=== PATIENT | male | born 1945 | race Caucasian/White ===

== ENCOUNTER → 2018-12-23 | Outpatient (CLI) | payer MEDICARE, OTHER ==
--- NOTE | 2018-12-23 14:03 | XR ---
EXAMINATION TYPE: XR skull limited DATE OF EXAM: 12/23/2018 COMPARISON: NONE HISTORY: Pre-MRI study, history of brain surgery 2014 TECHNIQUE: 2 view skull obtained. FINDINGS: There is left frontal parietal craniotomy plate. Deep to this there is small S-shaped stapl e noted on both projections. Location and etiology uncertain but should be correlated clinically with outside surgical note prior to performing MRI. IMPRESSION: As above.
== END | disposition home or self-care (01) ==
LOC: RADMRIMAIN 13:30
PROVIDERS: ATTEND Family Medicine
DX: M79.5 Residual foreign body in soft tissue (principal); Z98.890 Other specified postprocedural states
CPT/HCPCS: 70250

== ENCOUNTER → 2018-12-26 | Outpatient (CLI) | payer MEDICARE, OTHER ==
--- NOTE | 2018-12-26 16:19 | CT ---
EXAMINATION TYPE: CT lumbar spine wo con DATE OF EXAM: 12/26/2018 4:02 PM COMPARISON: MRI 01/05/2011 HISTORY: Low back pain x3 months. CT DLP: 1083.7 mGycm Automated exposure control for dose reduction was used. Unenhanced CT of the lumbar spine was performed. Bone and soft tissue window settings are submitted as well as coronal and sagittal reconstructions. There is a scoliotic curvature of the vertebral colu mn with severe degenerative disc disease L2-3 and L3-4 with vacuum disc. L1-L2: There is hypertrophic change of the facets. There is a moderate degenerative disc disease. Mil d left-sided foraminal encroachment. L2-L3: Hypertrophy of the facet joints appears to be diffuse disc bulging and uncovertebral spurring greater laterally to the right. There is mild to moderate left foraminal encroachment and severe righ t-sided foraminal encroachment. Significant canal stenosis suspected. L3-L4: Severe degenerative disc disease with hypertrophic change of the facet joints and ligamentum f lavum. There is bilateral significant foraminal encroachment and there is severe canal stenosis. Late ral recess stenosis bilaterally suspected. L4-L5: Degenerative disc disease with central disc protrusion. There is facet arthropathy and suspect ed bilateral lateral recess stenosis. Bilateral foraminal encroachment and significant canal stenosis . Significant thecal sac compression noted. L5-S1: Facet arthropathy and hypertrophic spurring. Neural foramina are patent. No Canal stenosis. Atherosclerotic change aorta. There is a chronic appearing deformity of the transverse process of L1. IMPRESSION: 1. Scoliosis with severe multilevel degenerative disc disease, multilevel facet arthropathy, multilev el foraminal encroachment and canal stenosis. There is multilevel disc bulging or protrusion. MRI is recommended. 2. Deformity of the right transverse process of L1 likely related to previous fracture. Less likely c ongenital correlate clinically.
== END | disposition home or self-care (01) ==
LOC: RADCTMAIN 15:37
PROVIDERS: ATTEND Family Medicine
DX: M48.061 Spinal stenosis, lumbar region without neurogenic claudication (principal); M51.16 Intervertebral disc disorders with radiculopathy, lumbar region; M46.96 Unspecified inflammatory spondylopathy, lumbar region; M41.86 Other forms of scoliosis, lumbar region
CPT/HCPCS: 72131

== ENCOUNTER → 2019-01-26 | Outpatient (CLI) | payer MEDICARE, OTHER ==
[2019-01-26 12:07] VITALS: BP 148/70; PULSE 60; RESP 16
--- NOTE | 2019-01-26 12:31 | P.PAINCN ---
History of Present Illness - Reason for Consult Consult date: 01/26/19 - Chief Complaint back pain - History of Present Illness Mr Juarez is a very pleasant 73-year-old gentleman who presents today as a new patient consult. His chief complaint is back pain. He reports that he has back pain shooting across his low back which comes and goes at times. He reports that the pain never persists for more than 5 or 10 minutes. He reports that recently he was putting weight to get is no sharp shooting pain down his left leg which causes leg to give out and made him fall. Was that the episode lasted a few minutes and then eventually went away. This event triggered him to see his primary care doctor ordered a computed tomography scan of his lumbar spine. He reports he stays very active and does not sit for very long throughout the day. He reports that his pain comes and goes at times but never persists so it's hard for him to quantify the pain. He denies any numbness or tingling in his lower extremities. He denies any bowel or bladder incontinence. Does have a history of memory impairment and appears to struggle with that a little bit. He does not use any medications. Does not use any [id number] medications. He has not had any back surgery. He has not been in physical therapy or sought out any insurance healthcare representative. His computed tomography scan was scanned into the system. Computed tomography scan shows significant spinal stenosis in the lumbar spine with multiple levels of degenerative changes. Past Medical History Past Medical History: Cancer, COPD, Diabetes Mellitus, GERD/Reflux, Hyperlipi demia, Hypertension, Memory Impairment, Sleep Apnea/CPAP/BIPAP Additional Past Medical History / Comment(s): C-PAP., BACK PAIN, SKIN CANCER, MEMORY PROBLEMS., HX OF LEAD POISONING WHILE WORKING AT [employer], History of Any Multi-Drug Resistant Organisms: None Reported Additional Past Surgical History / Comment(s): TORN LIGAMENT ARM., VASECTOMY, CATARACTS, FX ORBITAL SURGERY. Past Anesthesia/Blood Transfusion Reactions: No Reported Reaction, Motion Sickness Past Psychological History: No Psychological Hx Reported Smoking Status: Former smoker Past Alcohol Use History: None Reported Additional Past Alcohol Use History / Comment(s): QUIT SMOKING OCT 1969, SMOKED 1 PPD., STARTED SMOKING 7 YRS OLD AND QUIT STARTED SMOKING AGAIN 15 YRS OLD. Past Drug Use History: None Reported - Past Family History Mother Family Medical History: No Reported History Medications and Allergies Home Medications Medication Instructions Recorded Confirmed Type Ascorbic Acid [Vitamin C] 1,000 mg PO DAILY 01/22/19 01/22/19 History Atorvastatin [Lipitor] 20 mg PO HS 01/22/19 01/22/19 History Canagliflozin [Invokana] 100 mg PO DAILY 01/22/19 01/22/19 History Cholecalciferol [Vitamin D3] 6,000 unit PO DAILY 01/22/19 01/22/19 History Chromium Picolinate 500 mcg PO DAILY 01/22/19 01/22/19 History Cinnamon Bark [Cinnamon] 1,000 mg PO BID 01/22/19 01/22/19 History Empagliflozin/Metformin HCl 1 each PO DAILY 01/22/19 01/22/19 History [Synjardy 12.5-1,000 mg Tablet] Feverfew Supplement 380 mg PO DAILY 01/22/19 History Fluticasone Nasal Sod [Flonase 1 spray EA NOSTRIL DAILY 01/22/19 01/22/19 History Nasal Sod] Glucosam/Martin-Msm1/C/Juan/Bosw 1 each PO DAILY 01/22/19 01/22/19 History [Glucosamine-Chondroitin Tablet] Lisinopril [Zestril] 10 mg PO PC-SUPPER 01/22/19 01/22/19 History Loratadine/Pseudoephedrine 1 each PO DAILY 01/22/19 01/22/19 History [Loratadine-D 24Hr Tablet] Memantine HCl [Namenda Xr] 28 mg PO DAILY 01/22/19 01/22/19 History Metoprolol Succinate (ER) [Toprol 50 mg PO DAILY 01/22/19 01/22/19 History Xl] Montelukast [Singulair] 10 mg PO HS 01/22/19 01/22/19 History [place]-3 Fatty Acids/Fish Oil 1 each PO BID 01/22/19 01/22/19 History [[place]-3 Fish Oil 1,200 mg Sfgl] Omeprazole 20 mg PO BID 01/22/19 01/22/19 History Rivastigmine Tartrate [Exelon] 6 mg PO BID 01/22/19 01/22/19 History Saw Goodwell 450 mg PO DAILY 01/22/19 01/22/19 History Ubidecarenone [Co Q-10] 100 mg PO DAILY 01/22/19 01/22/19 History Vitamin B Complex 1 each PO DAILY 01/22/19 01/22/19 History Vitamin E (Dl,Tocopheryl Acet) 400 unit PO DAILY 01/22/19 01/22/19 History [Vitamin E] sitaGLIPtin [Januvia] 100 mg PO DAILY 01/22/19 01/22/19 History Allergies Allergy/AdvReac Type Severity Reaction Status Date / Time Penicillins Allergy Unknown Rash/Hives Verified 01/22/19 12:38 Physical Exam Vitals: Vital Signs Pulse Resp BP Pulse Ox 01/26/19 11:47 60 16 148/70 95 General: Awake and alert oriented 3 no distress Respiratory exam: No audible wheezing no accessory muscle usage Cardiovascular exam: regular rate, palpable bilateral pulses, no lower extremity edema Abdominal exam: No distention nontender to palpation, obese Cervical spine: Normal alignment, Spurling's negative, facet loading negative Lumbar spine: Loss of lumbar lordosis, evidence of scoliosis is noted, tender to palpation over bilateral paraspinal muscles, facet loading is negative bilaterally. Straight leg raise is negative. Sacroiliac joints: Nontender to palpation, PHAM is negative, Gaenselon negative Neuro exam: Normal sensation in bilateral upper extremities, deep tendon reflexes are 2+ bilateral upper extremities. Normal sensation in bilateral lower extremities. 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 He reports he had one episodes of sharp shooting pain down the leg. He denies any continued back pain throughout the day which limits him from any activity. He reports he stays active. At this point I do not believe that any intervention is necessary. I have advised him to trial [id number] medications if his pain gets to bother him. I also advised him to give me a call if his pain persists for longer than one day at that point he may require a lumbar epidural steroid injection or may require surgical care at some point. Patient will follow up with us as needed PQRS Measure Charge Sheet Measure #130: Documentation of Current Meds in Medical Chart: Patient's medications documented in chart Measure #226: Tobacco Use: Screen & Cessation Intervention: Pt not a tobacco user Measure #111: Pneumonia Vaccination: Pneumococcal vaccine administered or previously received Measure #47: Advance Care Plan: Advance care planning discussed & documented, plan or surrogate given Measure #412: Opioid Treatment Agreement: No documentation of signed opioid treatment agreement Measure #317: Preventitive Care & Scrn High Bld Press & F/U: Normal blood pressure, f/u not required Measure #128: Body Mass Index (BMI) Screening & Follow-up: BMI documented ABOVE normal parameters - f/u documented Measure #131: Pain Assessment & Follow-up: Pain positive & plan documented Measure #431: Unhealthy Alcohol Use Preventative Care & Scrn: Patient not identified as an unhealthy alcohol user PQRS Narrative: Smoking Status Former smoker Do You Want the Pneumonia Vaccine Up to Date Vaccine AT THIS TIME? Blood Pressure 148/70 Pain Intensity [Lower Back] 0 Scale Used Numeric (1 - 10) Hx Alcohol Use (MH) No Home Medications: Ambulatory Orders Ascorbic Acid [Vitamin C] 1,000 mg PO DAILY 01/22/19 Atorvastatin [Lipitor] 20 mg PO HS 01/22/19 Canagliflozin [Invokana] 100 mg PO DAILY 01/22/19 Cholecalciferol [Vitamin D3] 6,000 unit PO DAILY 01/22/19 Chromium Picolinate 500 mcg PO DAILY 01/22/19 Cinnamon Bark [Cinnamon] 1,000 mg PO BID 01/22/19 Empagliflozin/Metformin HCl [Synjardy 12.5-1,000 mg Tablet] 1 each PO DAILY 01/22/19 Feverfew Supplement 380 mg PO DAILY 01/22/19 Fluticasone Nasal Sod [Flonase Nasal Sod] 1 spray EA NOSTRIL DAILY 01/22/19 Glucosam/Martin-Msm1/C/Juan/Bosw [Glucosamine-Chondroitin Tablet] 1 each PO DAILY 01/22/19 Lisinopril [Zestril] 10 mg PO PC-SUPPER 01/22/19 Loratadine/Pseudoephedrine [Loratadine-D 24Hr Tablet] 1 each PO DAILY 01/22/19 Memantine HCl [Namenda Xr] 28 mg PO DAILY 01/22/19 Metoprolol Succinate (ER) [Toprol Xl] 50 mg PO DAILY 01/22/19 Montelukast [Singulair] 10 mg PO HS 01/22/19 [place]-3 Fatty Acids/Fish Oil [[place]-3 Fish Oil 1,200 mg Sfgl] 1 each PO BID Omeprazole 20 mg PO BID 01/22/19 Rivastigmine Tartrate [Exelon] 6 mg PO BID 01/22/19 Saw [place] 450 mg PO DAILY 01/22/19 Ubidecarenone [Co Q-10] 100 mg PO DAILY 01/22/19 Vitamin B Complex 1 each PO DAILY 01/22/19 Vitamin E (Dl,Tocopheryl Acet) [Vitamin E] 400 unit PO DAILY 01/22/19 sitaGLIPtin [Januvia] 100 mg PO DAILY 01/22/19
== END ==
LOC: PNWHC3 11:40
PROVIDERS: ATTEND Hospitalist
DX: M48.061 Spinal stenosis, lumbar region without neurogenic claudication (principal); M47.816 Spondylosis without myelopathy or radiculopathy, lumbar region; Z87.891 Personal history of nicotine dependence; Z79.899 Other long term (current) drug therapy; Z79.84 Long term (current) use of oral hypoglycemic drugs; Z88.0 Allergy status to penicillin
CPT/HCPCS: 99211

== ENCOUNTER 2023-11-12 06:48 | Inpatient (IN) | payer MEDICARE, OTHER ==
[2023-11-12] MEDS ORDERED: SODIUM CHLORIDE 0.9% 1,000 ML IV ONE (07:07)
[2023-11-12 07:25] LABS: INR 1.2 (<1.2); Partial Thromboplastin Time 27.7 sec (22.0-30.0); Prothrombin Time 12.5 sec (10.0-12.5)
--- NOTE | 2023-11-12 07:29 | ED ---
General Adult HPI - General Chief complaint: Fall Stated complaint: Fall Time Seen by Provider: 11/12/23 07:03 Source: patient, EMS, RN notes reviewed, old records reviewed Mode of arrival: EMS Limitations: altered mental status - History of Present Illness Initial comments: 78-year-old male presents with fall from bed. This was approximately 2 feet. Patient was placed in c-collar and transported by paramedics. He is complaining of right lateral chest wall pain, abdominal pain as well. History is limited in this patient is able to answer simple questions but is apparently not at his baseline mental status which is alert and oriented 4. - Related Data Home Medications Medication Instructions Recorded Confirmed Metoprolol Succinate (ER) [Toprol 50 mg PO BID 01/22/19 11/12/23 XL] lisinopriL [Zestril] 10 mg PO DAILY 01/22/19 11/12/23 sitaGLIPtin [Januvia] 100 mg PO DAILY 01/22/19 11/12/23 Aspirin 81 mg PO DAILY 07/09/23 11/12/23 Empagliflozin [Jardiance] 25 mg PO DAILY 07/09/23 11/12/23 Finasteride [Proscar] 5 mg PO DAILY 07/09/23 11/12/23 Memantine HCl [Namenda Xr] 21 mg PO DAILY@0800 07/09/23 11/12/23 metFORMIN HCL [Glucophage] 500 mg PO BID 07/09/23 11/12/23 Acetaminophen [Tylenol 8 Hour] 650 mg PO Q8H 11/12/23 11/12/23 Atorvastatin Calcium [Lipitor] 40 mg PO HS 11/12/23 11/12/23 Cyanocobalamin (Vitamin B-12) 1,000 mcg PO DAILY 11/12/23 11/12/23 [Vitamin B-12] Donepezil [Aricept] 5 mg PO HS 11/12/23 11/12/23 Ft Arthritis Pain 1% Gel 1 applic TOPICAL TID 11/12/23 11/12/23 Loperamide [Imodium] 2 - 4 mg PO QID PRN MDD 8 caps 11/12/23 11/12/23 Loratadine [Claritin] 10 mg PO DAILY 11/12/23 11/12/23 Pantoprazole [Protonix] 40 mg PO DAILY 11/12/23 11/12/23 polyethylene glycoL 3350 [Miralax] 17 gm PO DAILY 11/12/23 11/12/23 predniSONE 5 mg PO DAILY 11/12/23 11/12/23 Previous Rx's Medication Instructions Recorded Clopidogrel [Plavix] 75 mg PO DAILY tab 07/16/23 levETIRAcetam [Keppra] 500 mg PO Q12HR tab 07/16/23 Allergies Allergy/AdvReac Type Severity Reaction Status Date / Time Penicillins Allergy Unknown Rash/Hives Verified 11/12/23 08:50 Review of Systems ROS Statement: Those systems with pertinent positive or pertinent negative responses have been documented in the HPI. ROS Other: All systems not noted in ROS Statement are negative. Past Medical History Past Medical History: Cancer, COPD, Diabetes Mellitus, GERD/Reflux, Hyperlipidemia, Hypertension, Memory Impairment, Sleep Apnea/CPAP/BIPAP Additional Past Medical History / Comment(s): C-PAP., BACK PAIN, SKIN CANCER, MEMORY PROBLEMS., HX OF LEAD POISONING WHILE WORKING AT [employer] History of Any Multi-Drug Resistant Organisms: None Reported Additional Past Surgical History / Comment(s): TORN LIGAMENT ARM., VASECTOMY, CATARACTS, FX ORBITAL SURGERY. Past Anesthesia/Blood Transfusion Reactions: No Reported Reaction, Motion Sickness Past Psychological History: No Psychological Hx Reported Smoking Status: Former smoker Past Alcohol Use History: None Reported Past Drug Use History: None Reported - Past Family History Mother Family Medical History: No Reported History General Exam General appearance: alert, in no apparent distress Head exam: Present: atraumatic, normocephalic Eye exam: Present: normal appearance, PERRL ENT exam: Present: mucous membranes dry Neck exam: Present: normal inspection. Absent: tenderness, meningismus Respiratory exam: Present: normal lung sounds bilaterally, chest wall tenderness. Absent: respiratory distress, wheezes Cardiovascular Exam: Present: regular rate, normal rhythm GI/Abdominal exam: Present: soft, distended, tenderness (rt Upper quadrant). Absent: guarding, rebound Neurological exam: Present: alert. Absent: oriented X3, motor sensory deficit Psychiatric exam: Present: normal affect, normal mood Skin exam: Present: warm Course Vital Signs 11/12/23 11/12/23 06:51 08:33 Temperature 97.0 F L Pulse Rate 64 74 Respiratory 21 18 Rate Blood Pressure 172/93 193/84 O2 Sat by Pulse 97 95 Oximetry Medical Decision Making - Medical Decision Making Was pt. sent in by a medical professional or institution (, PA, TUBE BENDER, urgent care, hospital, or halfway...) When possible be specific @ -No Did you speak to anyone other than the patient for history (EMS, parent, family, police, friend...)? What history was obtained from this source @ -No Did you review nursing and triage notes (agree or disagree)? Why? @ -I reviewed and agree with nursing and triage notes Were old charts reviewed (outside hosp., previous admission, EMS record, old EKG, old radiological studies, urgent care reports/EKG's, halfway records)? Report findings @ -No old charts were reviewed Differential Diagnosis (chest pain, altered mental status, abdominal pain women, abdominal pain men, vaginal bleeding, weakness, fever, dyspnea, syncope, headache, dizziness, GI bleed, back pain, seizure, CVA, palpatations, mental health, musculoskeletal)? @ -Differential Abdominal Pain Men: Appendicitis, cholecystitis, diverticulosis, ischemic bowel, pancreatitis, hepatitis, UTI, gastroenteritis, AAA, incarcerated hernia, bowel obstruction, constipation, inflammatory bowel, hepatitis, peptic ulcer disease, splenic infarction, perforated viscus, testicular torsion, this is not meant to be an all-inclusive list EKG interpreted by me (3pts min.). @ Sinus rhythm rate of 62, NJ interval 176, QRS duration 93, QTC [address] segment elevation X-rays interpreted by me (1pt min.). @ -None done CT interpreted by me (1pt min.). @ -CT brain with chronic changes, no acute change, no intracranial hemorrhage, CT cervical spine negative for fracture subluxation. CT of the chest and pelvis showing an inflamed gallbladder which is consistent with acute cholecystitis. U/S interpreted by me (1pt. min.). @ -None done What testing was considered but not performed or refused? (CT, X-rays, U/S, labs)? Why? @ -None What meds were considered but not given or refused? Why? @ -None Did you discuss the management of the patient with other professionals (professionals i.e. , PA, TUBE BENDER, lab, RT, psych nurse, socially responsible investment adviser, sawdust machine operator, teacher, traffic officer, case reviewer)? Give summary @ -[gen surgery and sound physician group Was smoking cessation discussed for >3mins.? @ -No Was critical care preformed (if so, how long)? @ -No Were there social determinants of health that impacted care today? How? (Homelessness, low income, unemployed, alcoholism, drug addiction, transportation, low edu. Level, literacy, decrease access to med. care, care home, rehab)? @ -No Was there de-escalation of care discussed even if they declined (Discuss DNR or withdrawal of care, Hospice)? DNR status @ -No What co-morbidities impacted this encounter? (DM, HTN, Smoking, COPD, CAD, Cancer, CVA, ARF, Chemo, Hep., AIDS, mental health diagnosis, sleep apnea, morbid obesity)? @ Dementia, hypertension Was patient admitted / discharged? Hospital course, mention meds given and route, prescriptions, significant lab abnormalities, going to OR and other pertinent info. @ 78-year-old male with fall from bed. Patient was transported by paramedics, his vital signs stable with hypertension. Brain CT and cervical spine negative for acute traumatic injury. I did obtain CT imaging of both the chest abdomen pelvis given both the fall and his abdominal pain on exam. He has signs of acute cholecystitis and significantly elevated white blood cell count and lactic acid. White blood cell count was 33. Lactic acid is 5.8. He has normal liver enzyme levels. Cultures pending, IV antibiotics initiated in the emergency department. I did discuss case with Dr. Cui, who requests admission to internal medicine with both himself and infectious disease on consult. Undiagnosed new problem with uncertain prognosis? @ -No Drug Therapy requiring intensive monitoring for toxicity (Heparin, Nitro, Insulin, Cardizem)? @ -No Were any procedures done? @ -No Diagnosis/symptom? @ -Acute cholecystitis, sepsis Acute, or Chronic, or Acute on Chronic? @ acute Uncomplicated (without systemic symptoms) or Complicated (systemic symptoms)? @ -complicated Side effects of treatment? @ -No Exacerbation, Progression, or Severe Exacerbation? @ -No Poses a threat to life or bodily function? How? (Chest pain, USA, SC, pneumonia, PE, COPD, DKA, ARF, appy, cholecystitis, CVA, Diverticulitis, Homicidal, Suicidal, threat to staff... and all critical care pts) @ -[yes, sepsis - Lab Data Result diagrams: 01/16/24 07:08 11/12/23 07:08 Lab Results 11/12/23 11/12/23 11/12/23 Range/Units 07:08 07:08 07:08 WBC 33.7 H (3.8-10.6) k/uL RBC 5.71 (4.30-5.90) m/uL Hgb 17.9 H (13.0-17.5) gm/dL Hct 52.2 (39.0-53.0) % MCV 91.3 (80.0-100.0) fL MCH 31.2 (25.0-35.0) pg MCHC 34.2 (31.0-37.0) g/dL RDW 13.8 (11.5-15.5) % Plt Count 184 (150-450) k/uL MPV 7.2 Neutrophils % (Manual) 92 % Lymphocytes % (Manual) 4 % Monocytes % (Manual) 4 % Neutrophils # (Manual) 31.00 H (1.3-7.7) k/uL Lymphocytes # (Manual) 1.35 (1.0-4.8) k/uL Monocytes # (Manual) 1.35 H (0-1.0) k/uL Nucleated RBCs 0 (0-0) /100 WBC Manual Slide Review Performed PT 12.5 (10.0-12.5) sec INR 1.2 H (<1.2) APTT 27.7 (22.0-30.0) sec Sodium 140 (137-145) mmol/L Potassium 4.5 (3.5-5.1) mmol/L Chloride 104 (98-107) mmol/L Carbon Dioxide 21 L (22-30) mmol/L Anion Gap 15 mmol/L BUN 13 (9-20) mg/dL Creatinine 0.66 (0.66-1.25) mg/dL Est GFR (CKD-EPI)AfAm >90 (>60 ml/min/1.73 sqM) Est GFR (CKD-EPI)NonAf >90 (>60 ml/min/1.73 sqM) Glucose 221 H (74-99) mg/dL Plasma Lactic Acid Zeb (0.7-2.0) mmol/L Calcium 10.3 H (8.4-10.2) mg/dL Magnesium 1.5 L (1.6-2.3) mg/dL Total Bilirubin 1.4 H (0.2-1.3) mg/dL AST 38 (17-59) U/L ALT 45 (4-49) U/L Alkaline Phosphatase 96 (38-126) U/L Total Protein 7.6 (6.3-8.2) g/dL Albumin 4.3 (3.5-5.0) g/dL Urine Color Urine Appearance (Clear) Urine pH (5.0-8.0) Ur Specific [place] (1.001-1.035) Urine Protein (Negative) Urine Glucose (UA) (Negative) Urine Ketones (Negative) Urine Blood (Negative) Urine Nitrite (Negative) Urine Bilirubin (Negative) Urine Urobilinogen (<2.0) mg/dL Ur Leukocyte Esterase (Negative) Urine RBC (0-5) /hpf Urine WBC (0-5) /hpf Ur Squamous Epith Cells (0-4) /hpf Hyaline Casts (0-2) /lpf Urine Mucus (None) /hpf Influenza Type A (PCR) (Not Detectd) Influenza Type B (PCR) (Not Detectd) RSV (PCR) (Not Detectd) SARS-CoV-2 (PCR) (Not Detectd) 11/12/23 11/12/23 11/12/23 Range/Units 07:08 08:20 08:20 WBC (3.8-10.6) k/uL RBC (4.30-5.90) m/uL Hgb (13.0-17.5) gm/dL Hct (39.0-53.0) % MCV (80.0-100.0) fL MCH (25.0-35.0) pg MCHC (31.0-37.0) g/dL RDW (11.5-15.5) % Plt Count (150-450) k/uL MPV Neutrophils % (Manual) % Lymphocytes % (Manual) % Monocytes % (Manual) % Neutrophils # (Manual) (1.3-7.7) k/uL Lymphocytes # (Manual) (1.0-4.8) k/uL Monocytes # (Manual) (0-1.0) k/uL Nucleated RBCs (0-0) /100 WBC Manual Slide Review PT (10.0-12.5) sec INR (<1.2) APTT (22.0-30.0) sec Sodium (137-145) mmol/L Potassium (3.5-5.1) mmol/L Chloride (98-107) mmol/L Carbon Dioxide (22-30) mmol/L Anion Gap mmol/L BUN (9-20) mg/dL Creatinine (0.66-1.25) mg/dL Est GFR (CKD-EPI)AfAm (>60 ml/min/1.73 sqM) Est GFR (CKD-EPI)NonAf (>60 ml/min/1.73 sqM) Glucose (74-99) mg/dL Plasma Lactic Acid Zeb 5.8 H* (0.7-2.0) mmol/L Calcium (8.4-10.2) mg/dL Magnesium (1.6-2.3) mg/dL Total Bilirubin (0.2-1.3) mg/dL AST (17-59) U/L ALT (4-49) U/L Alkaline Phosphatase (38-126) U/L Total Protein (6.3-8.2) g/dL Albumin (3.5-5.0) g/dL Urine Color Yellow Urine Appearance Clear (Clear) Urine pH 6.0 (5.0-8.0) Ur Specific [place] 1.045 H (1.001-1.035) Urine Protein 1+ H (Negative) Urine Glucose (UA) 4+ H (Negative) Urine Ketones Trace H (Negative) Urine Blood Negative (Negative) Urine Nitrite Negative (Negative) Urine Bilirubin Negative (Negative) Urine Urobilinogen 3.0 (<2.0) mg/dL Ur Leukocyte Esterase Negative (Negative) Urine RBC 1 (0-5) /hpf Urine WBC 1 (0-5) /hpf Ur Squamous Epith Cells <1 (0-4) /hpf Hyaline Casts 1 (0-2) /lpf Urine Mucus Occasional H (None) /hpf Influenza Type A (PCR) Not Detected (Not Detectd) Influenza Type B (PCR) Not Detected (Not Detectd) RSV (PCR) Not Detected (Not Detectd) SARS-CoV-2 (PCR) Not Detected (Not Detectd) Disposition Clinical Impression: Fall, Sepsis, Acute cholecystitis Disposition: ADMITTED IP TO THIS HOSP Condition: Stable Is patient prescribed a controlled substance at d/c from ED?: No Referrals: Javid Spence MD [Primary Care Provider] - 1-2 days Time of Disposition: 09:34
[2023-11-12 07:38] LABS: ALT 45 U/L (4-49); AST 38 U/L (17-59); African American GFR (CKD) >90 (>60 ml/min/1.73 sqM); Albumin 4.3 g/dL (3.5-5.0); Alkaline Phosphatase 96 U/L (38-126); Anion Gap 15 mmol/L; Blood Urea Nitrogen 13 mg/dL (9-20); Calcium 10.3 mg/dL (8.4-10.2); Carbon Dioxide 21 mmol/L (22-30); Chloride 104 mmol/L (98-107); Glucose 221 mg/dL (74-99); Magnesium 1.5 mg/dL (1.6-2.3); Non-African American GFR(CKD) >90 (>60 ml/min/1.73 sqM); Potassium 4.5 mmol/L (3.5-5.1); Sodium 140 mmol/L (137-145); Total Bilirubin 1.4 mg/dL (0.2-1.3); Total Protein 7.6 g/dL (6.3-8.2)
[2023-11-12 07:42] LABS: HCT 52.2 % (39.0-53.0); HGB 17.9 gm/dL (13.0-17.5); MCH 31.2 pg (25.0-35.0); MCHC 34.2 g/dL (31.0-37.0); MCV 91.3 fL (80.0-100.0); Mean Platelet Volume 7.2; Platelet Count 184 k/uL (150-450); RBC 5.71 m/uL (4.30-5.90); RDW 13.8 % (11.5-15.5); WBC 33.7 k/uL (3.8-10.6)
[2023-11-12] MEDS ORDERED: SODIUM CHLORIDE 0.9% 500 ML 500 ML IV ONE (07:48)
--- NOTE | 2023-11-12 08:22 | CT ---
EXAMINATION TYPE: CT brain santiago wo con DATE OF EXAM: 11/12/2023 COMPARISON: 07/09/2023 HISTORY: 78-year-old male with pain after fall CT DLP: 1436.7 mGycm Automated exposure control for dose reduction was used. Technique: Examination of the head was done in axial plane without intravenous contrast. Coronal and sagittal reconstructions performed. CT of the cervical spine was obtained in axial plane without intravenous injection of contrast mater ial. Coronal and sagittal reformatted images were obtained from the axial views for evaluation of f ractures, spinal alignment and canal. FINDINGS: Head: Redemonstrated left-sided craniotomy flap. Underlying encephalomalacia lateral left temporal lobe. Mi ld hydrocephalus is unchanged. Severe confluent white matter hypodensities in both cerebral hemispher es also remains unchanged. There is no evidence of acute intracranial hemorrhage, acute ischemic feroz nges, mass, mass-effect, or extra-axial fluid collection. There is no effacement of cerebral sulci o r basal subarachnoid cisterns. There is no midline shift. Guerra-white matter distinction is preserved . Severe mucosal thickening and opacification throughout the paranasal sinuses. Mastoid air cells well pneumatized. Old blowout fracture floor of the right orbit. Cervical spine: The alignment of the cervical spine is normal on coronal and reformatted images. There is no cranial vertebral abnormality. Fracture of the cervical spine is not seen. Scattered mild spondylotic change. . There is no evidence of focal disk herniation. There is no central spinal canal stenosis. Sagittal and coronal reformatted images confirm above findings. COMBINED IMPRESSION: 1. Previous craniotomy flap along the left side of the skull. Underlying encephalomalacia left tempor al lobe, mild hydrocephalus, and severe burden of chronic small vessel ischemic disease are all uncha nged No acute intracranial abnormality seen. The hydrocephalus could be on an ex vacuo basis from deloris tral cerebral atrophy. Correlate to exclude a component of NPH. 2. No acute fracture or malalignment of the cervical spine. 3. Severe chronic arzimendi sinus disease. Old blowout fracture right orbital floor.
--- NOTE | 2023-11-12 08:30 | CT ---
EXAMINATION TYPE: CT ChestAbdPelvis w con DATE OF EXAM: 11/12/2023 COMPARISON: Pelvis 07/09/2023 HISTORY: 78-year-old male fall TECHNIQUE: Contiguous axial scanning of the chest, abdomen, and pelvis performed with IV Contrast, pa tient injected with 100 mL of Isovue 300. Delayed images through the kidneys and bladder were obtaine d. Coronal/sagittal reconstructions performed. CT DLP: 2514.3 mGycm Automated exposure control for dose reduction was used. FINDINGS: Chest: The heart is mildly enlarged. Small anterior pericardial fluid measuring 9 mm thick. Coronary artery calcifications are present. Upper descending thoracic aorta is ectatic at 3.2 cm. Bovine configuration to the aortic arch. No hasmukh dence for aortic dissection or mediastinal hematoma. Mildly enlarged caliber main right and left pulmonary arteries up to 2.7 cm suggesting underlying pul monary hypertension. No thoracic lymphadenopathy by CT size criteria. Dependent atelectasis in the lower lungs. Some strandy anterior mucoid debris within the trachea. Toni e mild groundglass change of the lower lungs could represent interstitial scarring or additional area s of atelectasis. No pleural effusion. ABDOMEN: Small hiatal hernia. Heterogeneous attenuation of the liver, suspected underlying fatty infiltration. Portal venous system is patent. No biliary ductal dilatation seen. Gallbladder hydropic measuring 5.0 cm wide. There seems to be some associated pericholecystic fat str anding and trace perihepatic ascites also present. Questionable mild wall thickening along the adjacent first and second portion of the duodenum, axial image 59. Adrenal glands, kidneys, spleen with hilar splenule, and atrophic pancreas shows no gross abnormal cheyanne dy. No dilated small bowel or free air. No mesenteric or retroperitoneal lymphadenopathy. Mild circumferential wall thickening at the hepatic flexure of the rectum adjacent to the gallbladder . Scattered mild stool. Sigmoid diverticulosis. No pericolonic inflammatory change. Pelvis: Bladder urine distended. Prostate gland enlargement 4.7 cm wide with central calcifications. No abnor mal fluid collection in the pelvis or pelvic lymphadenopathy. Bones: Mild degenerative change at the hips. Degenerated levoconvex scoliosis lumbar spine. Vertebral body h eights are preserved. IMPRESSION: 1. THE GALLBLADDER IS HYDROPIC AND APPEARS INFLAMED. CORRELATE FOR ACUTE CHOLECYSTITIS. 2. TRACE PERIHEPATIC ASCITES AND SOME ADJACENT WALL THICKENING OF THE HEPATIC FLEXURE OF THE COLON WELL THE ADJACENT DUODENUM LIKELY REACTIVE INFLAMMATION. 3. INCIDENTAL COLON CARDIOMEGALY AND PULMONARY ARTERIAL HYPERTENSION. SMALL HIATAL HERNIA. SIGMOID DI VERTICULOSIS AND PROSTATOMEGALY. 4. OTHERWISE, NO ACUTE TRAUMATIC SEQUELAE IDENTIFIED WITHIN THE CHEST, ABDOMEN, OR PELVIS.
[2023-11-12 08:34] LABS: Lymphocytes # (M) 1.35 k/uL (1.0-4.8); Monocytes # (M) 1.35 k/uL (0-1.0); Neutrophils % (M) 92 %; Nucleated Red Blood Cells 0 /100 WBC (0-0); Total Cells Counted 100
[2023-11-12] MEDS: SODIUM CHLORIDE 0.9% 1,000 ML IV SCH ×3 (08:41→21:49)
[2023-11-12 08:49] LABS: Appearance,Urine Clear (Clear); Bilirubin,Urine Negative (Negative); Blood,Urine Negative (Negative); Color,Urine Yellow; Glucose,Urine (UA) 4+ (Negative); Hyaline Casts,Urine 1 /lpf (0-2); Ketones,Urine Trace (Negative); Leukocyte Esterase,Urine Negative (Negative); Mucus,Urine Occasional /hpf; Nitrite,Urine Negative (Negative); Protein,Urine 1+ (Negative); RBC,Urine 1 /hpf (0-5); Specific Gravity,Urine 1.045 (1.001-1.035); Squamous Epithelial Cell,Urine <1 /hpf (0-4); WBC,Urine 1 /hpf (0-5)
[2023-11-12] MEDS ORDERED: MORPHINE SULFATE 4 MG/ML SYRINGE IV PRN (09:28)
[2023-11-12] MEDS ORDERED: ACETAMINOPHEN TAB 325 MG TAB PO PRN (09:28)
[2023-11-12] MEDS ORDERED: NALOXONE 0.4 MG/ML 1 ML VIAL IV PRN (09:28)
[2023-11-12] MEDS: MEMANTINE 5 MG TAB PO SCH ×2 (09:58→21:49)
[2023-11-12] MEDS: metroNIDAZOLE-NS PMX 500 MG in SALINE 1 100ML.BAG IVPB SCH ×2 (09:58→15:21)
[2023-11-12] MEDS: levETIRAcetam 500 MG TAB PO SCH ×2 (10:30→21:47)
[2023-11-12] MEDS: FINASTERIDE 5 MG TAB PO SCH (10:31)
[2023-11-12] MEDS: lisinopriL 10 MG TAB PO SCH (10:31)
[2023-11-12] MEDS: METOPROLOL SUCCINATE (ER) 50 MG TAB.ER.24H PO SCH ×2 (10:31→21:48)
[2023-11-12] MEDS: MAGNESIUM SULFATE-D5W PMX 1 GM in DEXTROSE/WATER 1 100ML.BAG IVPB SCH ×2 (10:36→12:25)
--- NOTE | 2023-11-12 12:36 | P.HPIM ---
History of Present Illness H&P Date: 11/12/23 History of Presenting Illness: Patient is a very pleasant 78-year-old male who resides at [facility]. 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 In addition patient has history of hypertension, hyperlipidemia, [id number] diabetes mellitus, GERD, nonmalignant meningioma status post craniotomy with removal/dissection of tumor, and obstructive sleep apnea CPAP dependent. He presented to the emergency d [facility] via EMS from assisted living facility after reported unwitnessed fall from bed. He underwent full evaluation upon arrival to our facility. Vital signs upon arrival show blood pressure 172/93, heart rate 64, respiratory rate 21, temp 97.0F, and SpO2 of 97% on room air. EKG was completed showing sinus mechanism at 62 bpm with no significant T-wave or ST abnormalities showing no signs of acute ischemia. CT head and cervical spine was completed. CT head was negative for acute intracranial process showing reports of previous craniotomy flap along the left side of the skull with underlying encephalomalacia of left temporal lobe, mild hydrocephalus, and severe burden of chronic small vessel ischemic disease on reported to be unchanged per radiologist when compared to previous CT completed 07/09/23. CT cervical spine negative for acute fracture or malalignment of the cervical spine. CT face did reveal severe chronic sinus disease with reports of an old blowout fracture of right orbital floor, but negative for acute findings. CT chest, abdomen, and pelvis showing hydropic gall bladder appears to be inflamed consistent with acute cholecystitis, trace perihepatic ascites with adjacent wall thickening of the hepatic flexure of the colon as well as the adjacent duodenum believed to be reactive inflammation, incidental findings of cardiomegaly and pulmonary arterial hypertension with small hiatal hernia, sigmoid diverticulosis, and prostatomegaly. Labs were completed and reviewed. CBC showing severe leukocytosis with WBC count of 33.7. Coagulation profile showing elevated INR 1.2. BMP showing high anion gap metabolic acidosis with chloride of 104, bicarb 21, and anion gap of 15. Urinalysis negative for infection. Influenza A, and influenza B, RSV, and Covid PCR negative.. Initial lactate 5.8. Patient given sepsis bolus and blood cultures were obtained. Patient started on IV antibiotics Rocephin and Flagyl. Patient admitted under our services with consultation to general surgery and infectious disease. Patient seen and fully evaluated at bedside. Patient reports pain right upper quadrant. Patient stuttering with mild slurred speech and some word finding difficulties. He was alert and oriented and answering questions appropriately just some delayed responses. Called and discussed with patient's daughter/power of main entree cook and cashier and was informed that patient has overall been feeling unwell for the last week and had multiple episodes of vomiting yesterday. She reports she discussed this with assisted living facility staff and requested evaluation by E physician at that time. She reports she is unaware if the patient was evaluated by a doctor yet but was informed by [facility] facility that patient was sent to the emergency department after finding him on the floor status post unwitnessed fall from bed. Patient currently denies headache, lightheadedness, dizziness, chest pain, shortness of breath, nausea, or any other complaints at this time. Review of systems: Pertinent positives and negatives as discussed in HPI, a complete review of systems was performed and all other systems are negative. Physical exam: Vital signs reviewed and stable. General: Nontoxic, no distress and appears stated age. Derm: Skin warm and dry, normal coloration for ethnicity. Head: Atraumatic, normocephalic and symmetric. Eyes: EOMs intact, no lid lag, and anicteric sclera Mouth: no lip lesions, mucus membranes moist Cardiovascular: regular rate and rhythm with normal S1S2, systolic murmur, positive posterior tibial pulses bilaterally, and cap refill < 2 seconds. Lungs: Respirations even, regular, and unlabored on room air. Lungs CTA bilaterally, no rhonchi, no rales, no wheezing, and no accessory muscle usage. Abdominal: Tenderness to palpation right upper quadrant, no guarding, no appreciable organomegaly Ext: No gross muscle atrophy, no edema, no contractures. Movement intact. Left lower extremity appears to be weaker than right lower extremity and per telephone conversation with granddaughter this is baseline since recent CVAs. Neuro: Speech somewhat slurred with word finding difficulties and slow to respond (per daughter/DPOAE this is patient's baseline since recent strokes) Psych: Alert and oriented, pleasant and cooperative Assessment and Plan of Care: Severe sepsis, secondary to acute cholecystitis Severe leukocytosis secondary to above Lactic acidosis High anion gap metabolic acidosis likely secondary to above Patient received sepsis bolus and is being maintained on aggressive IV fluid hydration with 0.9% normal saline at 130 mL per hour, repeat lactate acid to monitor for resolution Continue IV antibiotics with Rocephin 2 g daily and Flagyl 500 mg every 8 hours. Patient to remain on continuous telemetry monitoring. General surgery consulted for acute cholecystitis, discussed plan of care was general surgery PA tentative plans for laparoscopic cholecystectomy tomorrow with Dr. Cui. Infectious disease consulted, appreciate recommendations NPO until cleared by general surgery team to advance diet. Continue close monitoring with repeat lactic acid, CBC, and CMP History of PFO -Cardiology consulted, appreciate recommendations. -At this time hold aspirin and Plavix as requested by general surgery team pending evaluation by hand slitter. -Recommend resumption of Plavix and aspirin once cleared by general surgery team to resume. Hypomagnesemia Magnesium 1.5. Orders placed for magnesium sulfate 2 g IVPB. Repeat magnesium levels to be drawn with a.m. labs to monitor for resolution. History of Nonmalignant meningioma status post craniotomy with removal/dissection of tumor Encephalomalacia with mild hydrocephalus of left temporal lobe History of Seizure activity Mild memory impairment Patient to continue Keppra 500 mg twice daily, Aricept 5 mg nightly and Namenda 7.5 mg twice daily. Seizure precautions to remain in place. [id number] diabetes mellitus with hyperglycemia Hold Jardiance, Januvia and metformin in place patient on glycemic protocol with NovoLog sliding scale to maintain tight glycemic control throughout hos pitalization. Hypertension Patient to continue daily medication regimen with lisinopril 10 mg daily and metoprolol 50 mg twice daily. Hyperlipidemia Patient to continue atorvastatin 40 mg nightly. Data and imaging reviewed: As stated above in HPI CODE STATUS: Full code DVT prophylaxis: Heparin Anticipated discharge date: Clinical course to determine Anticipated discharge place: Clinical course to determine Patient was seen independently by Nurse Pracitioner. This document was prepared using [employer] dictation software. Please allow for errors in package dyer, while rare they do occur. Carmine Tyson NP rendered care for this patient independently, reviewed the findings and plan as documented in the note above. I did not physically speak with or examine the patient on this date. Past Medical History Past Medical History: Cancer, COPD, Diabetes Mellitus, GERD/Reflux, Hyperli pidemia, Hypertension, Memory Impairment, Sleep Apnea/CPAP/BIPAP Additional Past Medical History / Comment(s): C-PAP., BACK PAIN, SKIN CANCER, MEMORY PROBLEMS., HX OF LEAD POISONING WHILE WORKING AT [employer]., History of Any Multi-Drug Resistant Organisms: None Reported Additional Past Surgical History / Comment(s): TORN LIGAMENT ARM., VASECTOMY, CATARACTS, FX ORBITAL SURGERY. Past Anesthesia/Blood Transfusion Reactions: No Reported Reaction, Motion Sickness Past Psychological History: No Psychological Hx Reported Smoking Status: Former smoker Past Alcohol Use History: None Reported Past Drug Use History: None Reported - Past Family History Mother Family Medical History: No Reported History Medications and Allergies Home Medications Medication Instructions Recorded Confirmed Type Metoprolol Succinate (ER) [Toprol 50 mg PO BID 01/22/19 11/12/23 History XL] lisinopriL [Zestril] 10 mg PO DAILY 01/22/19 11/12/23 History sitaGLIPtin [Januvia] 100 mg PO DAILY 01/22/19 11/12/23 History Aspirin 81 mg PO DAILY 07/09/23 11/12/23 History Empagliflozin [Jardiance] 25 mg PO DAILY 07/09/23 11/12/23 History Finasteride [Proscar] 5 mg PO DAILY 07/09/23 11/12/23 History Memantine HCl [Namenda Xr] 21 mg PO DAILY@0800 07/09/23 11/12/23 History metFORMIN HCL [Glucophage] 500 mg PO BID 07/09/23 11/12/23 History Clopidogrel [Plavix] 75 mg PO DAILY tab 07/16/23 11/12/23 Rx levETIRAcetam [Keppra] 500 mg PO Q12HR tab 07/16/23 11/12/23 Rx Acetaminophen [Tylenol 8 Hour] 650 mg PO Q8H 11/12/23 11/12/23 History Atorvastatin Calcium [Lipitor] 40 mg PO HS 11/12/23 11/12/23 History Cyanocobalamin (Vitamin B-12) 1,000 mcg PO DAILY 11/12/23 11/12/23 History [Vitamin B-12] Donepezil [Aricept] 5 mg PO HS 11/12/23 11/12/23 History Ft Arthritis Pain 1% Gel 1 applic TOPICAL TID 11/12/23 11/12/23 History Loperamide [Imodium] 2 - 4 mg PO QID PRN MDD 8 caps 11/12/23 11/12/23 History Loratadine [Claritin] 10 mg PO DAILY 11/12/23 11/12/23 History Pantoprazole [Protonix] 40 mg PO DAILY 11/12/23 11/12/23 History polyethylene glycoL 3350 [Miralax] 17 gm PO DAILY 11/12/23 11/12/23 History predniSONE 5 mg PO DAILY 11/12/23 11/12/23 History Allergies Allergy/AdvReac Type Severity Reaction Status Date / Time Penicillins Allergy Unknown Rash/Hives Verified 11/12/23 08:50 Physical Exam Vitals: Vital Signs Temp Pulse Resp BP Pulse Ox 11/12/23 09:51 97.1 F L 81 18 185/92 97 11/12/23 08:33 74 18 193/84 95 11/12/23 06:51 97.0 F L 64 21 172/93 97 Intake and Output 11/11/23 11/12/23 11/12/23 22:59 06:59 14:59 Other: Weight 68.039 kg Results CBC & Chem 7: 11/12/23 07:08 11/12/23 07:08 Labs: Abnormal Lab Results - Last 24 Hours (Table) 11/12/23 11/12/23 11/12/23 Range/Units 07:08 07:08 07:08 WBC 33.7 H (3.8-10.6) k/uL Hgb 17.9 H (13.0-17.5) gm/dL Neutrophils # (Manual) 31.00 H (1.3-7.7) k/uL Monocytes # (Manual) 1.35 H (0-1.0) k/uL INR 1.2 H (<1.2) Carbon Dioxide 21 L (22-30) mmol/L Glucose 221 H (74-99) mg/dL Plasma Lactic Acid Zeb (0.7-2.0) mmol/L Calcium 10.3 H (8.4-10.2) mg/dL Magnesium 1.5 L (1.6-2.3) mg/dL Total Bilirubin 1.4 H (0.2-1.3) mg/dL Ur Specific Fabens (1.001-1.035) Urine Protein (Negative) Urine Glucose (UA) (Negative) Urine Ketones (Negative) Urine Mucus (None) /hpf 11/12/23 11/12/23 11/12/23 Range/Units 07:08 08:20 10:10 WBC (3.8-10.6) k/uL Hgb (13.0-17.5) gm/dL Neutrophils # (Manual) (1.3-7.7) k/uL Monocytes # (Manual) (0-1.0) k/uL INR (<1.2) Carbon Dioxide (22-30) mmol/L Glucose (74-99) mg/dL Plasma Lactic Acid Zeb 5.8 H* 2.9 H* (0.7-2.0) mmol/L Calcium (8.4-10.2) mg/dL Magnesium (1.6-2.3) mg/dL Total Bilirubin (0.2-1.3) mg/dL Ur Specific Fabens 1.045 H (1.001-1.035) Urine Protein 1+ H (Negative) Urine Glucose (UA) 4+ H (Negative) Urine Ketones Trace H (Negative) Urine Mucus Occasional H (None) /hpf
--- NOTE | 2023-11-12 13:39 | P.GSCN ---
History of Present Illness Consult date: 11/12/23 History of present illness: CHIEF COMPLAINT: Fall HISTORY OF PRESENT ILLNESS: This is a 78-year-old male who had a 2 foot fall from his bed. And brought into the ER by paramedics. Patient is a poor historian. Able to answer some questions but is confused. He denies any nausea or vomiting but does report right upper quadrant abdominal pain. And had been reporting right-sided chest pain in the ER. He had a computed tomography scan of the chest abdomen and pelvis that had revealed gallbladder as hydropic and appears inflamed. Correlate for acute cholecystitis. Patient does report that he has had the abdominal pain for a while. Per medicine service daughter had reported that her father was vomiting yesterday. Surgical service consulted for cholecystitis evaluation. Patient did have elevated white count of 33.7 on admission and elevated lactic acid level. Patient does take Plavix and last dose was yesterday. 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 MEDICATIONS: See below ALLERGIES: See below SOCIAL HISTORY: No illicit drug use. REVIEW OF SYSTEMS: CONSTITUTIONAL: Denies fever or chills. HEENT: Denies blurred vision, vision changes, or eye pain. Denies hemoptysis CARDIOVASCULAR: Denies chest pain or pressure. RESPIRATORY: No shortness of breath. GASTROINTESTINAL: See HPI for pertinent findings HEMATOLOGIC: Denies bleeding disorders. GENITOURINARY: Denies any blood in urine or increased urinary frequency. SKIN: Denies pruitis. Denies rash. PHYSICAL EXAM: VITAL SIGNS: Reviewed GENERAL: Well-developed in no acute distress. HEENT: No sclera icterus. Extraocular movements grossly intact. Moist buccal mucosa. Head is atraumatic, normocephalic. No nasal drainage. ABDOMEN: Soft. Nondistended. tenderness RUQ with palpation NEUROLOGIC: awake and alert. pleasantly confused LABORATORY DATA: WBC33.7 HGB 17.9 plt 184 Na 140 K 4.5 Cr 0.66 Lactic acid 5.8 down to 2.9 Total bilirubin 1.4 AST 30 ALT 42 alk phos 96 Magnesium 1.5 Influenza, RSV and Covid not detected IMAGING: Computed tomography scan chest abdomen pelvis gallbladder is hydropic and appears inflamed. Correlate for acute cholecystitis. Trace perihepatic ascites and some adjacent wall thickening of the hepatic flexure of the colon as well as adjacent duodenum likely reactive inflammation. Small hernia. Sigmoid diverticulosis and prostamegaly. Otherwise no acute traumatic sequelae identified within the chest abdomen and pelvis. ASSESSMENT: 1. Right upper quadrant abdominal pain 2. Acute cholecystitis. Computed tomography scan reports gallbladder is hydropic and appears inflamed 3. Fall 4. History of PFO with 2 CVAs within the last 6 months PLAN: -Patient scheduled for laparoscopic cholecystectomy tomorrow with Dr. Cui -Nothing by mouth after midnight -Clear liquid diet today -Continue antibiotics -Continue supportive care -Hold Plavix -Consult cardiology for cardiac risk assessment Thank you for this consultation Physician Motor Transport Inspector note has been reviewed by physician. Signing provider agrees with the documented findings, assessment, and plan of care. 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 Past Anesthesia/Blood Transfusion Reactions: No Reported Reaction, Motion Sickness Past Psychological History: No Psychological Hx Reported Smoking Status: Former smoker Past Alcohol Use History: None Reported Past Drug Use History: None Reported - Past Family History Mother Family Medical History: No Reported History Medications and Allergies Home Medications Medication Instructions Recorded Confirmed Type Metoprolol Succinate (ER) [Toprol 50 mg PO BID 01/22/19 11/12/23 History XL] lisinopriL [Zestril] 10 mg PO DAILY 01/22/19 11/12/23 History sitaGLIPtin [Januvia] 100 mg PO DAILY 01/22/19 11/12/23 History Aspirin 81 mg PO DAILY 07/09/23 11/12/23 History Empagliflozin [Jardiance] 25 mg PO DAILY 07/09/23 11/12/23 History Finasteride [Proscar] 5 mg PO DAILY 07/09/23 11/12/23 History Memantine HCl [Namenda Xr] 21 mg PO DAILY@0800 07/09/23 11/12/23 History metFORMIN HCL [Glucophage] 500 mg PO BID 07/09/23 11/12/23 History Clopidogrel [Plavix] 75 mg PO DAILY tab 07/16/23 11/12/23 Rx levETIRAcetam [Keppra] 500 mg PO Q12HR tab 07/16/23 11/12/23 Rx Acetaminophen [Tylenol 8 Hour] 650 mg PO Q8H 11/12/23 11/12/23 History Atorvastatin Calcium [Lipitor] 40 mg PO HS 11/12/23 11/12/23 History Cyanocobalamin (Vitamin B-12) 1,000 mcg PO DAILY 11/12/23 11/12/23 History [Vitamin B-12] Donepezil [Aricept] 5 mg PO HS 11/12/23 11/12/23 History Ft Arthritis Pain 1% Gel 1 applic TOPICAL TID 11/12/23 11/12/23 History Loperamide [Imodium] 2 - 4 mg PO QID PRN MDD 8 caps 11/12/23 11/12/23 History Loratadine [Claritin] 10 mg PO DAILY 11/12/23 11/12/23 History Pantoprazole [Protonix] 40 mg PO DAILY 11/12/23 11/12/23 History polyethylene glycoL 3350 [Miralax] 17 gm PO DAILY 11/12/23 11/12/23 History predniSONE 5 mg PO DAILY 11/12/23 11/12/23 History Allergies Allergy/AdvReac Type Severity Reaction Status Date / Time Penicillins Allergy Unknown Rash/Hives Verified 11/12/23 08:50 Surgical - Exam Vital Signs Temp Pulse Resp BP Pulse Ox 97.0 F L 64 21 172/93 97 11/12/23 06:51 11/12/23 06:51 11/12/23 06:51 11/12/23 06:51 11/12/23 06:51 Results - Labs 11/12/23 07:08 11/12/23 07:08 Abnormal Lab Results - Last 24 Hours (Table) 11/12/23 11/12/23 11/12/23 Range/Units 07:08 07:08 07:08 WBC 33.7 H (3.8-10.6) k/uL Hgb 17.9 H (13.0-17.5) gm/dL Neutrophils # (Manual) 31.00 H (1.3-7.7) k/uL Monocytes # (Manual) 1.35 H (0-1.0) k/uL INR 1.2 H (<1.2) Carbon Dioxide 21 L (22-30) mmol/L Glucose 221 H (74-99) mg/dL Plasma Lactic Acid Zeb (0.7-2.0) mmol/L Calcium 10.3 H (8.4-10.2) mg/dL Magnesium 1.5 L (1.6-2.3) mg/dL Total Bilirubin 1.4 H (0.2-1.3) mg/dL Ur Specific [place] (1.001-1.035) Urine Protein (Negative) Urine Glucose (UA) (Negative) Urine Ketones (Negative) Urine Mucus (None) /hpf 11/12/23 11/12/23 11/12/23 Range/Units 07:08 08:20 10:10 WBC (3.8-10.6) k/uL Hgb (13.0-17.5) gm/dL Neutrophils # (Manual) (1.3-7.7) k/uL Monocytes # (Manual) (0-1.0) k/uL INR (<1.2) Carbon Dioxide (22-30) mmol/L Glucose (74-99) mg/dL Plasma Lactic Acid Zeb 5.8 H* 2.9 H* (0.7-2.0) mmol/L Calcium (8.4-10.2) mg/dL Magnesium (1.6-2.3) mg/dL Total Bilirubin (0.2-1.3) mg/dL Ur Specific [place] 1.045 H (1.001-1.035) Urine Protein 1+ H (Negative) Urine Glucose (UA) 4+ H (Negative) Urine Ketones Trace H (Negative) Urine Mucus Occasional H (None) /hpf Diabetes panel 11/12/23 Range/Units 07:08 Sodium 140 (137-145) mmol/L Potassium 4.5 (3.5-5.1) mmol/L Chloride 104 (98-107) mmol/L Carbon Dioxide 21 L (22-30) mmol/L BUN 13 (9-20) mg/dL Creatinine 0.66 (0.66-1.25) mg/dL Glucose 221 H (74-99) mg/dL Calcium 10.3 H (8.4-10.2) mg/dL AST 38 (17-59) U/L ALT 45 (4-49) U/L Alkaline Phosphatase 96 (38-126) U/L Total Protein 7.6 (6.3-8.2) g/dL Albumin 4.3 (3.5-5.0) g/dL Calcium panel 11/12/23 Range/Units 07:08 Calcium 10.3 H (8.4-10.2) mg/dL Albumin 4.3 (3.5-5.0) g/dL Pituitary panel 11/12/23 Range/Units 07:08 Sodium 140 (137-145) mmol/L Potassium 4.5 (3.5-5.1) mmol/L Chloride 104 (98-107) mmol/L Carbon Dioxide 21 L (22-30) mmol/L BUN 13 (9-20) mg/dL Creatinine 0.66 (0.66-1.25) mg/dL Glucose 221 H (74-99) mg/dL Calcium 10.3 H (8.4-10.2) mg/dL Adrenal panel 11/12/23 Range/Units 07:08 Sodium 140 (137-145) mmol/L Potassium 4.5 (3.5-5.1) mmol/L Chloride 104 (98-107) mmol/L Carbon Dioxide 21 L (22-30) mmol/L BUN 13 (9-20) mg/dL Creatinine 0.66 (0.66-1.25) mg/dL Glucose 221 H (74-99) mg/dL Calcium 10.3 H (8.4-10.2) mg/dL Total Bilirubin 1.4 H (0.2-1.3) mg/dL AST 38 (17-59) U/L ALT 45 (4-49) U/L Alkaline Phosphatase 96 (38-126) U/L Total Protein 7.6 (6.3-8.2) g/dL Albumin 4.3 (3.5-5.0) g/dL
[2023-11-12] MEDS ORDERED: DEXTROSE 50% SYRINGE 50 ML IVP PRN ×2 (17:10)
[2023-11-12] MEDS ORDERED: ONDANSETRON 4 MG/2 ML VIAL IVP PRN (17:21)
[2023-11-12] MEDS: INSULIN ASPART (NovoLOG) 100 UNIT/ML VIAL SQ SCH (19:32)
[2023-11-12] MEDS ORDERED: DONEPEZIL 5 MG TAB PO SCH (21:00)
[2023-11-12] MEDS ORDERED: ATORVASTATIN 40 MG TAB PO SCH (21:00)
--- NOTE | 2023-11-12 22:33 | P.CONS ---
History of Present Illness - Reason for Consult Consult date: 11/12/23 - History of Present Illness Patient is a 78-year-old male with a past medical history significant for diabetes mellitus hypertension hyperlipidemia memory impairment COPD patient was brought into the hospital after apparently patient fell from his bed approximately 2 feet patient was placed in a c-collar and was brought into the hospital for further evaluation patient apparently was complaining of some right abdominal pain that has been going on for the last few days without any radiation moderate intensity some nausea but no vomiting with the symptoms the patient has been evaluated on presentation to the hospital patient was afebrile he was not tachycardic hypotensive or hypoxic patient did have elevated lactic acid white count was 33.7 with a left shift creatinine was normal enzymes are normal urine has been negative influenza RSV COVID testing was negative patient did have a CT of the chest abdominal pelvis with concern for possible acute cholecystitis perihepatic ascites cardiomegaly pulmonary hypertension patient was started on Rocephin and Flagyl, admitted to the hospital infectious disease was consulted for further management of antibiotic therapy Past Medical History Past Medical History: Cancer, COPD, Diabetes Mellitus, GERD/Reflux, Hyperlipid emia, Hypertension, Memory Impairment, Sleep Apnea/CPAP/BIPAP Additional Past Medical History / Comment(s): C-PAP., BACK PAIN, SKIN CANCER, MEMORY PROBLEMS., HX OF LEAD POISONING WHILE WORKING AT [employer] History of Any Multi-Drug Resistant Organisms: None Reported Additional Past Surgical History / Comment(s): TORN LIGAMENT ARM., VASECTOMY, CATARACTS, FX ORBITAL SURGERY. Past Anesthesia/Blood Transfusion Reactions: No Reported Reaction, Motion Sickness Past Psychological History: No Psychological Hx Reported Smoking Status: Former smoker Past Alcohol Use History: None Reported Past Drug Use History: None Reported - Past Family History Mother Family Medical History: No Reported History Medications and Allergies Home Medications Medication Instructions Recorded Confirmed Type Metoprolol Succinate (ER) [Toprol 50 mg PO BID 01/22/19 11/12/23 History XL] lisinopriL [Zestril] 10 mg PO DAILY 01/22/19 11/12/23 History sitaGLIPtin [Januvia] 100 mg PO DAILY 01/22/19 11/12/23 History Aspirin 81 mg PO DAILY 07/09/23 11/12/23 History Empagliflozin [Jardiance] 25 mg PO DAILY 07/09/23 11/12/23 History Finasteride [Proscar] 5 mg PO DAILY 07/09/23 11/12/23 History Memantine HCl [Namenda Xr] 21 mg PO DAILY@0800 07/09/23 11/12/23 History metFORMIN HCL [Glucophage] 500 mg PO BID 07/09/23 11/12/23 History Clopidogrel [Plavix] 75 mg PO DAILY tab 07/16/23 11/12/23 Rx levETIRAcetam [Keppra] 500 mg PO Q12HR tab 07/16/23 11/12/23 Rx Acetaminophen [Tylenol 8 Hour] 650 mg PO Q8H 11/12/23 11/12/23 History Atorvastatin Calcium [Lipitor] 40 mg PO HS 11/12/23 11/12/23 History Cyanocobalamin (Vitamin B-12) 1,000 mcg PO DAILY 11/12/23 11/12/23 History [Vitamin B-12] Donepezil [Aricept] 5 mg PO HS 11/12/23 11/12/23 History Ft Arthritis Pain 1% Gel 1 applic TOPICAL TID 11/12/23 11/12/23 History Loperamide [Imodium] 2 - 4 mg PO QID PRN MDD 8 caps 11/12/23 11/12/23 History Loratadine [Claritin] 10 mg PO DAILY 11/12/23 11/12/23 History Pantoprazole [Protonix] 40 mg PO DAILY 11/12/23 11/12/23 History polyethylene glycoL 3350 [Miralax] 17 gm PO DAILY 11/12/23 11/12/23 History predniSONE 5 mg PO DAILY 11/12/23 11/12/23 History Allergies Allergy/AdvReac Type Severity Reaction Status Date / Time Penicillins Allergy Unknown Rash/Hives Verified 11/12/23 08:50 Physical Exam Vitals: Vital Signs Temp Pulse Resp BP Pulse Ox 11/12/23 09:51 97.1 F L 81 18 185/92 97 11/12/23 08:33 74 18 193/84 95 11/12/23 06:51 97.0 F L 64 21 172/93 97 Intake and Output 11/11/23 11/12/23 11/12/23 22:59 06:59 14:59 Other: Weight 68.039 kg Results CBC & Chem 7: 11/13/23 08:00 11/13/23 08:00 Labs: Abnormal Lab Results - Last 24 Hours (Table) 11/12/23 11/12/23 11/12/23 Range/Units 07:08 07:08 07:08 WBC 33.7 H (3.8-10.6) k/uL Hgb 17.9 H (13.0-17.5) gm/dL Neutrophils # (Manual) 31.00 H (1.3-7.7) k/uL Monocytes # (Manual) 1.35 H (0-1.0) k/uL INR 1.2 H (<1.2) Carbon Dioxide 21 L (22-30) mmol/L Glucose 221 H (74-99) mg/dL Plasma Lactic Acid Zeb (0.7-2.0) mmol/L Calcium 10.3 H (8.4-10.2) mg/dL Magnesium 1.5 L (1.6-2.3) mg/dL Total Bilirubin 1.4 H (0.2-1.3) mg/dL Ur Specific [place] (1.001-1.035) Urine Protein (Negative) Urine Glucose (UA) (Negative) Urine Ketones (Negative) Urine Mucus (None) /hpf 11/12/23 11/12/23 Range/Units 07:08 08:20 WBC (3.8-10.6) k/uL Hgb (13.0-17.5) gm/dL Neutrophils # (Manual) (1.3-7.7) k/uL Monocytes # (Manual) (0-1.0) k/uL INR (<1.2) Carbon Dioxide (22-30) mmol/L Glucose (74-99) mg/dL Plasma Lactic Acid Zeb 5.8 H* (0.7-2.0) mmol/L Calcium (8.4-10.2) mg/dL Magnesium (1.6-2.3) mg/dL Total Bilirubin (0.2-1.3) mg/dL Ur Specific [place] 1.045 H (1.001-1.035) Urine Protein 1+ H (Negative) Urine Glucose (UA) 4+ H (Negative) Urine Ketones Trace H (Negative) Urine Mucus Occasional H (None) /hpf Assessment and Plan Plan: 1patient presented to hospital with a fall and this patient noticed to have a significant elevated white count but no fever however he did have abnormal CT of abdominal pelvis suspicious for cholecystitis and the patient was complaining of pain to the right upper quadrant area and did have mild tenderness will need to cover for the enteric gram-negative mostly anaerobes and less likely anaero bes 2-penicillin allergy that will limit the number of antibiotics safe to use 3-we will continue patient on Rocephin and Flagyl while waiting for the workup to be completed We will follow on clinical condition and cultures to further adjust medication if needed Thank you for this consultation we will follow the patient along with you Dictation was produced using [employer] dictation software. please excuse any grammatical, word or spelling errors. Time with Patient: Greater than 30
[2023-11-13] MEDS: HEPARIN SODIUM,PORCINE 5,000 UNIT/ML 1 ML VIAL SQ SCH ×3 (00:04→15:59)
[2023-11-13] MEDS: metroNIDAZOLE-NS PMX 500 MG in SALINE 1 100ML.BAG IVPB SCH ×3 (00:05→16:30)
[2023-11-13 00:13] LABS: Glucose,Whole Blood 161 mg/dL (70-110)
[2023-11-13] MEDS: INSULIN ASPART (NovoLOG) 100 UNIT/ML VIAL SQ SCH ×3 (00:33→12:12)
[2023-11-13 03:29] VITALS: RESP 16
[2023-11-13 05:48] LABS: Glucose,Whole Blood 138 mg/dL (70-110)
[2023-11-13] MEDS: SODIUM CHLORIDE 0.9% 1,000 ML IV SCH ×2 (06:00→09:40)
[2023-11-13] MEDS ORDERED: PANTOPRAZOLE 40 MG/10 ML VIAL IVP SCH (09:00)
[2023-11-13 09:19] LABS: HCT 44.6 % (39.0-53.0); HGB 15.3 gm/dL (13.0-17.5); MCH 31.5 pg (25.0-35.0); MCHC 34.3 g/dL (31.0-37.0); MCV 91.7 fL (80.0-100.0); Mean Platelet Volume 8.1; Platelet Count 184 k/uL (150-450); RBC 4.86 m/uL (4.30-5.90); WBC 25.5 k/uL (3.8-10.6)
[2023-11-13] MEDS: levETIRAcetam 500 MG TAB PO SCH (09:19)
[2023-11-13] MEDS: MEMANTINE 5 MG TAB PO SCH (09:19)
[2023-11-13] MEDS: lisinopriL 10 MG TAB PO SCH (09:20)
[2023-11-13] MEDS: METOPROLOL SUCCINATE (ER) 50 MG TAB.ER.24H PO SCH (09:20)
[2023-11-13] MEDS: FINASTERIDE 5 MG TAB PO SCH (09:20)
--- NOTE | 2023-11-13 09:33 | P.CRDCN ---
History of Present Illness Consult date: 11/13/23 Reason for Consult (text): Cardiac risk assessment History of present illness: History of present illness: This is a 78-year-old male patient of Dr. Plata history of embolic CVA, lupus anticoagulant antibodies, PFO small [id number] shunting, left anterior fascicular block, type 2 diabetes, dyslipidemia, obstructive sleep apnea, aneurysm of the heart. We have been asked to evaluate the patient for cardiac risk assessment. Patient is tentatively scheduled for lap cholecystectomy today. He has been nothing by mouth. Patient presented to the emergency center due to a fall from bed approximately 2 feet and had complaints of right lateral chest wall pain, abdominal pain. Aspirin and Plavix have been placed on hold in anticipation for surgery. Magnesium has been replaced. EKG sinus rhythm, telemetry sinus rhythm CAT scan of the brain and cervical spine reveals previous craniotomy flap left side of the skull underlying encephalomalacia left temporal lobe, mild hydrocephalus and severe burden of chronic small vessel ischemic disease unchanged. No acute intracranial abnormality. No acute fracture or malalignment of the cervical spine. CAT scan of the chest abdomen pelvis with contrast revealed gallbladder is hypertrophic appears inflamed correlate for acute cholecystitis. Trace perihepatic ascites and some adjacent wall thickening of the hepatic flexure of the colon as well as adjacent duodenum likely reactive inflammation. Colon megaly and pulmonary artery hypertension, small hiatal hernia, sigmoid diverticulosis, prostatomegaly. Initial WBC 33 point 7 repeat 25.5. Hemoglobin 15.3. INR 1.2. Potassium 4.5, BUN 13 creatinine 0.66. Blood sugar 221. Magnesium 1.5. Total bilirubin 1.4 otherwise liver function test are normal. Influenza A, influenza B, RSV, COVID- 19 not detected. Home cardiac medications: Aspirin 81 mg daily, atorvastatin 40 mg daily, Plavix 75 mg daily, lisinopril 10 mg daily, Toprol-XL 50 mg twice daily, Jardiance 25 mg daily. Echocardiogram performed 07/12/2023 revealed EF of 60-65%, mild LVH, moderate RV dilation, while to moderate TR, RVSP 53 mmHg. ROBERTO performed 07/15/2023 revealed small PFO with [id number] shunting Event monitor June 2023 revealed sinus rhythm, no atrial fibrillation, no significant pauses or greater than 2 seconds. Patient did have nonsustained v entricular tachycardia of 3 beats. Review Of Systems: At the time of my exam: CONSTITUTIONAL: Denies fever or chills. CARDIOVASCULAR: Denies chest pain, Denies shortness of breath, no orthopnea, PND or palpitations. RESPIRATORY: Denies cough. GASTROINTESTINAL: Denies abdominal pain, diarrhea, constipation, nausea or vomiting. MUSCULOSKELETAL: Denies myalgias. NEUROLOGIC: Denies numbness, tingling or weakness. ENDOCRINE: Denies fatigue, weight change, polydipsia or polyurina. GENITOURINARY: Denies burning, hematuria or urgency with micturation. HEMATOLOGIC: Denies history of anemia or bleeding. Physical examination: Gen: This is a 78-year-old male resting in bed in no acute distress. VS: reviewed HEENT: Head is atraumatic, normocephalic. Pupils equal, round. Sclerae is anicteric. NECK: Supple. No JVD. LUNGS: Clear to auscultation. No wheezes or rhonchi. No intercostal retractions. HEART: Regular rate and rhythm. No murmur. ABDOMEN: Soft EXTREMITIES: No pedal edema. No calf tenderness. NEUROLOGICAL: Patient is awake, alert and oriented x3. Assessment: Cholecystitis, sepsis, leukocytosis History of CVA Lupus anticoagulant antibodies PFO right to left shunting Left anterior fascicular block Diabetes mellitus type 2 Dyslipidemia Obstructive sleep apnea Plan: Continue patient's home cardiac medications, note that aspirin and Plavix on hold No need to repeat echocardiogram No plan for stress test Patient is at moderate to high risk for surgery. Ensure that appropriate DVT prophylaxis is maintained due to patient's possible lupus antibody. This could be the reason for his previous CVA. May consider hematology consult. Further recommendations to follow based upon clinical course Thank you kindly for this consultation. Nurse practitioner note has been reviewed, I agree with documented findings and plan of care. Patient was seen and examined. Past Medical History Past Medical History: Cancer, COPD, Diabetes Mellitus, GERD/Reflux, Hyperlipidemia, Hypertension, Memory Impairment, Sleep Apnea/CPAP/BIPAP Additional Past Medical History / Comment(s): C-PAP., BACK PAIN, SKIN CANCER, MEMORY PROBLEMS., HX OF LEAD POISONING WHILE WORKING AT [employer]., History of Any Multi-Drug Resistant Organisms: None Reported Additional Past Surgical History / Comment(s): TORN LIGAMENT ARM., VASECTOMY, CATARACTS, FX ORBITAL SURGERY. Past Anesthesia/Blood Transfusion Reactions: No Reported Reaction, Motion Sickness Past Psychological History: No Psychological Hx Reported Smoking Status: Former smoker Past Alcohol Use History: None Reported Past Drug Use History: None Reported - Past Family History Mother Family Medical History: No Reported History Medications and Allergies Home Medications Medication Instructions Recorded Confirmed Type Metoprolol Succinate (ER) [Toprol 50 mg PO BID 01/22/19 11/12/23 History XL] lisinopriL [Zestril] 10 mg PO DAILY 01/22/19 11/12/23 History sitaGLIPtin [Januvia] 100 mg PO DAILY 01/22/19 11/12/23 History Aspirin 81 mg PO DAILY 07/09/23 11/12/23 History Empagliflozin [Jardiance] 25 mg PO DAILY 07/09/23 11/12/23 History Finasteride [Proscar] 5 mg PO DAILY 07/09/23 11/12/23 History Memantine HCl [Namenda Xr] 21 mg PO DAILY@0800 07/09/23 11/12/23 History metFORMIN HCL [Glucophage] 500 mg PO BID 07/09/23 11/12/23 History Clopidogrel [Plavix] 75 mg PO DAILY tab 07/16/23 11/12/23 Rx levETIRAcetam [Keppra] 500 mg PO Q12HR tab 07/16/23 11/12/23 Rx Acetaminophen [Tylenol 8 Hour] 650 mg PO Q8H 11/12/23 11/12/23 History Atorvastatin Calcium [Lipitor] 40 mg PO HS 11/12/23 11/12/23 History Cyanocobalamin (Vitamin B-12) 1,000 mcg PO DAILY 11/12/23 11/12/23 History [Vitamin B-12] Donepezil [Aricept] 5 mg PO HS 11/12/23 11/12/23 History Ft Arthritis Pain 1% Gel 1 applic TOPICAL TID 11/12/23 11/12/23 History Loperamide [Imodium] 2 - 4 mg PO QID PRN MDD 8 caps 11/12/23 11/12/23 History Loratadine [Claritin] 10 mg PO DAILY 11/12/23 11/12/23 History Pantoprazole [Protonix] 40 mg PO DAILY 11/12/23 11/12/23 History polyethylene glycoL 3350 [Miralax] 17 gm PO DAILY 11/12/23 11/12/23 History predniSONE 5 mg PO DAILY 11/12/23 11/12/23 History Allergies Allergy/AdvReac Type Severity Reaction Status Date / Time Penicillins Allergy Unknown Rash/Hives Verified 11/12/23 08:50 Physical Exam Vitals: Vital Signs Temp Pulse Pulse Resp BP BP Pulse Ox 11/13/23 03:21 97.9 F 85 16 157/80 94 L 11/13/23 00:39 99.1 F 81 18 151/79 96 11/12/23 20:18 100.3 F H 91 18 165/85 94 L 11/12/23 19:00 86 23 160/89 94 L 11/12/23 18:00 85 24 157/83 94 L 11/12/23 16:00 88 24 175/94 94 L 11/12/23 15:24 92 18 175/94 95 11/12/23 12:00 80 18 163/89 96 11/12/23 09:51 97.1 F L 81 18 185/92 97 11/12/23 08:33 74 18 193/84 95 Intake and Output 11/12/23 11/13/23 11/13/23 22:59 06:59 14:59 Output Total 350 300 Balance -350 -300 Output: Urine 350 300 Other: Voiding Method Indwelling Catheter Indwelling Catheter Weight 68.039 kg Results 11/13/23 08:00 11/12/23 07:08 Current Medications Generic Name Dose Route Start Last Admin Trade Name Freq PRN Reason Stop Dose Admin Acetaminophen 650 mg 11/12/23 09:28 11/12/23 21:47 Acetaminophen Tab 325 Mg Tab PO 650 mg Q6HR PRN Administration Mild Pain or Fever > 100.5 Atorvastatin Calcium 40 mg 11/12/23 21:00 11/12/23 21:48 Atorvastatin 40 Mg Tab PO 40 mg HS ADONIS Administration Dextrose/Water 25 ml 11/12/23 17:10 Dextrose 50% Syringe 50 Ml IVP PER PROTOCOL PRN Hypoglycemia Protocol Dextrose/Water 50 ml 11/12/23 17:10 Dextrose 50% Syringe 50 Ml IVP PER PROTOCOL PRN Hypoglycemia Protocol Donepezil HCl 5 mg 11/12/23 21:00 11/12/23 21:49 Donepezil 5 Mg Tab PO 5 mg HS ADONIS Administration Finasteride 5 mg 11/12/23 10:00 11/12/23 10:31 Finasteride 5 Mg Tab PO 5 mg DAILY ADONIS Administration Heparin Sodium (Porcine) 5,000 unit 11/13/23 00:00 11/13/23 00:04 Heparin Sodium,Porcine 5,000 Unit/Ml 1 Ml Vial SQ 5,000 unit Q8HR ADONIS Administration Sodium Chloride 1,000 mls @ 130 mls/hr 11/12/23 08:00 11/13/23 06:00 Saline 0.9% IV 130 mls/hr .Q7H42M ADONIS Administration Metronidazole 500 mg/ IV 100 mls @ 100 mls/hr 11/12/23 09:15 11/13/23 00:05 Solution IVPB 100 mls/hr Q8HR ADONIS Administration Protocol Ceftriaxone Sodium 2 gm/ 50 mls @ 100 mls/hr 11/13/23 09:00 Sodium Chloride IVPB Q24HR [facility] Protocol Insulin Aspart 0 unit 11/12/23 17:15 11/13/23 05:59 Insulin Aspart (Novolog) 100 Unit/Ml Vial SQ Not Given Q6H [facility] Protocol Levetiracetam 500 mg 11/12/23 10:00 11/12/23 21:47 Levetiracetam 500 Mg Tab PO 500 mg Q12HR ADONIS Administration Lisinopril 10 mg 11/12/23 10:00 11/12/23 10:31 Lisinopril 10 Mg Tab PO 10 mg DAILY ADONIS Administration Memantine 7.5 mg 11/12/23 09:47 11/12/23 21:49 Memantine 5 Mg Tab PO 7.5 mg BID ADONIS Administration Metoprolol Succinate 50 mg 11/12/23 10:00 11/12/23 21:48 Metoprolol Succinate (Er) 50 Mg Tab.Er.24h PO 50 mg BID ADONIS Administration Morphine Sulfate 4 mg 11/12/23 09:28 Morphine Sulfate 4 Mg/Ml Syringe IV Q4HR PRN Severe Pain (Scale 7 to 10) Naloxone HCl 0.2 mg 11/12/23 09:28 Naloxone 0.4 Mg/Ml 1 Ml Vial IV Q2M PRN Opioid Reversal Ondansetron HCl 4 mg 11/12/23 17:21 Ondansetron 4 Mg/2 Ml Vial IVP Q6HR PRN Nausea And Vomiting Pantoprazole Sodium 40 mg 11/13/23 09:00 Pantoprazole 40 Mg/10 Ml Vial IVP DAILY ADONIS Intake and Output 11/12/23 11/13/23 11/13/23 22:59 06:59 14:59 Output Total 350 300 Balance -350 -300 Output: Urine 350 300 Other: Voiding Method Indwelling Catheter Indwelling Catheter Weight 68.039 kg 11/12/23 07:08 11/12/23 07:08
[2023-11-13 09:43] LABS: ALT 19 U/L (4-49); AST 28 U/L (17-59); African American GFR (CKD) >90 (>60 ml/min/1.73 sqM); Albumin 2.9 g/dL (3.5-5.0); Alkaline Phosphatase 103 U/L (38-126); Anion Gap 8 mmol/L; Blood Urea Nitrogen 14 mg/dL (9-20); Calcium 8.9 mg/dL (8.4-10.2); Carbon Dioxide 20 mmol/L (22-30); Chloride 111 mmol/L (98-107); Glucose 144 mg/dL (74-99); Magnesium 1.9 mg/dL (1.6-2.3); Non-African American GFR(CKD) >90 (>60 ml/min/1.73 sqM); Potassium 3.3 mmol/L (3.5-5.1); Sodium 139 mmol/L (137-145); Total Protein 5.8 g/dL (6.3-8.2)
[2023-11-13 11:37] LABS: Glucose,Whole Blood 135 mg/dL (70-110)
--- NOTE | 2023-11-13 12:16 | P.PN ---
Subjective Progress Note Date: 11/13/23 Principal diagnosis: Reason for follow-up is leukocytosis and acute cholecystitis Patient is a 78-year-old male with a past medical history significant for diabetes mellitus hypertension hyperlipidemia memory impairment COPD patient was brought into the hospital after apparently patient fell from his bed, patient did have a CT chest abdominal pelvis with evidence of cholecystitis did have elevated white count on previous infectious disease consultation. On today's evaluation and that is 11/13/2023, the patient did have low-grade fever last night however the patient is afebrile this morning, patient is breathing comfortably on room air, no need for supplemental oxygen, patient denies any chest pain or cough no nausea no vomiting complaining of some abdominal pain and no diarrhea has been reported. Patient white count is down 25.5, creatinine 0.57 cultures pending Objective - Vital Signs Vital signs: Vital Signs Temp 98.7 F 11/13/23 08:00 Pulse 93 11/13/23 08:00 Resp 16 11/13/23 08:00 BP 161/88 11/13/23 08:00 Pulse Ox 93 L 11/13/23 08:00 FiO2 Intake & Output 11/12/23 11/13/23 11/13/23 18:59 06:59 18:59 Output Total 650 Balance -650 Weight 68.039 kg Output: Urine 650 Other: Voiding Method Indwelling Catheter Indwelling Catheter - Exam GENERAL DESCRIPTION: An elderly male lying in bed in no distress RESPIRATORY SYSTEM: Unlabored breathing , decreased breath sounds at bases HEART: S1 S2 regular rate and rhythm , ABDOMEN: Soft , right upper quadrant tenderness EXTREMITIES: No edema feet - Labs CBC & Chem 7: 11/13/23 08:00 11/13/23 08:00 Labs: Abnormal Lab Results - Last 24 Hours (Table) 11/12/23 11/13/23 11/13/23 Range/Units 13:43 00:12 05:46 WBC (3.8-10.6) k/uL Potassium (3.5-5.1) mmol/L Chloride (98-107) mmol/L Carbon Dioxide (22-30) mmol/L Creatinine (0.66-1.25) mg/dL Glucose (74-99) mg/dL POC Glucose (mg/dL) 161 H 138 H (70-110) mg/dL Plasma Lactic Acid Zeb 3.2 H* (0.7-2.0) mmol/L Total Protein (6.3-8.2) g/dL Albumin (3.5-5.0) g/dL 11/13/23 11/13/23 11/13/23 Range/Units 08:00 08:00 11:35 WBC 25.5 H (3.8-10.6) k/uL Potassium 3.3 L (3.5-5.1) mmol/L Chloride 111 H (98-107) mmol/L Carbon Dioxide 20 L (22-30) mmol/L Creatinine 0.57 L (0.66-1.25) mg/dL Glucose 144 H (74-99) mg/dL POC Glucose (mg/dL) 135 H (70-110) mg/dL Plasma Lactic Acid Zeb (0.7-2.0) mmol/L Total Protein 5.8 L (6.3-8.2) g/dL Albumin 2.9 L (3.5-5.0) g/dL Microbiology - Last 24 Hours (Table) 11/12/23 08:20 Urine Culture - Final Urine,Catheterized Assessment and Plan (1) Leukocytosis Current Visit: Yes Status: Acute Code(s): D72.829 - ELEVATED WHITE BLOOD CELL COUNT, UNSPECIFIED SNOMED Code(s): 649530492 (2) Penicillin allergy Current Visit: Yes Status: Acute Code(s): Z88.0 - ALLERGY STATUS TO PENICILLIN SNOMED Code(s): 90724174 (3) Acute cholecystitis Current Visit: Yes Status: Acute Code(s): K81.0 - ACUTE CHOLECYSTITIS SNOMED Code(s): 33749366 Plan: 1patient presented to hospital with a fall and this patient noticed to have a significant elevated white count but no fever however he did have abnormal CT of abdominal pelvis suspicious for cholecystitis and the patient was complaining of pain to the right upper quadrant area and did have mild tenderness will need to cover for the enteric gram-negative mostly anaerobes and less likely anaerobes 2-penicillin allergy that will limit number of antibiotics safe to use 3-patient white count is trending down, will continue patient on Rocephin and Flagyl, waiting for cholecystectomy Dictation was produced using [employer] dictation software. please excuse any grammatical, word or spelling errors.
--- NOTE | 2023-11-13 12:27 | P.PN ---
Subjective Progress Note Date: 11/13/23 78-year-old male who resides at [facility]. 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 In addition patient has history of hypertension, hyperlipidemia, mof-[id number] diabetes mellitus, GERD, nonmalignant meningioma status post craniotomy with removal/dissection of tumor, and obstructive sleep apnea CPAP dependent. He presented to the emergency department via EMS from [facility] after reported unwitnessed fall from bed. He underwent full evaluation upon arrival to our facility. Vital signs upon arrival show blood pressure 172/93, heart rate 64, respiratory rate 21, temp 97.0F, and SpO2 of 97% on room air. EKG sinus mechanism at 62 bpm with no significant T-wave or ST abnormalities. CT head was negative for acute intracranial process showing reports of previous craniotomy flap along the left side of the skull with underlying encephalomalacia of left temporal lobe, mild hydrocephalus, and severe burden of chronic small vessel ischemic disease on reported to be unchanged per radiologist when compared to previous CT completed 07/09/23. CT cervical spine negative for acute fracture or misalignment of the cervical spine. CT face did reveal severe chronic sinus disease with reports of an old blowout fracture of right orbital floor, but negative for acute findings. CT chest, abdomen, and pelvis showing hydropic gallbladder appears to be inflamed consistent with acute cholecystitis, trace perihepatic ascites with adjacent wall thickening of the hepatic flexure of the colon as well as the adjacent duodenum believed to be reactive inflammation, incidental findings of cardiomegaly and pulmonary arterial hypertension with small hiatal hernia, sigmoid diverticulosis, and prostatomegaly. CBC showing severe leukocytosis with WBC count of 33.7. Coagulation profile showing elevated INR 1.2. BMP showing high anion gap metabolic acidosis with chloride of 104, bicarb 21, and anion gap of 15. Urinalysis negative for infection. Influenza A, and influenza B, RSV, and COVID PCR negative. Initial lactate 5.8. Patient given NS bolus and blood cultures were obtained. Patient started on IV antibiotics Rocephin and Flagyl. Patient admitted under our services with consultation to general surgery and infectious disease. Surgery consulted, scheduled for laparoscopic cholecystectomy with Dr. Cui on 11/03. ID consulted, agreed with antibiotic regimen. Cardiology consulted for medical clearance. 11/13 Patient was seen and examined. He reports no complaints today. Received a message from RN stating TIM Torres does not want Dr. Cui performing surgery, requesting a different surgeon. Discussed with Dr. Cui, signed off on the case. Discussed with TIM Torres, agreeable for [facility]. Called [facility], awaiting call back from [facility] for transfer. CBC WBC 25.5. CMP K 3.3, Cl 111, bicarb 20, Cr 0.57, glu 144, alb 2.9. Mag 1.9. Vital signs reviewed and stable. General: Nontoxic, no distress and appears stated age. Derm: Skin warm and dry, normal coloration for ethnicity. Head: Atraumatic, normocephalic and symmetric. Eyes: EOMs intact, no lid lag, and anicteric sclera Mouth: no lip lesions, mucus membranes moist Cardiovascular: regular rate and rhythm with normal S1S2, systolic murmur Lungs: Respirations even, regular, and unlabored on room air. Lungs CTA bilate rally, no rhonchi, no rales, no wheezing, and no accessory muscle usage. Abdominal: Tenderness to palpation right upper quadrant, no guarding, no appreciable organomegaly Ext: No gross muscle atrophy, no edema, no contractures. Movement intact. Left lower extremity appears to be weaker than right lower extremity Neuro: Speech somewhat slurred with word finding difficulties and slow to respond Psych: Alert and oriented, pleasant and cooperative Based on my assessment of this patient, this patient meets a high complexity level of care. Patient has an acute diagnosis of sepsis related to acute cholecystitis that poses a threat to life or bodily function. Severe sepsis due to acute cholecystitis: Rocephin 2g IV QD. Flagyl 500 mg IV TID. Decreased IVF to NS 75 cc/hr. Telemetry monitoring. Follow BCx. ID and surgery on board. History of PFO: Cardiology consulted for cardiac clearance. ASA and Plavix on hold. History of Nonmalignant meningioma status post craniotomy with removal/disse ction of tumor Encephalomalacia with mild hydrocephalus of left temporal lobe History of Seizure activity: Keppra 500 mg twice daily. History of CVA: ASA and Plavix when OK with surgery. Lipitor 40 mg PO QHS. Mild memory impairment: Aricept 5 mg nightly and Namenda 7.5 mg twice daily. Rud-iwxoele-[id number] diabetes mellitus with hyperglycemia: ISS. Accuchecks ACHS. Hypoglycemic precautions. Hypertension: Lisinopril 10 mg daily and metoprolol 50 mg twice daily Hyperlipidemia: Lipitor as above. Resolved: Lactic acidosis CODE STATUS: Per RN, FULL CODE with no CPR (will need to address with the POA) DVT Prophylaxis: Heparin SQ GI Prophylaxis: Protonix IV Designated medical POA if patient is not able to make medical decisions for themselves: POA Melissa [phone] I have reviewed the following networks computer consultant notes: Surgery, ID. I have reviewed the results of the following tests: CBC, CMP, Mag. I have ordered the following tests: Pending: BCx. I have discussed the care of this patient with the following independent historian: RN. DUMONT. I have independently interpreted the following test below: I have discussed the management of this patient with the following physician: Discussed with Dr. Pena, Dr. Cui. Objective - Vital Signs Vital signs: Vital Signs Temp 98.7 F 11/13/23 08:00 Pulse 93 11/13/23 08:00 Resp 16 11/13/23 08:00 BP 161/88 11/13/23 08:00 Pulse Ox 93 L 11/13/23 08:00 FiO2 Intake & Output 11/12/23 11/13/23 11/13/23 18:59 06:59 18:59 Output Total 650 Balance -650 Weight 68.039 kg Output: Urine 650 Other: Voiding Method Indwelling Catheter - Labs CBC & Chem 7: 11/13/23 08:00 11/13/23 08:00 Labs: Abnormal Lab Results - Last 24 Hours (Table) 11/12/23 11/12/23 11/12/23 Range/Units 08:20 10:10 13:43 POC Glucose (mg/dL) (70-110) mg/dL Plasma Lactic Acid Zeb 2.9 H* 3.2 H* (0.7-2.0) mmol/L Ur Specific [place] 1.045 H (1.001-1.035) Urine Protein 1+ H (Negative) Urine Glucose (UA) 4+ H (Negative) Urine Ketones Trace H (Negative) Urine Mucus Occasional H (None) /hpf 11/13/23 11/13/23 Range/Units 00:12 05:46 POC Glucose (mg/dL) 161 H 138 H (70-110) mg/dL Plasma Lactic Acid Zeb (0.7-2.0) mmol/L Ur Specific [place] (1.001-1.035) Urine Protein (Negative) Urine Glucose (UA) (Negative) Urine Ketones (Negative) Urine Mucus (None) /hpf
[2023-11-13] MEDS: POTASSIUM CHLORIDE 10 MEQ in WATER FOR INJECTION 1 100ML.BAG IVPB SCH ×4 (12:35→15:58)
--- NOTE | 2023-11-13 13:38 | P.PN ---
Subjective Progress Note Date: 11/13/23 CHIEF COMPLAINT: Fall HISTORY OF PRESENT ILLNESS: Patient with evidence of acute cholecystitis and sepsis. Patient continues to have right upper quadrant abdominal pain. Computed tomography scan chest abdomen pelvis gallbladder is hydropic and appears inflamed. Correlate for acute cholecystitis. Afebrile. WBC is down from 33.7- 25.5. PHYSICAL EXAM: VITAL SIGNS: Reviewed. GENERAL: Well-developed in no acute distress. ABDOMEN: Soft. Nondistended. Right upper quadrant tenderness NEUROLOGIC: Awake and alert ASSESSMENT: 1. Acute cholecystitis with sepsis PLAN: -Recommended laparoscopic cholecystectomy. Family is requesting another surgeon. No other surgeon available at this facility. Recommend transferring patient to another hospital. -Continue antibiotics and supportive care -Plan was discussed with medicine service. Medicine service is working on transferring patient. -Surgical service will sign off. Please call with any questions or concerns. Physician Family Coach note has been reviewed by physician. Signing provider agrees with the documented findings, assessment, and plan of care. Objective - Vital Signs Vital signs: Vital Signs Temp 98.7 F 11/13/23 08:00 Pulse 93 11/13/23 08:00 Resp 16 11/13/23 08:00 BP 161/88 11/13/23 08:00 Pulse Ox 93 L 11/13/23 08:00 FiO2 Intake & Output 11/12/23 11/13/23 11/13/23 18:59 06:59 18:59 Output Total 650 Balance -650 Weight 68.039 kg Output: Urine 650 Other: Voiding Method Indwelling Catheter - Labs CBC & Chem 7: 11/13/23 08:00 11/13/23 08:00 Labs: Abnormal Lab Results - Last 24 Hours (Table) 11/12/23 11/12/23 11/13/23 Range/Units 10:10 13:43 00:12 WBC (3.8-10.6) k/uL Potassium (3.5-5.1) mmol/L Chloride (98-107) mmol/L Carbon Dioxide (22-30) mmol/L Creatinine (0.66-1.25) mg/dL Glucose (74-99) mg/dL POC Glucose (mg/dL) 161 H (70-110) mg/dL Plasma Lactic Acid Zeb 2.9 H* 3.2 H* (0.7-2.0) mmol/L Total Protein (6.3-8.2) g/dL Albumin (3.5-5.0) g/dL 11/13/23 11/13/23 11/13/23 Range/Units 05:46 08:00 08:00 WBC 25.5 H (3.8-10.6) k/uL Potassium 3.3 L (3.5-5.1) mmol/L Chloride 111 H (98-107) mmol/L Carbon Dioxide 20 L (22-30) mmol/L Creatinine 0.57 L (0.66-1.25) mg/dL Glucose 144 H (74-99) mg/dL POC Glucose (mg/dL) 138 H (70-110) mg/dL Plasma Lactic Acid Zeb (0.7-2.0) mmol/L Total Protein 5.8 L (6.3-8.2) g/dL Albumin 2.9 L (3.5-5.0) g/dL Microbiology - Last 24 Hours (Table) 11/12/23 08:20 Urine Culture - Final Urine,Catheterized
--- NOTE | 2023-11-13 15:10 | P.DS ---
Providers Date of admission: 11/12/23 09:29 Expected date of discharge: 11/13/23 Attending physician: Karena Polanco DO Consults: 11/12/23 09:28 Consult Physician Routine Consulting Provider: Hernán Pena Consult Reason/Comments: Sepsis, acute cholecystitis Do you want consulting provider notified?: Yes 11/12/23 13:35 Consult Physician Routine Consulting Provider: Abdulaziz Pete Consult Reason/Comments: cardiac risk assessment Do you want consulting provider notified?: Yes Primary care physician: Javid [facility] Course: 78-year-old male who resides at [facility]. 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 In addition patient has history of hypertension, hyperlipidemia, lir-ljjiyqg-cbufmwecs diabetes mellitus, GERD, nonmalignant meningioma status post craniotomy with removal/dissection of tumor, and obstructive sleep apnea CPAP dependent. He presented to the emergency department via EMS from [facility] after reported unwitnessed fall from bed. He underwent full evaluation upon arrival to our facility. Vital signs upon arrival show blood pressure 172/93, heart rate 64, respiratory rate 21, temp 97.0F, and SpO2 of 97% on room air. EKG sinus mechanism at 62 bpm with no significant T-wave or ST abnormalities. CT head was negative for acute intracranial process showing reports of previous craniotomy flap along the left side of the skull with underlying encephalomalacia of left temporal lobe, mild hydrocephalus, and severe burden of chronic small vessel ischemic disease on reported to be unchanged per radiologist when compared to previous CT completed 07/09/23. CT cervical spine negative for acute fracture or misalignment of the cervical spine. CT face did reveal severe chronic sinus disease with reports of an old blowout fracture of right orbital floor, but negative for acute findings. CT chest, abdomen, and pelvis showing hydropic gallbladder appears to be inflamed consistent with acute cholecystitis, trace perihepatic ascites with adjacent wall thickening of the hepatic flexure of the colon as well as the adjacent duodenum believed to be reactive inflammation, incidental findings of cardiomegaly and pulmonary arterial hypertension with small hiatal hernia, sigmoid diverticulosis, and prostatomegaly. CBC showing severe leukocytosis with WBC count of 33.7. Coagulation profile showing elevated INR 1.2. BMP showing high anion gap metabolic acidosis with chloride of 104, bicarb 21, and anion gap of 15. Urinalysis negative for infection. Influenza A, and influenza B, RSV, and COVID PCR negative. Initial lactate 5.8. Patient given NS bolus and blood cultures were obtained. Patient started on IV antibiotics Rocephin and Flagyl. Patient admitted under our services with consultation to general surgery and infectious disease. Surgery consulted, scheduled for laparoscopic cholecystectomy with Dr. Cui on 11/03. ID consulted, agreed with antibiotic regimen. Cardiology consulted for medical clearance. 11/13 Patient was seen and examined. He reports no complaints today. Received a message from RN stating TIM Torres does not want Dr. Cui performing surgery, requesting a different surgeon. Discussed with Dr. Cui, signed off on the case. Discussed with TIM Torres, agreeable for Naomi Doyle. Called Naomi Doyle, accepted by Dr. Huggins. CBC WBC 25.5. CMP K 3.3, Cl 111, bicarb 20, Cr 0.57, glu 144, alb 2.9. Mag 1.9. Vital signs reviewed and stable. General: Nontoxic, no distress and appears stated age. Derm: Skin warm and dry, normal coloration for ethnicity. Head: Atraumatic, normocephalic and symmetric. Eyes: EOMs intact, no lid lag, and anicteric sclera Mouth: no lip lesions, mucus membranes moist Cardiovascular: regular rate and rhythm with normal S1S2, systolic murmur Lungs: Respirations even, regular, and unlabored on room air. Lungs CTA bilaterally, no rhonchi, no rales, no wheezing, and no accessory muscle usage. Abdominal: Tenderness to palpation right upper quadrant, no guarding, no appreciable organomegaly Ext: No gross muscle atrophy, no edema, no contractures. Movement intact. Left lower extremity appears to be weaker than right lower extremity Neuro: Speech somewhat slurred with word finding difficulties and slow to respond Psych: Alert and oriented, pleasant and cooperative Discharge Diagnosis: Severe sepsis due to acute cholecystitis: Rocephin 2g IV QD. Flagyl 500 mg IV TID. Decreased IVF to NS 75 cc/hr. Telemetry monitoring. Follow BCx. ID and surgery on board. History of PFO: Cardiology consulted for cardiac clearance. ASA and Plavix on hold. History of Nonmalignant meningioma status post craniotomy with removal/dissection of tumor Encephalomalacia with mild hydrocephalus of left temporal lobe History of Seizure activity: Keppra 500 mg twice daily. History of CVA: ASA and Plavix when OK with surgery. Lipitor 40 mg PO QHS. Mild memory impairment: Aricept 5 mg nightly and Namenda 7.5 mg twice daily. Nsc-jvzeewa-onvjjhtnt diabetes mellitus with hyperglycemia: ISS. Accuchecks ACHS. Hypoglycemic precautions. Hypertension: Lisinopril 10 mg daily and metoprolol 50 mg twice daily Hyperlipidemia: Lipitor as above. Resolved: Lactic acidosis Patient Condition at Discharge: Critical Plan - Discharge Summary Discharge Rx Participant: No New Discharge Prescriptions: No Action sitaGLIPtin [Januvia] 100 mg PO DAILY lisinopriL [Zestril] 10 mg PO DAILY Metoprolol Succinate (ER) [Toprol XL] 50 mg PO BID metFORMIN HCL [Glucophage] 500 mg PO BID Finasteride [Proscar] 5 mg PO DAILY Empagliflozin [Jardiance] 25 mg PO DAILY Aspirin 81 mg PO DAILY Clopidogrel [Plavix] 75 mg PO DAILY tab Atorvastatin Calcium [Lipitor] 40 mg PO HS predniSONE 5 mg PO DAILY polyethylene glycoL 3350 [Miralax] 17 gm PO DAILY Memantine HCl [Namenda Xr] 21 mg PO DAILY@0800 levETIRAcetam [Keppra] 500 mg PO Q12HR tab Ft Arthritis Pain 1% Gel 1 applic TOPICAL TID Acetaminophen [Tylenol 8 Hour] 650 mg PO Q8H Cyanocobalamin (Vitamin B-12) [Vitamin B-12] 1,000 mcg PO DAILY Donepezil [Aricept] 5 mg PO HS Loratadine [Claritin] 10 mg PO DAILY Pantoprazole [Protonix] 40 mg PO DAILY Loperamide [Imodium] 2 - 4 mg PO QID PRN MDD 8 caps PRN Reason: Loose Stool Discharge Medication List Metoprolol Succinate (ER) [Toprol XL] 50 mg PO BID 01/22/19 [History] lisinopriL [Zestril] 10 mg PO DAILY 01/22/19 [History] sitaGLIPtin [Januvia] 100 mg PO DAILY 01/22/19 [History] Aspirin 81 mg PO DAILY 07/09/23 [History] Empagliflozin [Jardiance] 25 mg PO DAILY 07/09/23 [History] Finasteride [Proscar] 5 mg PO DAILY 07/09/23 [History] Memantine HCl [Namenda Xr] 21 mg PO DAILY@0800 07/09/23 [History] metFORMIN HCL [Glucophage] 500 mg PO BID 07/09/23 [History] Clopidogrel [Plavix] 75 mg PO DAILY tab 07/16/23 [Rx] levETIRAcetam [Keppra] 500 mg PO Q12HR tab 07/16/23 [Rx] Acetaminophen [Tylenol 8 Hour] 650 mg PO Q8H 11/12/23 [History] Atorvastatin Calcium [Lipitor] 40 mg PO HS 11/12/23 [History] Cyanocobalamin (Vitamin B-12) [Vitamin B-12] 1,000 mcg PO DAILY 11/12/23 [History] Donepezil [Aricept] 5 mg PO HS 11/12/23 [History] Ft Arthritis Pain 1% Gel 1 applic TOPICAL TID 11/12/23 [History] Loperamide [Imodium] 2 - 4 mg PO QID PRN MDD 8 caps 11/12/23 [History] Loratadine [Claritin] 10 mg PO DAILY 11/12/23 [History] Pantoprazole [Protonix] 40 mg PO DAILY 11/12/23 [History] polyethylene glycoL 3350 [Miralax] 17 gm PO DAILY 11/12/23 [History] predniSONE 5 mg PO DAILY 11/12/23 [History] Follow up Appointment(s)/Referral(s): Javid Spence MD [Primary Care Provider] - 1-2 days
[2023-11-13 16:11] VITALS: BP 143/77; PULSE 90; TEMP 97.2
== END 2023-11-13 17:15 | disposition short-term general hospital (02) | DRG 872 ==
LOC: EC 06:48 → 3SCARD 09:29
PROVIDERS: ADMIT Internal Medicine; ATTEND Internal Medicine
DX: A41.9 Sepsis, unspecified organism (principal); K81.0 Acute cholecystitis; K82.1 Hydrops of gallbladder; G91.9 Hydrocephalus, unspecified; R18.8 Other ascites; I47.20 Ventricular tachycardia, unspecified; D68.62 Lupus anticoagulant syndrome; I25.3 Aneurysm of heart; Q21.12 Patent foramen ovale; I27.21 Secondary pulmonary arterial hypertension; F03.90 Unspecified dementia, unspecified severity, without behavioral disturbance, psychotic disturbance, mood disturbance, and anxiety; R56.9 Unspecified convulsions; E11.65 Type 2 diabetes mellitus with hyperglycemia; J44.9 Chronic obstructive pulmonary disease, unspecified; R65.20 Severe sepsis without septic shock; I11.9 Hypertensive heart disease without heart failure; G93.89 Other specified disorders of brain; R41.3 Other amnesia; G47.33 Obstructive sleep apnea (adult) (pediatric); K57.30 Diverticulosis of large intestine without perforation or abscess without bleeding; R47.81 Slurred speech; I44.4 Left anterior fascicular block; N40.0 Benign prostatic hyperplasia without lower urinary tract symptoms; E83.42 Hypomagnesemia; K44.9 Diaphragmatic hernia without obstruction or gangrene; M19.90 Unspecified osteoarthritis, unspecified site; K21.9 Gastro-esophageal reflux disease without esophagitis; E78.5 Hyperlipidemia, unspecified; W06.XXXA Fall from bed, initial encounter; Z77.011 Contact with and (suspected) exposure to lead; Y92.003 Bedroom of unspecified non-institutional (private) residence as the place of occurrence of the external cause; Z86.011 Personal history of benign neoplasm of the brain; Z79.899 Other long term (current) drug therapy; Z86.73 Personal history of transient ischemic attack (TIA), and cerebral infarction without residual deficits; Z79.84 Long term (current) use of oral hypoglycemic drugs; Z79.82 Long term (current) use of aspirin; Z79.02 Long term (current) use of antithrombotics/antiplatelets; Z88.0 Allergy status to penicillin; Z87.891 Personal history of nicotine dependence; Z11.52 Encounter for screening for COVID-19; Z87.81 Personal history of (healed) traumatic fracture; Z85.828 Personal history of other malignant neoplasm of skin
CPT/HCPCS: 36415; 70450; 71260; 72125; 74177; 80053; 81001; 83036; 83605; 83735; 85025; 85027; 85610; 85730; 87040; 87086; 87636; 93005; 96366; 96367; 96368; 99285

== ENCOUNTER 2023-12-08 15:23 | Inpatient (IN) | payer MEDICARE, OTHER ==
--- NOTE | 2023-12-08 15:39 | ED ---
Altered Mental Status HPI - General Chief Complaint: Altered Mental Status Stated Complaint: Weakness Time Seen by Provider: 12/08/23 15:38 Source: patient, EMS, RN notes reviewed, old records reviewed Mode of arrival: EMS Limitations: altered mental status - History of Present Illness Initial Comments: This is a 78-year-old male to the ER today. This patient presents today for evaluation in regards to altered mental status not acting himself per his extended care facility for a few days now. He does have a recent diagnosis of a stroke and is in rehab currently. Patient is a mildly poor historian but is awake and alert x 2 which they believed to be as normal, patient does have a guardian expected the come to the emergency department and provide further history, per staffing at [facility] patient has been increasingly altered and weak MD Complaint: altered mental status, confusion -: days(s) Severity: mild Consistency of Symptoms: waxing and waning, getting worse Context: history of similar presentation Associated Symptoms: denies other symptoms Treatments Prior to Arrival: IV fluid - Related Data Home Medications Medication Instructions Recorded Confirmed Metoprolol Succinate (ER) [Toprol 50 mg PO BID@799,199901/22/19 12/08/23 XL] lisinopriL [Zestril] 10 mg PO DAILY@79901/22/19 12/08/23 sitaGLIPtin [Januvia] 100 mg PO DAILY@79901/22/19 12/08/23 Aspirin 81 mg PO DAILY@79907/09/23 12/08/23 Empagliflozin [Jardiance] 25 mg PO DAILY@79907/09/23 12/08/23 Finasteride [Proscar] 5 mg PO DAILY@79907/09/23 12/08/23 Memantine HCl [Namenda Xr] 21 mg PO DAILY@79907/09/23 12/08/23 metFORMIN HCL [Glucophage] 500 mg PO BID@799,199907/09/23 12/08/23 Acetaminophen [Tylenol 8 Hour] 650 mg PO QID@00,08,16,20 11/12/23 12/08/23 Atorvastatin Calcium [Lipitor] 40 mg PO HS@199911/12/23 12/08/23 Cyanocobalamin (Vitamin B-12) 1,000 mcg PO DAILY@0800 11/12/2324 [Vitamin B-12] Donepezil [Aricept] 10 mg PO HS@199911/12/23 12/08/23 Ft Arthritis Pain 1% Gel 2 gram TOPICAL TID@08,12,20 11/12/23 12/08/23 Loperamide [Imodium] 2 - 4 mg PO QID PRN MDD 8 caps 11/12/23 12/08/23 Loratadine [Claritin] 10 mg PO DAILY@79911/12/23 12/08/23 Pantoprazole [Protonix] 40 mg PO DAILY@79911/12/23 12/08/23 polyethylene glycoL 3350 [Miralax] 17 gm PO DAILY@79911/12/23 12/08/23 Clopidogrel [Plavix] 75 mg PO DAILY@79912/08/23 12/08/23 Mirtazapine [Remeron] 15 mg PO HS@199912/08/23 12/08/23 levETIRAcetam [Keppra] 1,000 mg PO BID@799,199912/08/23 12/08/23 Previous Rx's Medication Instructions Recorded Cefdinir 300 mg PO Q12HR #4 cap 12/11/23 Allergies Allergy/AdvReac Type Severity Reaction Status Date / Time Penicillins Allergy Unknown Rash/Hives Verified 12/08/23 16:21 Review of Systems ROS Statement: Those systems with pertinent positive or pertinent negative responses have been documented in the HPI. ROS Other: All systems not noted in ROS Statement are negative. Past Medical History Past Medical History: Cancer, COPD, Diabetes Mellitus, GERD/Reflux, Hyperlipidemia, Hypertension, Memory Impairment, Sleep Apnea/CPAP/BIPAP Additional Past Medical History / Comment(s): C-PAP., BACK PAIN, SKIN CANCER, MEMORY PROBLEMS., HX OF LEAD POISONING WHILE WORKING AT [employer]., History of Any Multi-Drug Resistant Organisms: None Reported Additional Past Surgical History / Comment(s): TORN LIGAMENT ARM., VASECTOMY, CATARACTS, FX ORBITAL SURGERY. Past Anesthesia/Blood Transfusion Reactions: No Reported Reaction, Motion Sickness Past Psychological History: No Psychological Hx Reported Smoking Status: Former smoker Past Alcohol Use History: None Reported Past Drug Use History: None Reported - Past Family History Mother Family Medical History: No Reported History General Exam Limitations: altered mental status General appearance: alert, in no apparent distress Head exam: Present: atraumatic, normocephalic, normal inspection Eye exam: Present: normal appearance, PERRL, EOMI. Absent: scleral icterus, conjunctival injection, periorbital swelling ENT exam: Present: normal exam, mucous membranes moist Neck exam: Present: normal inspection. Absent: tenderness, meningismus, lymphadenopathy Respiratory exam: Present: normal lung sounds bilaterally. Absent: respiratory distress, wheezes, rales, rhonchi, stridor Cardiovascular Exam: Present: regular rate, normal rhythm, normal heart sounds. Absent: systolic murmur, diastolic murmur, rubs, gallop, clicks GI/Abdominal exam: Present: soft, normal bowel sounds. Absent: distended, tenderness, guarding, rebound, rigid Extremities exam: Present: normal inspection, full ROM, normal capillary refill. Absent: tenderness, pedal edema, joint swelling, calf tenderness Back exam: Present: normal inspection Neurological exam: Present: alert, oriented X3, CN II-XII intact Psychiatric exam: Present: normal affect, normal mood Skin exam: Present: warm, dry, intact, normal color. Absent: rash Course Vital Signs 12/08/23 12/08/23 12/08/23 15:25 18:24 22:00 Temperature 98 F 97.5 F L Pulse Rate 67 67 80 Pulse Rate [ [employer] ] Respiratory 20 20 17 Rate Blood Pressure 106/66 109/70 115/69 Blood Pressure [Right Arm] O2 Sat by Pulse 96 95 96 Oximetry 12/08/23 12/09/23 12/09/23 23:00 01:16 04:46 Temperature 97.9 F Pulse Rate 75 79 80 Pulse Rate [ [employer] ] Respiratory 17 16 16 Rate Blood Pressure 100/59 105/90 127/75 Blood Pressure [Right Arm] O2 Sat by Pulse 95 95 95 Oximetry 12/09/23 12/09/23 12/09/23 06:33 08:00 11:29 Temperature 97.7 F 97.9 F Pulse Rate 84 Pulse Rate [ 80 65 [employer] ] Respiratory 18 20 20 Rate Blood Pressure 139/79 Blood Pressure 150/85 149/83 [Right Arm] O2 Sat by Pulse 94 L 93 L 96 Oximetry - Reevaluation(s) Reevaluation #1: 12/08/23 16:40 Medical records reviewed Reevaluation #2: 12/08/23 16:40 Patient symptoms unchanged Reevaluation #3: 12/08/23 19:00 Patient informed of results and questions answered Reevaluation #4: Was pt. sent in by a medical professional or institution (BASSEM Reece, ASSISTED LIVING ASSISTANT, urgent care, hospital, or fpc...) When possible be specific @ -no Did you speak to anyone other than the patient for history (EMS, parent, family, police, friend...)? What history was obtained from this source @ -no Did you review nursing and triage notes (agree or disagree)? Why? @ -agree Are old charts reviewed (outside hosp., previous admission, EMS record, old EKG, old radiological studies, urgent care reports/EKG's, fpc records)? Report findings @ -yes Differential Diagnosis (chest pain, altered mental status, abdominal pain women, abdominal pain men, vaginal bleeding, weakness, fever, dyspnea, syncope, headache, dizziness, GI bleed, back pain, seizure, CVA, palpatations, mental health, musculoskeletal)? @ -prior EKG interpreted by me (3pts min.). @ -yes X-rays interpreted by me (1pt min.). @ -yes negative for acute disease CT interpreted by me (1pt min.). @ -Yes negative for acute disease U/S interpreted by me (1pt. min.). @ -no What testing was considered but not performed or refused? (CT, X-rays, U/S, labs)? Why? @ -none What meds were considered but not given or refused? Why? @ -none Did you discuss the management of the patient with other professionals (professionals i.e. BASSEM Reece, ASSISTED LIVING ASSISTANT, lab, RT, psych nurse, social service assistant, swabber, teacher, commercial loan collection officer, caser up)? Give summary @ -no Was smoking cessation discussed for >3mins.? @ -no Was critical care preformed (if so, how long)? @ -no Were there social determinants of health that impacted care today? How? (Homelessness, low income, unemployed, alcoholism, drug addiction, transportation, low edu. Level, literacy, decrease access to med. care, [facility], rehab)? @ -none Was there de-escalation of care discussed even if they declined (Discuss DNR or withdrawal of care, Hospice)? DNR status @ -no What co-morbidities impacted this encounter? (DM, HTN, Smoking, COPD, CAD, Cancer, CVA, ARF, Chemo, Hep., AIDS, mental health diagnosis, sleep apnea, morbid obesity)? @ -none Was patient admitted / discharged? Hospital course, mention meds given and route, prescriptions, significant lab abnormalities, going to OR and other pertinent info. @ - 78 male to the ER for evaluation today. Patient presents today for evaluation regards to weakness altered mental status decreased responsiveness, patient found remote CVA on CT scan of brain has apparent history of seizures does not appear to be having seizure activity here in the ER but does have periods of altered mental status. Patient will admit for neurology evaluation Admitted Undiagnosed new problem with uncertain prognosis? @ -no Drug Therapy requiring intensive monitoring for toxicity (Heparin, Nitro, Insulin, Cardizem)? @ -no Were any procedures done? @ -no Diagnosis/symptom? @ -Altered mental status questionable seizures Acute, or Chronic, or Acute on Chronic? @ -Acute Uncomplicated (without systemic symptoms) or Complicated (systemic symptoms)? @ -Complicated Side effects of treatment? @ -no Exacerbation, Progression, or Severe Exacerbation? @ -exacerbation Poses a threat to life or bodily function? How? (Chest pain, USA, OR, pneumonia, PE, COPD, DKA, ARF, appy, cholecystitis, CVA, Diverticulitis, Homicidal, Suicidal, threat to staff... and all critical care pts) @ -yes significant extremes of age Reevaluation #5: Differential Weakness: Hypoglycemia, shock, sepsis, hyponatremia, anemia, infection, OR, ETOH, adverse medicine reaction, overdose, stroke, this is not meant to be an all-inclusive list. - Consultations Consultation #1: Spoke with trey who agrees to admit the patient Medical Decision Making - Medical Decision Making 78 male to the ER for evaluation today. Patient presents today for evaluation regards to weakness altered mental status decreased responsiveness, patient found remote CVA on CT scan of brain has apparent history of seizures does not appear to be having seizure activity here in the ER but does have periods of altered mental status. Patient will admit for neurology evaluation - Lab Data Result diagrams: 12/10/23 06:30 12/10/23 06:30 Lab Results 12/08/23 12/08/23 12/08/23 Range/Units 16:14 16:14 16:14 WBC 5.6 (3.8-10.6) k/uL RBC 4.79 (4.30-5.90) m/uL Hgb 14.7 (13.0-17.5) gm/dL Hct 44.0 (39.0-53.0) % MCV 91.8 (80.0-100.0) fL MCH 30.7 (25.0-35.0) pg MCHC 33.5 (31.0-37.0) g/dL RDW 14.2 (11.5-15.5) % Plt Count 128 L (150-450) k/uL MPV 7.2 Neutrophils % 84 % Lymphocytes % 12 % Monocytes % 3 % Eosinophils % 0 % Basophils % 0 % Neutrophils # 4.7 (1.3-7.7) k/uL Lymphocytes # 0.7 L (1.0-4.8) k/uL Monocytes # 0.2 (0-1.0) k/uL Eosinophils # 0.0 (0-0.7) k/uL Basophils # 0.0 (0-0.2) k/uL PT 11.3 (10.0-12.5) sec INR 1.0 (<1.2) APTT 25.6 (22.0-30.0) sec Sodium 137 (137-145) mmol/L Potassium 4.7 (3.5-5.1) mmol/L Chloride 108 H (98-107) mmol/L Carbon Dioxide 19 L (22-30) mmol/L Anion Gap 10 mmol/L BUN 24 H (9-20) mg/dL Creatinine 0.65 L (0.66-1.25) mg/dL Est GFR (CKD-EPI)AfAm >90 (>60 ml/min/1.73 sqM) Est GFR (CKD-EPI)NonAf >90 (>60 ml/min/1.73 sqM) Glucose 106 H (74-99) mg/dL POC Glucose (mg/dL) (70-110) mg/dL POC Glu License Issuer ID Estimated Ave Glu mg/dL mg/dL Hemoglobin A1c (<=6.0) % Plasma Lactic Acid Zeb (0.7-2.0) mmol/L Calcium 9.5 (8.4-10.2) mg/dL Phosphorus 4.2 (2.5-4.5) mg/dL Magnesium 1.7 (1.6-2.3) mg/dL Total Bilirubin 0.7 (0.2-1.3) mg/dL AST 35 (17-59) U/L ALT 18 (4-49) U/L Alkaline Phosphatase 86 (38-126) U/L Troponin I (0.000-0.034) ng/mL NT-Pro-B Natriuret Pep 227 pg/mL Total Protein 6.8 (6.3-8.2) g/dL Albumin 3.6 (3.5-5.0) g/dL Triglycerides (0.00-149.00) mg/dL Cholesterol (0.00-200.00) mg/dL LDL Cholesterol, Calc (0.0-131.0) mg/dL VLDL Cholesterol, Calc (5.00-40.00) mg/dL HDL Cholesterol (40.00-60.00) mg/dL Cholesterol/HDL Ratio Ratio TSH (0.465-4.680) mIU/L Urine Color Urine Appearance (Clear) Urine pH (5.0-8.0) Ur Specific [place] (1.001-1.035) Urine Protein (Negative) Urine Glucose (UA) (Negative) Urine Ketones (Negative) Urine Blood (Negative) Urine Nitrite (Negative) Urine Bilirubin (Negative) Urine Urobilinogen (<2.0) mg/dL Ur Leukocyte Esterase (Negative) Urine RBC (0-5) /hpf Urine WBC (0-5) /hpf Urine Mucus (None) /hpf Urine Yeast (Budding) (None) /hpf Levetiracetam (3.0-60.0) ug/mL 12/08/23 12/08/23 12/08/23 Range/Units 16:14 16:14 21:14 WBC (3.8-10.6) k/uL RBC (4.30-5.90) m/uL Hgb (13.0-17.5) gm/dL Hct (39.0-53.0) % MCV (80.0-100.0) fL MCH (25.0-35.0) pg MCHC (31.0-37.0) g/dL RDW (11.5-15.5) % Plt Count (150-450) k/uL MPV Neutrophils % % Lymphocytes % % Monocytes % % Eosinophils % % Basophils % % Neutrophils # (1.3-7.7) k/uL Lymphocytes # (1.0-4.8) k/uL Monocytes # (0-1.0) k/uL Eosinophils # (0-0.7) k/uL Basophils # (0-0.2) k/uL PT (10.0-12.5) sec INR (<1.2) APTT (22.0-30.0) sec Sodium (137-145) mmol/L Potassium (3.5-5.1) mmol/L Chloride (98-107) mmol/L Carbon Dioxide (22-30) mmol/L Anion Gap mmol/L BUN (9-20) mg/dL Creatinine (0.66-1.25) mg/dL Est GFR (CKD-EPI)AfAm (>60 ml/min/1.73 sqM) Est GFR (CKD-EPI)NonAf (>60 ml/min/1.73 sqM) Glucose (74-99) mg/dL POC Glucose (mg/dL) (70-110) mg/dL POC Glu License Issuer ID Estimated Ave Glu mg/dL mg/dL Hemoglobin A1c (<=6.0) % Plasma Lactic Acid Zeb 1.3 (0.7-2.0) mmol/L Calcium (8.4-10.2) mg/dL Phosphorus (2.5-4.5) mg/dL Magnesium (1.6-2.3) mg/dL Total Bilirubin (0.2-1.3) mg/dL AST (17-59) U/L ALT (4-49) U/L Alkaline Phosphatase (38-126) U/L Troponin I <0.012 (0.000-0.034) ng/mL NT-Pro-B Natriuret Pep pg/mL Total Protein (6.3-8.2) g/dL Albumin (3.5-5.0) g/dL Triglycerides (0.00-149.00) mg/dL Cholesterol (0.00-200.00) mg/dL LDL Cholesterol, Calc (0.0-131.0) mg/dL VLDL Cholesterol, Calc (5.00-40.00) mg/dL HDL Cholesterol (40.00-60.00) mg/dL Cholesterol/HDL Ratio Ratio TSH (0.465-4.680) mIU/L Urine Color Yellow Urine Appearance Cloudy (Clear) Urine pH 5.0 (5.0-8.0) Ur Specific [place] 1.023 (1.001-1.035) Urine Protein Negative (Negative) Urine Glucose (UA) 4+ H (Negative) Urine Ketones 1+ H (Negative) Urine Blood Negative (Negative) Urine Nitrite Negative (Negative) Urine Bilirubin Negative (Negative) Urine Urobilinogen <2.0 (<2.0) mg/dL Ur Leukocyte Esterase Large H (Negative) Urine RBC >182 H (0-5) /hpf Urine WBC 167 H (0-5) /hpf Urine Mucus Rare H (None) /hpf Urine Yeast (Budding) Many H (None) /hpf Levetiracetam (3.0-60.0) ug/mL 12/09/23 12/09/23 12/09/23 Range/Units 04:21 06:55 06:55 WBC 5.6 (3.8-10.6) k/uL RBC 4.52 (4.30-5.90) m/uL Hgb 13.9 (13.0-17.5) gm/dL Hct 41.4 (39.0-53.0) % MCV 91.6 (80.0-100.0) fL MCH 30.8 (25.0-35.0) pg MCHC 33.7 (31.0-37.0) g/dL RDW 14.1 (11.5-15.5) % Plt Count 163 (150-450) k/uL MPV 7.1 Neutrophils % 63 % Lymphocytes % 26 % Monocytes % 7 % Eosinophils % 2 % Basophils % 0 % Neutrophils # 3.5 (1.3-7.7) k/uL Lymphocytes # 1.5 (1.0-4.8) k/uL Monocytes # 0.4 (0-1.0) k/uL Eosinophils # 0.1 (0-0.7) k/uL Basophils # 0.0 (0-0.2) k/uL PT (10.0-12.5) sec INR (<1.2) APTT (22.0-30.0) sec Sodium 139 (137-145) mmol/L Potassium 4.0 (3.5-5.1) mmol/L Chloride 110 H (98-107) mmol/L Carbon Dioxide 20 L (22-30) mmol/L Anion Gap 9 mmol/L BUN 23 H (9-20) mg/dL Creatinine 0.71 (0.66-1.25) mg/dL Est GFR (CKD-EPI)AfAm >90 (>60 ml/min/1.73 sqM) Est GFR (CKD-EPI)NonAf 90 (>60 ml/min/1.73 sqM) Glucose 84 (74-99) mg/dL POC Glucose (mg/dL) 78 (70-110) mg/dL POC Glu License Issuer DARIUS Jagdish Soto [address] Glu mg/dL mg/dL Hemoglobin A1c (<=6.0) % Plasma Lactic Acid Zeb (0.7-2.0) mmol/L Calcium 9.2 (8.4-10.2) mg/dL Phosphorus 2.7 (2.5-4.5) mg/dL Magnesium 1.7 (1.6-2.3) mg/dL Total Bilirubin 0.5 (0.2-1.3) mg/dL AST 32 (17-59) U/L ALT 18 (4-49) U/L Alkaline Phosphatase 89 (38-126) U/L Troponin I (0.000-0.034) ng/mL NT-Pro-B Natriuret Pep pg/mL Total Protein 6.3 (6.3-8.2) g/dL Albumin 3.3 L (3.5-5.0) g/dL Triglycerides (0.00-149.00) mg/dL Cholesterol (0.00-200.00) mg/dL LDL Cholesterol, Calc (0.0-131.0) mg/dL VLDL Cholesterol, Calc (5.00-40.00) mg/dL HDL Cholesterol (40.00-60.00) mg/dL Cholesterol/HDL Ratio Ratio TSH (0.465-4.680) mIU/L Urine Color Urine Appearance (Clear) Urine pH (5.0-8.0) Ur Specific [place] (1.001-1.035) Urine Protein (Negative) Urine Glucose (UA) (Negative) Urine Ketones (Negative) Urine Blood (Negative) Urine Nitrite (Negative) Urine Bilirubin (Negative) Urine Urobilinogen (<2.0) mg/dL Ur Leukocyte Esterase (Negative) Urine RBC (0-5) /hpf Urine WBC (0-5) /hpf Urine Mucus (None) /hpf Urine Yeast (Budding) (None) /hpf Levetiracetam (3.0-60.0) ug/mL 12/09/23 12/09/23 12/09/23 Range/Units 06:55 11:26 16:11 WBC (3.8-10.6) k/uL RBC (4.30-5.90) m/uL Hgb (13.0-17.5) gm/dL Hct (39.0-53.0) % MCV (80.0-100.0) fL MCH (25.0-35.0) pg MCHC (31.0-37.0) g/dL RDW (11.5-15.5) % Plt Count (150-450) k/uL MPV Neutrophils % % Lymphocytes % % Monocytes % % Eosinophils % % Basophils % % Neutrophils # (1.3-7.7) k/uL Lymphocytes # (1.0-4.8) k/uL Monocytes # (0-1.0) k/uL Eosinophils # (0-0.7) k/uL Basophils # (0-0.2) k/uL PT (10.0-12.5) sec INR (<1.2) APTT (22.0-30.0) sec Sodium (137-145) mmol/L Potassium (3.5-5.1) mmol/L Chloride (98-107) mmol/L Carbon Dioxide (22-30) mmol/L Anion Gap mmol/L BUN (9-20) mg/dL Creatinine (0.66-1.25) mg/dL Est GFR (CKD-EPI)AfAm (>60 ml/min/1.73 sqM) Est GFR (CKD-EPI)NonAf (>60 ml/min/1.73 sqM) Glucose (74-99) mg/dL POC Glucose (mg/dL) 118 H 102 (70-110) mg/dL POC Glu License Issuer ID Prabhu Finch Stephen [address] Glu mg/dL mg/dL Hemoglobin A1c (<=6.0) % Plasma Lactic Acid Zeb (0.7-2.0) mmol/L Calcium (8.4-10.2) mg/dL Phosphorus (2.5-4.5) mg/dL Magnesium (1.6-2.3) mg/dL Total Bilirubin (0.2-1.3) mg/dL AST (17-59) U/L ALT (4-49) U/L Alkaline Phosphatase (38-126) U/L Troponin I (0.000-0.034) ng/mL NT-Pro-B Natriuret Pep pg/mL Total Protein (6.3-8.2) g/dL Albumin (3.5-5.0) g/dL Triglycerides (0.00-149.00) mg/dL Cholesterol (0.00-200.00) mg/dL LDL Cholesterol, Calc (0.0-131.0) mg/dL VLDL Cholesterol, Calc (5.00-40.00) mg/dL HDL Cholesterol (40.00-60.00) mg/dL Cholesterol/HDL Ratio Ratio TSH (0.465-4.680) mIU/L Urine Color Urine Appearance (Clear) Urine pH (5.0-8.0) Ur Specific [place] (1.001-1.035) Urine Protein (Negative) Urine Glucose (UA) (Negative) Urine Ketones (Negative) Urine Blood (Negative) Urine Nitrite (Negative) Urine Bilirubin (Negative) Urine Urobilinogen (<2.0) mg/dL Ur Leukocyte Esterase (Negative) Urine RBC (0-5) /hpf Urine WBC (0-5) /hpf Urine Mucus (None) /hpf Urine Yeast (Budding) (None) /hpf Levetiracetam 15.1 (3.0-60.0) ug/mL 12/09/23 12/10/23 12/10/23 Range/Units 20:18 05:46 06:30 WBC (3.8-10.6) k/uL RBC (4.30-5.90) m/uL Hgb (13.0-17.5) gm/dL Hct (39.0-53.0) % MCV (80.0-100.0) fL MCH (25.0-35.0) pg MCHC (31.0-37.0) g/dL RDW (11.5-15.5) % Plt Count (150-450) k/uL MPV Neutrophils % % Lymphocytes % % Monocytes % % Eosinophils % % Basophils % % Neutrophils # (1.3-7.7) k/uL Lymphocytes # (1.0-4.8) k/uL Monocytes # (0-1.0) k/uL Eosinophils # (0-0.7) k/uL Basophils # (0-0.2) k/uL PT (10.0-12.5) sec INR (<1.2) APTT (22.0-30.0) sec Sodium (137-145) mmol/L Potassium (3.5-5.1) mmol/L Chloride (98-107) mmol/L Carbon Dioxide (22-30) mmol/L Anion Gap mmol/L BUN (9-20) mg/dL Creatinine (0.66-1.25) mg/dL Est GFR (CKD-EPI)AfAm (>60 ml/min/1.73 sqM) Est GFR (CKD-EPI)NonAf (>60 ml/min/1.73 sqM) Glucose (74-99) mg/dL POC Glucose (mg/dL) 83 111 H (70-110) mg/dL POC Glu License Issuer ID Howie MarissaKaylie Marques [address] Glu mg/dL 114 mg/dL Hemoglobin A1c 5.6 (<=6.0) % Plasma Lactic Acid Zeb (0.7-2.0) mmol/L Calcium (8.4-10.2) mg/dL Phosphorus (2.5-4.5) mg/dL Magnesium (1.6-2.3) mg/dL Total Bilirubin (0.2-1.3) mg/dL AST (17-59) U/L ALT (4-49) U/L Alkaline Phosphatase (38-126) U/L Troponin I (0.000-0.034) ng/mL NT-Pro-B Natriuret Pep pg/mL Total Protein (6.3-8.2) g/dL Albumin (3.5-5.0) g/dL Triglycerides (0.00-149.00) mg/dL Cholesterol (0.00-200.00) mg/dL LDL Cholesterol, Calc (0.0-131.0) mg/dL VLDL Cholesterol, Calc (5.00-40.00) mg/dL HDL Cholesterol (40.00-60.00) mg/dL Cholesterol/HDL Ratio Ratio TSH (0.465-4.680) mIU/L Urine Color Urine Appearance (Clear) Urine pH (5.0-8.0) Ur Specific [place] (1.001-1.035) Urine Protein (Negative) Urine Glucose (UA) (Negative) Urine Ketones (Negative) Urine Blood (Negative) Urine Nitrite (Negative) Urine Bilirubin (Negative) Urine Urobilinogen (<2.0) mg/dL Ur Leukocyte Esterase (Negative) Urine RBC (0-5) /hpf Urine WBC (0-5) /hpf Urine Mucus (None) /hpf Urine Yeast (Budding) (None) /hpf Levetiracetam (3.0-60.0) ug/mL 12/10/23 12/10/23 Range/Units 06:30 06:30 WBC 4.6 (3.8-10.6) k/uL RBC 4.63 (4.30-5.90) m/uL Hgb 14.1 (13.0-17.5) gm/dL Hct 42.8 (39.0-53.0) % MCV 92.6 (80.0-100.0) fL MCH 30.6 (25.0-35.0) pg MCHC 33.0 (31.0-37.0) g/dL RDW 14.1 (11.5-15.5) % Plt Count 153 (150-450) k/uL MPV 7.4 Neutrophils % 57 % Lymphocytes % 28 % Monocytes % 8 % Eosinophils % 5 % Basophils % 1 % Neutrophils # 2.7 (1.3-7.7) k/uL Lymphocytes # 1.3 (1.0-4.8) k/uL Monocytes # 0.4 (0-1.0) k/uL Eosinophils # 0.2 (0-0.7) k/uL Basophils # 0.0 (0-0.2) k/uL PT (10.0-12.5) sec INR (<1.2) APTT (22.0-30.0) sec Sodium 142 (137-145) mmol/L Potassium 3.5 (3.5-5.1) mmol/L Chloride 114 H (98-107) mmol/L Carbon Dioxide 21 L (22-30) mmol/L Anion Gap 7 mmol/L BUN 16 (9-20) mg/dL Creatinine 0.59 L (0.66-1.25) mg/dL Est GFR (CKD-EPI)AfAm >90 (>60 ml/min/1.73 sqM) Est GFR (CKD-EPI)NonAf >90 (>60 ml/min/1.73 sqM) Glucose 105 H (74-99) mg/dL POC Glucose (mg/dL) (70-110) mg/dL POC Glu License Issuer ID Estimated Ave Glu mg/dL mg/dL Hemoglobin A1c (<=6.0) % Plasma Lactic Acid Zeb (0.7-2.0) mmol/L Calcium 9.1 (8.4-10.2) mg/dL Phosphorus (2.5-4.5) mg/dL Magnesium 1.6 (1.6-2.3) mg/dL Total Bilirubin (0.2-1.3) mg/dL AST (17-59) U/L ALT (4-49) U/L Alkaline Phosphatase (38-126) U/L Troponin I (0.000-0.034) ng/mL NT-Pro-B Natriuret Pep pg/mL Total Protein (6.3-8.2) g/dL Albumin (3.5-5.0) g/dL Triglycerides 165.00 H (0.00-149.00) mg/dL Cholesterol 124.00 (0.00-200.00) mg/dL LDL Cholesterol, Calc 60.6 (0.0-131.0) mg/dL VLDL Cholesterol, Calc 33.00 (5.00-40.00) mg/dL HDL Cholesterol 30.40 L (40.00-60.00) mg/dL Cholesterol/HDL Ratio 4.08 Ratio TSH 0.987 (0.465-4.680) mIU/L Urine Color Urine Appearance (Clear) Urine pH (5.0-8.0) Ur Specific [place] (1.001-1.035) Urine Protein (Negative) Urine Glucose (UA) (Negative) Urine Ketones (Negative) Urine Blood (Negative) Urine Nitrite (Negative) Urine Bilirubin (Negative) Urine Urobilinogen (<2.0) mg/dL Ur Leukocyte Esterase (Negative) Urine RBC (0-5) /hpf Urine WBC (0-5) /hpf Urine Mucus (None) /hpf Urine Yeast (Budding) (None) /hpf Levetiracetam (3.0-60.0) ug/mL - EKG Data -: EKG Interpreted by Me (EKG is sinus 68 OH 205 QRS 106 QTc 453) - Radiology Data Radiology results: report reviewed (CT brain is positive for remote CVA, chest x-ray is negative for acute disease), image reviewed Disposition Clinical Impression: Altered mental status, Delirium due to general medical condition, Dementia, CVA (cerebral vascular accident) Narrative: Questions Seizures Disposition: ADMITTED IP TO THIS HOSP Condition: Stable Is patient prescribed a controlled substance at d/c from ED?: No Time of Disposition: 19:00
[2023-12-08 16:23] LABS: Basophils % (A) 0 %; Eosinophils % (A) 0 %; HGB 14.7 gm/dL (13.0-17.5); Lymphocytes # (A) 0.7 k/uL (1.0-4.8); Lymphocytes % (A) 12 %; MCH 30.7 pg (25.0-35.0); MCHC 33.5 g/dL (31.0-37.0); MCV 91.8 fL (80.0-100.0); Mean Platelet Volume 7.2; Monocytes # (A) 0.2 k/uL (0-1.0); Monocytes % (A) 3 %; Neutrophils # (A) 4.7 k/uL (1.3-7.7); Neutrophils % (A) 84 %; Platelet Count 128 k/uL (150-450); RBC 4.79 m/uL (4.30-5.90); RDW 14.2 % (11.5-15.5); WBC 5.6 k/uL (3.8-10.6)
[2023-12-08 16:30] LABS: Partial Thromboplastin Time 25.6 sec (22.0-30.0); Prothrombin Time 11.3 sec (10.0-12.5)
[2023-12-08 16:34] LABS: ALT 18 U/L (4-49); AST 35 U/L (17-59); African American GFR (CKD) >90 (>60 ml/min/1.73 sqM); Albumin 3.6 g/dL (3.5-5.0); Alkaline Phosphatase 86 U/L (38-126); Anion Gap 10 mmol/L; Blood Urea Nitrogen 24 mg/dL (9-20); Calcium 9.5 mg/dL (8.4-10.2); Carbon Dioxide 19 mmol/L (22-30); Chloride 108 mmol/L (98-107); Glucose 106 mg/dL (74-99); Magnesium 1.7 mg/dL (1.6-2.3); Non-African American GFR(CKD) >90 (>60 ml/min/1.73 sqM); Phosphorus 4.2 mg/dL (2.5-4.5); Potassium 4.7 mmol/L (3.5-5.1); Sodium 137 mmol/L (137-145); Total Bilirubin 0.7 mg/dL (0.2-1.3); Total Protein 6.8 g/dL (6.3-8.2)
[2023-12-08 16:42] LABS: NT-Pro-B-Type Natriuretic Pept 227 pg/mL
[2023-12-08] MEDS: SODIUM CHLORIDE 0.9% 1,000 ML IV STA ×2 (16:47→19:32)
--- NOTE | 2023-12-08 18:38 | CT ---
EXAMINATION TYPE: CT brain wo con CT DLP: 1269.5 mGycm, Automated exposure control for dose reduction was used. DATE OF EXAM: 12/08/2023 6:07 PM COMPARISON: 11/12/2023. CLINICAL INDICATION:Male, 78 years old with history of ams, [id number] TECHNIQUE: Brain: Axial CT images of the brain were obtained with coronal and sagittal reformats created and rev iewed. Contrast used: None. Oral contrast used: None. FINDINGS: Extra-axial spaces: No abnormal extra-axial fluid collections. Ventricular system: Ventricles appear dilated in proportion to the degree of cerebral atrophy. Cerebral parenchyma: No increased attenuation to suggest acute intraparenchymal hemorrhage. The gra y-white matter interface appears maintained. Moderate generalized brain atrophy. Scattered hypoatte nuating areas are seen within the cerebral white matter, nonspecific but most often seen with chronic microvascular ischemic changes; moderate in degree. Hypoattenuation consistent with chronic infarct in the left frontoparietal temporal region. Cerebellum: No acute abnormality. Mass effect: No evidence of mass effect or midline shift. Intracranial vasculature: Atherosclerotic calcifications of the larger arteries near the skull base. Soft tissues: No acute or concerning abnormality. Visualized orbits: Orbital contents appear grossly intact. There has likely been previous lens surg aubrey. Calvarium/osseous structures: No evidence of calvarial fracture. Paranasal sinuses and mastoid air cells: Moderate pansinus mucosal thickening. Changes of left-sided craniotomy. MRI is more sensitive for detecting acute processes such as infarct, and may be considered if clinica lly warranted. IMPRESSION: 1. Moderate generalized atrophy and chronic small vessel ischemic changes. Remote infarct in the lef t frontal parietal occipital region. 2. No acute intracranial CT abnormality.
[2023-12-08] MEDS ORDERED: ONDANSETRON 4 MG/2 ML VIAL IVP PRN (18:53)
[2023-12-08] MEDS ORDERED: NALOXONE 0.4 MG/ML 1 ML VIAL IV PRN (18:53)
[2023-12-08] MEDS ORDERED: MORPHINE SULFATE 4 MG/ML SYRINGE IV PRN (18:53)
[2023-12-08] MEDS: SODIUM CHLORIDE 0.9% 1,000 ML IV SCH (19:32)
[2023-12-08 21:33] LABS: Appearance,Urine Cloudy (Clear); Bilirubin,Urine Negative (Negative); Blood,Urine Negative (Negative); Budding Yeast,Urine Many /hpf; Color,Urine Yellow; Glucose,Urine (UA) 4+ (Negative); Ketones,Urine 1+ (Negative); Leukocyte Esterase,Urine Large (Negative); Mucus,Urine Rare /hpf; Nitrite,Urine Negative (Negative); Protein,Urine Negative (Negative); RBC,Urine >182 /hpf (0-5); Specific Gravity,Urine 1.023 (1.001-1.035); Urobilinogen,Urine <2.0 mg/dL (<2.0); WBC,Urine 167 /hpf (0-5)
--- NOTE | 2023-12-09 01:21 | P.HPIM ---
History of Present Illness H&P Date: 12/08/23 Patient is a 78-year-old male with a PMH of multiple recent CVAs, dementia, recently diagnosed PFO on aspirin Plavix, history of seizure disorder, recent hospitalization for sepsis and subsequently diagnosed acute cholecystitis with subsequent transfer for surgical repair, who was brought in to the emergency room from [facility] with reports that the patient has not been acting like himself for the past 5 days. The patient was only oriented to self at the time of interview and history was thereby supplemented from the patient's POA granddaughter via phone. She reports that the patient's symptoms over the past few days have been somewhat similar to when he had his prior CVAs which included increased confusion from his baseline (baseline oriented only to self and occasionally to time), and too weak to get out of bed. The patient denied any active complaints at the time of interview. Denied chest discomfort, shortness of breath, fever, chills, cough, nausea, vomiting, abdominal pain, diarrhea. CT brain in the emergency room revealed findings consistent with a remote infarct in the left frontal parietal occipital region. EKG revealed sinus rhythm with a left axis deviation and 68 bpm with T wave inversion in leads V1 and V2 with flattening in lead V3 as reviewed by me. Laboratory evaluation was remarkable for UA grossly abnormal, BUN 24, creatinine 0.65, and glucose 106. ED documentation reviewed and case discussed with ED provider. Review of systems: Pertinent positives and negatives as discussed in HPI, a complete review of systems was performed and all other systems are negative. Physical examination: Vital signs reviewed General: non toxic, no distress, appears at stated age, normal weight Derm: no unusual rashes/lesions, warm Head: atraumatic, normocephalic, symmetric Eyes: EOMI, no lid lag, anicteric sclera, pupils equal round reactive to light ENT: Nose and ears atraumatic Neck: No cervical lymphadenopathy, trachea midline, supple Mouth: no lip lesion, mucus membranes moist Cardiovascular: S1S2 reg, no murmur, positive dorsalis pedis pulse bilateral, no edema Lungs: CTA bilateral, no rhonchi, no rales, no accessory muscle use Abdominal: soft, nontender to palpation, no guarding Ext: muscle strength 4 out of 5 in all 4 extremities grossly, no gross muscle atrophy, no contractures, Neuro: CN II-XI grossly intact, no gross focal neuro deficits Psych: Alert, oriented only to self Assessment: Altered mental status, likely secondary to UTI versus less likely CVA vs Seizures Chronic additions: Seizure disorder, hypertension, type II DM Imaging: CT brain in the emergency room revealed findings consistent with a remote infarct in the left frontal parietal occipital region. EKG revealed sinus rhythm with a left axis deviation and 68 bpm with T wave inversion in leads V1 and V2 with flattening in lead V3 as reviewed by me. Data Review: Laboratory evaluation was remarkable for UA grossly abnormal, BUN 24, creatinine 0.65, and glucose 106. Plan: Continue with ceftriaxone 1 g every 24 hours Neurology consulted Unclear why patient is on Decadron. Hold off for now Neurochecks Continue IV fluids with normal saline 75 cc/h Continue with home medications Insulin sliding scale blood glucose monitoring DVT prophylaxis: Lovenox subcu The patient is admitted with an anticipated less than 2 midnight stay for evaluation of altered mental status CODE STATUS: Full Code Discussed with: Patient, granddaughter Anticipated discharge place: Home Past Medical History Past Medical History: Cancer, COPD, Diabetes Mellitus, GERD/Reflux, Hyperlipidemia, Hypertension, Memory Impairment, Sleep Apnea/CPAP/BIPAP Additional Past Medical History / Comment(s): C-PAP., BACK PAIN, SKIN CANCER, MEMORY PROBLEMS., HX OF LEAD POISONING WHILE WORKING AT [employer] History of Any Multi-Drug Resistant Organisms: None Reported Additional Past Surgical History / Comment(s): TORN LIGAMENT ARM., VASECTOMY, CATARACTS, FX ORBITAL SURGERY. Past Anesthesia/Blood Transfusion Reactions: No Reported Reaction, Motion Sickness Past Psychological History: No Psychological Hx Reported Smoking Status: Former smoker Past Alcohol Use History: None Reported Past Drug Use History: None Reported - Past Family History Mother Family Medical History: No Reported History Medications and Allergies Home Medications Medication Instructions Recorded Confirmed Type Metoprolol Succinate (ER) [Toprol 50 mg PO BID@799,199901/22/19 12/08/23 History XL] lisinopriL [Zestril] 10 mg PO DAILY@79901/22/19 12/08/23 History sitaGLIPtin [Januvia] 100 mg PO DAILY@79901/22/19 12/08/23 History Aspirin 81 mg PO DAILY@79907/09/23 12/08/23 History Empagliflozin [Jardiance] 25 mg PO DAILY@79907/09/23 12/08/23 History Finasteride [Proscar] 5 mg PO DAILY@79907/09/23 12/08/23 History Memantine HCl [Namenda Xr] 21 mg PO DAILY@79907/09/23 12/08/23 History metFORMIN HCL [Glucophage] 500 mg PO BID@799,199907/09/23 12/08/23 History Acetaminophen [Tylenol 8 Hour] 650 mg PO QID@,,,11/12/23 12/08/23 History Atorvastatin Calcium [Lipitor] 40 mg PO HS@199911/12/23 12/08/23 History Cyanocobalamin (Vitamin B-12) 1,000 mcg PO DAILY@79911/12/23 12/08/23 History [Vitamin B-12] Donepezil [Aricept] 10 mg PO HS@199911/12/23 12/08/23 History Ft Arthritis Pain 1% Gel 2 gram TOPICAL TID@11/12/23 12/08/23 History Loperamide [Imodium] 2 - 4 mg PO QID PRN MDD 8 caps 11/12/23 12/08/23 History Loratadine [Claritin] 10 mg PO DAILY@79911/12/23 12/08/23 History Pantoprazole [Protonix] 40 mg PO DAILY@79911/12/23 12/08/23 History polyethylene glycoL 3350 [Miralax] 17 gm PO DAILY@79911/12/23 12/08/23 History Clopidogrel [Plavix] 75 mg PO DAILY@79912/08/23 12/08/23 History Mirtazapine [Remeron] 15 mg PO HS@199912/08/23 12/08/23 History dexAMETHasone [Decadron] 4 mg PO DAILY@79912/08/23 12/08/23 History levETIRAcetam [Keppra] 1,000 mg PO BID@799,199912/08/23 12/08/23 History Allergies Allergy/AdvReac Type Severity Reaction Status Date / Time Penicillins Allergy Unknown Rash/Hives Verified 12/08/23 16:21 Physical Exam Vitals: Vital Signs Temp Pulse Resp BP Pulse Ox 12/09/23 01:16 97.9 F 79 16 105/90 95 12/08/23 23:00 75 17 100/59 95 12/08/23 22:00 80 17 115/69 96 12/08/23 18:24 97.5 F L 67 20 109/70 95 12/08/23 15:25 98 F 67 20 106/66 96 Intake and Output 12/08/23 12/08/23 12/09/23 14:59 22:59 06:59 Other: Weight 58.06 kg Results CBC & Chem 7: 12/08/23 16:14 12/08/23 16:14 Labs: Abnormal Lab Results - Last 24 Hours (Table) 12/08/23 12/08/23 12/08/23 Range/Units 16:14 16:14 21:14 Plt Count 128 L (150-450) k/uL Lymphocytes # 0.7 L (1.0-4.8) k/uL Chloride 108 H (98-107) mmol/L Carbon Dioxide 19 L (22-30) mmol/L BUN 24 H (9-20) mg/dL Creatinine 0.65 L (0.66-1.25) mg/dL Glucose 106 H (74-99) mg/dL Urine Glucose (UA) 4+ H (Negative) Urine Ketones 1+ H (Negative) Ur Leukocyte Esterase Large H (Negative) Urine RBC >182 H (0-5) /hpf Urine WBC 167 H (0-5) /hpf Urine Mucus Rare H (None) /hpf Urine Yeast (Budding) Many H (None) /hpf
[2023-12-09] MEDS ORDERED: LEVOFLOXACIN 750MG-D5W PMX 750 MG in DEXTROSE/WATER 1 150ML.BAG IVPB SCH (01:30)
[2023-12-09 04:22] LABS: Glucose,Whole Blood 78 mg/dL (70-110)
[2023-12-09 07:20] LABS: Basophils % (A) 0 %; Eosinophils # (A) 0.1 k/uL (0-0.7); Eosinophils % (A) 2 %; HCT 41.4 % (39.0-53.0); HGB 13.9 gm/dL (13.0-17.5); Lymphocytes # (A) 1.5 k/uL (1.0-4.8); Lymphocytes % (A) 26 %; MCH 30.8 pg (25.0-35.0); MCHC 33.7 g/dL (31.0-37.0); MCV 91.6 fL (80.0-100.0); Mean Platelet Volume 7.1; Monocytes # (A) 0.4 k/uL (0-1.0); Monocytes % (A) 7 %; Neutrophils # (A) 3.5 k/uL (1.3-7.7); Neutrophils % (A) 63 %; Platelet Count 163 k/uL (150-450); RBC 4.52 m/uL (4.30-5.90); RDW 14.1 % (11.5-15.5); WBC 5.6 k/uL (3.8-10.6)
[2023-12-09 07:33] LABS: ALT 18 U/L (4-49); AST 32 U/L (17-59); African American GFR (CKD) >90 (>60 ml/min/1.73 sqM); Albumin 3.3 g/dL (3.5-5.0); Alkaline Phosphatase 89 U/L (38-126); Anion Gap 9 mmol/L; Blood Urea Nitrogen 23 mg/dL (9-20); Calcium 9.2 mg/dL (8.4-10.2); Carbon Dioxide 20 mmol/L (22-30); Chloride 110 mmol/L (98-107); Glucose 84 mg/dL (74-99); Magnesium 1.7 mg/dL (1.6-2.3); Non-African American GFR(CKD) 90 (>60 ml/min/1.73 sqM); Phosphorus 2.7 mg/dL (2.5-4.5); Sodium 139 mmol/L (137-145); Total Bilirubin 0.5 mg/dL (0.2-1.3); Total Protein 6.3 g/dL (6.3-8.2)
[2023-12-09] MEDS: INSULIN ASPART (NovoLOG) 100 UNIT/ML VIAL SQ SCH (08:09)
[2023-12-09] MEDS: levETIRAcetam 500 MG TAB PO SCH (08:16)
[2023-12-09] MEDS: ASPIRIN 81 MG PO SCH (08:16)
[2023-12-09] MEDS: CLOPIDOGREL 75 MG TAB PO SCH (08:16)
[2023-12-09] MEDS: PANTOPRAZOLE 40 MG TABLET PO SCH (08:16)
[2023-12-09] MEDS: lisinopriL 10 MG TAB PO SCH (08:16)
[2023-12-09] MEDS: FINASTERIDE 5 MG TAB PO SCH (08:16)
[2023-12-09] MEDS: METOPROLOL SUCCINATE (ER) 50 MG TAB.ER.24H PO SCH (08:16)
[2023-12-09] MEDS: ENOXAPARIN 40 MG/0.4 ML SYRINGE SQ SCH (08:16)
[2023-12-09 11:28] LABS: Glucose,Whole Blood 118 mg/dL (70-110)
--- NOTE | 2023-12-09 12:57 | P.PN ---
Subjective Progress Note Date: 12/09/23 Pt is still quite confused. Able to identify place, but not president or month. Gen: In NAD, non-toxic HEENT: normocephalic, atraumatic, hearing acuity is intant, mucous membranes moist CVS: perfusing all extremities well, no pitting edema, Respiratory: symmetric chest expansion, no accessory muscle use, GI: soft, NTTP, ND, : no suprapubic tenderness, no CVA tenderness MSK/Derm: no rashes, cyanosis Neuro: CN II-XII intact, no motor weakness, Psych: cooperative, euthymic mood, judgment and insight is intact Hospital course: Patient is a 78-year-old male with a PMH of multiple recent CVAs, dementia, recently diagnosed PFO on aspirin Plavix, history of seizure disorder, recent hospitalization for sepsis and subsequently diagnosed acute cholecystitis with subsequent transfer for surgical repair, who was brought in to the emergency room from [facility] with reports that the patient has not been acting like himself for the past [address] brain in the emergency room revealed findings consistent with a remote infarct in the left frontal parietal occipital region. EKG revealed sinus rhythm with a left axis deviation and 68 bpm with T wave inversion in leads V1 and V2 with flattening in lead V3 as reviewed by me. Laboratory evaluation was remarkable for UA grossly abnormal, BUN 24, creatinine 0.65, and glucose 106. Assessment: Altered mental status, likely secondary to UTI versus less likely CVA vs Seizures Chronic additions: Seizure disorder, hypertension, type II DM Plan: Continue with ceftriaxone 1 g every 24 hours, urine cultures pending Neurology consulted, consultation is pending Unclear why patient is on Decadron. Hold off for now Neurochecks Continue IV fluids with normal saline 75 cc/h Continue with home medications Insulin sliding scale blood glucose monitoring DVT prophylaxis: Lovenox subcu The patient is admitted with an anticipated less than 2 midnight stay for evaluation of altered mental status CODE STATUS: Full Code Discussed with: Patient, granddaughter Anticipated discharge place: Home Objective - Vital Signs Vital signs: Vital Signs Temp 97.9 F 12/09/23 11:29 Pulse 65 12/09/23 11:29 Resp 20 12/09/23 11:29 BP 149/83 12/09/23 11:29 Pulse Ox 96 12/09/23 11:29 FiO2 Intake & Output 12/08/23 12/09/23 12/09/23 18:59 06:59 18:59 Intake Total 90 Balance 90 Weight 58.06 kg Intake: Oral 90 Other: Voiding Method External Catheter - Labs CBC & Chem 7: 12/09/23 06:55 12/09/23 06:55 Labs: Abnormal Lab Results - Last 24 Hours (Table) 12/08/23 12/08/23 12/08/23 Range/Units 16:14 16:14 21:14 Plt Count 128 L (150-450) k/uL Lymphocytes # 0.7 L (1.0-4.8) k/uL Chloride 108 H (98-107) mmol/L Carbon Dioxide 19 L (22-30) mmol/L BUN 24 H (9-20) mg/dL Creatinine 0.65 L (0.66-1.25) mg/dL Glucose 106 H (74-99) mg/dL POC Glucose (mg/dL) (70-110) mg/dL Albumin (3.5-5.0) g/dL Urine Glucose (UA) 4+ H (Negative) Urine Ketones 1+ H (Negative) Ur Leukocyte Esterase Large H (Negative) Urine RBC >182 H (0-5) /hpf Urine WBC 167 H (0-5) /hpf Urine Mucus Rare H (None) /hpf Urine Yeast (Budding) Many H (None) /hpf 12/09/23 12/09/23 Range/Units 06:55 11:26 Plt Count (150-450) k/uL Lymphocytes # (1.0-4.8) k/uL Chloride 110 H (98-107) mmol/L Carbon Dioxide 20 L (22-30) mmol/L BUN 23 H (9-20) mg/dL Creatinine (0.66-1.25) mg/dL Glucose (74-99) mg/dL POC Glucose (mg/dL) 118 H (70-110) mg/dL Albumin 3.3 L (3.5-5.0) g/dL Urine Glucose (UA) (Negative) Urine Ketones (Negative) Ur Leukocyte Esterase (Negative) Urine RBC (0-5) /hpf Urine WBC (0-5) /hpf Urine Mucus (None) /hpf Urine Yeast (Budding) (None) /hpf
--- NOTE | 2023-12-09 14:28 | P.CNNES ---
History of Present Illness Consult date: 12/09/23 Requesting physician: Allen Nunez Reason for Consult: cva vs seizure History of Present Illness: This is a 78-year-old gentleman who presented emergency department because of altered status. History is obtained from medical record as well as the patient's nurse. It seems the patient resides in the [facility] and for the last few days he's been having confusion. Appears the patient has history of multiple strokes with dementia as well as history of seizure according to the medical notes. Per one of the primary team's notes the patient has not been acting himself for the last 5 days and he resides from [facility]. The nurse, his granddaughter stated that the patient had metal in his brain in which she had surgery in the past. Currently patient denies any headache. He is unable to provide much history. Some of the workup during his hospital visit consisted of: Repeat CBC with differential is unremarkable. Sodium is 139, creatinine is 0.71, glucose is 84, plasma lactic acid is 1.3, phosphorus is 4.2, magnesium is 1.7, Urine analysis seems the possible suggestive of underlying dura tract infection in which the leukocyte esterase was large, urine white blood cells 167 CT of the head is reported as moderate generalized atrophy and chronic small vessel ischemic change. Remote infarct in the left frontal parietal occipital region. No acute intracranial the CT abnormality. I personally reviewed this the head and I agree the patient does have old strokes over the left hemisphere. There is no acute ischemia. There is no bleed noted. 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 Review of Systems Limited but the positive and negative as per HPI. Past Medical History Past Medical History: Cancer, COPD, Diabetes Mellitus, GERD/Reflux, Hyperlipidemia, Hypertension, Memory Impairment, Sleep Apnea/CPAP/BIPAP Additional Past Medical History / Comment(s): C-PAP., BACK PAIN, SKIN CANCER, MEMORY PROBLEMS., HX OF LEAD POISONING WHILE WORKING AT [employer]., History of Any Multi-Drug Resistant Organisms: None Reported Additional Past Surgical History / Comment(s): TORN LIGAMENT ARM., VASECTOMY, CATARACTS, FX ORBITAL SURGERY. Past Anesthesia/Blood Transfusion Reactions: No Reported Reaction, Motion Sickness Past Psychological History: No Psychological Hx Reported Smoking Status: Former smoker Past Alcohol Use History: None Reported Past Drug Use History: None Reported - Past Family History Mother Family Medical History: No Reported History Medications and Allergies Home Medications Medication Instructions Recorded Confirmed Type Metoprolol Succinate (ER) [Toprol 50 mg PO BID@799,199901/22/19 12/08/23 History XL] lisinopriL [Zestril] 10 mg PO DAILY@79901/22/19 12/08/23 History sitaGLIPtin [Januvia] 100 mg PO DAILY@79901/22/19 12/08/23 History Aspirin 81 mg PO DAILY@79907/09/23 12/08/23 History Empagliflozin [Jardiance] 25 mg PO DAILY@79907/09/23 12/08/23 History Finasteride [Proscar] 5 mg PO DAILY@79907/09/23 12/08/23 History Memantine HCl [Namenda Xr] 21 mg PO DAILY@79907/09/23 12/08/23 History metFORMIN HCL [Glucophage] 500 mg PO BID@799,199907/09/23 12/08/23 History Acetaminophen [Tylenol 8 Hour] 650 mg PO QID@,,,11/12/23 12/08/23 History Atorvastatin Calcium [Lipitor] 40 mg PO HS@199911/12/23 12/08/23 History Cyanocobalamin (Vitamin B-12) 1,000 mcg PO DAILY@79911/12/23 12/08/23 History [Vitamin B-12] Donepezil [Aricept] 10 mg PO HS@199911/12/23 12/08/23 History Ft Arthritis Pain 1% Gel 2 gram TOPICAL TID@11/12/23 12/08/23 History Loperamide [Imodium] 2 - 4 mg PO QID PRN MDD 8 caps 11/12/23 12/08/23 History Loratadine [Claritin] 10 mg PO DAILY@79911/12/23 12/08/23 History Pantoprazole [Protonix] 40 mg PO DAILY@79911/12/23 12/08/23 History polyethylene glycoL 3350 [Miralax] 17 gm PO DAILY@79911/12/23 12/08/23 History Clopidogrel [Plavix] 75 mg PO DAILY@79912/08/23 12/08/23 History Mirtazapine [Remeron] 15 mg PO HS@199912/08/23 12/08/23 History dexAMETHasone [Decadron] 4 mg PO DAILY@79912/08/23 12/08/23 History levETIRAcetam [Keppra] 1,000 mg PO BID@799,199912/08/23 12/08/23 History Allergies Allergy/AdvReac Type Severity Reaction Status Date / Time Penicillins Allergy Unknown Rash/Hives Verified 12/08/23 16:21 Physical Examination - Vital Signs Vital Signs: Vital Signs Temp Pulse Pulse Resp BP BP Pulse Ox 12/09/23 11:29 97.9 F 65 20 149/83 96 12/09/23 08:00 97.7 F 80 20 150/85 93 L 12/09/23 06:33 84 18 139/79 94 L 12/09/23 04:46 80 16 127/75 95 12/09/23 01:16 97.9 F 79 16 105/90 95 12/08/23 23:00 75 17 100/59 95 12/08/23 22:00 80 17 115/69 96 12/08/23 18:24 97.5 F L 67 20 109/70 95 12/08/23 15:25 98 F 67 20 106/66 96 Intake and Output 12/08/23 12/09/23 12/09/23 22:59 06:59 14:59 Intake Total 90 Balance 90 Intake: Oral 90 Other: Voiding Method External Catheter Weight 58.06 kg General: Lying in bed and is not in acute distress. Neuro: Limited. Patient is awake alert oriented to self. He initially did not know where he was and upon time he was in the hospital he stated he was in [facility]. It appears he has expressive aphasia. He is very slow responding to questions and follow commands The pupils are round equal about 4 mm bilaterally. Reactive to light symmetrically. He has questionable minimal right nasolabial flattening was symmetrical with smile. No dysarthria. Motor the strength for individual muscle could not be assessed because of he states he has pain but is able to lift of bilateral upper extremity above gravity as well as lowers above gravity symmetrically again could not assess individual muscle strength for focality He was not compliant with the sensation or reflexes. Upgoing right toe. Mute on left. Results - Laboratory Findings CBC and BMP: 12/09/23 06:55 12/09/23 06:55 Abnormal Lab Findings: Abnormal Labs 12/08/23 12/08/23 12/08/23 16:14 16:14 21:14 Plt Count 128 L Lymphocytes # 0.7 L Chloride 108 H Carbon Dioxide 19 L BUN 24 H Creatinine 0.65 L Glucose 106 H POC Glucose (mg/dL) Albumin Urine Glucose (UA) 4+ H Urine Ketones 1+ H Ur Leukocyte Esterase Large H Urine RBC >182 H Urine WBC 167 H Urine Mucus Rare H Urine Yeast (Budding) Many H 12/09/23 12/09/23 06:55 11:26 Plt Count Lymphocytes # Chloride 110 H Carbon Dioxide 20 L BUN 23 H Creatinine Glucose POC Glucose (mg/dL) 118 H Albumin 3.3 L Urine Glucose (UA) Urine Ketones Ur Leukocyte Esterase Urine RBC Urine WBC Urine Mucus Urine Yeast (Budding) Assessment and Plan Assessment: This is a 78-year-old gentleman with history of multiple strokes, seizure who presents from nursing facility because of the confusion over the last 5 days mary ann or to presentation. His urine analysis seems possible suggestive of acute UTI Altered mental status. Encephalopathy and unsure exactly etiology. Possible due to the UTI. Cannot rule out any acute stroke or due to underlying seizure. If did have seizure then likely provoked due to acute UTI--mentation improving. Possible acute UTI History of multiple strokes predominantly over the left hemisphere with residual expressive aphasia. Seems the patient has a skull defect over left side History of seizures and is on home Keppra History of dementia Diabetes mellitus Hypertension Sleep apnea Plan: I ordered MRI of the brain, carotid duplex. Per the nurse, his granddaughter notified that he has a metal but it seems the MRI compatible that's reported. If patient does have acute stroke then will get 2D echo. Routine EEG is ordered by the ED attending Recommend urine culture will defer the management to primary team. It seems the primary team started him on ceftriaxone. Primary team ordered TSH, hemoglobin A1c, lipid panel He is on aspirin 81 mg, Plavix 75 mg, Lipitor at 80 mg daily. Is on home Keppra 1gm bid. Ordered Keppra level but it would been more ideal for Keppra level ordered at presentation to ED. Every 4 hours neuro checks Cardiac monitoring Consulted PT OT and [employer]ICE MA[employer]GER Seizure precaution We'll defer the rest of the medical management to primary team DVT prophylaxis the patient is on Lovenox The plan was discussed with the patient's nurse. Thank you for the consultation. Time with Patient: Greater than 30
--- NOTE | 2023-12-09 15:28 | US ---
EXAMINATION TYPE: US carotid duplex BILAT DATE OF EXAM: 12/09/2023 COMPARISON: 07/12/2023 - Carotid US CLINICAL INDICATION: Male, 78 years old with history of stroke; TECHNIQUE: Carotid duplex ultrasound examination. Indirect Doppler criteria was utilized. FINDINGS: EXAM MEASUREMENTS: RIGHT: Peak Systolic Velocity (PSV) cm/sec ----- Right CCA: 88 ----- Right ICA: 104 ----- Right ECA: 127 ICA/CCA ratio: 1.2 RIGHT: End Diastole cm/sec ----- Right CCA: 8 ----- Right ICA: 13 ----- Right ECA: 11 LEFT: Peak Systolic Velocity (PSV) cm/sec ----- Left CCA: 85 ----- Left ICA: 112 ----- Left ECA: 132 ICA/CCA ratio: 1.3 LEFT: End Diastole cm/sec ----- Left CCA: 85 ----- Left ICA: 17 ----- Left ECA: 8 VERTEBRALS (direction of flow): Right Vertebral: Antegrade Left Vertebral: Antegrade Rhythm: Elevated velocities within the bilateral ECAs, plaque and intimal thickening seen within earnest ateral CCAs IMPRESSION: Mild to moderate atherosclerotic change at the bifurcations. No hemodynamically significant ICA sten osis on either side. Criteria for Assigning % of Stenosis / Diameter reduction (Estimation based on the indirect measurements of the internal carotid artery velocities (ICA PSV). 1. Normal (no stenosis)=ICA PSV < 125 cm/s: ratio < 2.0: ICA EDV<40 cm/s. 2. Less than 50% stenosis=ICA PSV < 125 cm/s: ratio < 2.0: ICA EDV<40 cm/s. 3. 50 to 69% stenosis=ICA PSV of 125 to 230 cm/s: ration 2.0 ? 4.0: ICA EDV 40-100 cm/s. 4. Greater than 70% stenosis to near occlusion= ICA PSV > 230 cm/s: ratio > 4.0: ICA EDV > 100 cm/s. 5. Near occlusion= ICA PSV velocities may be low or undetectable: variable ratio and ICA EDV. 6. Total occlusion=unable to detect flow.
[2023-12-09 16:13] LABS: Glucose,Whole Blood 102 mg/dL (70-110)
[2023-12-09] MEDS ORDERED: ZINC OXIDE PASTE (Z-GUARD) 1 APPLIC TOPICAL PRN (18:01)
[2023-12-09 20:19] LABS: Glucose,Whole Blood 83 mg/dL (70-110)
[2023-12-09] MEDS: DONEPEZIL 5 MG TAB PO SCH (21:37)
[2023-12-09] MEDS: MIRTAZAPINE 15 MG TAB PO SCH (21:37)
[2023-12-09] MEDS: ATORVASTATIN 40 MG TAB PO SCH (21:37)
--- NOTE | 2023-12-10 00:43 | EEG ---
ELECTROENCEPHALOGRAM REPORT CLINICAL HISTORY: This is a 78-year-old gentleman with history of stroke and seizure, who presents because of confusion. The video EEG is obtained to evaluate for seizure epileptiform activity. RELEVANT MEDICATION: Keppra. EEG TYPE: A routine 21-channel EEG with video using the 10/20 electrode placement system. DESCRIPTION: Wakefulness is obtained. During awake state, the posterior-dominant rhythm consists of [id number] voltage of 8 to 8.5 hertz activity that is well modulated and well sustained. There is no physiological stage 2 sleep architecture. There is focal slowing over the left temporal/central region. There is high amplitude activity over the left frontotemporal region. Interictal and ictal is none. ACTIVATION PROCEDURE: Photic stimulation did not evoke posterior driving response. There is no abnormality during the photic stimulation. Hyperventilation is not performed. CLINICAL INTERPRETATION: This is an abnormal routine EEG. Focal slowing is suggestive of cerebral dysfunction in involved region. The breach is suggestive of skull defect. Otherwise, there is no epileptiform discharges or seizure during the study. Clinical correlation is recommended. MMODL / IJN: [id number] / NED
[2023-12-10 05:47] LABS: Glucose,Whole Blood 111 mg/dL (70-110)
[2023-12-10 07:31] LABS: Basophils % (A) 1 %; Eosinophils # (A) 0.2 k/uL (0-0.7); Eosinophils % (A) 5 %; HCT 42.8 % (39.0-53.0); HGB 14.1 gm/dL (13.0-17.5); Lymphocytes # (A) 1.3 k/uL (1.0-4.8); Lymphocytes % (A) 28 %; MCH 30.6 pg (25.0-35.0); MCV 92.6 fL (80.0-100.0); Mean Platelet Volume 7.4; Monocytes # (A) 0.4 k/uL (0-1.0); Monocytes % (A) 8 %; Neutrophils # (A) 2.7 k/uL (1.3-7.7); Neutrophils % (A) 57 %; Platelet Count 153 k/uL (150-450); RBC 4.63 m/uL (4.30-5.90); RDW 14.1 % (11.5-15.5); WBC 4.6 k/uL (3.8-10.6)
[2023-12-10 07:56] LABS: African American GFR (CKD) >90 (>60 ml/min/1.73 sqM); Anion Gap 7 mmol/L; Blood Urea Nitrogen 16 mg/dL (9-20); Calcium 9.1 mg/dL (8.4-10.2); Carbon Dioxide 21 mmol/L (22-30); Chloride 114 mmol/L (98-107); Glucose 105 mg/dL (74-99); Magnesium 1.6 mg/dL (1.6-2.3); Non-African American GFR(CKD) >90 (>60 ml/min/1.73 sqM); Potassium 3.5 mmol/L (3.5-5.1); Sodium 142 mmol/L (137-145)
[2023-12-10 11:45] LABS: Glucose,Whole Blood 119 mg/dL (70-110)
[2023-12-10] MEDS: ACETAMINOPHEN TAB 325 MG TAB PO PRN (12:48)
--- NOTE | 2023-12-10 13:07 | P.PN ---
Subjective Progress Note Date: 12/10/23 Hospital Course: 78-year-old male with a PMH of multiple recent CVAs, dementia, recently diagnosed PFO on aspirin Plavix, history of seizure disorder, recent hospitalization for sepsis and subsequently diagnosed acute cholecystitis with subsequent transfer for surgical repair, who was brought in to the emergency room from [facility] with reports that the patient has not been acting like himself for the past [address] brain in the emergency room revealed findings consistent with a remote infarct in the left frontal parietal occipital region. EKG revealed sinus rhythm with a left axis deviation and 68 bpm with T wave inversion in leads V1 and V2 with flattening in lead V3 as reviewed by me. Lab oratory evaluation was remarkable for UA grossly abnormal, BUN 24, creatinine 0.65, and glucose 106. Started on IV antibiotics, mental status back to baseline. MRI pending. Subjective: Patient seen and examined at bedside. No acute events overnight. Pertinent positives and negatives as discussed above, a complete review of systems was performed and all other systems are negative. Vitals Signs Reviewed. General: Nontoxic, no distress, appears at stated age, chronically ill-appearing Derm: Warm, dry Head: Atraumatic, normocephalic, symmetric Eyes: EOMI, no lid lag, anicteric sclera Mouth: No lip lesion, mucus membranes moist Cardiovascular: S1S2 reg, no murmur Lungs: CTA bilateral, no rhonchi, no rales, no accessory muscle use Abdominal: Soft, nontender to palpation, no guarding, no appreciable organomegaly Ext: No gross muscle atrophy, no edema, no contractures, 4/10 strength in bilateral upper and lower extremity Neuro: CN II-XI grossly intact, no focal neuro deficits Psych: Alert, oriented x 2, appropriate affect Data Reviewed Today: Pertinent Labs: WBC 4.6, hemoglobin 14.1, bicarb 21, creatinine 0.59, blood sugars range between 83-1 19, TSH 0.97, magnesium 1.6, A1c 5.6. Imaging: Carotid Doppler showed mild to moderate arthrosclerotic changes at the bifurcation, no significant ICA stenosis. EEG did not show any epileptiform discharges Assessment and Plan: Active: Acute encephalopathy, likely secondary to urinary tract infection History of dementia History of seizure disorder History of recent CVAs Recently diagnosed PFO -Mental status back to baseline -Discussed management with neurology, pending MRI brain -Keppra level pending -Continue Keppra thousand twice daily -Urine cultures not ordered on admission -Continue IV ceftriaxone 1 g every 24 hours, patient is overall improving -Continue aspirin 81 mg, atorvastatin 40 mg Type 2 diabetes, most recent A1c was 5.6 -Continue sliding scale insulin, monitor for hypoglycemia Chronic: Hypertension BPH DVT ppx: Lovenox Code status: DNR Anticipated discharge place: Pending clinical course Anticipated discharge time: Pending clinical course In light of ongoing workup for metabolic encephalopathy, and IV antibiotics for urinary tract infection, patient status changed from observation to inpatient. Objective - Vital Signs Vital signs: Vital Signs Temp 98.1 F 12/10/23 11:08 Pulse 61 12/10/23 11:08 Resp 18 12/10/23 11:08 BP 151/78 12/10/23 11:08 Pulse Ox 97 12/10/23 11:08 FiO2 Intake & Output 12/09/23 12/10/23 12/10/23 18:59 06:59 18:59 Intake Total 90 Balance 90 Weight 58.06 kg Intake: Oral 90 Other: Voiding Method External Catheter External Catheter External Catheter # Voids 1 1 - Labs CBC & Chem 7: 12/10/23 06:30 12/10/23 06:30 Labs: Abnormal Lab Results - Last 24 Hours (Table) 12/10/23 12/10/23 12/10/23 Range/Units 05:46 06:30 11:43 Chloride 114 H (98-107) mmol/L Carbon Dioxide 21 L (22-30) mmol/L Creatinine 0.59 L (0.66-1.25) mg/dL Glucose 105 H (74-99) mg/dL POC Glucose (mg/dL) 111 H 119 H (70-110) mg/dL
--- NOTE | 2023-12-10 14:32 | P.PN ---
Subjective Progress Note Date: 12/10/23 I am following-up with patient and feels about the same. No new neurological issue. Objective - Vital Signs Vital signs: Vital Signs Temp 98.1 F 12/10/23 11:08 Pulse 61 12/10/23 11:08 Resp 18 12/10/23 11:08 BP 151/78 12/10/23 11:08 Pulse Ox 97 12/10/23 11:08 FiO2 Intake & Output 12/09/23 12/10/23 12/10/23 18:59 06:59 18:59 Intake Total 90 Output Total 500 Balance 90 -500 Weight 58.06 kg 58.06 kg Intake: Oral 90 Output: Urine 500 Other: Voiding Method External Catheter External Catheter External Catheter # Voids 1 1 - Exam General: Sitting in a recliner chair and is not in acute distress. Neuro: Limited. Patient is awake alert oriented to self and stated he is in hospital. Has expressive aphasia. He is very slow responding to questions and follow commands The pupils are round equal about 4 mm bilaterally. Reactive to light symmetrically. He has questionable minimal right nasolabial flattening was symmetrical with smile. No dysarthria. Motor the strength for individual muscle could not be assessed because of he states he has pain but is able to lift of bilateral upper extremity above gravity as well as lowers above gravity symmetrically again could not assess individual muscle strength for focality He was not compliant with the sensation or reflexes. Upgoing right toe. Mute on left. Some of the workup during his hospital visit consisted of: Repeat CBC with differential is unremarkable. Sodium is 139, creatinine is 0.71, glucose is 84, plasma lactic acid is 1.3, phosphorus is 4.2, magnesium is 1.7, TSH: 0.987 HbA1c: 5.6 Urine analysis seems the possible suggestive of underlying dura tract infection in which the leukocyte esterase was large, urine white blood cells 167 CT of the head is reported as moderate generalized atrophy and chronic small vessel ischemic change. Remote infarct in the left frontal parietal occipital region. No acute intracranial the CT abnormality. I personally reviewed this the head and I agree the patient does have old strokes over the left hemisphere. There is no acute ischemia. There is no bleed noted. 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 Routine EEG: Is abnormal. The focal slowing is suggestive of cerebral dysfunction in the involved region. The breach is suggestive of skull defect. Otherwise, no epilleptiform discharge or seizure. Carotid duplex: Mild to moderate atherosclerotic change at the bifurcations. No hemodynamically significant ICA stenosis on either side. - Labs CBC & Chem 7: 12/10/23 06:30 12/10/23 06:30 Labs: Abnormal Lab Results - Last 24 Hours (Table) 12/10/23 12/10/23 12/10/23 Range/Units 05:46 06:30 11:43 Chloride 114 H (98-107) mmol/L Carbon Dioxide 21 L (22-30) mmol/L Creatinine 0.59 L (0.66-1.25) mg/dL Glucose 105 H (74-99) mg/dL POC Glucose (mg/dL) 111 H 119 H (70-110) mg/dL Assessment and Plan Assessment: This is a 78-year-old gentleman with history of multiple strokes, seizure who presents from nursing facility because of the confusion over the last 5 days prior to presentation. His urine analysis seems possible suggestive of acute UTI Altered mental status. Encephalopathy and unsure exactly etiology. Possible due to the UTI. Cannot rule out any acute stroke or due to underlying seizure. If did have seizure then likely provoked due to acute UTI--mentation improving. Possible acute UTI History of multiple strokes predominantly over the left hemisphere with residual expressive aphasia. Has a skull defect over left side History of seizures and is on home Keppra History of dementia Diabetes mellitus Hypertension Sleep apnea Plan: I ordered MRI of the brain. Per the nurse, his granddaughter notified that he has a metal but it seems the MRI compatible that's reported. If patient does have acute stroke then will get 2D echo. Recommend urine culture will defer the management to primary team. It seems the primary team started him on ceftriaxone. He is on aspirin 81 mg, Plavix 75 mg, Lipitor at 80 mg daily. Is on home Keppra 1gm bid. Ordered Keppra level yesterday but it would been more ideal for Keppra level ordered at presentation to ED. 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 Time with Patient: Less than 30
[2023-12-10 14:38] VITALS: BMI 19.4
[2023-12-10 15:38] LABS: Chol/HDL Ratio 4.08 Ratio; LDL Cholesterol,Calculated 60.6 mg/dL (0.0-131.0)
[2023-12-10 16:18] LABS: Glucose,Whole Blood 116 mg/dL (70-110)
--- NOTE | 2023-12-10 16:34 | MR ---
EXAMINATION TYPE: MR brain wo con DATE OF EXAM: 12/10/2023 COMPARISON: 12/08/2023 HISTORY: Stroke CONTRAST: None TECHNIQUE: Multiplanar, multiecho imaging on a 3.0 Krista magnet is performed through the brain. Stud y is performed within 24 hours of arrival to the hospital. The craniovertebral junction is normal. The pituitary is normal. Diffusion-weighted imaging is performed. No abnormal hyperintensity is present to suggest an acute i ntracranial infarct or acute ischemic change. There is a large area of hyperintensity within the lateral left temporal lobe. This is in communicati on with the periventricular white matter hyperintensity appear larger areas within the right frontal lobe and within the bilateral centrum semiovale left more so than right. Differential diagnosis would include microvascular ischemic change. There is some ex vacuo effect on the ventricles and sulci. Va sogenic edema is felt to be less likely. On T1-weighted sequences there is some hypointensity within the left peripheral parietal lobe. Some h ypointensity may be on T2 weighted sequences but appears smaller. Some old blood products at this lev el may be present.. Example image series 601, image 393. Ventricles and sulci are very prominent for the patient age. There is an air-fluid level within the right maxillary sinus. Bilateral maxillary sinuses have mucosa l thickening. There is mucosal thickening through the ethmoid air cells. Left sphenoid sinus is neto l. Frontal sinuses as visualized appear clear. IMPRESSION: 1. Extensive white matter changes most likely ischemic type changes with atrophy. 2. No acute intracranial process identified. 3. Old small amount of blood products may be within the left parietal lobe
[2023-12-10 20:07] LABS: Glucose,Whole Blood 143 mg/dL (70-110)
[2023-12-11 05:47] LABS: Glucose,Whole Blood 176 mg/dL (70-110)
[2023-12-11 08:00] VITALS: RESP 16
[2023-12-11 11:40] LABS: Glucose,Whole Blood 168 mg/dL (70-110)
--- NOTE | 2023-12-11 11:42 | P.DS ---
Providers Date of admission: 12/10/23 11:37 Expected date of discharge: 12/11/23 Attending physician: Selena Pyle MD Consults: 12/08/23 18:53 Consult Physician Routine Consulting Provider: Alla Hall Consult Reason/Comments: cva,?sz? Do you want consulting provider notified?: Yes Primary care physician: Javid Spence Hospital Course: Discharge Diagnosis: Acute metabolic encephalopathy Urinary tract infection History of dementia History of seizure disorder History of recent CVAs Recently diagnosed PFO Type 2 diabetes Hypertension BPH Hospital Course: 78-year-old male with a PMH of multiple recent CVAs, dementia, recently diagnosed PFO on aspirin Plavix, history of seizure disorder, recent hospitalization for sepsis and subsequently diagnosed acute cholecystitis with subsequent transfer for surgical repair, who was brought in to the emergency room from [facility] with reports that the patient has not been acting like himself for the past [address] brain in the emergency room revealed findings consistent with a remote infarct in the left frontal parietal occipital region. EKG revealed sinus rhythm with a left axis deviation and 68 bpm with T wave inversion in leads V1 and V2 with flattening in lead V3 as reviewed by me. Laboratory evaluation was remarkable for UA grossly abnormal, BUN 24, creatinine 0.65, and glucose 106. Started on IV antibiotics, mental status back to baseline. MRI showed extensive white matter changes most likely ischemic type changes with atrophy, no acute intracranial process, old small amount of blood products may be within the left parietal lobe. EEG did not show any epileptiform discharges. Carotid Doppler did not show any significant ICA stenosis. Patient was evaluated by neurology, recommending outpatient follow- up. No urine cultures available. Patient being discharged on oral cefdinir. Patient seen and examined at bedside. Vital signs reviewed and stable. General: Nontoxic, no distress, appears at stated age, chronically ill-appearing Derm: Warm, dry Head: Atraumatic, normocephalic, symmetric Eyes: EOMI, no lid lag, anicteric sclera Mouth: No lip lesion, mucus membranes moist Cardiovascular: S1S2 reg, no murmur Lungs: CTA bilateral, no rhonchi, no rales, no accessory muscle use Abdominal: Soft, nontender to palpation, no guarding, no appreciable organomegaly Ext: No gross muscle atrophy, no edema, no contractures, 4/5 strength in bilateral upper and lower extremity Neuro: CN II-XI grossly intact, no focal neuro deficits Psych: Alert, oriented x 2, appropriate affect A total of 33 minutes of time were spent preparing this complex discharge summary. Patient was discharged on 12/11/2023 at 1135. Patient Condition at Discharge: Stable Plan - Discharge Summary Discharge Rx Participant: Yes New Discharge Prescriptions: New Cefdinir 300 mg PO Q12HR #4 cap Continue sitaGLIPtin [Januvia] 100 mg PO DAILY@0800 lisinopriL [Zestril] 10 mg PO DAILY@0800 Metoprolol Succinate (ER) [Toprol XL] 50 mg PO BID@0800,1999 metFORMIN HCL [Glucophage] 500 mg PO BID@0800,1999 Finasteride [Proscar] 5 mg PO DAILY@0800 Empagliflozin [Jardiance] 25 mg PO DAILY@0800 Aspirin 81 mg PO DAILY@0800 Atorvastatin Calcium [Lipitor] 40 mg PO HS@1999 polyethylene glycoL 3350 [Miralax] 17 gm PO DAILY@0800 Clopidogrel [Plavix] 75 mg PO DAILY@0800 Memantine HCl [Namenda Xr] 21 mg PO DAILY@0800 Ft Arthritis Pain 1% Gel 2 gram TOPICAL TID@08,12,20 Acetaminophen [Tylenol 8 Hour] 650 mg PO QID@00,08,16,20 Cyanocobalamin (Vitamin B-12) [Vitamin B-12] 1,000 mcg PO DAILY@0800 Donepezil [Aricept] 10 mg PO HS@2000 Loratadine [Claritin] 10 mg PO DAILY@0800 Pantoprazole [Protonix] 40 mg PO DAILY@0800 Loperamide [Imodium] 2 - 4 mg PO QID PRN MDD 8 caps PRN Reason: Loose Stool levETIRAcetam [Keppra] 1,000 mg PO BID@0800,1999 Mirtazapine [Remeron] 15 mg PO HS@2000 Discontinued dexAMETHasone [Decadron] 4 mg PO DAILY@0800 Discharge Medication List Metoprolol Succinate (ER) [Toprol XL] 50 mg PO BID@0800,199901/22/19 [History] lisinopriL [Zestril] 10 mg PO DAILY@0800 01/22/19 [History] sitaGLIPtin [Januvia] 100 mg PO DAILY@0800 01/22/19 [History] Aspirin 81 mg PO DAILY@79907/09/23 [History] Empagliflozin [Jardiance] 25 mg PO DAILY@79907/09/23 [History] Finasteride [Proscar] 5 mg PO DAILY@79907/09/23 [History] Memantine HCl [Namenda Xr] 21 mg PO DAILY@79907/09/23 [History] metFORMIN HCL [Glucophage] 500 mg PO BID@799,199907/09/23 [History] Acetaminophen [Tylenol 8 Hour] 650 mg PO QID@00,,,11/12/23 [History] Atorvastatin Calcium [Lipitor] 40 mg PO HS@199911/12/23 [History] Cyanocobalamin (Vitamin B-12) [Vitamin B-12] 1,000 mcg PO DAILY@79911/12/23 [History] Donepezil [Aricept] 10 mg PO HS@199911/12/23 [History] Ft Arthritis Pain 1% Gel 2 gram TOPICAL TID@,,11/12/23 [History] Loperamide [Imodium] 2 - 4 mg PO QID PRN MDD 8 caps 11/12/23 [History] Loratadine [Claritin] 10 mg PO DAILY@79911/12/23 [History] Pantoprazole [Protonix] 40 mg PO DAILY@79911/12/23 [History] polyethylene glycoL 3350 [Miralax] 17 gm PO DAILY@79911/12/23 [History] Clopidogrel [Plavix] 75 mg PO DAILY@79912/08/23 [History] Mirtazapine [Remeron] 15 mg PO HS@199912/08/23 [History] levETIRAcetam [Keppra] 1,000 mg PO BID@799,199912/08/23 [History] Cefdinir 300 mg PO Q12HR #4 cap 12/11/23 [Rx] Follow up Appointment(s)/Referral(s): [facility], [NON-STAFF] - Javid Spence MD [Primary Care Provider] - 1-2 days Patient Instructions/Handouts: Urinary Tract Infection in Men (DC), Altered Mental Status (GEN) Activity/Diet/Wound Care/Special Instructions: Patient will return to [facility] at discharge - contact them to notify of d/c time - [phone] Call and schedule wheelchair van transport when patient ready for discharge - [phone] Pleases follow up with PCP and neurology. Discharge Disposition: OTHER INSTITUTION NOT DEFINED
[2023-12-11 11:44] VITALS: BP 136/76; PULSE 71; TEMP 97.4
--- NOTE | 2023-12-11 17:31 | P.PN ---
Subjective Progress Note Date: 12/11/23 I am following-up with patient and he states he is doing well and no new issues. Objective - Vital Signs Vital signs: Vital Signs Temp 97.4 F L 12/11/23 11:30 Pulse 71 12/11/23 11:30 Resp 16 12/11/23 11:30 BP 136/76 12/11/23 11:30 Pulse Ox 95 12/11/23 11:30 FiO2 Intake & Output 12/10/23 12/11/23 12/11/23 18:59 06:59 18:59 Intake Total 236 Output Total 1000 950 300 Balance -764 -950 -300 Weight 58.06 kg Intake: Oral 236 Output: Urine 1000 950 300 Other: Voiding Method External Catheter External Catheter External Catheter # Voids 1 - Exam General: Sitting in a recliner chair and is not in acute distress. Neuro: Limited. Patient is awake alert oriented to self and stated he is in hospital. Has expressive aphasia. He is very slow responding to questions and follow commands The pupils are round equal about 4 mm bilaterally. Reactive to light symmetrically. He has questionable minimal right nasolabial flattening was symmetrical with smile. No dysarthria. Motor the strength for individual muscle could not be assessed because of he states he has pain but is able to lift of bilateral upper extremity above gra vity as well as lowers above gravity symmetrically again could not assess individual muscle strength for focality He was not compliant with the sensation or reflexes. Upgoing right toe. Mute on left. Some of the workup during his hospital visit consisted of: Repeat CBC with differential is unremarkable. Sodium is 139, creatinine is 0.71, glucose is 84, plasma lactic acid is 1.3, phosphorus is 4.2, magnesium is 1.7, TSH: 0.987 HbA1c: 5.6 Urine analysis seems the possible suggestive of underlying dura tract infection in which the leukocyte esterase was large, urine white blood cells 167 CT of the head is reported as moderate generalized atrophy and chronic small vessel ischemic change. Remote infarct in the left frontal parietal occipital region. No acute intracranial the CT abnormality. I personally reviewed this the head and I agree the patient does have old strokes over the left hemisphere. There is no acute ischemia. There is no bleed noted. 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 Routine EEG: Is abnormal. The focal slowing is suggestive of cerebral dysfunction in the involved region. The breach is suggestive of skull defect. Otherwise, no epilleptiform discharge or seizure. Carotid duplex: Mild to moderate atherosclerotic change at the bifurcations. No hemodynamically significant ICA stenosis on either side. MRI Brain: It is reported as extensive white matter changes most likely ischemic type changes with atrophy. No acute intracranial processes identified. Oldl small amount of blood part may be within the left parietal lobe. I personally reviewed the MRI and I agree there is no acute intracranial process. Patient has encephalomalacia predominantly over the left temporal and somewhat in the parietal. - Labs CBC & Chem 7: 12/10/23 06:30 12/10/23 06:30 Labs: Abnormal Lab Results - Last 24 Hours (Table) 12/10/23 12/11/23 12/11/23 Range/Units 20:04 05:43 11:36 POC Glucose (mg/dL) 143 H 176 H 168 H (70-110) mg/dL Assessment and Plan Assessment: This is a 78-year-old gentleman with history of multiple strokes, seizure who presents from nursing facility because of the confusion over the last 5 days prior to presentation. His urine analysis seems possible suggestive of acute UTI Altered mental status. Encephalopathy Likely due to the UTI. Cannot rule out seizure. If did have seizure then likely provoked due to acute UTI--mentation improving. MRI Brain is no acute/subacute process. Probable acute UTI History of multiple strokes predominantly over the left hemisphere with residual expressive aphasia. Has a skull defect over left side History of seizures and is on home Keppra History of dementia Diabetes mellitus Hypertension Sleep apnea Plan: Recommend urine culture will defer the management to primary team. It seems the primary team started him on ceftriaxone. He is on aspirin 81 mg, Plavix 75 mg, Lipitor at 80 mg daily. Is on home Keppra 1gm bid. Keppra level is 15 (normal 3-60), It would been more ideal for Keppra level ordered at presentation to ED. Every 4 hours neuro checks Cardiac monitoring Consulted PT OT and CLOTH OPENER HAND Seizure precaution We'll defer the rest of the medical management to primary team DVT prophylaxis the patient is on Lovenox Upon discharge, recommend the patient to follow-up with neurologist as outpatient within 2 weeks. The plan was discussed with the primary team. Time with Patient: Less than 30
== END 2023-12-11 12:24 | disposition home health service (06) | DRG 689 ==
LOC: EC 15:23 → 3SCARD 18:54 → OBSVTOIN 12-10 11:37
PROVIDERS: ADMIT Internal Medicine; ATTEND Internal Medicine
DX: N39.0 Urinary tract infection, site not specified (principal); G93.41 Metabolic encephalopathy; F05 Delirium due to known physiological condition; I69.354 Hemiplegia and hemiparesis following cerebral infarction affecting left non-dominant side; Q21.12 Patent foramen ovale; R41.3 Other amnesia; G47.30 Sleep apnea, unspecified; I10 Essential (primary) hypertension; G40.909 Epilepsy, unspecified, not intractable, without status epilepticus; M54.9 Dorsalgia, unspecified; I69.320 Aphasia following cerebral infarction; E78.5 Hyperlipidemia, unspecified; E11.9 Type 2 diabetes mellitus without complications; K21.9 Gastro-esophageal reflux disease without esophagitis; F03.90 Unspecified dementia, unspecified severity, without behavioral disturbance, psychotic disturbance, mood disturbance, and anxiety; J44.9 Chronic obstructive pulmonary disease, unspecified; M19.90 Unspecified osteoarthritis, unspecified site; N40.0 Benign prostatic hyperplasia without lower urinary tract symptoms; Z66 Do not resuscitate; Z79.02 Long term (current) use of antithrombotics/antiplatelets; Z79.4 Long term (current) use of insulin; Z79.82 Long term (current) use of aspirin; Z79.84 Long term (current) use of oral hypoglycemic drugs; Z79.899 Other long term (current) drug therapy; Z85.828 Personal history of other malignant neoplasm of skin; Z87.891 Personal history of nicotine dependence; Z71.3 Dietary counseling and surveillance; Z88.0 Allergy status to penicillin
CPT/HCPCS: 36415; 70450; 70551; 80048; 80053; 80061; 80177; 81001; 83036; 83605; 83735; 83880; 84100; 84443; 84484; 85025; 85610; 85730; 93005; 93880; 95816; 96361; 96365; 96366; 96372; 99285

== ENCOUNTER 2024-02-02 15:40 | Inpatient (IN) | payer MEDICARE, OTHER ==
--- NOTE | 2024-02-02 15:51 | ED ---
Altered Mental Status HPI - General Chief Complaint: Altered Mental Status Stated Complaint: ams Time Seen by Provider: 02/02/24 15:50 Source: EMS, RN notes reviewed, old records reviewed, Caregiver Mode of arrival: EMS Limitations: altered mental status, physical limitation - History of Present Illness Initial Comments: This is a 78-year-old male in significant distress. Patient coming in for evaluation of unresponsiveness and discoloration. Patient is unable to give history here in the emergency department but presents for significantly cyanotic extremities face hands legs MD Complaint: altered mental status, confusion, decreased responsiveness, other (Cyanosis) -: unknown Consistency of Symptoms: getting worse Treatments Prior to Arrival: oxygen - Related Data Home Medications Medication Instructions Recorded Confirmed Metoprolol Succinate (ER) [Toprol 50 mg PO BID@799,199901/22/19 02/03/24 XL] sitaGLIPtin [Januvia] 100 mg PO DAILY@79901/22/19 02/03/24 Aspirin 81 mg PO DAILY@79907/09/23 02/03/24 Empagliflozin [Jardiance] 25 mg PO DAILY@79907/09/23 02/03/24 Finasteride [Proscar] 5 mg PO DAILY@79907/09/23 02/03/24 Memantine HCl [Namenda Xr] 21 mg PO DAILY@79907/09/23 02/03/24 metFORMIN HCL [Glucophage] 500 mg PO BID@799,199907/09/23 02/03/24 Acetaminophen [Tylenol 8 Hour] 650 mg PO QID@,,,11/12/23 02/03/24 Cyanocobalamin (Vitamin B-12) 1,000 mcg PO DAILY@79911/12/23 02/03/24 [Vitamin B-12] Ft Arthritis Pain 1% Gel 2 gram TOPICAL TID@,11/12/23 02/03/24 Loratadine [Claritin] 10 mg PO DAILY@79911/12/23 02/03/24 Pantoprazole [Protonix] 40 mg PO DAILY@79911/12/23 02/03/24 polyethylene glycoL 3350 [Miralax] 17 gm PO DAILY@79911/12/23 02/03/24 Clopidogrel [Plavix] 75 mg PO DAILY@79912/08/2324 levETIRAcetam [Keppra] 1,000 mg PO BID@0800,199912/08/23 02/03/24 Cholecalciferol [Vitamin D3 (125 125 mcg PO DAILY 02/03/24 02/03/24 Mcg = 5000 Iu)] Furosemide [Lasix] 20 mg PO DAILY 02/03/24 02/03/24 Potassium Chloride [Klor-Con M20] 20 meq PO DAILY 02/03/24 02/03/24 Previous Rx's Medication Instructions Recorded Cefdinir 300 mg PO Q12HR #12 cap 02/04/24 Allergies Allergy/AdvReac Type Severity Reaction Status Date / Time Penicillins Allergy Unknown Rash/Hives Verified 02/03/24 09:53 Review of Systems ROS Statement: Those systems with pertinent positive or pertinent negative responses have been documented in the HPI. ROS Other: All systems not noted in ROS Statement are negative. Past Medical History Past Medical History: Cancer, COPD, Diabetes Mellitus, GERD/Reflux, Hyperlipidemia, Hypertension, Memory Impairment, Sleep Apnea/CPAP/BIPAP Additional Past Medical History / Comment(s): C-PAP., BACK PAIN, SKIN CANCER, MEMORY PROBLEMS., HX OF LEAD POISONING WHILE WORKING AT [employer]., History of Any Multi-Drug Resistant Organisms: None Reported Additional Past Surgical History / Comment(s): TORN LIGAMENT ARM., VASECTOMY, CATARACTS, FX ORBITAL SURGERY. Past Anesthesia/Blood Transfusion Reactions: No Reported Reaction, Motion Sickness Past Psychological History: No Psychological Hx Reported Smoking Status: Former smoker Past Alcohol Use History: None Reported Past Drug Use History: None Reported - Past Family History Mother Family Medical History: No Reported History General Exam Limitations: altered mental status, physical limitation General appearance: alert, anxious, in distress Head exam: Present: atraumatic, normocephalic, normal inspection Eye exam: Present: normal appearance, PERRL, EOMI. Absent: scleral icterus, co njunctival injection, periorbital swelling ENT exam: Present: normal exam, mucous membranes moist Neck exam: Present: normal inspection. Absent: tenderness, meningismus, lymphadenopathy Respiratory exam: Present: normal lung sounds bilaterally. Absent: respiratory distress, wheezes, rales, rhonchi, stridor Cardiovascular Exam: Present: regular rate, normal rhythm, normal heart sounds. Absent: systolic murmur, diastolic murmur, rubs, gallop, clicks GI/Abdominal exam: Present: soft, normal bowel sounds. Absent: distended, tenderness, guarding, rebound, rigid Extremities exam: Present: normal inspection, full ROM, normal capillary refill. Absent: tenderness, pedal edema, joint swelling, calf tenderness Back exam: Present: normal inspection Neurological exam: Present: alert, oriented X3, CN II-XII intact Psychiatric exam: Present: normal affect, normal mood Skin exam: Present: warm, dry, intact, normal color. Absent: rash Course Vital Signs 02/02/24 02/02/24 02/02/24 15:42 17:39 19:05 Temperature 97.7 F 101.3 F H 98.3 F Pulse Rate 96 96 89 Respiratory 16 24 16 Rate Blood Pressure 142/76 148/79 108/64 O2 Sat by Pulse 96 93 L 94 L Oximetry 02/02/24 02/02/24 02/03/24 20:26 21:28 00:31 Temperature 97.2 F L Pulse Rate 79 73 66 Respiratory 16 20 18 Rate Blood Pressure 98/64 95/55 115/60 O2 Sat by Pulse 92 L 94 L 94 L Oximetry 02/03/24 02:09 Temperature Pulse Rate 62 Respiratory 16 Rate Blood Pressure 105/55 O2 Sat by Pulse 97 Oximetry - Reevaluation(s) Reevaluation #1: 02/02/24 17:14 Medical records reviewed Reevaluation #2: 02/02/24 17:14 Patient symptoms unchanged Reevaluation #3: 02/02/24 17:15 Patient informed of results and questions answered Reevaluation #4: Was pt. sent in by a medical professional or institution (, PA, REAR ADMIRAL, urgent care, hospital, or skilled nursing...) When possible be specific @ -no Did you speak to anyone other than the patient for history (EMS, parent, family, police, friend...)? What history was obtained from this source @ -no Did you review nursing and triage notes (agree or disagree)? Why? @ -agree Are old charts reviewed (outside hosp., previous admission, EMS record, old EKG, old radiological studies, urgent care reports/EKG's, skilled nursing records)? Report findings @ -yes Differential Diagnosis (chest pain, altered mental status, abdominal pain women, abdominal pain men, vaginal bleeding, weakness, fever, dyspnea, syncope, hea dache, dizziness, GI bleed, back pain, seizure, CVA, palpatations, mental health, musculoskeletal)? @ -prior EKG interpreted by me (3pts min.). @ -yes X-rays interpreted by me (1pt min.). @ -yes negative for acute disease CT interpreted by me (1pt min.). @ -no U/S interpreted by me (1pt. min.). @ -no What testing was considered but not performed or refused? (CT, X-rays, U/S, labs)? Why? @ -none What meds were considered but not given or refused? Why? @ -none Did you discuss the management of the patient with other professionals (professionals i.e. , PA, REAR ADMIRAL, lab, RT, psych nurse, hospice social worker, recruitment advertising manager, teacher, traffic maintenance officer, caser shoe parts)? Give summary @ -no Was smoking cessation discussed for >3mins.? @ -no Was critical care preformed (if so, how long)? @ -no Were there social determinants of health that impacted care today? How? (Homelessness, low income, unemployed, alcoholism, drug addiction, transportation, low edu. Level, literacy, decrease access to med. care, assisted, rehab)? @ -none Was there de-escalation of care discussed even if they declined (Discuss DNR or withdrawal of care, Hospice)? DNR status @ -no What co-morbidities impacted this encounter? (DM, HTN, Smoking, COPD, CAD, Cancer, CVA, ARF, Chemo, Hep., AIDS, mental health diagnosis, sleep apnea, mo rbid obesity)? @ -none Was patient admitted / discharged? Hospital course, mention meds given and r oute, prescriptions, significant lab abnormalities, going to OR and other pertinent info. @ - 78 male to the ER for evaluation today. Patient presents today for evaluation of altered mental status which is persistent here in the emergency department and no acute cause found. Patient will be admitted for observation regarding acute mental status changes Admitted Undiagnosed new problem with uncertain prognosis? @ -no Drug Therapy requiring intensive monitoring for toxicity (Heparin, Nitro, In sulin, Cardizem)? @ -no Were any procedures done? @ -no Diagnosis/symptom? @ -Altered mental status Acute, or Chronic, or Acute on Chronic? @ -Acute Uncomplicated (without systemic symptoms) or Complicated (systemic symptoms)? @ -Complicated Side effects of treatment? @ -no Exacerbation, Progression, or Severe Exacerbation? @ -exacerbation Poses a threat to life or bodily function? How? (Chest pain, [place], [place], pneumonia, PE, COPD, DKA, ARF, appy, cholecystitis, CVA, Diverticulitis, Homicidal, Suicidal, threat to staff... and all critical care pts) @ -yes with extremes of age Reevaluation #5: Differential Altered Mental Status: Hypoglycemia, DKA, hypercapnia, ETOH, overdose, CO poisoning, trauma, myxedema coma, HTN encephalopathy, infection, encephalitis, psychosis, intercranial hemorrhage, hepatic encephalopathy, meningitis, CVA, this is not meant to be an all-inclusive list Medical Decision Making - Medical Decision Making 78 male to the ER for evaluation today. Patient presents today for evaluation of altered mental status which is persistent here in the emergency department and no acute cause found. Patient will be admitted for observation regarding acute mental status changes - Lab Data Result diagrams: 02/03/24 04:35 02/03/24 04:35 Lab Results 02/02/24 02/02/24 02/02/24 Range/Units 17:39 17:39 17:39 WBC 10.2 (3.8-10.6) k/uL RBC 4.87 (4.30-5.90) m/uL Hgb 15.4 (13.0-17.5) gm/dL Hct 46.8 (39.0-53.0) % MCV 96.2 (80.0-100.0) fL MCH 31.6 (25.0-35.0) pg MCHC 32.9 (31.0-37.0) g/dL RDW 15.1 (11.5-15.5) % Plt Count 156 (150-450) k/uL MPV 7.6 Neutrophils % 85 % Lymphocytes % 6 % Monocytes % 5 % Eosinophils % 1 % Basophils % 1 % Neutrophils # 8.7 H (1.3-7.7) k/uL Lymphocytes # 0.6 L (1.0-4.8) k/uL Monocytes # 0.5 (0-1.0) k/uL Eosinophils # 0.1 (0-0.7) k/uL Basophils # 0.1 (0-0.2) k/uL PT 10.6 (10.0-12.5) sec INR 1.0 (<1.2) APTT 21.6 L (22.0-30.0) sec Sodium (137-145) mmol/L Potassium (3.5-5.1) mmol/L Chloride (98-107) mmol/L Carbon Dioxide (22-30) mmol/L Anion Gap mmol/L BUN (9-20) mg/dL Creatinine (0.66-1.25) mg/dL Est GFR (CKD-EPI)AfAm (>60 ml/min/1.73 sqM) Est GFR (CKD-EPI)NonAf (>60 ml/min/1.73 sqM) Glucose (74-99) mg/dL Lactic Ac Sepsis Rflx Plasma Lactic Acid Zeb 2.3 H* (0.7-2.0) mmol/L Calcium (8.4-10.2) mg/dL Magnesium (1.6-2.3) mg/dL Total Bilirubin (0.2-1.3) mg/dL AST (17-59) U/L ALT (4-49) U/L Alkaline Phosphatase (38-126) U/L Troponin I (0.000-0.034) ng/mL NT-Pro-B Natriuret Pep pg/mL Total Protein (6.3-8.2) g/dL Albumin (3.5-5.0) g/dL Urine Color Urine Appearance (Clear) Urine pH (5.0-8.0) Ur Specific [place] (1.001-1.035) Urine Protein (Negative) Urine Glucose (UA) (Negative) Urine Ketones (Negative) Urine Blood (Negative) Urine Nitrite (Negative) Urine Bilirubin (Negative) Urine Urobilinogen (<2.0) mg/dL Ur Leukocyte Esterase (Negative) Urine RBC (0-5) /hpf Urine WBC (0-5) /hpf 02/02/24 02/02/24 02/02/24 Range/Units 17:57 18:39 18:39 WBC (3.8-10.6) k/uL RBC (4.30-5.90) m/uL Hgb (13.0-17.5) gm/dL Hct (39.0-53.0) % MCV (80.0-100.0) fL MCH (25.0-35.0) pg MCHC (31.0-37.0) g/dL RDW (11.5-15.5) % Plt Count (150-450) k/uL MPV Neutrophils % % Lymphocytes % % Monocytes % % Eosinophils % % Basophils % % Neutrophils # (1.3-7.7) k/uL Lymphocytes # (1.0-4.8) k/uL Monocytes # (0-1.0) k/uL Eosinophils # (0-0.7) k/uL Basophils # (0-0.2) k/uL PT (10.0-12.5) sec INR (<1.2) APTT (22.0-30.0) sec Sodium 134 L (137-145) mmol/L Potassium 4.8 (3.5-5.1) mmol/L Chloride 107 (98-107) mmol/L Carbon Dioxide 20 L (22-30) mmol/L Anion Gap 7 mmol/L BUN 34 H (9-20) mg/dL Creatinine 0.69 (0.66-1.25) mg/dL Est GFR (CKD-EPI)AfAm >90 (>60 ml/min/1.73 sqM) Est GFR (CKD-EPI)NonAf >90 (>60 ml/min/1.73 sqM) Glucose 178 H (74-99) mg/dL Lactic Ac Sepsis Rflx Plasma Lactic Acid Zeb (0.7-2.0) mmol/L Calcium 9.1 (8.4-10.2) mg/dL Magnesium 2.2 (1.6-2.3) mg/dL Total Bilirubin 0.8 (0.2-1.3) mg/dL AST 26 (17-59) U/L ALT 25 (4-49) U/L Alkaline Phosphatase 81 (38-126) U/L Troponin I <0.012 (0.000-0.034) ng/mL NT-Pro-B Natriuret Pep 284 pg/mL Total Protein 6.2 L (6.3-8.2) g/dL Albumin 3.4 L (3.5-5.0) g/dL Urine Color Yellow Urine Appearance Clear (Clear) Urine pH 7.0 (5.0-8.0) Ur Specific [place] 1.025 (1.001-1.035) Urine Protein Trace H (Negative) Urine Glucose (UA) 4+ H (Negative) Urine Ketones Negative (Negative) Urine Blood Large H (Negative) Urine Nitrite Negative (Negative) Urine Bilirubin Negative (Negative) Urine Urobilinogen 3.0 (<2.0) mg/dL Ur Leukocyte Esterase Trace H (Negative) Urine RBC >182 H (0-5) /hpf Urine WBC 18 H (0-5) /hpf 02/02/24 Range/Units 19:03 WBC (3.8-10.6) k/uL RBC (4.30-5.90) m/uL Hgb (13.0-17.5) gm/dL Hct (39.0-53.0) % MCV (80.0-100.0) fL MCH (25.0-35.0) pg MCHC (31.0-37.0) g/dL RDW (11.5-15.5) % Plt Count (150-450) k/uL MPV Neutrophils % % Lymphocytes % % Monocytes % % Eosinophils % % Basophils % % Neutrophils # (1.3-7.7) k/uL Lymphocytes # (1.0-4.8) k/uL Monocytes # (0-1.0) k/uL Eosinophils # (0-0.7) k/uL Basophils # (0-0.2) k/uL PT (10.0-12.5) sec INR (<1.2) APTT (22.0-30.0) sec Sodium (137-145) mmol/L Potassium (3.5-5.1) mmol/L Chloride (98-107) mmol/L Carbon Dioxide (22-30) mmol/L Anion Gap mmol/L BUN (9-20) mg/dL Creatinine (0.66-1.25) mg/dL Est GFR (CKD-EPI)AfAm (>60 ml/min/1.73 sqM) Est GFR (CKD-EPI)NonAf (>60 ml/min/1.73 sqM) Glucose (74-99) mg/dL Lactic Ac Sepsis Rflx Y Plasma Lactic Acid Zeb (0.7-2.0) mmol/L Calcium (8.4-10.2) mg/dL Magnesium (1.6-2.3) mg/dL Total Bilirubin (0.2-1.3) mg/dL AST (17-59) U/L ALT (4-49) U/L Alkaline Phosphatase (38-126) U/L Troponin I (0.000-0.034) ng/mL NT-Pro-B Natriuret Pep pg/mL Total Protein (6.3-8.2) g/dL Albumin (3.5-5.0) g/dL Urine Color Urine Appearance (Clear) Urine pH (5.0-8.0) Ur Specific [place] (1.001-1.035) Urine Protein (Negative) Urine Glucose (UA) (Negative) Urine Ketones (Negative) Urine Blood (Negative) Urine Nitrite (Negative) Urine Bilirubin (Negative) Urine Urobilinogen (<2.0) mg/dL Ur Leukocyte Esterase (Negative) Urine RBC (0-5) /hpf Urine WBC (0-5) /hpf - EKG Data -: EKG Interpreted by Me (EKG is sinus 96 [place] 207 QRS 103 QTc 399) - Radiology Data Radiology results: report reviewed (Chest x-ray is negative for acute disease), image reviewed Disposition Clinical Impression: Altered mental status, Delirium due to general medical condition, Stage II pressure ulcer of sacral region Disposition: ADMITTED IP TO THIS [facility] Condition: Fair
[2024-02-02] MEDS: methylPREDNISolone SOD SUCCI 125 MG/2 ML VIAL IV STA (17:42)
[2024-02-02] MEDS: ACETAMINOPHEN IV (For NPO) 1,000 MG in EMPTY BAG 1 BAG IVPB STA (17:42)
[2024-02-02] MEDS: KETOROLAC 15 MG/ML 1 ML VIAL IVP STA (17:42)
[2024-02-02] MEDS: ALBUTEROL NEBULIZED 2.5 MG/3 ML INHALATION STA (17:43)
[2024-02-02] MEDS: IPRATROPIUM 0.5 MG/2.5 ML NEBU INHALATION STA (17:43)
[2024-02-02] MEDS: ACETAMINOPHEN TAB 500 MG TAB PO STA (17:47)
[2024-02-02 17:49] LABS: Basophils # (A) 0.1 k/uL (0-0.2); Basophils % (A) 1 %; Eosinophils # (A) 0.1 k/uL (0-0.7); Eosinophils % (A) 1 %; HCT 46.8 % (39.0-53.0); HGB 15.4 gm/dL (13.0-17.5); Lymphocytes # (A) 0.6 k/uL (1.0-4.8); Lymphocytes % (A) 6 %; MCH 31.6 pg (25.0-35.0); MCHC 32.9 g/dL (31.0-37.0); MCV 96.2 fL (80.0-100.0); Mean Platelet Volume 7.6; Monocytes # (A) 0.5 k/uL (0-1.0); Monocytes % (A) 5 %; Neutrophils # (A) 8.7 k/uL (1.3-7.7); Neutrophils % (A) 85 %; Platelet Count 156 k/uL (150-450); RBC 4.87 m/uL (4.30-5.90); RDW 15.1 % (11.5-15.5); WBC 10.2 k/uL (3.8-10.6)
[2024-02-02 18:29] LABS: Appearance,Urine Clear (Clear); Bilirubin,Urine Negative (Negative); Blood,Urine Large (Negative); Color,Urine Yellow; Glucose,Urine (UA) 4+ (Negative); Ketones,Urine Negative (Negative); Leukocyte Esterase,Urine Trace (Negative); Nitrite,Urine Negative (Negative); Protein,Urine Trace (Negative); RBC,Urine >182 /hpf (0-5); Specific Gravity,Urine 1.025 (1.001-1.035); WBC,Urine 18 /hpf (0-5)
[2024-02-02 19:00] LABS: ALT 25 U/L (4-49); AST 26 U/L (17-59); African American GFR (CKD) >90 (>60 ml/min/1.73 sqM); Albumin 3.4 g/dL (3.5-5.0); Alkaline Phosphatase 81 U/L (38-126); Anion Gap 7 mmol/L; Blood Urea Nitrogen 34 mg/dL (9-20); Calcium 9.1 mg/dL (8.4-10.2); Carbon Dioxide 20 mmol/L (22-30); Chloride 107 mmol/L (98-107); Glucose 178 mg/dL (74-99); Magnesium 2.2 mg/dL (1.6-2.3); Non-African American GFR(CKD) >90 (>60 ml/min/1.73 sqM); Sodium 134 mmol/L (137-145); Total Bilirubin 0.8 mg/dL (0.2-1.3); Total Protein 6.2 g/dL (6.3-8.2)
[2024-02-02 19:02] LABS: Potassium 4.8 mmol/L (3.5-5.1)
[2024-02-02 19:08] LABS: NT-Pro-B-Type Natriuretic Pept 284 pg/mL
[2024-02-02 19:13] LABS: Partial Thromboplastin Time 21.6 sec (22.0-30.0); Prothrombin Time 10.6 sec (10.0-12.5)
[2024-02-02] MEDS ORDERED: NALOXONE 0.4 MG/ML 1 ML VIAL IV PRN (20:41)
[2024-02-02] MEDS ORDERED: ONDANSETRON 4 MG/2 ML VIAL IVP PRN (20:41)
[2024-02-02] MEDS ORDERED: IBUPROFEN IV 600 MG in SODIUM CHLORIDE 0.9% 250 ML IV PRN (20:41)
[2024-02-02] MEDS ORDERED: ACETAMINOPHEN SUPPOSITORY 650 MG SUPP RECTAL PRN (20:42)
--- NOTE | 2024-02-02 20:51 | XR ---
EXAM: XR chest 1V portable CLINICAL INDICATION:Male, 78 years old with history of sob; [facility] COMPARISON: 07/09/2023 TECHNIQUE: Chest single view. FINDINGS: Lines/tubes/devices: EKG leads overlie the chest. No indwelling lines are seen. Cardiomediastinum: Cardiac silhouette appears similar, mildly enlarged Stable mediastinal silhouette. Mildly tortuous aorta. Vasculature: No pulmonary vascular congestion Lungs/pleura: No consolidation, sizeable effusion, or visible pneumothorax. Bones/soft tissues: Bony thorax appears grossly intact as seen. Regional soft tissues appear unremarkable. IMPRESSION: 1. Cardiomegaly without evidence of failure. 2. No acute pulmonary process.
[2024-02-02] MEDS: SODIUM CHLORIDE 0.9% 500 ML 500 ML IV STA (21:23)
[2024-02-02] MEDS: SODIUM CHLORIDE 0.9% 1,000 ML IV SCH (21:23)
[2024-02-02] MEDS: SODIUM CHLORIDE 0.9% 1,000 ML IV STA (21:25)
--- NOTE | 2024-02-03 00:52 | P.HPIM ---
History of Present Illness H&P Date: 02/02/24 Patient is a 78-year-old male with a PMH of dementia, multiple recent CVAs, PFO, seizure disorder, recently diagnosed acute cholecystitis status post surgical repair, and recent hospitalization for UTI and encephalopathy who was now brought to the emergency room from [facility] due to altered mental status and a fall. The patient was confused at the time of interview and very little meaningful history could be obtained as a result. History is supplemented from the chart and from the ED provider. The patient was reportedly cyanotic upon arrival at the emergency room with otherwise stable vital signs. The patient had no active complaints but could not recall why he was at the emergency room. He denied experiencing headaches, visual disturbances, chest pain, shortness of breath, cough, abdominal pain, diarrhea. Chest x-ray in the emergency room revealed cardiomegaly with EKG showing sinus rhythm with left axis deviation and incomplete right bundle branch block at 96 bpm as reviewed by me. Laboratory evaluation was remarkable for lactic acid 2.3, WBC count 10.2, UA showing greater than 182 RBCs, sodium 134, CO2 20, BUN 34, creatinine 0.69, with a Tmax of 101.3 F in the emergency room. ED documentation reviewed and case discussed with ED provider. Review of systems: Limited due to patient's mental status Physical examination: Vital signs reviewed General: non toxic, no distress, appears at stated age, normal weight Derm: no unusual rashes/lesions, warm Head: atraumatic, normocephalic, symmetric Eyes: EOMI, no lid lag, anicteric sclera, pupils equal round reactive to light ENT: Nose and ears atraumatic Neck: No cervical lymphadenopathy, trachea midline, supple Mouth: no lip lesion, mucus membranes moist Cardiovascular: S1S2 reg, no murmur, positive dorsalis pedis pulse bilateral, no edema Lungs: CTA bilateral, no rhonchi, no rales, no accessory muscle use Abdominal: soft, nontender to palpation, no guarding Ext: muscle strength 4 out of 5 in all 4 extremities grossly, no gross muscle atrophy, no contractures, Neuro: CN II-XI grossly intact, no gross focal neuro deficits Psych: Awake, oriented only to self Assessment: SIRS with no obvious infectious etiology noted Lactic acidosis Altered mental status, suspect toxic metabolic encephalopathy superimposed with history of dementia Prerenal azotemia Chronic conditions: History of CVA, seizure disorder, PFO, recent cholecystitis Imaging: Chest x-ray in the emergency room revealed cardiomegaly with EKG showing sinus rhythm with left axis deviation and incomplete right bundle branch block at 96 bpm as reviewed by me. Data Review: Laboratory evaluation was remarkable for lactic acid 2.3, WBC count 10.2, UA showing greater than 182 RBCs, sodium 134, CO2 20, BUN 34, creatinine 0.69, with a Tmax of 101.3 F in the emergency room. Plan: Follow-up blood cultures Continue with empiric ceftriaxone at this time Continue IV fluids with normal saline 130 cc/h Monitor BMP Cardiac monitoring Continue with home medications DVT prophylaxis: Lovenox subcu The patient is admitted with an anticipated greater than 2 midnight stay for evaluation of SIRS CODE STATUS: Full Code Discussed with: Patient Anticipated discharge place: Nursing facility Past Medical History Past Medical History: Cancer, COPD, Diabetes Mellitus, GERD/Reflux, Hyperlipidemia, Hypertension, Memory Impairment, Sleep Apnea/CPAP/BIPAP Additional Past Medical History / Comment(s): C-PAP., BACK PAIN, SKIN CANCER, MEMORY PROBLEMS., HX OF LEAD POISONING WHILE WORKING AT [employer]., History of Any Multi-Drug Resistant Organisms: None Reported Additional Past Surgical History / Comment(s): TORN LIGAMENT ARM., VASECTOMY, CATARACTS, FX ORBITAL SURGERY. Past Anesthesia/Blood Transfusion Reactions: No Reported Reaction, Motion Sickness Past Psychological History: No Psychological Hx Reported Smoking Status: Former smoker Past Alcohol Use History: None Reported Past Drug Use History: None Reported - Past Family History Mother Family Medical History: No Reported History, Hypertension Medications and Allergies Home Medications Medication Instructions Recorded Confirmed Type Metoprolol Succinate (ER) [Toprol 50 mg PO BID@08,199901/22/19 12/08/23 History XL] lisinopriL [Zestril] 10 mg PO DAILY@79901/22/19 12/08/23 History sitaGLIPtin [Januvia] 100 mg PO DAILY@79901/22/19 12/08/23 History Aspirin 81 mg PO DAILY@79907/09/23 12/08/23 History Empagliflozin [Jardiance] 25 mg PO DAILY@79907/09/23 12/08/23 History Finasteride [Proscar] 5 mg PO DAILY@79907/09/23 12/08/23 History Memantine HCl [Namenda Xr] 21 mg PO DAILY@79907/09/23 12/08/23 History metFORMIN HCL [Glucophage] 500 mg PO BID@799,199907/09/23 12/08/23 History Acetaminophen [Tylenol 8 Hour] 650 mg PO QID@00,08,16,11/12/23 12/08/23 History Atorvastatin Calcium [Lipitor] 40 mg PO HS@199911/12/23 12/08/23 History Cyanocobalamin (Vitamin B-12) 1,000 mcg PO DAILY@79911/12/23 12/08/23 History [Vitamin B-12] Donepezil [Aricept] 10 mg PO HS@199911/12/23 12/08/23 History Ft Arthritis Pain 1% Gel 2 gram TOPICAL TID@,,11/12/23 12/08/23 History Loperamide [Imodium] 2 - 4 mg PO QID PRN MDD 8 caps 11/12/23 12/08/23 History Loratadine [Claritin] 10 mg PO DAILY@79911/12/23 12/08/23 History Pantoprazole [Protonix] 40 mg PO DAILY@79911/12/23 12/08/23 History polyethylene glycoL 3350 [Miralax] 17 gm PO DAILY@79911/12/23 12/08/23 History Clopidogrel [Plavix] 75 mg PO DAILY@79912/08/23 12/08/23 History Mirtazapine [Remeron] 15 mg PO HS@199912/08/23 12/08/23 History levETIRAcetam [Keppra] 1,000 mg PO BID@799,199912/08/23 12/08/23 History Cefdinir 300 mg PO Q12HR #4 cap 12/11/23 Rx Allergies Allergy/AdvReac Type Severity Reaction Status Date / Time Penicillins Allergy Unknown Rash/Hives Verified 02/02/24 15:49 Physical Exam Vitals: Vital Signs Temp Pulse Resp BP Pulse Ox 02/02/24 21:28 97.2 F L 73 20 95/55 94 L 02/02/24 20:26 79 16 98/64 92 L 02/02/24 19:05 98.3 F 89 16 108/64 94 L 04/07/24 17:39 101.3 F H 96 24 148/79 93 L 02/02/24 15:42 97.7 F 96 16 142/76 96 Intake and Output 02/02/24 02/02/24 02/03/24 14:59 22:59 06:59 Other: Weight 64.41 kg Results CBC & Chem 7: 02/02/24 17:39 02/02/24 18:39 Labs: Abnormal Lab Results - Last 24 Hours (Table) 02/02/24 02/02/24 02/02/24 Range/Units 17:39 17:39 17:39 Neutrophils # 8.7 H (1.3-7.7) k/uL Lymphocytes # 0.6 L (1.0-4.8) k/uL APTT 21.6 L (22.0-30.0) sec Sodium (137-145) mmol/L Carbon Dioxide (22-30) mmol/L BUN (9-20) mg/dL Glucose (74-99) mg/dL Plasma Lactic Acid Zeb 2.3 H* (0.7-2.0) mmol/L Total Protein (6.3-8.2) g/dL Albumin (3.5-5.0) g/dL Urine Protein (Negative) Urine Glucose (UA) (Negative) Urine Blood (Negative) Ur Leukocyte Esterase (Negative) Urine RBC (0-5) /hpf Urine WBC (0-5) /hpf 02/02/24 02/02/24 Range/Units 17:57 18:39 Neutrophils # (1.3-7.7) k/uL Lymphocytes # (1.0-4.8) k/uL APTT (22.0-30.0) sec Sodium 134 L (137-145) mmol/L Carbon Dioxide 20 L (22-30) mmol/L BUN 34 H (9-20) mg/dL Glucose 178 H (74-99) mg/dL Plasma Lactic Acid Zeb (0.7-2.0) mmol/L Total Protein 6.2 L (6.3-8.2) g/dL Albumin 3.4 L (3.5-5.0) g/dL Urine Protein Trace H (Negative) Urine Glucose (UA) 4+ H (Negative) Urine Blood Large H (Negative) Ur Leukocyte Esterase Trace H (Negative) Urine RBC >182 H (0-5) /hpf Urine WBC 18 H (0-5) /hpf
[2024-02-03 02:52] LABS: Glucose,Whole Blood 115 mg/dL (70-110)
[2024-02-03 05:55] LABS: African American GFR (CKD) >90 (>60 ml/min/1.73 sqM); Anion Gap 5 mmol/L; Blood Urea Nitrogen 27 mg/dL (9-20); Calcium 8.6 mg/dL (8.4-10.2); Carbon Dioxide 20 mmol/L (22-30); Chloride 112 mmol/L (98-107); Glucose 115 mg/dL (74-99); Non-African American GFR(CKD) >90 (>60 ml/min/1.73 sqM); Sodium 137 mmol/L (137-145)
[2024-02-03 06:16] LABS: Glucose,Whole Blood 104 mg/dL (70-110)
[2024-02-03 08:47] LABS: Basophils # (A) 0.05 X 10*3/uL (0.00-0.10); Basophils % (A) 0.5 %; Eosinophils % (A) 1.1 %; HCT 41.2 % (39.6-50.0); HGB 13.2 g/dL (13.0-17.0); Lymphocytes # (A) 1.34 X 10*3/uL (0.90-5.00); Lymphocytes % (A) 14.6 %; MCH 31.1 pg (27.0-32.0); MCV 96.9 FL (80.0-97.0); Mean Platelet Volume 8.9 FL (9.5-12.2); Monocytes # (A) 0.79 X 10*3/uL (0.20-1.00); Monocytes % (A) 8.6 %; NRBC Per 100 WBC 0 X 10*3/uL (0.00-0.01); Neutrophils # (A) 6.78 X 10*3/uL (1.80-7.70); Neutrophils % (A) 73.8 %; Platelet Count 118 X 10*3/uL (140-440); RBC 4.25 X 10*6/uL (4.40-5.60); RDW 15.4 % (11.5-14.5); WBC 9.19 X 10*3/uL (4.50-10.00)
[2024-02-03 09:04] LABS: ALT 18 U/L (10-49); AST 14 U/L (14-35); Albumin 3.2 g/dL (3.8-4.9); Alkaline Phosphatase 64 U/L (41-126); Blood Urea Nitrogen 24.5 mg/dL (9.0-27.0); Calcium 8.5 mg/dL (8.7-10.3); Carbon Dioxide 21.3 mmol/L (21.6-31.8); Chloride 109 mmol/L (96-109); Glucose 115 mg/dL (70-110); Magnesium 2.3 mg/dL (1.5-2.4); Phosphorus 2.8 mg/dL (2.4-5.1); Potassium 4.1 mmol/L (3.5-5.5); Sodium 139 mmol/L (135-145); Total Bilirubin 0.4 mg/dL (0.3-1.2); Total Protein 5.2 g/dL (6.2-8.2)
[2024-02-03] MEDS: ENOXAPARIN 40 MG/0.4 ML SYRINGE SQ SCH (09:13)
--- NOTE | 2024-02-03 10:04 | P.PN ---
Subjective Progress Note Date: 02/03/24 No new complaints today. Gen: In NAD, non-toxic HEENT: normocephalic, atraumatic, hearing acuity is intant, mucous membranes moist CVS: perfusing all extremities well, no pitting edema, Respiratory: symmetric chest expansion, no accessory muscle use, GI: soft, NTTP, ND, : no suprapubic tenderness, no CVA tenderness MSK/Derm: no rashes, cyanosis Neuro: CN II-XII intact, no motor weakness, Hospital course: Patient is a 78-year-old male with a PMH of dementia, multiple recent CVAs, PFO, seizure disorder, recently diagnosed acute cholecystitis status post surgical repair, and recent hospitalization for UTI and encephalopathy who was now brought to the emergency room from [facility] due to altered mental status and a fall. Chest x-ray in the emergency room revealed cardiomegaly with EKG showing sinus rhythm with left axis deviation and incomplete right bundle branch block at 96 bpm as reviewed by me. Laboratory evaluation was remarkable for lactic acid 2.3, WBC count 10.2, UA showing greater than 182 RBCs, sodium 134, CO2 20, BUN 34, creatinine 0.69, with a Tmax of 101.3 F in the emergency room. Assessment/plan: Sepsis secondary to complicated urinary tract infection Altered mental status, suspect toxic metabolic encephalopathy superimposed with history of dementia -Follow-up blood cultures -Continue with empiric ceftriaxone at this time -Continue IV fluids with normal saline 130 cc/h -Monitor BMP -Cardiac monitoring Chronic conditions: History of CVA, seizure disorder, PFO, recent cholecystitis Continue with home medications DVT prophylaxis: Lovenox subcu CODE STATUS: DNR/DNI Anticipated discharge place: Nursing facility Objective - Vital Signs Vital signs: Vital Signs Temp 98.0 F 02/03/24 07:26 Pulse 62 02/03/24 07:26 Resp 18 02/03/24 07:26 BP 105/61 02/03/24 07:26 Pulse Ox 94 L 02/03/24 07:26 FiO2 Intake & Output 02/02/24 02/03/24 02/03/24 18:59 06:59 18:59 Output Total 350 Balance -350 Weight 64.41 kg 64.41 kg Output: Urine 350 Other: Voiding Method External Catheter - Labs CBC & Chem 7: 02/03/24 04:35 02/03/24 04:35 Labs: Abnormal Lab Results - Last 24 Hours (Table) 02/02/24 02/02/24 02/02/24 Range/Units 17:39 17:39 17:39 RBC (4.40-5.60) X 10*6/uL RDW (11.5-14.5) % Plt Count (140-440) X 10*3/uL MPV (9.5-12.2) FL Immature Gran # (0.00-0.04) X 10*3/uL Neutrophils # 8.7 H (1.3-7.7) k/uL Lymphocytes # 0.6 L (1.0-4.8) k/uL APTT 21.6 L (22.0-30.0) sec Sodium (137-145) mmol/L Chloride (98-107) mmol/L Carbon Dioxide (22-30) mmol/L BUN (9-20) mg/dL Creatinine (0.66-1.25) mg/dL BUN/Creatinine Ratio (12.00-20.00) Ratio Glucose (74-99) mg/dL POC Glucose (mg/dL) (70-110) mg/dL Plasma Lactic Acid Zeb 2.3 H* (0.7-2.0) mmol/L Calcium (8.7-10.3) mg/dL Total Protein (6.3-8.2) g/dL Albumin (3.5-5.0) g/dL Urine Protein (Negative) Urine Glucose (UA) (Negative) Urine Blood (Negative) Ur Leukocyte Esterase (Negative) Urine RBC (0-5) /hpf Urine WBC (0-5) /hpf 02/02/24 02/02/24 02/03/24 Range/Units 17:57 18:39 02:51 RBC (4.40-5.60) X 10*6/uL RDW (11.5-14.5) % Plt Count (140-440) X 10*3/uL MPV (9.5-12.2) FL Immature Gran # (0.00-0.04) X 10*3/uL Neutrophils # (1.3-7.7) k/uL Lymphocytes # (1.0-4.8) k/uL APTT (22.0-30.0) sec Sodium 134 L (137-145) mmol/L Chloride (98-107) mmol/L Carbon Dioxide 20 L (22-30) mmol/L BUN 34 H (9-20) mg/dL Creatinine (0.66-1.25) mg/dL BUN/Creatinine Ratio (12.00-20.00) Ratio Glucose 178 H (74-99) mg/dL POC Glucose (mg/dL) 115 H (70-110) mg/dL Plasma Lactic Acid Zeb (0.7-2.0) mmol/L Calcium (8.7-10.3) mg/dL Total Protein 6.2 L (6.3-8.2) g/dL Albumin 3.4 L (3.5-5.0) g/dL Urine Protein Trace H (Negative) Urine Glucose (UA) 4+ H (Negative) Urine Blood Large H (Negative) Ur Leukocyte Esterase Trace H (Negative) Urine RBC >182 H (0-5) /hpf Urine WBC 18 H (0-5) /hpf 02/03/24 02/03/24 02/03/24 Range/Units 04:35 04:35 04:35 RBC 4.25 L (4.40-5.60) X 10*6/uL RDW 15.4 H (11.5-14.5) % Plt Count 118 L (140-440) X 10*3/uL MPV 8.9 L (9.5-12.2) FL Immature Gran # 0.13 H (0.00-0.04) X 10*3/uL Neutrophils # (1.3-7.7) k/uL Lymphocytes # (1.0-4.8) k/uL APTT (22.0-30.0) sec Sodium (137-145) mmol/L Chloride 112 H (98-107) mmol/L Carbon Dioxide 21.3 L 20 L (22-30) mmol/L BUN 27 H (9-20) mg/dL Creatinine 0.60 L (0.66-1.25) mg/dL BUN/Creatinine Ratio 35.00 H (12.00-20.00) Ratio Glucose 115 H 115 H (74-99) mg/dL POC Glucose (mg/dL) (70-110) mg/dL Plasma Lactic Acid Zeb (0.7-2.0) mmol/L Calcium 8.5 L (8.7-10.3) mg/dL Total Protein 5.2 L (6.3-8.2) g/dL Albumin 3.2 L (3.5-5.0) g/dL Urine Protein (Negative) Urine Glucose (UA) (Negative) Urine Blood (Negative) Ur Leukocyte Esterase (Negative) Urine RBC (0-5) /hpf Urine WBC (0-5) /hpf
[2024-02-03 12:04] LABS: Glucose,Whole Blood 184 mg/dL (70-110)
[2024-02-03 16:58] LABS: Glucose,Whole Blood 252 mg/dL (70-110)
[2024-02-03 19:51] LABS: Glucose,Whole Blood 169 mg/dL (70-110)
[2024-02-04 05:52] LABS: Glucose,Whole Blood 102 mg/dL (70-110)
[2024-02-04] MEDS: INSULIN ASPART (NovoLOG) 100 UNIT/ML VIAL SQ SCH (05:53)
[2024-02-04] MEDS: METOPROLOL SUCCINATE (ER) 50 MG TAB.ER.24H PO SCH (08:38)
[2024-02-04] MEDS: polyethylene glycoL 3350 17 GM POWD.PACK PO SCH (08:38)
[2024-02-04] MEDS: ASPIRIN 81 MG PO SCH (08:39)
[2024-02-04] MEDS: levETIRAcetam 500 MG TAB PO SCH (08:39)
[2024-02-04] MEDS: CLOPIDOGREL 75 MG TAB PO SCH (08:40)
[2024-02-04] MEDS: LORATADINE 10 MG TAB PO SCH (08:40)
[2024-02-04] MEDS: POTASSIUM CHLORIDE ER 20 MEQ TAB.ER PO SCH (08:40)
[2024-02-04] MEDS: CHOLECALCIFEROL 125 MCG (5000 IU) TABLET PO SCH (08:40)
[2024-02-04] MEDS: PANTOPRAZOLE 40 MG TABLET PO SCH (08:40)
[2024-02-04] MEDS: MEMANTINE 5 MG TAB PO SCH (08:41)
[2024-02-04] MEDS: FINASTERIDE 5 MG TAB PO SCH (08:42)
[2024-02-04 11:44] LABS: Glucose,Whole Blood 104 mg/dL (70-110)
--- NOTE | 2024-02-04 13:49 | P.DS ---
Providers Date of admission: 02/02/24 20:42 Expected date of discharge: 02/04/24 Attending physician: Selena Pyle MD Primary care physician: Javid Spence Hospital Course: Discharge Diagnosis: Sepsis secondary to urinary tract infection Acute metabolic encephalopathy History of dementia History of multiple recent CVAs PFO Seizure disorder Type 2 diabetes Hospital Course: Patient is a 78-year-old male with a PMH of dementia, multiple recent CVAs, PFO, seizure disorder, recently diagnosed acute cholecystitis status post surgical repair, and recent hospitalization for UTI and encephalopathy who was now brought to the emergency room from [facility] due to altered mental status and a fall. Chest x-ray in the emergency room revealed cardiomegaly with EKG showing sinus rhythm with left axis deviation and incomplete right bundle branch block at 96 bpm. Laboratory evaluation was remarkable for lactic acid 2.3, WBC count 10.2, UA showing greater than 182 RBCs, trace leukocyte esterase with 18 WBCs. Negative nitrites., sodium 134, CO2 20, BUN 34, creatinine 0.69, with a Tmax of 101.3 F in the emergency room. He was started on ceftriaxone. Mental status back to baseline. Being discharged on oral antibiotics. Patient seen and examined at bedside. Vital signs reviewed and stable. General: Nontoxic, no distress, appears at stated age Derm: Warm, dry Head: Atraumatic, normocephalic, symmetric Eyes: EOMI, no lid lag, anicteric sclera Mouth: No lip lesion, mucus membranes moist Cardiovascular: S1S2 reg, no murmur Lungs: CTA bilateral, no rhonchi, no rales, no accessory muscle use Abdominal: Soft, nontender to palpation, no guarding, no appreciable organomegaly Ext: No gross muscle atrophy, no edema, no contractures Neuro: CN II-XI grossly intact, no focal neuro deficits Psych: Alert, oriented, appropriate affect A total of 33 minutes of time were spent preparing this complex discharge summary. Patient was discharged on 02/04/2024 at 1345. Patient Condition at Discharge: Stable Plan - Discharge Summary Discharge Rx Participant: No New Discharge Prescriptions: New Cefdinir 300 mg PO Q12HR #12 cap Continue sitaGLIPtin [Januvia] 100 mg PO DAILY@0800 Metoprolol Succinate (ER) [Toprol XL] 50 mg PO BID@0800,1999 metFORMIN HCL [Glucophage] 500 mg PO BID@ Finasteride [Proscar] 5 mg PO DAILY@08 Empagliflozin [Jardiance] 25 mg PO DAILY@0800 Aspirin 81 mg PO DAILY@0800 polyethylene glycoL 3350 [Miralax] 17 gm PO DAILY@08 Clopidogrel [Plavix] 75 mg PO DAILY@08 Furosemide [Lasix] 20 mg PO DAILY Memantine HCl [Namenda Xr] 21 mg PO DAILY@0800 Ft Arthritis Pain 1% Gel 2 gram TOPICAL TID@, Acetaminophen [Tylenol 8 Hour] 650 mg PO QID@00,, Cyanocobalamin (Vitamin B-12) [Vitamin B-12] 1,000 mcg PO DAILY@08 Loratadine [Claritin] 10 mg PO DAILY@08 Pantoprazole [Protonix] 40 mg PO DAILY@08 levETIRAcetam [Keppra] 1,000 mg PO BID@ Cholecalciferol [Vitamin D3 (125 Mcg = 5000 Iu)] 125 mcg PO DAILY Potassium Chloride [Klor-Con M20] 20 meq PO DAILY Discharge Medication List Metoprolol Succinate (ER) [Toprol XL] 50 mg PO BID@799,199901/22/19 [History] sitaGLIPtin [Januvia] 100 mg PO DAILY@0801/22/19 [History] Aspirin 81 mg PO DAILY@0807/09/23 [History] Empagliflozin [Jardiance] 25 mg PO DAILY@0807/09/23 [History] Finasteride [Proscar] 5 mg PO DAILY@79907/09/23 [History] Memantine HCl [Namenda Xr] 21 mg PO DAILY@0807/09/23 [History] metFORMIN HCL [Glucophage] 500 mg PO BID@799,199907/09/23 [History] Acetaminophen [Tylenol 8 Hour] 650 mg PO QID@00,,,11/12/23 [History] Cyanocobalamin (Vitamin B-12) [Vitamin B-12] 1,000 mcg PO DAILY@0800 11/12/23 [History] Ft Arthritis Pain 1% Gel 2 gram TOPICAL TID@08,12,11/12/23 [History] Loratadine [Claritin] 10 mg PO DAILY@0800 01/16/24 [History] Pantoprazole [Protonix] 40 mg PO DAILY@79911/12/23 [History] polyethylene glycoL 3350 [Miralax] 17 gm PO DAILY@79911/12/23 [History] Clopidogrel [Plavix] 75 mg PO DAILY@79912/08/23 [History] levETIRAcetam [Keppra] 1,000 mg PO BID@799,199912/08/23 [History] Cholecalciferol [Vitamin D3 (125 Mcg = 5000 Iu)] 125 mcg PO DAILY 02/03/24 [History] Furosemide [Lasix] 20 mg PO DAILY 02/03/24 [History] Potassium Chloride [Klor-Con M20] 20 meq PO DAILY 02/03/24 [History] Cefdinir 300 mg PO Q12HR #12 cap 02/04/24 [Rx] Follow up Appointment(s)/Referral(s): [facility], [NON-STAFF] - 1-2 Days ([facility] will call to schedule in home nursing, physical therapy, and occupational therapy visits. ) Javid Spence MD [Primary Care Provider] - 1-2 days Patient Instructions/Handouts: Urinary Tract Infection in Men (DC) Activity/Diet/Wound Care/Special Instructions: *Set up wheelchair van at discharge with bill sent to patient: [phone] Discharge Disposition: OTHER INSTITUTION NOT DEFINED
[2024-02-04 13:51] VITALS: PULSE 75
[2024-02-04 15:13] VITALS: BP 122/67; RESP 17; TEMP 97.8
== END 2024-02-04 16:58 | disposition short-term general hospital (02) | DRG 871 ==
LOC: EC 15:40 → 5NMEDONC 20:42 → 4SSUR 02-03 00:43
PROVIDERS: ADMIT Internal Medicine; ATTEND Internal Medicine
DX: A41.9 Sepsis, unspecified organism (principal); G92.8 Other toxic encephalopathy; G93.41 Metabolic encephalopathy; N39.0 Urinary tract infection, site not specified; E87.20 Acidosis, unspecified; Q21.12 Patent foramen ovale; E78.5 Hyperlipidemia, unspecified; F03.90 Unspecified dementia, unspecified severity, without behavioral disturbance, psychotic disturbance, mood disturbance, and anxiety; Z88.0 Allergy status to penicillin; E11.9 Type 2 diabetes mellitus without complications; Z66 Do not resuscitate; J44.9 Chronic obstructive pulmonary disease, unspecified; G40.909 Epilepsy, unspecified, not intractable, without status epilepticus; I45.10 Unspecified right bundle-branch block; M19.90 Unspecified osteoarthritis, unspecified site; Z79.82 Long term (current) use of aspirin; Z79.02 Long term (current) use of antithrombotics/antiplatelets; Z79.899 Other long term (current) drug therapy; Z79.84 Long term (current) use of oral hypoglycemic drugs; Z86.73 Personal history of transient ischemic attack (TIA), and cerebral infarction without residual deficits; Z87.891 Personal history of nicotine dependence; Z91.81 History of falling
CPT/HCPCS: 36415; 51701; 51702; 71045; 80048; 80053; 81001; 83605; 83735; 83880; 84100; 84484; 85025; 85610; 85730; 87040; 93005; 96361; 96365; 99285

== ENCOUNTER 2024-02-15 12:59 | Emergency (ER) | payer MEDICARE, OTHER ==
--- NOTE | 2024-02-15 13:24 | ED ---
Altered Mental Status HPI - General Source: patient, family (Granddaughter) Mode of arrival: EMS Limitations: altered mental status - History of Present Illness MD Complaint: altered mental status Consistency of Symptoms: waxing and waning Context: history of similar presentation <Ishaan Angel - Last Filed: 02/15/24 13:24> <Derrick Patel - Last Filed: 02/15/24 16:44> - General Chief Complaint: Altered Mental Status Stated Complaint: Low BP Time Seen by Provider: 02/15/24 13:02 - History of Present Illness Initial Comments: This patient is 78-year-old man who is here from long-term [facility] to have evaluation for altered mental status and associated hypotension. The patient is accompanied by granddaughter who states that this morning when she went to see him he was difficult to arouse. He was not behaving appropriately. She could not get him to respond much. He did not want to get out of bed. Blood pressure was checked at the facility and it was 70/40. No fever was noted. No focality noted. Now the patient is alert. She states she is much more like his usual self. He is disoriented and hard of hearing so there is difficulty with the history. The patient is denying pain and dyspnea. Previous episodes similar to this was related to urinary tract infection (Ishaan Angel) - Related Data Home Medications Medication Instructions Recorded Confirmed Metoprolol Succinate (ER) [Toprol 50 mg PO BID@0800,199901/22/19 02/15/24 XL] sitaGLIPtin [Januvia] 100 mg PO DAILY@0800 01/22/19 02/15/24 Aspirin 81 mg PO DAILY@79907/09/23 02/15/24 Empagliflozin [Jardiance] 25 mg PO DAILY@00 07/09/23 02/15/24 Finasteride [Proscar] 5 mg PO DAILY@00 07/09/23 02/15/24 Memantine HCl [Namenda Xr] 21 mg PO DAILY@79907/09/23 02/15/24 metFORMIN HCL [Glucophage] 500 mg PO BID@0800,199907/09/23 02/15/24 Acetaminophen [Tylenol 8 Hour] 650 mg PO Q8HR@0000,0800,1600 11/12/23 02/15/24 Cyanocobalamin (Vitamin B-12) 1,000 mcg PO DAILY@0800 11/12/23 02/15/24 [Vitamin B-12] Ft Arthritis Pain 1% Gel 2 gram TOPICAL TID@0800,1199,199911/12/23 02/15/24 Loratadine [Claritin] 10 mg PO DAILY@0800 11/12/23 02/15/24 Pantoprazole [Protonix] 40 mg PO DAILY@0811/12/23 02/15/24 polyethylene glycoL 3350 [Miralax] 17 gm PO DAILY@79911/12/23 02/15/24 Clopidogrel [Plavix] 75 mg PO DAILY@79912/08/23 02/15/24 levETIRAcetam [Keppra] 1,000 mg PO BID@799,199912/08/23 02/15/24 Cholecalciferol [Vitamin D3 (125 125 mcg PO DAILY@79902/03/24 02/15/24 Mcg = 5000 Iu)] Furosemide [Lasix] 20 mg PO BID@08,199902/03/24 02/15/24 Potassium Chloride [Klor-Con M20] 20 meq PO DAILY@79902/03/24 02/15/24 Donepezil [Aricept] 5 mg PO HS@199902/15/24 02/15/24 Loperamide [Imodium] 2 - 4 mg PO QID PRN MDD 16 02/15/24 02/15/24 Mirtazapine [Remeron] 30 mg PO HS@199902/15/24 02/15/24 lisinopriL [Zestril] 5 mg PO HS@199902/15/24 02/15/24 Previous Rx's Medication Instructions Recorded Cephalexin [Keflex] 500 mg PO Q6HR 7 Days #28 cap 02/15/24 Allergies Allergy/AdvReac Type Severity Reaction Status Date / Time Penicillins Allergy Unknown Rash/Hives Verified 02/15/24 16:07 Review of Systems ROS Other: All systems not noted in ROS Statement are negative. Limitations: ROS unobtainable due to patients medical condition Constitutional: Denies: fever Respiratory: Denies: cough Cardiovascular: Denies: chest pain Gastrointestinal: Denies: abdominal pain Neurological: Denies: headache <Ishaan Angel - Last Filed: 02/15/24 13:24> ROS Other: All systems not noted in ROS Statement are negative. <Derrick Patel - Last Filed: 02/15/24 16:44> ROS Statement: Those systems with pertinent positive or pertinent negative responses have been documented in the HPI. Past Medical History Past Medical History: Cancer, COPD, Diabetes Mellitus, GERD/Reflux, Hyperlipidemia, Hypertension, Memory Impairment, Sleep Apnea/CPAP/BIPAP Additional Past Medical History / Comment(s): C-PAP., BACK PAIN, SKIN CANCER, MEMORY PROBLEMS., HX OF LEAD POISONING WHILE WORKING AT [employer], Reocuring UTIs, Stroke with slurred speech and generalized weakness, History of Any Multi-Drug Resistant Organisms: None Reported Additional Past Surgical History / Comment(s): TORN LIGAMENT ARM., VASECTOMY, CATARACTS, FX ORBITAL SURGERY. Past Anesthesia/Blood Transfusion Reactions: No Reported Reaction, Motion Sickness Past Psychological History: No Psychological Hx Reported Smoking Status: Former smoker Past Alcohol Use History: None Reported Past Drug Use History: None Reported - Past Family History Mother Family Medical History: No Reported History <KimIshaan hannah - Last Filed: 02/15/24 13:24> General Exam Limitations: no limitations General appearance: alert, in no apparent distress Head exam: Present: atraumatic, normocephalic Eye exam: Present: normal appearance. Absent: scleral icterus, conjunctival injection ENT exam: Present: mucous membranes dry Neck exam: Present: normal inspection, full ROM. Absent: tenderness Respiratory exam: Present: normal lung sounds bilaterally. Absent: respiratory distress, wheezes, rales, rhonchi, stridor, chest wall tenderness, accessory muscle use Cardiovascular Exam: Present: regular rate, normal rhythm, normal heart sounds. Absent: systolic murmur, diastolic murmur, rubs, gallop GI/Abdominal exam: Present: soft, normal bowel sounds. Absent: distended, tenderness, guarding, pulsatile mass, hernia Extremities exam: Present: normal inspection, normal capillary refill. Absent: pedal edema, calf tenderness Back exam: Present: normal inspection Neurological exam: Present: alert, CN II-XII intact. Absent: motor sensory deficit Skin exam: Present: warm, dry, intact, normal color. Absent: rash <StanleyIshaan - Last Filed: 02/15/24 13:24> Course Vital Signs 02/15/24 02/15/24 02/15/24 13:04 14:34 15:21 Temperature 97.5 F L Pulse Rate 69 62 74 Respiratory 18 18 18 Rate Blood Pressure 123/65 108/62 96/90 O2 Sat by Pulse 95 98 96 Oximetry 02/15/24 16:23 Temperature Pulse Rate 76 Respiratory 18 Rate Blood Pressure 121/60 O2 Sat by Pulse 96 Oximetry Medical Decision Making - EKG Data -: EKG Interpreted by Me EKG shows normal: sinus rhythm, axis (Left axis deviation.), intervals (MT interval is 223 ms, prolonged consistent with first-degree AV block. QRS duration 99 ms, QTc 428 ms, both normal.), ST-T waves Rate: normal (Rate 69 bpm) <Ishaan Angel - Last Filed: 02/15/24 13:24> - Lab Data Result diagrams: 02/15/24 13:26 02/15/24 13:26 <Derrick Patel - Last Filed: 02/15/24 16:44> - Medical Decision Making The patient was endorsed to me by Dr. Angel at shift change pending a UA. The patient had improved from his initial encounter his blood pressure improved after IV hydration per his family member he had a history of UTIs he does have evidence on urinalysis of UTI. Per the family member his mentation was back to normal. Patient will be given IV Rocephin and discharged back to his facility with a prescription of oral medication. Was pt. sent in by a medical professional or institution (, PA, SENIOR ORACLE DATABASE ADMINISTRATOR, urgent care, hospital, or long-term...) When possible be specific @ -Yes, long-term Did you speak to anyone other than the patient for history (EMS, parent, family, police, friend...)? What history was obtained from this source @ -Dr. Schaefer at shift change Did you review nursing and triage notes (agree or disagree)? Why? @ -I reviewed and agree with nursing and triage notes Were old charts reviewed (outside hosp., previous admission, EMS record, old EKG, old radiological studies, urgent care reports/EKG's, long-term records)? Report findings @ -No old charts were reviewed Differential Diagnosis (chest pain, altered mental status, abdominal pain women, abdominal pain men, vaginal bleeding, weakness, fever, dyspnea, syncope, headache, dizziness, GI bleed, back pain, seizure, CVA, palpatations, mental health, musculoskeletal)? @ -Altered mental status, infectious process, hypotension secondary to dehydration EKG interpreted by me (3pts min.). @ -As above EKG interpreted by Dr. Zaragoza and reviewed by me sinus rhythm of 69 with a first-degree AV block MT interval 223 QRS duration 99 QT/QTc 409/428 left axis deviation nonspecific anterior configuration X-rays interpreted by me (1pt min.). @ -X-ray interpreted by me no evidence of acute process CT interpreted by me (1pt min.). @ -None done U/S interpreted by me (1pt. min.). @ -None done What testing was considered but not performed or refused? (CT, X-rays, U/S, labs)? Why? @ -None What meds were considered but not given or refused? Why? @ -None Did you discuss the management of the patient with other professionals (professionals i.e. , PA, SENIOR ORACLE DATABASE ADMINISTRATOR, lab, RT, psych nurse, executive secretary social welfare, can runner, teacher, chairman and chief executive officer, rn case manager)? Give summary @ -Dr. Zaragoza upon shift change Was smoking cessation discussed for >3mins.? @ -No Was critical care preformed (if so, how long)? @ -No Were there social determinants of health that impacted care today? How? (Homelessness, low income, unemployed, alcoholism, drug addiction, transportation, low edu. Level, literacy, decrease access to med. care, residential, rehab)? @ -senior living patient Was there de-escalation of care discussed even if they declined (Discuss DNR or withdrawal of care, Hospice)? DNR status @ -No What co-morbidities impacted this encounter? (DM, HTN, Smoking, COPD, CAD, Cancer, CVA, ARF, Chemo, Hep., AIDS, mental health diagnosis, sleep apnea, morbid obesity)? @ -History of COPD cancer diabetes hypertension he is deaf and has a history of dementia Was patient admitted / discharged? Hospital course, mention meds given and route, prescriptions, significant lab abnormalities, going to OR and other pertinent info. @ -Hospital course patient did improve after treatment in the emergency department he was sent back to his facility Undiagnosed new problem with uncertain prognosis? @ -No Drug Therapy requiring intensive monitoring for toxicity (Heparin, Nitro, Insulin, Cardizem)? @ -No Were any procedures done? @ -No Diagnosis/symptom? @ -Urinary tract infection, acute, hypotensive episode, dehydration, altered mental status Acute, or Chronic, or Acute on Chronic? @ -Acute Uncomplicated (without systemic symptoms) or Complicated (systemic symptoms)? @ -Complicated Side effects of treatment? @ -No Exacerbation, Progression, or Severe Exacerbation? @ -No Poses a threat to life or bodily function? How? (Chest pain, [place], [place], pneumonia, PE, COPD, DKA, ARF, appy, cholecystitis, CVA, Diverticulitis, Homicidal, Suicidal, threat to staff... and all critical care pts) @ -Potential (Derrick Patel) - Lab Data Lab Results 02/15/24 02/15/24 02/15/24 Range/Units 13:26 13:26 13:26 WBC 9.9 (3.8-10.6) k/uL RBC 4.48 (4.30-5.90) m/uL Hgb 14.2 (13.0-17.5) gm/dL Hct 42.2 (39.0-53.0) % MCV 94.0 (80.0-100.0) fL MCH 31.6 (25.0-35.0) pg MCHC 33.6 (31.0-37.0) g/dL RDW 15.0 (11.5-15.5) % Plt Count 200 (150-450) k/uL MPV 6.9 Neutrophils % 68 % Lymphocytes % 20 % Monocytes % 6 % Eosinophils % 2 % Basophils % 1 % Neutrophils # 6.7 (1.3-7.7) k/uL Lymphocytes # 2.0 (1.0-4.8) k/uL Monocytes # 0.6 (0-1.0) k/uL Eosinophils # 0.2 (0-0.7) k/uL Basophils # 0.1 (0-0.2) k/uL PT 10.4 (10.0-12.5) sec INR 0.9 (<1.2) APTT 23.3 (22.0-30.0) sec Sodium (137-145) mmol/L Potassium (3.5-5.1) mmol/L Chloride (98-107) mmol/L Carbon Dioxide (22-30) mmol/L Anion Gap mmol/L BUN (9-20) mg/dL Creatinine (0.66-1.25) mg/dL Est GFR (CKD-EPI)AfAm (>60 ml/min/1.73 sqM) Est GFR (CKD-EPI)NonAf (>60 ml/min/1.73 sqM) Glucose (74-99) mg/dL Calcium (8.4-10.2) mg/dL Total Bilirubin (0.2-1.3) mg/dL AST (17-59) U/L ALT (4-49) U/L Alkaline Phosphatase (38-126) U/L Troponin I (0.000-0.034) ng/mL Total Protein (6.3-8.2) g/dL Albumin (3.5-5.0) g/dL Urine Color Light Yellow Urine Appearance Cloudy (Clear) Urine pH 5.5 (5.0-8.0) Ur Specific Sobieski 1.016 (1.001-1.035) Urine Protein 1+ H (Negative) Urine Glucose (UA) 3+ H (Negative) Urine Ketones Negative (Negative) Urine Blood Small H (Negative) Urine Nitrite Negative (Negative) Urine Bilirubin Negative (Negative) Urine Urobilinogen <2.0 (<2.0) mg/dL Ur Leukocyte Esterase Large H (Negative) Urine RBC 14 H (0-5) /hpf Urine WBC >182 H (0-5) /hpf Urine WBC Clumps Few H (None) /hpf Ur Squamous Epith Cells <1 (0-4) /hpf Urine Mucus Rare H (None) /hpf 02/15/24 02/15/24 Range/Units 13:26 13:26 WBC (3.8-10.6) k/uL RBC (4.30-5.90) m/uL Hgb (13.0-17.5) gm/dL Hct (39.0-53.0) % MCV (80.0-100.0) fL MCH (25.0-35.0) pg MCHC (31.0-37.0) g/dL RDW (11.5-15.5) % Plt Count (150-450) k/uL MPV Neutrophils % % Lymphocytes % % Monocytes % % Eosinophils % % Basophils % % Neutrophils # (1.3-7.7) k/uL Lymphocytes # (1.0-4.8) k/uL Monocytes # (0-1.0) k/uL Eosinophils # (0-0.7) k/uL Basophils # (0-0.2) k/uL PT (10.0-12.5) sec INR (<1.2) APTT (22.0-30.0) sec Sodium 138 (137-145) mmol/L Potassium 4.4 (3.5-5.1) mmol/L Chloride 107 (98-107) mmol/L Carbon Dioxide 22 (22-30) mmol/L Anion Gap 9 mmol/L BUN 32 H (9-20) mg/dL Creatinine 1.03 (0.66-1.25) mg/dL Est GFR (CKD-EPI)AfAm 80 (>60 ml/min/1.73 sqM) Est GFR (CKD-EPI)NonAf 69 (>60 ml/min/1.73 sqM) Glucose 98 (74-99) mg/dL Calcium 9.8 (8.4-10.2) mg/dL Total Bilirubin 0.6 (0.2-1.3) mg/dL AST 21 (17-59) U/L ALT 16 (4-49) U/L Alkaline Phosphatase 84 (38-126) U/L Troponin I <0.012 (0.000-0.034) ng/mL Total Protein 6.7 (6.3-8.2) g/dL Albumin 3.7 (3.5-5.0) g/dL Urine Color Urine Appearance (Clear) Urine pH (5.0-8.0) Ur Specific Sob[place] (1.001-1.035) Urine Protein (Negative) Urine Glucose (UA) (Negative) Urine Ketones (Negative) Urine Blood (Negative) Urine Nitrite (Negative) Urine Bilirubin (Negative) Urine Urobilinogen (<2.0) mg/dL Ur Leukocyte Esterase (Negative) Urine RBC (0-5) /hpf Urine WBC (0-5) /hpf Urine WBC Clumps (None) /hpf Ur Squamous Epith Cells (0-4) /hpf Urine Mucus (None) /hpf Disposition <Ishaan Angel - Last Filed: 02/15/24 13:24> Is patient prescribed a controlled substance at d/c from ED?: No Time of Disposition: 16:44 Decision Date: 02/15/24 Decision Time: 16:44 <Derrick Patel - Last Filed: 02/15/24 16:44> Clinical Impression: Acute urinary tract infection, Hypotensive episode, Dehydration, Altered mental status Disposition: HOME SELF-CARE Condition: Good Instructions (If sedation given, give patient instructions): Altered Mental Status (ED), Urinary Tract Infection in Men (ED), Dehydration (ED), Hypotension (ED) Prescriptions: Cephalexin [Keflex] 500 mg PO Q6HR 7 Days #28 cap Referrals: Javid Spence MD [Primary Care Provider] - 1-2 days
[2024-02-15] MEDS: SODIUM CHLORIDE 0.9% 500 ML 500 ML IV ONE (13:32)
[2024-02-15 13:34] LABS: Basophils # (A) 0.1 k/uL (0-0.2); Basophils % (A) 1 %; Eosinophils # (A) 0.2 k/uL (0-0.7); Eosinophils % (A) 2 %; HCT 42.2 % (39.0-53.0); HGB 14.2 gm/dL (13.0-17.5); Lymphocytes % (A) 20 %; MCH 31.6 pg (25.0-35.0); MCHC 33.6 g/dL (31.0-37.0); Mean Platelet Volume 6.9; Monocytes # (A) 0.6 k/uL (0-1.0); Monocytes % (A) 6 %; Neutrophils # (A) 6.7 k/uL (1.3-7.7); Neutrophils % (A) 68 %; Platelet Count 200 k/uL (150-450); RBC 4.48 m/uL (4.30-5.90); WBC 9.9 k/uL (3.8-10.6)
[2024-02-15 13:48] VITALS: RESP 18
[2024-02-15 13:54] LABS: INR 0.9 (<1.2); Partial Thromboplastin Time 23.3 sec (22.0-30.0); Prothrombin Time 10.4 sec (10.0-12.5)
[2024-02-15 13:55] LABS: ALT 16 U/L (4-49); AST 21 U/L (17-59); African American GFR (CKD) 80 (>60 ml/min/1.73 sqM); Albumin 3.7 g/dL (3.5-5.0); Alkaline Phosphatase 84 U/L (38-126); Anion Gap 9 mmol/L; Blood Urea Nitrogen 32 mg/dL (9-20); Calcium 9.8 mg/dL (8.4-10.2); Carbon Dioxide 22 mmol/L (22-30); Chloride 107 mmol/L (98-107); Glucose 98 mg/dL (74-99); Non-African American GFR(CKD) 69 (>60 ml/min/1.73 sqM); Potassium 4.4 mmol/L (3.5-5.1); Sodium 138 mmol/L (137-145); Total Bilirubin 0.6 mg/dL (0.2-1.3); Total Protein 6.7 g/dL (6.3-8.2)
--- NOTE | 2024-02-15 13:55 | XR ---
EXAMINATION TYPE: XR chest 2V DATE OF EXAM: 02/15/2024 COMPARISON: 02/02/2024 HISTORY: 78-year-old male confusion, altered mental status, low blood pressure TECHNIQUE: AP and lateral views FINDINGS: Heart upper limits of normal in size. Mild interstitial prominence as a chronic appearance. No beena consolidation or pleural effusion. IMPRESSION: No definite acute process.
[2024-02-15 15:06] LABS: Appearance,Urine Cloudy (Clear); Bilirubin,Urine Negative (Negative); Blood,Urine Small (Negative); Color,Urine Light Yellow; Glucose,Urine (UA) 3+ (Negative); Ketones,Urine Negative (Negative); Leukocyte Esterase,Urine Large (Negative); Mucus,Urine Rare /hpf; Nitrite,Urine Negative (Negative); PH, Urine 5.5 (5.0-8.0); Protein,Urine 1+ (Negative); RBC,Urine 14 /hpf (0-5); Specific Gravity,Urine 1.016 (1.001-1.035); Squamous Epithelial Cell,Urine <1 /hpf (0-4); Urobilinogen,Urine <2.0 mg/dL (<2.0); WBC,Urine >182 /hpf (0-5)
[2024-02-15] MEDS: SODIUM CHLORIDE 0.9% 500 ML 500 ML IV STA (15:20)
[2024-02-15] MEDS: cefTRIAXone IN SWFI 1,000 MG/10 ML SYRINGE IVP STA (16:25)
--- NOTE | 2024-02-15 17:30 | ED ---
Medical Decision Making - Lab Data Result diagrams: 02/15/24 13:26 02/15/24 13:26 Lab Results 02/15/24 02/15/24 02/15/24 Range/Units 13:26 13:26 13:26 WBC 9.9 (3.8-10.6) k/uL RBC 4.48 (4.30-5.90) m/uL Hgb 14.2 (13.0-17.5) gm/dL Hct 42.2 (39.0-53.0) % MCV 94.0 (80.0-100.0) fL MCH 31.6 (25.0-35.0) pg MCHC 33.6 (31.0-37.0) g/dL RDW 15.0 (11.5-15.5) % Plt Count 200 (150-450) k/uL MPV 6.9 Neutrophils % 68 % Lymphocytes % 20 % Monocytes % 6 % Eosinophils % 2 % Basophils % 1 % Neutrophils # 6.7 (1.3-7.7) k/uL Lymphocytes # 2.0 (1.0-4.8) k/uL Monocytes # 0.6 (0-1.0) k/uL Eosinophils # 0.2 (0-0.7) k/uL Basophils # 0.1 (0-0.2) k/uL PT 10.4 (10.0-12.5) sec INR 0.9 (<1.2) APTT 23.3 (22.0-30.0) sec Sodium (137-145) mmol/L Potassium (3.5-5.1) mmol/L Chloride (98-107) mmol/L Carbon Dioxide (22-30) mmol/L Anion Gap mmol/L BUN (9-20) mg/dL Creatinine (0.66-1.25) mg/dL Est GFR (CKD-EPI)AfAm (>60 ml/min/1.73 sqM) Est GFR (CKD-EPI)NonAf (>60 ml/min/1.73 sqM) Glucose (74-99) mg/dL Calcium (8.4-10.2) mg/dL Total Bilirubin (0.2-1.3) mg/dL AST (17-59) U/L ALT (4-49) U/L Alkaline Phosphatase (38-126) U/L Troponin I (0.000-0.034) ng/mL Total Protein (6.3-8.2) g/dL Albumin (3.5-5.0) g/dL Urine Color Light Yellow Urine Appearance Cloudy (Clear) Urine pH 5.5 (5.0-8.0) Ur Specific [place] 1.016 (1.001-1.035) Urine Protein 1+ H (Negative) Urine Glucose (UA) 3+ H (Negative) Urine Ketones Negative (Negative) Urine Blood Small H (Negative) Urine Nitrite Negative (Negative) Urine Bilirubin Negative (Negative) Urine Urobilinogen <2.0 (<2.0) mg/dL Ur Leukocyte Esterase Large H (Negative) Urine RBC 14 H (0-5) /hpf Urine WBC >182 H (0-5) /hpf Urine WBC Clumps Few H (None) /hpf Ur Squamous Epith Cells <1 (0-4) /hpf Urine Mucus Rare H (None) /hpf 02/15/24 02/15/24 Range/Units 13:26 13:26 WBC (3.8-10.6) k/uL RBC (4.30-5.90) m/uL Hgb (13.0-17.5) gm/dL Hct (39.0-53.0) % MCV (80.0-100.0) fL MCH (25.0-35.0) pg MCHC (31.0-37.0) g/dL RDW (11.5-15.5) % Plt Count (150-450) k/uL MPV Neutrophils % % Lymphocytes % % Monocytes % % Eosinophils % % Basophils % % Neutrophils # (1.3-7.7) k/uL Lymphocytes # (1.0-4.8) k/uL Monocytes # (0-1.0) k/uL Eosinophils # (0-0.7) k/uL Basophils # (0-0.2) k/uL PT (10.0-12.5) sec INR (<1.2) APTT (22.0-30.0) sec Sodium 138 (137-145) mmol/L Potassium 4.4 (3.5-5.1) mmol/L Chloride 107 (98-107) mmol/L Carbon Dioxide 22 (22-30) mmol/L Anion Gap 9 mmol/L BUN 32 H (9-20) mg/dL Creatinine 1.03 (0.66-1.25) mg/dL Est GFR (CKD-EPI)AfAm 80 (>60 ml/min/1.73 sqM) Est GFR (CKD-EPI)NonAf 69 (>60 ml/min/1.73 sqM) Glucose 98 (74-99) mg/dL Calcium 9.8 (8.4-10.2) mg/dL Total Bilirubin 0.6 (0.2-1.3) mg/dL AST 21 (17-59) U/L ALT 16 (4-49) U/L Alkaline Phosphatase 84 (38-126) U/L Troponin I <0.012 (0.000-0.034) ng/mL Total Protein 6.7 (6.3-8.2) g/dL Albumin 3.7 (3.5-5.0) g/dL Urine Color Urine Appearance (Clear) Urine pH (5.0-8.0) Ur Specific [place] (1.001-1.035) Urine Protein (Negative) Urine Glucose (UA) (Negative) Urine Ketones (Negative) Urine Blood (Negative) Urine Nitrite (Negative) Urine Bilirubin (Negative) Urine Urobilinogen (<2.0) mg/dL Ur Leukocyte Esterase (Negative) Urine RBC (0-5) /hpf Urine WBC (0-5) /hpf Urine WBC Clumps (None) /hpf Ur Squamous Epith Cells (0-4) /hpf Urine Mucus (None) /hpf Disposition Clinical Impression: Acute urinary tract infection, Hypotensive episode, Dehydration, Altered mental status Disposition: HOME SELF-CARE Condition: Good Instructions (If sedation given, give patient instructions): Dehydration (ED), Urinary Tract Infection in Men (ED), Hypotension (ED), Altered Mental Status (ED) Additional Instructions: Prescription sent to [facility] as well as a hardcopy given Prescriptions: Cephalexin [Keflex] 500 mg PO Q6HR 7 Days #28 cap Cephalexin [Keflex] 500 mg PO Q6HR 7 Days #28 cap Is patient prescribed a controlled substance at d/c from ED?: No Referrals: Javid Spence MD [Primary Care Provider] - 1-2 days
[2024-02-15] MEDS: CEPHALEXIN 500MG STARTER PACK 4 CAP BTL PO STA (17:38)
[2024-02-15 19:00] VITALS: BP 102/61; PULSE 72; TEMP 98
== END 2024-02-15 18:28 | disposition home or self-care (01) ==
LOC: EC 12:59
DX: N39.0 Urinary tract infection, site not specified (principal); E86.0 Dehydration; R41.82 Altered mental status, unspecified; I95.9 Hypotension, unspecified; Z88.0 Allergy status to penicillin; Z87.891 Personal history of nicotine dependence
CPT/HCPCS: 36415; 93005; 80053; 84484; 85025; 85610; 85730; 81001; 87040; 71046; 99285; 96374; 96361 ×2; J0696

== ENCOUNTER 2024-02-20 00:02 | Inpatient (IN) | payer MEDICARE, OTHER ==
[2024-02-20 01:26] LABS: Glucose,Whole Blood 95 mg/dL (70-110)
[2024-02-20 01:46] LABS: Basophils # (A) 0.1 k/uL (0-0.2); Basophils % (A) 2 %; Eosinophils # (A) 0.2 k/uL (0-0.7); Eosinophils % (A) 4 %; HGB 13.7 gm/dL (13.0-17.5); Lymphocytes # (A) 1.8 k/uL (1.0-4.8); Lymphocytes % (A) 30 %; MCH 31.1 pg (25.0-35.0); MCHC 33.5 g/dL (31.0-37.0); MCV 92.9 fL (80.0-100.0); Mean Platelet Volume 6.5; Monocytes # (A) 0.6 k/uL (0-1.0); Monocytes % (A) 10 %; Neutrophils % (A) 50 %; Platelet Count 253 k/uL (150-450); Poikilocytosis Slight; RBC 4.41 m/uL (4.30-5.90); RDW 14.9 % (11.5-15.5)
[2024-02-20 01:49] LABS: ALT 13 U/L (4-49); AST 22 U/L (17-59); African American GFR (CKD) >90 (>60 ml/min/1.73 sqM); Albumin 3.5 g/dL (3.5-5.0); Alkaline Phosphatase 104 U/L (38-126); Anion Gap 13 mmol/L; Blood Urea Nitrogen 36 mg/dL (9-20); Carbon Dioxide 19 mmol/L (22-30); Chloride 106 mmol/L (98-107); Glucose 109 mg/dL (74-99); INR 0.9 (<1.2); Non-African American GFR(CKD) 82 (>60 ml/min/1.73 sqM); Partial Thromboplastin Time 23.9 sec (22.0-30.0); Potassium 4.2 mmol/L (3.5-5.1); Prothrombin Time 10.1 sec (10.0-12.5); Sodium 138 mmol/L (137-145); Total Bilirubin 0.4 mg/dL (0.2-1.3); Total Protein 6.4 g/dL (6.3-8.2)
--- NOTE | 2024-02-20 02:06 | XR ---
EXAM: XR Chest, 1 View CLINICAL HISTORY: ITS.REASON XR Reason: altered mental status TECHNIQUE: Frontal view of the chest. COMPARISON: No relevant prior studies available. FINDINGS: Lungs: No consolidation or mass. Pleural space: No acute findings Heart: cardiomegaly. Bones/joints: No acute findings. IMPRESSION: No acute cardiopulmonary process.
[2024-02-20 02:24] LABS: Appearance,Urine Turbid (Clear); Bacteria,Urine Rare /hpf; Bilirubin,Urine Negative (Negative); Blood,Urine Trace (Negative); Budding Yeast,Urine Few /hpf; Color,Urine Colorless; Glucose,Urine (UA) 2+ (Negative); Hyaline Casts,Urine 6 /lpf (0-2); Ketones,Urine Negative (Negative); Leukocyte Esterase,Urine Large (Negative); Nitrite,Urine Negative (Negative); Protein,Urine Negative (Negative); RBC,Urine 4 /hpf (0-5); Urobilinogen,Urine <2.0 mg/dL (<2.0); WBC,Urine >182 /hpf (0-5)
[2024-02-20] MEDS ORDERED: MAG HYDROX/AL HYDROX/SIMETH 30 ML CUP PO PRN (05:19)
[2024-02-20] MEDS ORDERED: NALOXONE 0.4 MG/ML 1 ML VIAL IV PRN (05:19)
[2024-02-20] MEDS: SODIUM CHLORIDE 0.9% 1,000 ML IV SCH (06:11)
[2024-02-20] MEDS ORDERED: DEXTROSE 50% SYRINGE 50 ML IVP PRN ×2 (07:17)
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
[2024-02-20] MEDS ORDERED: metFORMIN 500 MG TAB PO SCH (08:00)
[2024-02-20 08:23] LABS: Glucose,Whole Blood 125 mg/dL (70-110)
[2024-02-20] MEDS: INSULIN ASPART (NovoLOG) 100 UNIT/ML VIAL SQ SCH (08:23)
[2024-02-20] MEDS: SODIUM CHLORIDE 0.9% 500 ML 500 ML IV STA (08:23)
[2024-02-20] MEDS: METOPROLOL SUCCINATE (ER) 50 MG TAB.ER.24H PO SCH (08:26)
[2024-02-20] MEDS: CLOPIDOGREL 75 MG TAB PO SCH (08:26)
[2024-02-20] MEDS: levETIRAcetam 500 MG TAB PO SCH (08:26)
[2024-02-20] MEDS: CYANOCOBALAMIN 500 MCG TAB PO SCH (08:27)
[2024-02-20] MEDS: ASPIRIN 81 MG PO SCH (08:27)
[2024-02-20] MEDS: MEMANTINE 5 MG TAB PO SCH (08:27)
[2024-02-20] MEDS: FINASTERIDE 5 MG TAB PO SCH (08:28)
[2024-02-20] MEDS: PANTOPRAZOLE 40 MG TABLET PO SCH (08:28)
[2024-02-20] MEDS: FAMOTIDINE 20 MG TAB PO SCH (08:28)
[2024-02-20] MEDS: SODIUM CHLORIDE 0.9% 1,000 ML IV STA (08:28)
--- NOTE | 2024-02-20 11:45 | P.HPIM ---
History of Present Illness H&P Date: 02/20/24 History of Presenting Illness: Patient is a very pleasant 78-year-old male with a past medical history of advanced dementia, multiple CVAs with memory impairment, PFO, seizure disorder, hypertension, hyperlipidemia, GERD, and obstructive sleep apnea CPAP dependent nightly. Patient presented to the emergency department via EMS from [facility] with a chief complaint of worsening mental status and confusion. Patient currently alert to person and place only and confused to time and situation stating he is on sure why he was sent to the emergency dep artment and currently denies having any complaints or pain. He underwent evaluation in the ER. Vital signs upon arrival show blood pressure 135/72, heart rate 69, respiratory rate 18, temp 98.0 F, and SpO2 of 94% on room air. EKG was completed showing normal sinus rhythm at 66 bpm with T wave inversion in leads III and a first-degree AV block with GA interval of 239 ms. Chest x-ray completed negative for acute cardiopulmonary process. Labs were completed and reviewed. CBC and coagulation profile were unremarkable. BMP revealing hypocarbia with bicarb of 19 and slightly elevated anion gap of 13 with BUN of 36. Blood glucose was 109. Troponin was negative at less than 0.012. Liver p rofile unremarkable. Urinalysis positive for infection with leukocyte esterase and greater than 182 WBCs. Patient was admitted under our services. Review of systems: Pertinent positives and negatives as discussed in HPI, a complete review of systems unable to be performed secondary to patient's mentation. Information obtained from patient, ED staff, and documentation in chart. Physical exam: Vital signs reviewed and stable. General: Nontoxic, no distress and appears stated age. Derm: Skin warm and dry, normal coloration for ethnicity. Head: Atraumatic, normocephalic and symmetric. Eyes: EOMs intact, no lid lag, and anicteric sclera Mouth: no lip lesions, mucus membranes moist Cardiovascular: regular rate and rhythm with normal S1S2, systolic murmur, positive posterior tibial pulses bilaterally, and cap refill < 2 seconds. Lungs: Respirations even, regular, and unlabored on room air. Lungs CTA bilaterally, no rhonchi, no rales, no wheezing, and no accessory muscle usage. Abdominal: soft, nontender to palpation, no guarding, no appreciable organomegaly Ext: ROM intact. No gross muscle atrophy, no edema, no contractures Neuro: Speech clear, face symmetrical and CN II-XII grossly intact with no noted focal neuro deficits Psych: Patient alert and oriented to person and place only and confused to time and situation. Appropriate and pleasant affect. Assessment and Plan of Care: Acute metabolic encephalopathy UTI History of advanced dementia Multiple CVAs with impaired memory deficits PFO -Patient alert and oriented to person and place only and confused to time and situation. History of dementia, unclear baseline. -Order placed for CT head to rule out acute intracranial process -Orders placed for neurochecks every 4 hours, fall precautions, and elopement precautions. -Will again attempt to reach out to guardian to determine baseline mentation. -Continue IV antibiotics with Rocephin 2 g every 24 hours. -Follow-up on urine culture results. -Continue daily medication regimen with aspirin 81 mg daily and Plavix 75 mg daily. -Continue Namenda 7.5 mg twice daily and Remeron 30 mg nightly. Seizure disorder -Continue Keppra 1000 mg twice daily. -Maintain seizure precautions. Hypertension Hyperlipidemia Continue daily medication regimen with lisinopril 5 mg nightly and metoprolol 50 mg twice daily GERD -Continue daily medication regimen with Pepcid 20 mg twice daily and Protonix 40 mg daily. Obstructive sleep apnea Continue use of CPAP nightly and while napping. Data and imaging reviewed: As stated above in HPI The patient is admitted with an anticipated less than 2 midnight stay for evaluation of acute metabolic encephalopathy and UTI CODE STATUS: Full code DVT prophylaxis: Lovenox Anticipated discharge date: Clinical course to determine, likely within the next [address]: Return to [facility] Patient was seen independently by Nurse Practitioner. This document was prepared using [employer] dictation software. Please allow for errors in felt finishing supervisor while rare they do occur. Carmine Tyson NP rendered care for this patient independently, reviewed the findings and plan as documented in the note above. I did not physically speak with or examine the patient on this date. 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 Past Anesthesia/Blood Transfusion Reactions: No Reported Reaction, Motion Sickness Past Psychological History: No Psychological Hx Reported Smoking Status: Former smoker Past Alcohol Use History: None Reported Past Drug Use History: None Reported - Past Family History Mother Family Medical History: No Reported History Medications and Allergies Home Medications Medication Instructions Recorded Confirmed Type Metoprolol Succinate (ER) [Toprol 50 mg PO BID@01/22/19 02/20/24 History XL] Aspirin 81 mg PO DAILY@79907/09/23 02/20/24 History Finasteride [Proscar] 5 mg PO DAILY@79907/09/23 02/20/24 History Memantine HCl [Namenda Xr] 21 mg PO DAILY@79907/09/23 02/20/24 History Acetaminophen [Tylenol 8 Hour] 650 mg PO Q8HR@0000,0800,1600 11/12/23 02/20/24 History Cyanocobalamin (Vitamin B-12) 1,000 mcg PO DAILY@79911/12/23 02/20/24 History [Vitamin B-12] Ft Arthritis Pain 1% Gel 2 gram TOPICAL TID@0800,1199,199911/12/23 02/20/24 Hi story Loratadine [Claritin] 10 mg PO DAILY@79911/12/23 02/20/24 History Pantoprazole [Protonix] 40 mg PO DAILY@79911/12/23 02/20/24 History polyethylene glycoL 3350 [Miralax] 17 gm PO DAILY@79911/12/23 02/20/24 History Clopidogrel [Plavix] 75 mg PO DAILY@79912/08/23 02/20/24 History levETIRAcetam [Keppra] 1,000 mg PO BID@799,199912/08/23 02/20/24 History Cholecalciferol [Vitamin D3 (125 125 mcg PO DAILY@79902/03/24 02/20/24 History Mcg = 5000 Iu)] Furosemide [Lasix] 20 mg PO BID@08,199902/03/24 02/20/24 History Potassium Chloride [Klor-Con M20] 20 meq PO DAILY@0800 02/03/24 02/20/24 History Donepezil [Aricept] 10 mg PO HS@199902/15/24 02/20/24 History Loperamide [Imodium] 2 - 4 mg PO QID PRN MDD 16 02/15/24 02/20/24 History Mirtazapine [Remeron] 30 mg PO HS@199902/15/24 02/20/24 History lisinopriL [Zestril] 5 mg PO HS@199902/15/24 02/20/24 History Allergies Allergy/AdvReac Type Severity Reaction Status Date / Time Penicillins Allergy Unknown Rash/Hives Verified 02/20/24 10:41 Physical Exam Vitals: Vital Signs Temp Pulse Resp BP Pulse Ox 02/20/24 06:00 94 14 99/61 97 02/20/24 05:00 65 14 106/61 96 02/20/24 04:00 64 13 103/60 95 02/20/24 02:31 62 16 108/82 95 02/20/24 02:09 62 14 114/76 97 02/20/24 01:17 67 16 99/64 96 02/20/24 00:17 70 17 117/61 94 L 02/20/24 00:10 98.0 F 69 18 135/72 98 Intake and Output 02/19/24 02/20/24 02/20/24 22:59 06:59 14:59 Other: Weight 65.771 kg Results CBC & Chem 7: 02/22/24 04:05 02/22/24 04:05 Labs: Abnormal Lab Results - Last 24 Hours (Table) 02/20/24 02/20/24 Range/Units 01:11 02:07 Carbon Dioxide 19 L (22-30) mmol/L BUN 36 H (9-20) mg/dL Glucose 109 H (74-99) mg/dL Urine Glucose (UA) 2+ H (Negative) Urine Blood Trace H (Negative) Ur Leukocyte Esterase Large H (Negative) Urine WBC >182 H (0-5) /hpf Urine WBC Clumps Many H (None) /hpf Urine Bacteria Rare H (None) /hpf Hyaline Casts 6 H (0-2) /lpf Urine Yeast (Budding) Few H (None) /hpf
[2024-02-20 12:37] LABS: Glucose,Whole Blood 125 mg/dL (70-110)
--- NOTE | 2024-02-20 13:23 | CT ---
EXAMINATION TYPE: CT brain wo con CT DLP: 1066.4 mGycm, Automated exposure control for dose reduction was used. DATE OF EXAM: 02/20/2024 12:35 PM COMPARISON: 12/08/2023 CT brain. CLINICAL INDICATION:Male, 78 years old with history of altered mental status, Altered mental status TECHNIQUE: Brain: Axial CT images of the brain were obtained with coronal and sagittal reformats created and rev iewed. Contrast used: None. Oral contrast used: None. FINDINGS: Brain: Extra-axial spaces: No abnormal extra-axial fluid collections. Ventricular system: Ventricles appear dilated in proportion to the degree of cerebral atrophy. Cerebral parenchyma: No increased attenuatio n to suggest acute intraparenchymal hemorrhage. The galaviz-white matter interface appears maintained. M oderate generalized brain atrophy. Scattered hypoattenuating areas are seen within the cerebral white matter, nonspecific but most often seen with chronic microvascular ischemic changes; moderate in deg ree. Hypoattenuation consistent with chronic infarct in the left frontoparietal temporal region. Cere bellum: No acute abnormality. Mass effect: No evidence of mass effect or midline shift. Intracranial vasculature: Atherosclerotic c alcifications of the larger arteries near the skull base. Soft tissues: Normal. Calvarium/osseous structures: No depressed skull fracture. Old temporal/frontal parietal craniectom y with underlying encephalomalacia Paranasal sinuses and mastoid air cells: Mild scattered paranasal sinus disease. Visualized orbits: Orbital contents are intact. IMPRESSION: Moderately large size infarct versus surgical treatment in the frontal/parietal/middle lobes is stabl e No acute intracranial process.
[2024-02-20 17:10] LABS: Glucose,Whole Blood 136 mg/dL (70-110)
[2024-02-20 20:03] LABS: Glucose,Whole Blood 161 mg/dL (70-110)
[2024-02-20] MEDS: MIRTAZAPINE 15 MG TAB PO SCH (20:14)
[2024-02-20] MEDS: lisinopriL 5 MG TAB PO SCH (20:18)
[2024-02-21 07:42] LABS: Glucose,Whole Blood 154 mg/dL (70-110)
[2024-02-21] MEDS: ENOXAPARIN 40 MG/0.4 ML SYRINGE SQ SCH (09:02)
[2024-02-21 09:27] LABS: ALT 13 U/L (4-49); AST 20 U/L (17-59); African American GFR (CKD) >90 (>60 ml/min/1.73 sqM); Albumin 3.6 g/dL (3.5-5.0); Albumin/Globulin Ratio 1.1; Alkaline Phosphatase 92 U/L (38-126); Anion Gap 8 mmol/L; Blood Urea Nitrogen 26 mg/dL (9-20); Carbon Dioxide 25 mmol/L (22-30); Chloride 109 mmol/L (98-107); Globulin 3.2 g/dL; Glucose 145 mg/dL (74-99); Non-African American GFR(CKD) 84 (>60 ml/min/1.73 sqM); Potassium 4.3 mmol/L (3.5-5.1); Sodium 142 mmol/L (137-145); Total Bilirubin 0.4 mg/dL (0.2-1.3); Total Protein 6.8 g/dL (6.3-8.2)
[2024-02-21 13:06] LABS: Glucose,Whole Blood 121 mg/dL (70-110)
--- NOTE | 2024-02-21 15:31 | P.PN ---
Subjective Progress Note Date: 02/21/24 Hospital course: Patient is a very pleasant 78-year-old male with a past medical history of advanced dementia, multiple CVAs with memory impairment, PFO, seizure disorder, hypertension, hyperlipidemia, GERD, and obstructive sleep apnea CPAP dependent nightly. Patient presented to the emergency department via EMS from [facility] with a chief complaint of worsening mental status and confusion. Patient currently alert to person and place only and confused to time and situation stating he is on sure why he was sent to the emergency department and currently denies having any complaints or pain. He underwent evaluation in the ER. Vital signs upon arrival show blood pressure 135/72, heart rate 69, respiratory rate 18, temp 98.0 F, and SpO2 of 94% on room air. EKG was completed showing normal sinus rhythm at 66 bpm with T wave inversion in leads III and a first-degree AV block with OH interval of 239 ms. Chest x-ray completed negative for acute cardiopulmonary process. Labs were completed and reviewed. CBC and coagulation profile were unremarkable. BMP revealing hypocarbia with bicarb of 19 and slightly elevated anion gap of 13 with BUN of 36. Blood glucose was 109. Troponin was negative at less than 0.012. Liver profile unremarkable. Urinalysis positive for infection with leukocyte esterase and greater than 182 WBCs. Patient was admitted under our services. Physical exam: Patient seen and fully evaluated at bedside this morning. He appears slightly more confused when compared to baseline from yesterday. Patient was noted to have a temp of 101.3 F. He denies having any pain or complaints at this time. His documented urinary output over the past 24 hours has been 1700 cc. Vital signs reviewed and stable. General: Nontoxic, no acute distress and appears stated age. Derm: Skin warm and dry, normal coloration for ethnicity. Head: Atraumatic, normocephalic and symmetric. Eyes: EOMs intact, no lid lag, and anicteric sclera Mouth: no lip lesions, mucus membranes moist Cardiovascular: regular rate and rhythm with normal S1S2, systolic murmur, positive posterior tibial pulses bilaterally, and cap refill < 2 seconds. Lungs: Respirations even, regular, and unlabored on room air. Lungs CTA bilaterally, no rhonchi, no rales, no wheezing, and no accessory muscle usage. Abdominal: soft, nontender to palpation, no guarding, no appreciable organomegaly Ext: ROM intact. No gross muscle atrophy, no edema, no contractures Neuro: Speech clear, face symmetrical and CN II-XII grossly intact with no noted focal neuro deficits Psych: Patient alert and oriented to person only this morning and confused to place, time and situation. Appropriate and pleasant affect. Assessment and Plan of Care: Candidal cystitis Acute metabolic encephalopathy, likely secondary to above History of advanced dementia Multiple CVAs with impaired memory deficits PFO -Patient alert and oriented to person only this morning. 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 -CT brain was reported to be negative for acute intracranial process revealing a moderately large sized infarct versus surgical treatment in the frontal/parietal/middle lobes reported to be stable when compared to CT brain completed 12/08/2023 -Continue neurochecks every 4 hours, fall precautions, and elopement precautions. -Orders placed for strict I's and O's and for bladder scanning to monitor for postvoid residual/urinary retention. -Preliminary urine culture results positive for yeast, awaiting final culture and sensitivity reports. -Continue IV antibiotics with Rocephin 2 g every 24 hours and started patient on Eraxis 100 mg daily -Continue daily medication regimen with aspirin 81 mg daily and Plavix 75 mg daily. -Continue Namenda 7.5 mg twice daily and Remeron 30 mg nightly. -Tylenol 650 mg p.o. every 6 hours as needed for fever -Consult placed to infectious disease, patient with history of multiple CVAs and is on dual antiplatelet therapy with aspirin and Plavix. Oral antifungal agents such as Diflucan can decrease effectiveness of Plavix and patient started on Eraxis at this time. Seizure disorder -Continue Keppra 1000 mg twice daily. -Maintain seizure precautions. Pressure ulcer on coccyx, present on arrival -Orders placed to turn patient every 2 hours. -Order placed to wound care Hypertension Hyperlipidemia Continue daily medication regimen with lisinopril 5 mg nightly and metoprolol 50 mg twice daily GERD -Continue daily medication regimen with Pepcid 20 mg twice daily and Protonix 40 mg daily. Obstructive sleep apnea Continue use of CPAP nightly and while napping. Data and imaging reviewed: Morning labs reviewed. BMP showing mild hyperchloremia with chloride of 109 and prerenal azotemia with BUN of 26. Blood glucose 145. Liver profile unremarkable. CT brain was reported to be negative for acute intracranial process revealing a moderately large sized infarct versus surgical treatment in the frontal/parietal/middle lobes reported to be stable when compared to CT brain completed 12/08/2023 CODE STATUS: Full code DVT prophylaxis: Lovenox Anticipated discharge date: Clinical course to determine, likely within the next [address]: Return to [facility] Patient was seen independently by Nurse Practitioner. This document was prepared using [employer] dictation software. Please allow for errors in conservation specialist while rare they do occur. Carmine Tyson NP rendered care for this patient independently, reviewed the findings and plan as documented in the note above. I did not physically speak with or examine the patient on this date. Objective - Vital Signs Vital signs: Vital Signs Temp 98.0 F 02/20/24 00:10 Pulse 77 02/21/24 06:00 Resp 16 02/21/24 06:00 BP 132/86 02/21/24 06:00 Pulse Ox 96 02/21/24 06:00 FiO2 Intake & Output 02/20/24 02/21/24 02/21/24 18:59 06:59 18:59 Output Total 750 950 850 Balance -750 -950 -850 Output: Urine 750 950 850 - Labs CBC & Chem 7: 02/22/24 04:05 02/22/24 04:05 Labs: Abnormal Lab Results - Last 24 Hours (Table) 02/20/24 02/20/24 02/20/24 Range/Units 12:36 17:08 20:01 POC Glucose (mg/dL) 125 H 136 H 161 H (70-110) mg/dL 02/21/24 Range/Units 07:40 POC Glucose (mg/dL) 154 H (70-110) mg/dL
[2024-02-21] MEDS: ANIDULAFUNGIN 200 MG in SODIUM CHLORIDE 0.9% 200 ML IVPB ONE (16:24)
[2024-02-21 17:48] LABS: Glucose,Whole Blood 134 mg/dL (70-110)
[2024-02-21 23:56] LABS: Glucose,Whole Blood 141 mg/dL (70-110)
[2024-02-22 07:10] LABS: Glucose,Whole Blood 148 mg/dL (70-110)
--- NOTE | 2024-02-22 07:38 | P.CONS ---
History of Present Illness - Reason for Consult Consult date: 02/21/24 Sarai cystitis Requesting physician: Carmine Tyson - Chief Complaint Mental status changes and fever x 1 day - History of Present Illness Patient is a 78-year-old male past medical history significant for COPD diabetes mellitus reflux hypertension hyperlipidemia memory impairment the patient has been brought into the hospital yesterday morning for evaluation of worsening mental status changes patient was noticed to have decreased activity more confused than usual in the same, and this patient with a previous similar episode associated with a UTI for the patient was brought into the hospital on arrival to the ER patient will did have a fever of 101.3 F patient was not tachycardic hypotensive or hypoxic and no need for supplemental oxygen patient did have a white count of 6.0 creatinine 0.89 liver enzymes are normal he did have a positive UA with large leukocyte esterase more than 182 WBC, patient did have a chest x-ray that was reported negative for acute cardiopulmonary process patient was started on Rocephin urine culture showing yeast Eraxis was added infectious disease was consulted for further management of antibiotic therapy, patient returned my evaluation is pleasantly confused and not a very good historian nonspecific denies any headache no chest pain shortness of breath or cough no abdominal pain no vomiting or diarrhea reported by the sitter at the bedside Review of Systems Positive points has been mentioned in HPI complete review could not be obtained because of his underlying mental status Past Medical History Past Medical History: Cancer, COPD, Diabetes Mellitus, GERD/Reflux, Hyperlipidemia, Hypertension, Memory Impairment, Sleep Apnea/CPAP/BIPAP Additional Past Medical History / Comment(s): C-PAP., BACK PAIN, SKIN CANCER, MEMORY PROBLEMS., 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 Past Anesthesia/Blood Transfusion Reactions: No Reported Reaction, Motion Sickness Past Psychological History: No Psychological Hx Reported Smoking Status: Former smoker Past Alcohol Use History: None Reported Past Drug Use History: None Reported - Past Family History Mother Family Medical History: No Reported History Medications and Allergies Home Medications Medication Instructions Recorded Confirmed Type Metoprolol Succinate (ER) [Toprol 50 mg PO BID@080001/22/19 02/26/24 History XL] Aspirin 81 mg PO DAILY@0800 07/09/23 02/26/24 History Finasteride [Proscar] 5 mg PO DAILY@79907/09/23 02/26/24 History Memantine HCl [Namenda Xr] 21 mg PO DAILY@79907/09/23 02/26/24 History Acetaminophen [Tylenol 8 Hour] 650 mg PO Q8HR@0000,0800,1600 11/12/23 02/26/24 History Cyanocobalamin (Vitamin B-12) 1,000 mcg PO DAILY@79911/12/23 02/26/24 History [Vitamin B-12] Ft Arthritis Pain 1% Gel 2 gram TOPICAL TID@0800,1200,199911/12/23 02/26/24 History Loratadine [Claritin] 10 mg PO DAILY@79911/12/23 02/26/24 History Pantoprazole [Protonix] 40 mg PO DAILY@79911/12/23 02/26/24 History Clopidogrel [Plavix] 75 mg PO DAILY@79912/08/23 02/26/24 History levETIRAcetam [Keppra] 1,000 mg PO BID@0800,199912/08/23 02/26/24 History Cholecalciferol [Vitamin D3 (125 125 mcg PO DAILY@79902/03/24 02/26/24 History Mcg = 5000 Iu)] Furosemide [Lasix] 20 mg PO BID@0800,199902/03/24 02/26/24 History Potassium Chloride [Klor-Con M20] 20 meq PO DAILY@0800 02/03/24 02/26/24 History Donepezil [Aricept] 10 mg PO HS@199902/15/24 02/26/24 History Loperamide [Imodium] 2 - 4 mg PO QID PRN MDD 16mg 02/15/24 02/26/24 History Mirtazapine [Remeron] 30 mg PO HS@199902/15/24 02/26/24 History lisinopriL [Zestril] 5 mg PO HS@199902/15/24 02/26/24 History Cranberry Fruit Extract [Cranberry] 500 mg PO BID@0800,199902/26/24 02/26/24 History cefUROXime axetiL [Ceftin] 500 mg PO BID@0900,199902/26/24 02/26/24 History metFORMIN HCL [Glucophage] 500 mg PO BID@799,199902/26/24 02/26/24 History polyethylene glycoL 3350 [Miralax] 17 gm PO DAILY@79902/26/24 02/26/24 History Allergies Allergy/AdvReac Type Severity Reaction Status Date / Time Penicillins Allergy Unknown Rash/Hives Verified 02/26/24 11:28 Physical Exam Vitals: Vital Signs Temp Pulse Resp BP Pulse Ox 02/21/24 15:58 69 18 135/70 94 L 02/21/24 11:52 97.6 F 02/21/24 11:22 66 18 109/65 94 L 02/21/24 09:16 101.3 F H 02/21/24 06:00 77 16 132/86 96 02/21/24 03:00 77 16 149/88 02/20/24 23:34 81 20 111/67 96 02/20/24 22:22 75 20 136/77 94 L 02/20/24 20:19 76 106/63 02/20/24 18:37 73 20 98/64 95 02/20/24 16:54 73 20 101/64 97 Intake and Output 02/21/24 02/21/24 02/21/24 06:59 14:59 22:59 Output Total 850 Balance -850 Output: Urine 850 GENERAL DESCRIPTION: Elderly male lying in bed, no distress. No tachypnea or accessory muscle of respiration use. HEENT: Shows Pallor , no scleral icterus. Oral mucous membrane is dry. No phary ngeal erythema or thrush NECK: Trachea central, no thyromegaly. LUNGS: Unlabored breathing. Decreased breath sound the base HEART: S1, S2, regular rate and rhythm. No loud murmur ABDOMEN: Soft, no tenderness , guarding or rigidity, no organomegaly EXTREMITIES: No edema of feet. SKIN: No rash, no masses palpable. NEUROLOGICAL: The patient is awake, orientation cannot be determined Results CBC & Chem 7: 02/24/24 05:54 02/24/24 05:54 Labs: Abnormal Lab Results - Last 24 Hours (Table) 02/20/24 02/20/24 02/21/24 Range/Units 17:08 20:01 07:40 Chloride (98-107) mmol/L BUN (9-20) mg/dL Glucose (74-99) mg/dL POC Glucose (mg/dL) 136 H 161 H 154 H (70-110) mg/dL 02/21/24 02/21/24 Range/Units 08:15 13:05 Chloride 109 H (98-107) mmol/L BUN 26 H (9-20) mg/dL Glucose 145 H (74-99) mg/dL POC Glucose (mg/dL) 121 H (70-110) mg/dL Microbiology - Last 24 Hours (Table) 02/20/24 02:07 Urine Culture - Preliminary Urine,Catheterized Yeast Assessment and Plan (1) Febrile illness Status: Acute Code(s): R50.9 - FEVER, UNSPECIFIED SNOMED Code(s): 957961374 (2) UTI (urinary tract infection) Status: Acute Code(s): N39.0 - URINARY TRACT INFECTION, SITE NOT SPECIFIED SNOMED Code(s): 31073599 Plan: 1patient presented to hospital with confusion and weakness also noticed to have a fever did have a positive UA concerning for a symptomatic urinary tract infection with urine culture now showing a yeast questionable colonization versus real pathogen. 2patient is on Plavix that is interacting with the Diflucan, will discuss with the pharmacy the intensity of interaction as Eraxis may not be a better choice for the UTI 3-we will also repeat a UA and continue with Rocephin for now We will follow on clinical condition and cultures to further adjust medication if needed Thank you for this consultation we will follow the patient along with you Dictation was produced using [employer] dictation software. please excuse any grammatical, word or spelling errors. Time with Patient: Greater than 30
[2024-02-22 09:22] LABS: HCT 39.8 % (39.6-50.0); HGB 13.8 g/dL (13.0-17.0); MCH 31.9 pg (27.0-32.0); MCHC 34.7 g/dL (32.0-37.0); MCV 91.9 FL (80.0-97.0); Mean Platelet Volume 8.4 FL (9.5-12.2); NRBC Per 100 WBC 0 X 10*3/uL (0.00-0.01); Platelet Count 226 X 10*3/uL (140-440); RBC 4.33 X 10*6/uL (4.40-5.60); RDW 14.1 % (11.5-14.5); WBC 7.58 X 10*3/uL (4.50-10.00)
[2024-02-22 09:23] LABS: ALT 9 U/L (10-49); AST 15 U/L (14-35); Albumin 3.6 g/dL (3.8-4.9); Albumin/Globulin Ratio 1.44 Ratio (1.60-3.17); Alkaline Phosphatase 82 U/L (41-126); BUN/Creat Ratio 20.88 Ratio (12.00-20.00); Blood Urea Nitrogen 16.7 mg/dL (9.0-27.0); Calcium 9.7 mg/dL (8.7-10.3); Carbon Dioxide 22.8 mmol/L (21.6-31.8); Chloride 110 mmol/L (96-109); Globulin 2.5 g/dL (1.6-3.3); Glucose 143 mg/dL (70-110); Sodium 141 mmol/L (135-145); Total Bilirubin 0.3 mg/dL (0.3-1.2); Total Protein 6.1 g/dL (6.2-8.2)
[2024-02-22 11:21] LABS: Appearance,Urine Turbid (Clear); Bacteria,Urine Occasional /hpf; Bilirubin,Urine Negative (Negative); Blood,Urine Moderate (Negative); Color,Urine Light Yellow; Glucose,Urine (UA) 4+ (Negative); Ketones,Urine Negative (Negative); Leukocyte Esterase,Urine Large (Negative); Nitrite,Urine Negative (Negative); Protein,Urine 2+ (Negative); RBC,Urine 45 /hpf (0-5); Squamous Epithelial Cell,Urine 3 /hpf (0-4); Urobilinogen,Urine <2.0 mg/dL (<2.0); WBC,Urine >182 /hpf (0-5)
[2024-02-22 11:40] LABS: Specific Gravity,Urine 1.015 (1.001-1.035)
[2024-02-22 11:54] LABS: Glucose,Whole Blood 294 mg/dL (70-110)
--- NOTE | 2024-02-22 15:09 | P.PN ---
Subjective Progress Note Date: 02/22/24 Hospital course: Patient is a very pleasant 78-year-old male with a past medical history of advanced dementia, multiple CVAs with memory impairment, PFO, seizure disorder, hypertension, hyperlipidemia, GERD, and obstructive sleep apnea CPAP dependent nightly. Patient presented to the emergency department via EMS from [facility] with a chief complaint of worsening mental status and confusion. Patient currently alert to person and place only and confused to time and situation stating he is on sure why he was sent to the emergency department and currently denies having any complaints or pain. He underwent evaluation in the ER. Vital signs upon arrival show blood pressure 135/72, heart rate 69, respiratory rate 18, temp 98.0 F, and SpO2 of 94% on room air. EKG was completed showing normal sinus rhythm at 66 bpm with T wave inversion in leads III and a first-degree AV block with GA interval of 239 ms. Chest x-ray completed negative for acute cardiopulmonary process. Labs were completed and reviewed. CBC and coagulation profile were unremarkable. BMP revealing hypocarbia with bicarb of 19 and slightly elevated anion gap of 13 with BUN of 36. Blood glucose was 109. Troponin was negative at less than 0.012. Liver profile unremarkable. Urinalysis positive for infection with leukocyte esterase and greater than 182 WBCs. Patient was admitted under our services. Physical exam: Patient seen and fully evaluated at bedside this morning. He is awake and alert to person and somewhat place this morning. Patient asking if he was in the hospital. Vital signs reviewed and stable. General: Nontoxic, no acute distress and appears stated age. Derm: Skin warm and dry, normal coloration for ethnicity. Head: Atraumatic, normocephalic and symmetric. Eyes: EOMs intact, no lid lag, and anicteric sclera Mouth: no lip lesions, mucus membranes moist Cardiovascular: regular rate and rhythm with normal S1S2, systolic murmur, positive posterior tibial pulses bilaterally, and cap refill < 2 seconds. Lungs: Respirations even, regular, and unlabored on room air. Lungs CTA bilaterally, no rhonchi, no rales, no wheezing, and no accessory muscle usage. Abdominal: soft, nontender to palpation, no guarding, no appreciable organomegaly Ext: ROM intact. No gross muscle atrophy, no edema, no contractures Neuro: Speech clear, face symmetrical and CN II-XII grossly intact with no noted focal neuro deficits Psych: Patient alert and oriented to person only this morning and confused to place, time and situation. Appropriate and pleasant affect. Assessment and Plan of Care: Candidal cystitis Acute metabolic encephalopathy, likely secondary to above History of advanced dementia Multiple CVAs with impaired memory deficits PFO -Patient alert and oriented to person only this morning. History of dementia, per granddaughter/power of litigation attorney associate patient's baseline is alert and oriented to person and place only. -CT brain was reported to be negative for acute intracranial process revealing a moderately large sized infarct versus surgical treatment in the frontal/parietal/middle lobes reported to be stable when compared to CT brain c ompleted 12/08/2023 -Continue neurochecks every 4 hours, fall precautions, and elopement precautions. -Orders placed for strict I's and O's and for bladder scanning to monitor for postvoid residual/urinary retention. -Preliminary urine culture results positive for yeast, awaiting final culture and sensitivity reports. -Continue IV antibiotics with Rocephin 2 g every 24 hours and Eraxis 100 mg daily -Continue daily medication regimen with aspirin 81 mg daily and Plavix 75 mg daily. -Continue Namenda 7.5 mg twice daily and Remeron 30 mg nightly. -Tylenol 650 mg p.o. every 6 hours as needed for fever -Consult placed to infectious disease, patient with history of multiple CVAs and is on dual antiplatelet therapy with aspirin and Plavix. Oral antifungal agents such as Diflucan can decrease effectiveness of Plavix and patient started on Eraxis at this time. Seizure disorder -Continue Keppra 1000 mg twice daily. -Maintain seizure precautions. Pressure ulcer on coccyx, present on arrival -Turn patient every 2 hours. -Wound care consulted Hypertension Hyperlipidemia Continue daily medication regimen with lisinopril 5 mg nightly and metoprolol 50 mg twice daily GERD -Continue daily medication regimen with Pepcid 20 mg twice daily and Protonix 40 mg daily. Obstructive sleep apnea Continue use of CPAP nightly and while napping. Data and imaging reviewed: Morning labs reviewed. CBC showing no significant abnormalities. BMP showing mild hyperchloremia with chloride of 110 otherwise normal findings. Blood glucose 143. Magnesium 2.0. Urine culture preliminarily positive for yeast, awaiting final culture and sensitivity report. Vital signs reviewed and stable. Blood pressure 135/73, heart rate 67, respiratory rate 18, temp 97.6 F, and SpO2 of 97% on room air. CT brain was reported to be negative for acute intracranial process revealing a moderately large sized infarct versus surgical treatment in the frontal/parietal/middle lobes reported to be stable when compared to CT brain completed 12/08/2023 CODE STATUS: Full code DVT prophylaxis: Lovenox Anticipated discharge date: Clinical course to determine Anticipated discharge place: Return to [facility] home Patient was seen independently by Nurse Practitioner. This document was prepared using Launch[employer] dictation software. Please allow for errors in quill worker while rare they do occur. Carmine Tyson NP rendered care for this patient independently, reviewed the findings and plan as documented in the note above. I did not physically speak with or examine the patient on this date. Objective - Vital Signs Vital signs: Vital Signs Temp 97.6 F 02/22/24 07:11 Pulse 67 02/22/24 07:11 Resp 18 02/22/24 07:11 BP 135/73 02/22/24 07:11 Pulse Ox 97 02/22/24 07:11 FiO2 Intake & Output 02/21/24 02/22/24 02/22/24 18:59 06:59 18:59 Output Total 850 Balance -850 Weight 65.771 kg Output: Urine 850 Other: Voiding Method External Catheter - Labs CBC & Chem 7: 02/22/24 04:05 02/22/24 04:05 Labs: Abnormal Lab Results - Last 24 Hours (Table) 02/21/24 02/21/24 02/21/24 Range/Units 08:15 13:05 17:45 Chloride 109 H (98-107) mmol/L BUN 26 H (9-20) mg/dL Glucose 145 H (74-99) mg/dL POC Glucose (mg/dL) 121 H 134 H (70-110) mg/dL 02/21/24 02/22/24 Range/Units 23:54 07:09 Chloride (98-107) mmol/L BUN (9-20) mg/dL Glucose (74-99) mg/dL POC Glucose (mg/dL) 141 H 148 H (70-110) mg/dL Microbiology - Last 24 Hours (Table) 02/20/24 02:07 Urine Culture - Preliminary Urine,Catheterized Yeast
[2024-02-22 16:54] LABS: Glucose,Whole Blood 132 mg/dL (70-110)
[2024-02-22] MEDS: ANIDULAFUNGIN 100 MG in SODIUM CHLORIDE 0.9% 100 ML IVPB SCH (16:56)
[2024-02-22 20:12] LABS: Glucose,Whole Blood 261 mg/dL (70-110)
[2024-02-23 07:36] LABS: Glucose,Whole Blood 161 mg/dL (70-110)
--- NOTE | 2024-02-23 10:19 | P.PN ---
Subjective Progress Note Date: 02/22/24 Principal diagnosis: Reason for follow-up is urinary tract infection Patient is a 78-year-old male past medical history significant for COPD diabetes mellitus reflux hypertension hyperlipidemia memory impairment the patient has been brought into the hospital for evaluation of worsening mental status changes patient was noticed to have decreased activity, the patient was noticed to be febrile did have positive with concern for symptomatic urinary tract infection. On today's evaluation that is 02/22/2024, Patient is afebrile patient is currently on room air and breathing comfortably in no distress no nausea vomiting abdominal pain or diarrhea has been reported. Patient repeat UA is also positive, white count 7.58 creatinine 0.8 Objective - Vital Signs Vital signs: Vital Signs Temp 98.0 F 02/22/24 14:33 Pulse 58 L 02/22/24 14:33 Resp 17 02/22/24 14:33 BP 128/64 02/22/24 14:33 Pulse Ox 96 02/22/24 14:33 FiO2 Intake & Output 02/21/24 02/22/24 02/22/24 18:59 06:59 18:59 Output Total 850 220 Balance -850 -220 Weight 65.771 kg Output: Urine 850 220 Other: Voiding Method External Catheter # Bowel Movements 1 - Exam GENERAL DESCRIPTION: An elderly male lying in bed in no distress RESPIRATORY SYSTEM: Unlabored breathing , decreased breath sounds at bases HEART: S1 S2 regular rate and rhythm , ABDOMEN: Soft , no tenderness EXTREMITIES: No edema feet - Labs CBC & Chem 7: 02/22/24 04:05 02/22/24 04:05 Labs: Abnormal Lab Results - Last 24 Hours (Table) 02/21/24 02/21/24 02/22/24 Range/Units 17:45 23:54 04:05 RBC 4.33 L (4.40-5.60) X 10*6/uL MPV 8.4 L (9.5-12.2) FL Chloride (96-109) mmol/L BUN/Creatinine Ratio (12.00-20.00) Ratio Glucose (70-110) mg/dL POC Glucose (mg/dL) 134 H 141 H (70-110) mg/dL ALT (10-49) U/L Total Protein (6.2-8.2) g/dL Albumin (3.8-4.9) g/dL Albumin/Globulin Ratio (1.60-3.17) Ratio Urine Protein (Negative) Urine Glucose (UA) (Negative) Urine Blood (Negative) Ur Leukocyte Esterase (Negative) Urine RBC (0-5) /hpf Urine WBC (0-5) /hpf Urine WBC Clumps (None) /hpf Urine Bacteria (None) /hpf 02/22/24 02/22/24 02/22/24 Range/Units 04:05 07:09 10:32 RBC (4.40-5.60) X 10*6/uL MPV (9.5-12.2) FL Chloride 110 H (96-109) mmol/L BUN/Creatinine Ratio 20.88 H (12.00-20.00) Ratio Glucose 143 H (70-110) mg/dL POC Glucose (mg/dL) 148 H (70-110) mg/dL ALT 9 L (10-49) U/L Total Protein 6.1 L (6.2-8.2) g/dL Albumin 3.6 L (3.8-4.9) g/dL Albumin/Globulin Ratio 1.44 L (1.60-3.17) Ratio Urine Protein 2+ H (Negative) Urine Glucose (UA) 4+ H (Negative) Urine Blood Moderate H (Negative) Ur Leukocyte Esterase Large H (Negative) Urine RBC 45 H (0-5) /hpf Urine WBC >182 H (0-5) /hpf Urine WBC Clumps Many H (None) /hpf Urine Bacteria Occasional H (None) /hpf 02/22/24 Range/Units 11:52 RBC (4.40-5.60) X 10*6/uL MPV (9.5-12.2) FL Chloride (96-109) mmol/L BUN/Creatinine Ratio (12.00-20.00) Ratio Glucose (70-110) mg/dL POC Glucose (mg/dL) 294 H (70-110) mg/dL ALT (10-49) U/L Total Protein (6.2-8.2) g/dL Albumin (3.8-4.9) g/dL Albumin/Globulin Ratio (1.60-3.17) Ratio Urine Protein (Negative) Urine Glucose (UA) (Negative) Urine Blood (Negative) Ur Leukocyte Esterase (Negative) Urine RBC (0-5) /hpf Urine WBC (0-5) /hpf Urine WBC Clumps (None) /hpf Urine Bacteria (None) /hpf Microbiology - Last 24 Hours (Table) 02/20/24 02:07 Urine Culture - Final Urine,Catheterized Sarai glabrata Assessment and Plan (1) UTI (urinary tract infection) Current Visit: Yes Status: Acute Code(s): N39.0 - URINARY TRACT INFECTION, SITE NOT SPECIFIED SNOMED Code(s): 21408314 (2) Penicillin allergy Current Visit: No Status: Acute Code(s): Z88.0 - ALLERGY STATUS TO PENICILLIN SNOMED Code(s): 53314754 Plan: 1patient presented to hospital with confusion and weakness also noticed to have a fever did have a positive UA concerning for a symptomatic urinary tract infection with urine culture now showing a yeast questionable colonization versus real pathogen. 2patient repeat UA is positive and urine culture is growing Sarai glabrata or ideally have recommended voriconazole however the patient is on Plavix with serious interaction with voriconazole and the patient did have a history of rec urrent CVAs for now continue with the Eraxis keeping in mind resolution of his fever and wait for repeat urine culture to be finalized this has been discussed with the CRITICAL CARE EDUCATOR for admitting team Dictation was produced using [employer]adder dictation software. please excuse any grammatical, word or spelling errors. Time with Patient: Less than 30
[2024-02-23 12:17] LABS: Glucose,Whole Blood 194 mg/dL (70-110)
--- NOTE | 2024-02-23 14:52 | P.PN ---
Subjective Progress Note Date: 02/23/24 Hospital course: Patient is a very pleasant 78-year-old male with a past medical history of advanced dementia, multiple CVAs and previous brain tumor removal with memory impairment, PFO, seizure disorder, hypertension, hyperlipidemia, GERD, and obstructive sleep apnea CPAP dependent nightly. Patient presented to the emergency department via EMS from [facility] with a chief complaint of worsening mental status and confusion. Patient currently alert to person and place only and confused to time and situation stating he is on sure why he was sent to the emergency department and currently denies having any complaints or pain. He underwent evaluation in the ER. Vital signs upon arrival show blood pressure 135/72, heart rate 69, respiratory rate 18, temp 98.0 F, and SpO2 of 94% on room air. EKG was completed showing normal sinus rhythm at 66 bpm with T wave inversion in leads III and a first-degree AV block with [place] interval of 239 ms. Chest x-ray completed negative for acute cardiopulmonary process. Labs were completed and reviewed. CBC and coagulation profile were unremarkable. BMP revealing hypocarbia with bicarb of 19 and slightly elevated anion gap of 13 with BUN of 36. Blood glucose was 109. Troponin was negative at less than 0.012. Liver profile unremarkable. Urinalysis positive for infection with leukocyte esterase and greater than 182 WBCs. Patient was admitted under our services. Physical exam: Patient seen and fully evaluated at bedside this morning. He is awake and alert to person and place this morning. He is more alert than he has been the entire hospitalization. Patient even requested that we call and update his granddaughter and gave her full name. Patient appears to be doing well this morning. He denies having any questions, needs, or complaints at this time. He denies any pain. Called and updated patient's granddaughter and patient's improvement. She also reports she is concerned that this is his sixth UTI in 2 months resulting in recurrent hospitalizations. Vital signs reviewed and stable. General: Nontoxic, no acute distress and appears stated age. Derm: Skin warm and dry, normal coloration for ethnicity. Head: Atraumatic, normocephalic and symmetric. Eyes: EOMs intact, no lid lag, and anicteric sclera Mouth: no lip lesions, mucus membranes moist Cardiovascular: regular rate and rhythm with normal S1S2, systolic murmur, positive posterior tibial pulses bilaterally, and cap refill < 2 seconds. Lungs: Respirations even, regular, and unlabored on room air. Lungs CTA bilaterally, no rhonchi, no rales, no wheezing, and no accessory muscle usage. Abdominal: soft, nontender to palpation, no guarding, no appreciable organomegaly Ext: ROM intact. No gross muscle atrophy, no edema, no contractures Neuro: Speech clear, face symmetrical and CN II-XII grossly intact with no noted focal neuro deficits Psych: Patient alert and oriented to person only this morning and confused to place, time and situation. Appropriate and pleasant affect. Assessment and Plan of Care: Candidal cystitis Acute metabolic encephalopathy, likely secondary to above History of advanced dementia Multiple CVAs and previous brain tumor status post removal with impaired memory deficits PFO -CT brain was reported to be negative for acute intracranial process revealing a moderately large sized infarct versus surgical treatment in the frontal/parietal/middle lobes reported to be stable when compared to CT brain completed 12/08/2023 -Continue neurochecks every 4 hours, fall precautions, and elopement precautions. -Orders placed for strict I's and O's and for bladder scanning to monitor for postvoid residual/urinary retention. -Preliminary urine culture results positive for yeast, awaiting final culture and sensitivity reports. -Continue IV antibiotics with Rocephin 2 g every 24 hours and Eraxis 100 mg daily -Continue daily medication regimen with aspirin 81 mg daily and Plavix 75 mg daily. -Continue Namenda 7.5 mg twice daily and Remeron 30 mg nightly. -Tylenol 650 mg p.o. every 6 hours as needed for fever -Consult placed to infectious disease, patient with history of multiple CVAs and is on dual antiplatelet therapy with aspirin and Plavix. Oral antifungal agents such as Diflucan can decrease effectiveness of Plavix and patient started on Eraxis at this time. -Consult placed to urology as patient's granddaughter reports this is patient's sixth UTI in the last 2 months with no previous history of recurrent UTIs and states he has had recurrent hospitalizations over the last 2 months for treatment secondary to the confusion resulting from the UTIs and requesting evaluation by urologist. Seizure disorder -Continue Keppra 1000 mg twice daily. -Maintain seizure precautions. Pressure ulcer on coccyx, present on arrival. -Turn patient every 2 hours. -Wound care consulted Hypertension Hyperlipidemia Continue daily medication regimen with lisinopril 5 mg nightly and metoprolol 50 mg twice daily GERD -Continue daily medication regimen with Pepcid 20 mg twice daily and Protonix 40 mg daily. Obstructive sleep apnea Continue use of CPAP nightly and while napping. Data and imaging reviewed: Urine culture is positive for Sarai glabrata Vital signs reviewed and stable. Blood pressure 122/63, heart rate 64, respi ratory rate 18, temp 98.1 F, and SpO2 of 95% on room air. CT brain was reported to be negative for acute intracranial process revealing a moderately large sized infarct versus surgical treatment in the frontal/parietal/middle lobes reported to be stable when compared to CT brain completed 12/08/2023 CODE STATUS: Full code DVT prophylaxis: Lovenox Anticipated discharge date: Clinical course to determine Anticipated discharge place: Return to [facility] home Patient was seen independently by Nurse Practitioner. This document was prepared using [employer] dictation software. Please allow for errors in paint pourer while rare they do occur. Carmine Tyson NP rendered care for this patient independently, reviewed the findings and plan as documented in the note above. I did not physically speak with or examine the patient on this date. Objective - Vital Signs Vital signs: Vital Signs Temp 98.1 F 02/23/24 07:35 Pulse 64 02/23/24 07:35 Resp 18 02/23/24 07:35 BP 122/63 02/23/24 07:35 Pulse Ox 95 02/23/24 07:35 FiO2 Intake & Output 02/22/24 02/23/24 02/23/24 18:59 06:59 18:59 Output Total 645 600 Balance -645 -600 Output: Urine 645 600 Other: Voiding Method External Catheter # Bowel Movements 1 - Labs CBC & Chem 7: 02/22/24 04:05 02/22/24 04:05 Labs: Abnormal Lab Results - Last 24 Hours (Table) 02/22/24 02/22/24 02/22/24 Range/Units 04:05 04:05 10:32 RBC 4.33 L (4.40-5.60) X 10*6/uL MPV 8.4 L (9.5-12.2) FL Chloride 110 H (96-109) mmol/L BUN/Creatinine Ratio 20.88 H (12.00-20.00) Ratio Glucose 143 H (70-110) mg/dL POC Glucose (mg/dL) (70-110) mg/dL ALT 9 L (10-49) U/L Total Protein 6.1 L (6.2-8.2) g/dL Albumin 3.6 L (3.8-4.9) g/dL Albumin/Globulin Ratio 1.44 L (1.60-3.17) Ratio Urine Protein 2+ H (Negative) Urine Glucose (UA) 4+ H (Negative) Urine Blood Moderate H (Negative) Ur Leukocyte Esterase Large H (Negative) Urine RBC 45 H (0-5) /hpf Urine WBC >182 H (0-5) /hpf Urine WBC Clumps Many H (None) /hpf Urine Bacteria Occasional H (None) /hpf 02/22/24 02/22/24 02/22/24 Range/Units 11:52 16:52 20:09 RBC (4.40-5.60) X 10*6/uL MPV (9.5-12.2) FL Chloride (96-109) mmol/L BUN/Creatinine Ratio (12.00-20.00) Ratio Glucose (70-110) mg/dL POC Glucose (mg/dL) 294 H 132 H 261 H (70-110) mg/dL ALT (10-49) U/L Total Protein (6.2-8.2) g/dL Albumin (3.8-4.9) g/dL Albumin/Globulin Ratio (1.60-3.17) Ratio Urine Protein (Negative) Urine Glucose (UA) (Negative) Urine Blood (Negative) Ur Leukocyte Esterase (Negative) Urine RBC (0-5) /hpf Urine WBC (0-5) /hpf Urine WBC Clumps (None) /hpf Urine Bacteria (None) /hpf 02/23/24 Range/Units 07:34 RBC (4.40-5.60) X 10*6/uL MPV (9.5-12.2) FL Chloride (96-109) mmol/L BUN/Creatinine Ratio (12.00-20.00) Ratio Glucose (70-110) mg/dL POC Glucose (mg/dL) 161 H (70-110) mg/dL ALT (10-49) U/L Total Protein (6.2-8.2) g/dL Albumin (3.8-4.9) g/dL Albumin/Globulin Ratio (1.60-3.17) Ratio Urine Protein (Negative) Urine Glucose (UA) (Negative) Urine Blood (Negative) Ur Leukocyte Esterase (Negative) Urine RBC (0-5) /hpf Urine WBC (0-5) /hpf Urine WBC Clumps (None) /hpf Urine Bacteria (None) /hpf Microbiology - Last 24 Hours (Table) 02/20/24 02:07 Urine Culture - Final Urine,Catheterized Sarai glabrata
--- NOTE | 2024-02-23 16:47 | P.PN ---
Subjective Progress Note Date: 02/23/24 Principal diagnosis: Reason for follow-up is urinary tract infection Patient is a 78-year-old male past medical history significant for COPD diabetes mellitus reflux hypertension hyperlipidemia memory impairment the patient has been brought into the hospital for evaluation of worsening mental status changes patient was noticed to have decreased activity, the patient was noticed to be febrile did have positive with concern for symptomatic urinary tract infection. On today's evaluation that is 02/23/2024, patient has been afebrile, patient is breathing comfortably and is currently on room air, patient denies having any significant cough no chest pain shortness of breath, patient denies nausea vomiting or diarrhea and no abdominal pain. No new labs were obtained today repeat culture currently pending Objective - Vital Signs Vital signs: Vital Signs Temp 97.3 F L 02/23/24 12:16 Pulse 69 02/23/24 12:16 Resp 16 02/23/24 12:16 BP 135/71 02/23/24 12:16 Pulse Ox 94 L 02/23/24 12:16 FiO2 Intake & Output 02/22/24 02/23/24 02/23/24 18:59 06:59 18:59 Output Total 645 600 700 Balance -645 -600 -700 Output: Urine 645 600 700 Other: Voiding Method External Catheter External Catheter # Bowel Movements 1 - Exam GENERAL DESCRIPTION: An elderly male lying in bed in no distress RESPIRATORY SYSTEM: Unlabored breathing , decreased breath sounds at bases HEART: S1 S2 regular rate and rhythm , ABDOMEN: Soft , no tenderness EXTREMITIES: No edema feet - Labs CBC & Chem 7: 02/22/24 04:05 02/22/24 04:05 Labs: Abnormal Lab Results - Last 24 Hours (Table) 02/22/24 02/22/24 02/23/24 Range/Units 16:52 20:09 07:34 POC Glucose (mg/dL) 132 H 261 H 161 H (70-110) mg/dL 02/23/24 Range/Units 12:15 POC Glucose (mg/dL) 194 H (70-110) mg/dL Assessment and Plan (1) UTI (urinary tract infection) Current Visit: Yes Status: Acute Code(s): N39.0 - URINARY TRACT INFECTION, SITE NOT SPECIFIED SNOMED Code(s): 64610434 (2) Penicillin allergy Current Visit: No Status: Acute Code(s): Z88.0 - ALLERGY STATUS TO PENICILLIN SNOMED Code(s): 58416361 Plan: 1patient presented to hospital with confusion and weakness also noticed to have a fever did have a positive UA concerning for a symptomatic urinary tract infection with urine culture now showing a yeast questionable colonization versus real pathogen. 2patient repeat UA is positive and urine culture is growing Sarai glabrata or ideally have recommended voriconazole however the patient is on Plavix with serious interaction with voriconazole and the patient did have a history of recurrent CVAs for now continue with the Eraxis keeping in mind resolution of his fever patient to continue with Eraxis while waiting for the repeat culture to finalize Dictation was produced using [employer] dictation software. please excuse any grammatical, word or spelling errors. Time with Patient: Less than 30
[2024-02-23 17:17] LABS: Glucose,Whole Blood 120 mg/dL (70-110)
[2024-02-23 20:07] LABS: Glucose,Whole Blood 115 mg/dL (70-110)
[2024-02-24 07:18] LABS: Glucose,Whole Blood 162 mg/dL (70-110)
--- NOTE | 2024-02-24 07:56 | P.GSCN ---
History of Present Illness Consult date: 02/24/24 History of present illness: 78 yo male in the hospital with altered mental status. He apparently was brought for a uti. THe patient has advanced dementia and a history of strokes. We have been asked to see for recurrent utis. I can get no history. Previous urine cultures do not show any utis. The present culture is growing matthew. He had a ct scan in oct that was normal He is wearing a condom catheter.I donot know whether the urine obtained is from the external catheter or whether he was catheterized. I can get no history from the patient.His serum wbc is normal Review of Systems ROS unobtainable: due to mental status Past Medical History Past Medical History: Cancer, COPD, Diabetes Mellitus, GERD/Reflux, Hyperlipidemia, Hypertension, Memory Impairment, Sleep Apnea/CPAP/BIPAP Additional Past Medical History / Comment(s): C-PAP., BACK PAIN, SKIN CANCER, MEMORY PROBLEMS., HX OF LEAD POISONING WHILE WORKING AT [employer], History of Any Multi-Drug Resistant Organisms: None Reported Additional Past Surgical History / Comment(s): TORN LIGAMENT ARM., VASECTOMY, CATARACTS, FX ORBITAL SURGERY. Past Anesthesia/Blood Transfusion Reactions: No Reported Reaction, Motion Sickness Past Psychological History: No Psychological Hx Reported Smoking Status: Former smoker Past Alcohol Use History: None Reported Past Drug Use History: None Reported - Past Family History Mother Family Medical History: No Reported History Medications and Allergies Home Medications Medication Instructions Recorded Confirmed Type Metoprolol Succinate (ER) [Toprol 50 mg PO BID@08,199901/22/19 02/20/24 History XL] Aspirin 81 mg PO DAILY@79907/09/23 02/20/24 History Finasteride [Proscar] 5 mg PO DAILY@79907/09/23 02/20/24 History Memantine HCl [Namenda Xr] 21 mg PO DAILY@79907/09/23 02/20/24 History Acetaminophen [Tylenol 8 Hour] 650 mg PO Q8HR@0000,0800,1600 11/12/23 02/20/24 History Cyanocobalamin (Vitamin B-12) 1,000 mcg PO DAILY@0800 11/12/23 02/20/24 History [Vitamin B-12] Ft Arthritis Pain 1% Gel 2 gram TOPICAL TID@0800,1200,199911/12/23 02/20/24 History Loratadine [Claritin] 10 mg PO DAILY@0811/12/23 02/20/24 History Pantoprazole [Protonix] 40 mg PO DAILY@0811/12/23 02/20/24 History polyethylene glycoL 3350 [Miralax] 17 gm PO DAILY@0800 11/12/23 02/20/24 History Clopidogrel [Plavix] 75 mg PO DAILY@79912/08/23 02/20/24 History levETIRAcetam [Keppra] 1,000 mg PO BID@799,199912/08/23 02/20/24 History Cholecalciferol [Vitamin D3 (125 125 mcg PO DAILY@79902/03/24 02/20/24 History Mcg = 5000 Iu)] Furosemide [Lasix] 20 mg PO BID@799,199902/03/24 02/20/24 History Potassium Chloride [Klor-Con M20] 20 meq PO DAILY@79902/03/24 02/20/24 History Donepezil [Aricept] 10 mg PO HS@199902/15/24 02/20/24 History Loperamide [Imodium] 2 - 4 mg PO QID PRN MDD 16 02/15/24 02/20/24 History Mirtazapine [Remeron] 30 mg PO HS@199902/15/24 02/20/24 History lisinopriL [Zestril] 5 mg PO HS@199902/15/24 02/20/24 History Allergies Allergy/AdvReac Type Severity Reaction Status Date / Time Penicillins Allergy Unknown Rash/Hives Verified 02/20/24 10:41 Surgical - Exam Vital Signs Temp Pulse Resp BP Pulse Ox 98.0 F 69 18 135/72 98 02/20/24 00:10 02/20/24 00:10 02/20/24 00:10 02/20/24 00:10 02/20/24 00:10 - General well developed, well nourished, no distress - Eyes normal ocular movement, no icteric - ENT no hearing loss, no congestion - Neck no masses, trachea midline - Respiratory normal respiratory effort, clear to auscultation - Abdomen Abdomen: soft, non tender, no guarding, no rigid, no rebound - Genitourinary condom catheter' - Integumentary no rash, no abnormal pigmentation - Neurologic confused - Psychiatric oriented to place Results - Labs 02/22/24 04:05 02/22/24 04:05 Abnormal Lab Results - Last 24 Hours (Table) 02/23/24 02/23/24 02/23/24 Range/Units 07:34 12:15 17:16 POC Glucose (mg/dL) 161 H 194 H 120 H (70-110) mg/dL 02/23/24 Range/Units 20:03 POC Glucose (mg/dL) 115 H (70-110) mg/dL - Imaging CT scan - abdomen: report reviewed, image reviewed CT scan - pelvis: report reviewed, image reviewed Assessment and Plan Assessment: Impression: posible recurrent utis. Dementia. incontinence Recommendation: I am unsure as to whether there are recurring utis as there are no records to support this that I can see. He should be treated for the matthew. A bladder scan would be appropriate to see if he is in retention. A cath urine would be in order after the antibiotics to see if the urine is clear.
[2024-02-24 08:55] LABS: Glucose,Whole Blood 155 mg/dL (70-110)
[2024-02-24 10:34] LABS: HCT 37.5 % (39.6-50.0); HGB 12.9 g/dL (13.0-17.0); MCH 31.2 pg (27.0-32.0); MCHC 34.4 g/dL (32.0-37.0); MCV 90.8 FL (80.0-97.0); Mean Platelet Volume 8.2 FL (9.5-12.2); NRBC Per 100 WBC 0 X 10*3/uL (0.00-0.01); Platelet Count 226 X 10*3/uL (140-440); RBC 4.13 X 10*6/uL (4.40-5.60); RDW 13.9 % (11.5-14.5); WBC 7.01 X 10*3/uL (4.50-10.00)
[2024-02-24 10:41] LABS: ALT 10 U/L (10-49); AST 14 U/L (14-35); Albumin 3.2 g/dL (3.8-4.9); Albumin/Globulin Ratio 1.33 Ratio (1.60-3.17); Alkaline Phosphatase 80 U/L (41-126); BUN/Creat Ratio 11.29 Ratio (12.00-20.00); Blood Urea Nitrogen 7.9 mg/dL (9.0-27.0); Calcium 9.4 mg/dL (8.7-10.3); Carbon Dioxide 22.8 mmol/L (21.6-31.8); Chloride 108 mmol/L (96-109); Globulin 2.4 g/dL (1.6-3.3); Glucose 158 mg/dL (70-110); Magnesium 1.8 mg/dL (1.5-2.4); Potassium 3.9 mmol/L (3.5-5.5); Sodium 140 mmol/L (135-145); Total Bilirubin 0.3 mg/dL (0.3-1.2); Total Protein 5.6 g/dL (6.2-8.2)
[2024-02-24 11:49] LABS: Glucose,Whole Blood 193 mg/dL (70-110)
--- NOTE | 2024-02-24 12:34 | P.PN ---
Subjective Progress Note Date: 02/24/24 Principal diagnosis: Reason for follow-up is urinary tract infection Patient is a 78-year-old male past medical history significant for COPD diabetes mellitus reflux hypertension hyperlipidemia memory impairment the patient has been brought into the hospital for evaluation of worsening mental status changes patient was noticed to have decreased activity, the patient was noticed to be febrile did have positive with concern for symptomatic urinary tract infection. On today's evaluation that is 02/24/2024,the patient denies any fever or any chills, patient is breathing comfortably on room air, the patient denies chest pain shortness of breath and no significant cough, no vomiting or diarrhea has been reported by the nursing staff. Patient white count is 7.01, creatinine 0.3 repeat urine culture has been negative Objective - Vital Signs Vital signs: Vital Signs Temp 97.5 F L 02/24/24 07:17 Pulse 77 02/24/24 07:17 Resp 18 02/24/24 07:17 BP 143/73 02/24/24 07:17 Pulse Ox 93 L 02/24/24 07:17 FiO2 Intake & Output 02/23/24 02/24/24 02/24/24 18:59 06:59 18:59 Output Total 700 650 Balance -700 -650 Output: Urine 700 650 Other: Voiding Method External Catheter External Catheter External Catheter - Exam GENERAL DESCRIPTION: An elderly male lying in bed in no distress RESPIRATORY SYSTEM: Unlabored breathing , decreased breath sounds at bases HEART: S1 S2 regular rate and rhythm , ABDOMEN: Soft , no tenderness EXTREMITIES: No edema feet - Labs CBC & Chem 7: 02/24/24 05:54 02/24/24 05:54 Labs: Abnormal Lab Results - Last 24 Hours (Table) 02/23/24 02/23/24 02/24/24 Range/Units 17:16 20:03 05:54 RBC 4.13 L (4.40-5.60) X 10*6/uL Hgb 12.9 L (13.0-17.0) g/dL Hct 37.5 L (39.6-50.0) % MPV 8.2 L (9.5-12.2) FL BUN (9.0-27.0) mg/dL BUN/Creatinine Ratio (12.00-20.00) Ratio Glucose (70-110) mg/dL POC Glucose (mg/dL) 120 H 115 H (70-110) mg/dL Total Protein (6.2-8.2) g/dL Albumin (3.8-4.9) g/dL Albumin/Globulin Ratio (1.60-3.17) Ratio 02/24/24 02/24/24 02/24/24 Range/Units 05:54 07:16 08:54 RBC (4.40-5.60) X 10*6/uL Hgb (13.0-17.0) g/dL Hct (39.6-50.0) % MPV (9.5-12.2) FL BUN 7.9 L (9.0-27.0) mg/dL BUN/Creatinine Ratio 11.29 L (12.00-20.00) Ratio Glucose 158 H (70-110) mg/dL POC Glucose (mg/dL) 162 H 155 H (70-110) mg/dL Total Protein 5.6 L (6.2-8.2) g/dL Albumin 3.2 L (3.8-4.9) g/dL Albumin/Globulin Ratio 1.33 L (1.60-3.17) Ratio 02/24/24 Range/Units 11:48 RBC (4.40-5.60) X 10*6/uL Hgb (13.0-17.0) g/dL Hct (39.6-50.0) % MPV (9.5-12.2) FL BUN (9.0-27.0) mg/dL BUN/Creatinine Ratio (12.00-20.00) Ratio Glucose (70-110) mg/dL POC Glucose (mg/dL) 193 H (70-110) mg/dL Total Protein (6.2-8.2) g/dL Albumin (3.8-4.9) g/dL Albumin/Globulin Ratio (1.60-3.17) Ratio Microbiology - Last 24 Hours (Table) 02/22/24 10:32 Urine Culture - Final Urine,Voided Assessment and Plan (1) UTI (urinary tract infection) Current Visit: Yes Status: Acute Code(s): N39.0 - URINARY TRACT INFECTION, SITE NOT SPECIFIED SNOMED Code(s): 27606811 (2) Penicillin allergy Current Visit: No Status: Acute Code(s): Z88.0 - ALLERGY STATUS TO PENICILLIN SNOMED Code(s): 78333023 Plan: 1patient presented to hospital with confusion and weakness also noticed to have a fever did have a positive UA concerning for a symptomatic urinary tract infection with urine culture now showing a yeast questionable colonization versus real pathogen. 2patient repeat UA is positive and urine culture is growing Sarai glabrata or ideally have recommended voriconazole however the patient is on Plavix with serious interaction with voriconazole and the patient did have a history of recurrent CVAs for now continue with the Eraxis however keeping in mind repeat urine culture has been negative no need for Eraxis on discharge May consider short course of oral Ceftin on discharge Dictation was produced using [employer] dictation software. please excuse any grammatical, word or spelling errors. Time with Patient: Less than 30
--- NOTE | 2024-02-24 14:39 | P.PN ---
Subjective Progress Note Date: 02/24/24 Hospital course: Patient is a very pleasant 78-year-old male with a past medical history of advanced dementia, multiple CVAs and previous brain tumor removal with memory impairment, PFO, seizure disorder, hypertension, hyperlipidemia, GERD, and obstructive sleep apnea CPAP dependent nightly. Patient presented to the emergency department via EMS from [facility] with a chief complaint of worsening mental status and confusion. Patient currently alert to person and place only and confused to time and situation stating he is on sure why he was sent to the emergency department and currently denies having any complaints or pain. He underwent evaluation in the ER. Vital signs upon arrival show blood pressure 135/72, heart rate 69, respiratory rate 18, temp 98.0 F, and SpO2 of 94% on room air. EKG was completed showing normal sinus rhythm at 66 bpm with T wave inversion in leads III and a first-degree AV block with OR interval of 239 ms. Chest x-ray completed negative for acute cardiopulmonary process. Labs were completed and reviewed. CBC and coagulation profile were unremarkable. BMP revealing hypocarbia with bicarb of 19 and slightly elevated anion gap of 13 with BUN of 36. Blood glucose was 109. Troponin was negative at less than 0.012. Liver profile unremarkable. Urinalysis positive for infection with leukocyte esterase and greater than 182 WBCs. Patient was admitted under our services with consultation to infectious disease. Physical exam: Patient seen and fully evaluated at bedside this morning. He is awake and alert to person and place this morning. He was sitting up in bed eating his breakfast at this time. Vital signs reviewed and stable. General: Nontoxic, no acute distress and appears stated age. Derm: Skin warm and dry, normal coloration for ethnicity. Head: Atraumatic, normocephalic and symmetric. Eyes: EOMs intact, no lid lag, and anicteric sclera Mouth: no lip lesions, mucus membranes moist Cardiovascular: regular rate and rhythm with normal S1S2, systolic murmur, positive posterior tibial pulses bilaterally, and cap refill < 2 seconds. Lungs: Respirations even, regular, and unlabored on room air. Lungs CTA bilaterally, no rhonchi, no rales, no wheezing, and no accessory muscle usage. Abdominal: soft, nontender to palpation, no guarding, no appreciable organomegaly Ext: ROM intact. No gross muscle atrophy, no edema, no contractures Neuro: Speech clear, face symmetrical and CN II-XII grossly intact with no noted focal neuro deficits Psych: Patient alert and oriented to person only this morning and confused to place, time and situation. Appropriate and pleasant affect. Assessment and Plan of Care: Candidal cystitis Acute metabolic encephalopathy, likely secondary to above History of advanced dementia Multiple CVAs and previous brain tumor status post removal with impaired memory deficits PFO -CT brain was reported to be negative for acute intracranial process revealing a moderately large sized infarct versus surgical treatment in the frontal/parietal/middle lobes reported to be stable when compared to CT brain completed 12/08/2023 -Continue neurochecks every 4 hours, fall precautions, and elopement precautions. -Orders placed for strict I's and O's and for bladder scanning to monitor for postvoid residual/urinary retention. -Urine culture is positive for Sarai glabrata -Continue IV antibiotics with Rocephin 2 g every 24 hours and Eraxis 100 mg daily -Continue daily medication regimen with aspirin 81 mg daily and Plavix 75 mg daily. -Continue Namenda 7.5 mg twice daily and Remeron 30 mg nightly. -Tylenol 650 mg p.o. every 6 hours as needed for fever -Infectious disease following and discussed plan of care with Dr. Pena. He is recommending an additional 24 hours of eraxis and stated patient and cleared for discharge home on oral antibiotic Ceftin x 7 additional days. -Consult placed to urology as patient's granddaughter reports this is patient's sixth UTI in the last 2 months with no previous history of recurrent UTIs and states he has had recurrent hospitalizations over the last 2 months for treatment secondary to the confusion resulting from the UTIs and requesting evaluation by urologist. Seizure disorder -Continue Keppra 1000 mg twice daily. -Maintain seizure precautions. Pressure ulcer on coccyx, present on arrival. -Turn patient every 2 hours. -Wound care consulted Hypertension Hyperlipidemia Continue daily medication regimen with lisinopril 5 mg nightly and metoprolol 50 mg twice daily GERD -Continue daily medication regimen with Pepcid 20 mg twice daily and Protonix 40 mg daily. Obstructive sleep apnea Continue use of CPAP nightly and while napping. Data and imaging reviewed: Urine culture is positive for Sarai glabrata Vital signs reviewed and stable. Blood pressure 122/63, heart rate 64, respiratory rate 18, temp 98.1 F, and SpO2 of 95% on room air. CT brain was reported to be negative for acute intracranial process revealing a moderately large sized infarct versus surgical treatment in the frontal/parietal/middle lobes reported to be stable when compared to CT brain completed 12/08/2023 Left voicemail on granddaughterNannette's phone updating on plan of care and plan for discharge back to [facility] tomorrow. CODE STATUS: Full code DVT prophylaxis: Lovenox Anticipated discharge date: Plan for discharge home tomorrow 02/25/[address]: Return to [facility]. Patient was seen independently by Nurse Practitioner. This document was prepared using [employer] dictation software. Please allow for errors in butcher scullion while rare they do occur. Carmine Tyson NP rendered care for this patient independently, reviewed the findings and plan as documented in the note above. I did not physically speak with or examine the patient on this date. Objective - Vital Signs Vital signs: Vital Signs Temp 97.9 F 02/24/24 01:48 Pulse 89 02/24/24 01:48 Resp 18 02/24/24 01:48 BP 151/82 02/24/24 01:48 Pulse Ox 93 L 02/24/24 01:48 FiO2 Intake & Output 02/23/24 02/24/24 02/24/24 18:59 06:59 18:59 Output Total 700 650 Balance -700 -650 Output: Urine 700 650 Other: Voiding Method External Catheter External Catheter - Labs CBC & Chem 7: 02/24/24 05:54 02/24/24 05:54 Labs: Abnormal Lab Results - Last 24 Hours (Table) 02/23/24 02/23/24 02/23/24 Range/Units 12:15 17:16 20:03 POC Glucose (mg/dL) 194 H 120 H 115 H (70-110) mg/dL 02/24/24 Range/Units 07:16 POC Glucose (mg/dL) 162 H (70-110) mg/dL
[2024-02-24 17:14] LABS: Glucose,Whole Blood 171 mg/dL (70-110)
[2024-02-24] MEDS: ACETAMINOPHEN TAB 325 MG TAB PO PRN (19:55)
[2024-02-24 20:21] LABS: Glucose,Whole Blood 200 mg/dL (70-110)
[2024-02-25 07:30] LABS: Glucose,Whole Blood 172 mg/dL (70-110)
[2024-02-25 08:00] VITALS: RESP 16
[2024-02-25] MEDS: ANIDULAFUNGIN 100 MG in SODIUM CHLORIDE 0.9% 100 ML IVPB SCH (09:15)
--- NOTE | 2024-02-25 10:28 | P.DS ---
Providers Date of admission: 02/20/24 05:19 Expected date of discharge: 02/25/24 Attending physician: Selena Pyle MD Consults: 02/21/24 15:42 Consult Physician Routine Consulting Provider: Hernán Pena Consult Reason/Comments: candidal cystitis Do you want consulting provider notified?: Yes 02/23/24 14:45 Consult Physician Routine Consulting Provider: Kurtis Fowler Consult Reason/Comments: recurrent UTI reports 6 UTI's in last 2 months w recurrent hospitalizations Do you want consulting provider notified?: Yes [facility] Discharge Diagnosis: Candidal cystitis. Patient received 4-day course of Eraxis. Repeat urine culture negative. Patient cleared from infectious disease recommending discharged home on Ceftin 500 mg twice daily for an additional 7 days. Acute metabolic encephalopathy, likely secondary to above. Resolved patient back at baseline. History of advanced dementia. Multiple CVAs and previous brain tumor status post removal with impaired memory deficits. PFO. Seizure disorder. Continue Keppra 1000 mg twice daily. Pressure ulcer on coccyx, present on arrival. Hypertension Hyperlipidemia GERD Obstructive sleep apnea Hospital course: Patient is a very pleasant 78-year-old male with a past medical history of advanced dementia, multiple CVAs and previous brain tumor removal with memory impairment, PFO, seizure disorder, hypertension, hyperlipidemia, GERD, and obstructive sleep apnea CPAP dependent nightly. Patient presented to the emergency department via EMS from [facility] with a chief complaint of worsening mental status and confusion. Patient currently alert to person and place only and confused to time and situation stating he is on sure why he was sent to the emergency department and currently denies having any complaints or pain. He underwent evaluation in the ER. Vital signs upon arrival show blood pressure 135/72, heart rate 69, respiratory rate 18, temp 98.0 F, and SpO2 of 94% on room air. EKG was completed showing normal sinus rhythm at 66 bpm with T wave inversion in leads III and a first-degree AV block with FL interval of 239 ms. Chest x-ray completed negative for acute cardiopulmonary process. Labs were completed and reviewed. CBC and coagulation profile were unremarkable. BMP revealing hypocarbia with bicarb of 19 and slightly elevated anion gap of 13 with BUN of 36. Blood glucose was 109. Troponin was negative at less than 0.012. Liver profile unremarkable. Urinalysis positive for infection with leukocyte esterase and greater than 182 WBCs. Patient was admitted under our services with consultation to infectious disease. CT brain was reported to be negative for acute intracranial process revealing a moderately large sized infarct versus surgical treatment in the frontal/parietal/middle lobes reported to be stable when compared to CT brain completed 12/08/2023. Consult placed to infectious disease, patient with history of multiple CVAs and is on dual antiplatelet therapy with aspirin and Plavix. Oral antifungal agents such as Diflucan can decrease effectiveness of Plavix and patient started on Eraxis along with Rocephin at this time.Urine culture is positive for Sarai glabrata. Infectious disease following and discussed plan of care with Dr. Pena. He is recommending an additional 24 hours of eraxis and stated patient and cleared for discharge home on oral antibiotic Ceftin x 7 additional days. -Consult was also placed to urology during hospitalization as patient's granddaughter reports this is patient's sixth UTI in the last 2 months with no previous history of recurrent UTIs and states he has had recurrent hospitalizations over the last 2 months both here and [facility] for treatment secondary to the confusion resulting from these UTIs. Urology evaluated stated no need for further interventions and provided no additional recommendations. Patient is medically stable at this time and is stable for discharge back to [facility] facility. Physical exam: Vital signs reviewed and stable. General: Nontoxic, no acute distress and appears stated age. Derm: Skin warm and dry, normal coloration for ethnicity. Head: Atraumatic, normocephalic and symmetric. Eyes: EOMs intact, no lid lag, and anicteric sclera Mouth: no lip lesions, mucus membranes moist Cardiovascular: regular rate and rhythm with normal S1S2, systolic murmur, positive posterior tibial pulses bilaterally, and cap refill < 2 seconds. Lungs: Respirations even, regular, and unlabored on room air. Lungs CTA bi along with Rocephinlaterally, no rhonchi, no rales, no wheezing, and no accessory muscle usage. Abdominal: soft, nontender to palpation, no guarding, no appreciable organomegaly Ext: ROM intact. No gross muscle atrophy, no edema, no contractures Neuro: Speech clear, face symmetrical and CN II-XII grossly intact with no noted focal neuro deficits Psych: Patient alert and oriented to person only this morning and confused to place, time and situation. Appropriate and pleasant affect. A total of 33 minutes of time were spent preparing this complex discharge summary. Pt was discharged on 02/25/2024 at 9:08 AM. Patient was seen independently by Nurse Practitioner. This document was prepared using [employer] dictation software. Please allow for errors in chief executive or managing director while rare they do occur. Carmine Tyson NP rendered care for this patient independently, reviewed the findings and plan as documented in the note above. I did not physically speak with or examine the patient on this date. Patient Condition at Discharge: Stable Plan - Discharge Summary Discharge Rx Participant: No New Discharge Prescriptions: New cefUROXime axetiL [Ceftin] 500 mg PO BID 7 Days #14 tab Continue Metoprolol Succinate (ER) [Toprol XL] 50 mg PO BID@0800,2000 Finasteride [Proscar] 5 mg PO DAILY@0800 Aspirin 81 mg PO DAILY@0800 polyethylene glycoL 3350 [Miralax] 17 gm PO DAILY@0800 Clopidogrel [Plavix] 75 mg PO DAILY@0800 Furosemide [Lasix] 20 mg PO BID@0800,2000 lisinopriL [Zestril] 5 mg PO HS@2000 Memantine HCl [Namenda Xr] 21 mg PO DAILY@0800 Ft Arthritis Pain 1% Gel 2 gram TOPICAL TID@0800,1200,2000 Acetaminophen [Tylenol 8 Hour] 650 mg PO Q8HR@0000,0800,1600 Cyanocobalamin (Vitamin B-12) [Vitamin B-12] 1,000 mcg PO DAILY@0800 Loratadine [Claritin] 10 mg PO DAILY@0800 Pantoprazole [Protonix] 40 mg PO DAILY@0800 levETIRAcetam [Keppra] 1,000 mg PO BID@0800,2000 Cholecalciferol [Vitamin D3 (125 Mcg = 5000 Iu)] 125 mcg PO DAILY@0800 Potassium Chloride [Klor-Con M20] 20 meq PO DAILY@0800 Loperamide [Imodium] 2 - 4 mg PO QID PRN MDD 16 PRN Reason: Diarrhea Mirtazapine [Remeron] 30 mg PO HS@2000 Donepezil [Aricept] 10 mg PO HS@2000 Discharge Medication List Metoprolol Succinate (ER) [Toprol XL] 50 mg PO BID@08,199901/22/19 [History] Aspirin 81 mg PO DAILY@79907/09/23 [History] Finasteride [Proscar] 5 mg PO DAILY@79907/09/23 [History] Memantine HCl [Namenda Xr] 21 mg PO DAILY@79907/09/23 [History] Acetaminophen [Tylenol 8 Hour] 650 mg PO Q8HR@0000,0800,1600 11/12/23 [History] Cyanocobalamin (Vitamin B-12) [Vitamin B-12] 1,000 mcg PO DAILY@79911/12/23 [History] Ft Arthritis Pain 1% Gel 2 gram TOPICAL TID@0800,1200,199911/12/23 [History] Loratadine [Claritin] 10 mg PO DAILY@0811/12/23 [History] Pantoprazole [Protonix] 40 mg PO DAILY@0811/12/23 [History] polyethylene glycoL 3350 [Miralax] 17 gm PO DAILY@79911/12/23 [History] Clopidogrel [Plavix] 75 mg PO DAILY@79912/08/23 [History] levETIRAcetam [Keppra] 1,000 mg PO BID@799,199912/08/23 [History] Cholecalciferol [Vitamin D3 (125 Mcg = 5000 Iu)] 125 mcg PO DAILY@79902/03/24 [History] Furosemide [Lasix] 20 mg PO BID@08,199902/03/24 [History] Potassium Chloride [Klor-Con M20] 20 meq PO DAILY@79902/03/24 [History] Donepezil [Aricept] 10 mg PO HS@199902/15/24 [History] Loperamide [Imodium] 2 - 4 mg PO QID PRN MDD 16 02/15/24 [History] Mirtazapine [Remeron] 30 mg PO HS@199902/15/24 [History] lisinopriL [Zestril] 5 mg PO HS@199902/15/24 [History] cefUROXime axetiL [Ceftin] 500 mg PO BID 7 Days #14 tab 02/25/24 [Rx] Follow up Appointment(s)/Referral(s): [facility], [NON-STAFF] - 1 Week Javid Spence MD [Primary Care Provider] - 02/28/24 10:00 am Hernán Pena MD [STAFF PHYSICIAN] - 03/02/24 3:30 pm Activity/Diet/Wound Care/Special Instructions: [facility] in [place], [place] Address: [address], [place] [address] Discharge Disposition: HOME WITH HOME HEALTH SERVICES
--- NOTE | 2024-02-25 11:44 | P.CONS ---
History of Present Illness - Reason for Consult Consult date: 02/25/24 wound care - History of Present Illness This is a 78-year-old patient being seen on [address] for stage I pressure ulcer to the right and left buttocks. Patient's past medical history significant for COPD, diabetes, GERD, hyperlipidemia, hypertension, sleep apnea. Patient is a former smoker. Patient has excoriation to the right and left buttocks with reddened area no open ulcerations at this time. Discussed with patient the importance of utilizing a barrier cream and sitting on an air-filled cushion. Patient verbalized understanding. Review Of Systems: Constitutional: No fever, no chills, no night sweats. No weight change. No weakness, fatigue or lethargy. No daytime sleepiness. Integumentary:reports wounds, no lesions. No rash or pruritus. No unusual bruising. No change in hair or nails. Physical exam: General Appearance: Alert, cooperative, no distress, appears stated age. Skin: See HPI all other Skin color, texture, tugor normal, no rashes or lesions. Neurologic: Alert oriented x3 Assessment: 1. Stage I pressure ulcer right buttocks 2. Stage I pressure ulcer left buttocks 3. Diabetes with skin ulceration Plan: 1. Apply Triad cream to the site. Continue to offload with utilizing air-fille d cushion when sitting. Turn patient every 2 hours. Thank you for the consultation any questions please contact the wound care center DNP note has been reviewed and discussed with Dr. Bernstein and the impression and plan of care has been directed as dictated. Past Medical History Past Medical History: Cancer, COPD, Diabetes Mellitus, GERD/Reflux, Hyperli pidemia, Hypertension, Memory Impairment, Sleep Apnea/CPAP/BIPAP Additional Past Medical History / Comment(s): C-PAP., BACK PAIN, SKIN CANCER, MEMORY PROBLEMS., HX OF LEAD POISONING WHILE WORKING AT [employer]., History of Any Multi-Drug Resistant Organisms: None Reported Additional Past Surgical History / Comment(s): TORN LIGAMENT ARM., VASECTOMY, CATARACTS, FX ORBITAL SURGERY. Past Anesthesia/Blood Transfusion Reactions: No Reported Reaction, Motion Sickness Past Psychological History: No Psychological Hx Reported Smoking Status: Former smoker Past Alcohol Use History: None Reported Past Drug Use History: None Reported - Past Family History Mother Family Medical History: No Reported History Medications and Allergies Home Medications Medication Instructions Recorded Confirmed Type Metoprolol Succinate (ER) [Toprol 50 mg PO BID@0800,199901/22/19 02/20/24 History XL] Aspirin 81 mg PO DAILY@0807/09/23 02/20/24 History Finasteride [Proscar] 5 mg PO DAILY@0807/09/23 02/20/24 History Memantine HCl [Namenda Xr] 21 mg PO DAILY@79907/09/23 02/20/24 History Acetaminophen [Tylenol 8 Hour] 650 mg PO Q8HR@0000,0800,1600 11/12/23 02/20/24 History Cyanocobalamin (Vitamin B-12) 1,000 mcg PO DAILY@79911/12/23 02/20/24 History [Vitamin B-12] Ft Arthritis Pain 1% Gel 2 gram TOPICAL TID@0800,1200,199911/12/23 02/20/24 History Loratadine [Claritin] 10 mg PO DAILY@0800 11/12/23 02/20/24 History Pantoprazole [Protonix] 40 mg PO DAILY@79911/12/23 02/20/24 History polyethylene glycoL 3350 [Miralax] 17 gm PO DAILY@0811/12/23 02/20/24 History Clopidogrel [Plavix] 75 mg PO DAILY@0812/08/23 02/20/24 History levETIRAcetam [Keppra] 1,000 mg PO BID@0800,199912/08/23 02/20/24 History Cholecalciferol [Vitamin D3 (125 125 mcg PO DAILY@79902/03/24 02/20/24 History Mcg = 5000 Iu)] Furosemide [Lasix] 20 mg PO BID@0800,199902/03/24 02/20/24 History Potassium Chloride [Klor-Con M20] 20 meq PO DAILY@00 02/03/24 02/20/24 History Donepezil [Aricept] 10 mg PO HS@199902/15/24 02/20/24 History Loperamide [Imodium] 2 - 4 mg PO QID PRN MDD 16 02/15/24 02/20/24 History Mirtazapine [Remeron] 30 mg PO HS@199902/15/24 02/20/24 History lisinopriL [Zestril] 5 mg PO HS@199902/15/24 02/20/24 History cefUROXime axetiL [Ceftin] 500 mg PO BID 7 Days #14 tab 02/25/24 Rx Allergies Allergy/AdvReac Type Severity Reaction Status Date / Time Penicillins Allergy Unknown Rash/Hives Verified 02/20/24 10:41 Physical Exam Vitals: Vital Signs Temp Pulse Resp BP Pulse Ox 02/25/24 07:26 97.5 F L 72 16 181/81 97 02/25/24 01:50 98.1 F 76 17 156/81 94 L 02/24/24 19:23 100.0 F H 85 16 160/76 95 02/24/24 11:49 97.6 F 66 16 115/67 95 Intake and Output 02/24/24 02/25/24 02/25/24 22:59 06:59 14:59 Intake Total 200 1120 Output Total 950 200 Balance -750 920 Intake: Intake, IV Titration 1000 Amount Anidulafungin 100 mg In 100 Sodium Chloride 0.9% 100 ml @ 84 mls/hr IVPB DAILY @1600 [facility] Rx#:[id number] Sodium Chloride 0.9% 1, 800 000 ml @ 75 mls/hr IV . [id number] [facility] Rx#:[id number] cefTRIAXone 2 gm In 100 Sodium Chloride 0.9% 50 ml @ 100 mls/hr IVPB Q24H [facility] Rx#:[id number] Oral 200 120 Output: Urine 950 200 Other: Voiding Method External Catheter External Catheter # Voids 1 # Bowel Movements 1 Results CBC & Chem 7: 02/24/24 05:54 02/24/24 05:54 Labs: Abnormal Lab Results - Last 24 Hours (Table) 02/24/24 02/24/24 02/24/24 Range/Units 11:48 17:12 20:19 POC Glucose (mg/dL) 193 H 171 H 200 H (70-110) mg/dL 02/25/24 Range/Units 07:29 POC Glucose (mg/dL) 172 H (70-110) mg/dL Microbiology - Last 24 Hours (Table) 02/22/24 10:32 Urine Culture - Final Urine,Voided Assessment and Plan (1) Decubitus ulcer of left buttock, stage 1 Current Visit: Yes Status: Acute Code(s): L89.321 - PRESSURE ULCER OF LEFT BUTTOCK, STAGE 1 SNOMED Code(s): 52760196211742 (2) Decubitus ulcer of right buttock, stage 1 Current Visit: Yes Status: Acute Code(s): L89.311 - PRESSURE ULCER OF RIGHT BUTTOCK, STAGE 1 SNOMED Code(s): 69721218067767 (3) Type 2 diabetes mellitus with other skin ulcer Current Visit: No Status: Acute Code(s): E11.622 - TYPE 2 DIABETES MELLITUS WITH OTHER SKIN ULCER; L98.499 - NON-PRESSURE CHRONIC ULCER OF SKIN OF SITES W UNSP SEVERITY SNOMED Code(s): 260358280
[2024-02-25] MEDS: HYDROPHILIC CREAM 180 GM TUBE TOPICAL SCH (12:06)
[2024-02-25 12:10] LABS: Glucose,Whole Blood 179 mg/dL (70-110)
[2024-02-25 13:17] VITALS: BP 171/80; PULSE 74; TEMP 98.1
--- NOTE | 2024-03-03 15:40 | P.PN ---
Subjective Progress Note Date: 02/25/24 Principal diagnosis: Reason for follow-up is urinary tract infection Patient is a 78-year-old male past medical history significant for COPD diabetes mellitus reflux hypertension hyperlipidemia memory impairment the patient has been brought into the hospital for evaluation of worsening mental status changes patient was noticed to have decreased activity, the patient was noticed to be febrile did have positive with concern for symptomatic urinary tract infection. On today's evaluation that is 02/25/2024,the patient did have a low-grade fever 100 F last evening however the patient is afebrile this morning he is currently breathing comfortably room air denies any chest pain or cough no vomiting or diarrhea reported by the nursing staff. No new labs has been obtained today Objective - Vital Signs Vital signs: Vital Signs Temp 98.1 F 02/25/24 12:06 Pulse 74 02/25/24 12:06 Resp 16 02/25/24 12:06 BP 171/80 02/25/24 12:06 Pulse Ox 96 02/25/24 12:06 FiO2 Intake & Output 02/24/24 02/25/24 02/25/24 18:59 06:59 18:59 Intake Total 1320 Output Total 950 200 Balance -950 1120 Intake: Intake, IV Titration 1000 Amount Anidulafungin 100 mg In 100 Sodium Chloride 0.9% 100 ml @ 84 mls/hr IVPB DAILY @1600 [facility] Rx#:[id number] Sodium Chloride 0.9% 1, 800 000 ml @ 75 mls/hr IV . [id number] [facility] Rx#:[id number] cefTRIAXone 2 gm In 100 Sodium Chloride 0.9% 50 ml @ 100 mls/hr IVPB Q24H [facility] Rx#:[id number] Oral 320 Output: Urine 950 200 Other: Voiding Method External Catheter External Catheter External Catheter # Voids 1 # Bowel Movements 1 - Exam GENERAL DESCRIPTION: An elderly male lying in bed in no distress RESPIRATORY SYSTEM: Unlabored breathing , decreased breath sounds at bases HEART: S1 S2 regular rate and rhythm , ABDOMEN: Soft , no tenderness EXTREMITIES: No edema feet - Labs CBC & Chem 7: 02/24/24 05:54 02/24/24 05:54 Labs: Abnormal Lab Results - Last 24 Hours (Table) 02/24/24 02/24/24 02/25/24 Range/Units 17:12 20:19 07:29 POC Glucose (mg/dL) 171 H 200 H 172 H (70-110) mg/dL 02/25/24 Range/Units 12:08 POC Glucose (mg/dL) 179 H (70-110) mg/dL Assessment and Plan (1) UTI (urinary tract infection) Status: Acute Code(s): N39.0 - URINARY TRACT INFECTION, SITE NOT SPECIFIED SNOMED Code(s): 05071633 (2) Penicillin allergy Status: Acute Code(s): Z88.0 - ALLERGY STATUS TO PENICILLIN SNOMED Code(s): 29802292 Plan: 1patient presented to hospital with confusion and weakness also noticed to have a fever did have a positive UA concerning for a symptomatic urinary tract infection with urine culture now showing a yeast questionable colonization versus real pathogen. 2patient repeat UA is positive and urine culture is growing Sarai glabrata or ideally have recommended voriconazole however the patient is on Plavix with s erious interaction with voriconazole and the patient did have a history of recurrent CVAs patient has received adequate Eraxis with repeat urine culture negative for any cannula we will give him a short course of oral Ceftin on discharge Dictation was produced using [employer] dictation software. please excuse any grammatical, word or spelling errors. Time with Patient: Less than 30
== END 2024-02-25 14:30 | disposition home health service (06) | DRG 727 ==
LOC: EC 00:02 → 5NMEDONC 05:19 → 4SSUR 02-21 05:33 → 5NMEDONC 02-21 05:45
PROVIDERS: ADMIT Internal Medicine; ATTEND Internal Medicine
DX: B37.41 Candidal cystitis and urethritis (principal); G93.41 Metabolic encephalopathy; Q21.12 Patent foramen ovale; L89.311 Pressure ulcer of right buttock, stage 1; L89.321 Pressure ulcer of left buttock, stage 1; F03.90 Unspecified dementia, unspecified severity, without behavioral disturbance, psychotic disturbance, mood disturbance, and anxiety; E11.622 Type 2 diabetes mellitus with other skin ulcer; L89.151 Pressure ulcer of sacral region, stage 1; L89.152 Pressure ulcer of sacral region, stage 2; G40.909 Epilepsy, unspecified, not intractable, without status epilepticus; I10 Essential (primary) hypertension; J44.9 Chronic obstructive pulmonary disease, unspecified; L98.499 Non-pressure chronic ulcer of skin of other sites with unspecified severity; E87.8 Other disorders of electrolyte and fluid balance, not elsewhere classified; I69.311 Memory deficit following cerebral infarction; G47.33 Obstructive sleep apnea (adult) (pediatric); E78.5 Hyperlipidemia, unspecified; I44.0 Atrioventricular block, first degree; K21.9 Gastro-esophageal reflux disease without esophagitis; R32 Unspecified urinary incontinence; M19.90 Unspecified osteoarthritis, unspecified site; M54.9 Dorsalgia, unspecified; Z79.82 Long term (current) use of aspirin; Z79.02 Long term (current) use of antithrombotics/antiplatelets; Z79.84 Long term (current) use of oral hypoglycemic drugs; Z79.899 Other long term (current) drug therapy; Z85.828 Personal history of other malignant neoplasm of skin; Z87.440 Personal history of urinary (tract) infections; Z87.891 Personal history of nicotine dependence; Z88.0 Allergy status to penicillin
CPT/HCPCS: 36415; 70450; 71045; 80053; 81001; 83735; 84484; 85025; 85027; 85610; 85730; 87086; 93005; 96361; 96365; 96366; 96367; 96372; 99285

== ENCOUNTER 2024-02-26 10:19 | Inpatient (IN) | payer MEDICARE, OTHER ==
--- NOTE | 2024-02-26 11:14 | ED ---
General Adult HPI - General Chief complaint: Altered Mental Status Stated complaint: AMS Time Seen by Provider: 02/26/24 10:35 Source: patient, EMS, RN notes reviewed, old records reviewed Mode of arrival: EMS - History of Present Illness Initial comments: This is a 78-year-old male who was brought in by EMS for altered mental status. Patient himself does not give me any history and he states he has no pain anywhere no chest pain or abdominal pain. Patient does not always answer questions when I ask him so is difficult to assess his orientation. Patient came from the skilled nursing and they noticed that he was altered so I sent him in at this time there is no family or healthcare provider with the patient's I am unable to get any further history. - Related Data Home Medications Medication Instructions Recorded Confirmed Metoprolol Succinate (ER) [Toprol 50 mg PO BID@08,199901/22/19 02/26/24 XL] Aspirin 81 mg PO DAILY@79907/09/23 02/26/24 Finasteride [Proscar] 5 mg PO DAILY@79907/09/23 02/26/24 Memantine HCl [Namenda Xr] 21 mg PO DAILY@79907/09/23 02/26/24 Acetaminophen [Tylenol 8 Hour] 650 mg PO Q8HR@0000,0800,1600 11/12/23 02/26/24 Cyanocobalamin (Vitamin B-12) 1,000 mcg PO DAILY@79911/12/23 02/26/24 [Vitamin B-12] Ft Arthritis Pain 1% Gel 2 gram TOPICAL TID@0800,1199,199911/12/23 02/26/24 Loratadine [Claritin] 10 mg PO DAILY@79911/12/23 02/26/24 Pantoprazole [Protonix] 40 mg PO DAILY@79911/12/23 02/26/24 Clopidogrel [Plavix] 75 mg PO DAILY@79912/08/23 02/26/24 levETIRAcetam [Keppra] 1,000 mg PO BID@08,199912/08/23 02/26/24 Cholecalciferol [Vitamin D3 (125 125 mcg PO DAILY@79902/03/24 02/26/24 Mcg = 5000 Iu)] Furosemide [Lasix] 20 mg PO BID@08,199902/03/24 02/26/24 Potassium Chloride [Klor-Con M20] 20 meq PO DAILY@79902/03/24 02/26/24 Donepezil [Aricept] 10 mg PO HS@199902/15/24 02/26/24 Loperamide [Imodium] 2 - 4 mg PO QID PRN MDD 16mg 02/15/24 02/26/24 Mirtazapine [Remeron] 30 mg PO HS@199902/15/24 02/26/24 lisinopriL [Zestril] 5 mg PO HS@199902/15/24 02/26/24 Cranberry Fruit Extract [Cranberry] 500 mg PO BID@0800,199902/26/24 02/26/24 cefUROXime axetiL [Ceftin] 500 mg PO BID@0900,199902/26/24 02/26/24 metFORMIN HCL [Glucophage] 500 mg PO BID@0800,199902/26/24 02/26/24 polyethylene glycoL 3350 [Miralax] 17 gm PO DAILY@79902/26/24 02/26/24 Allergies Allergy/AdvReac Type Severity Reaction Status Date / Time Penicillins Allergy Unknown Rash/Hives Verified 02/26/24 11:28 Review of Systems ROS Statement: Those systems with pertinent positive or pertinent negative responses have been documented in the HPI. ROS Other: All systems not noted in ROS Statement are negative. Past Medical History Past Medical History: Cancer, COPD, Diabetes Mellitus, GERD/Reflux, Hyperli pidemia, Hypertension, Memory Impairment, Sleep Apnea/CPAP/BIPAP Additional Past Medical History / Comment(s): C-PAP., BACK PAIN, SKIN CANCER, MEMORY PROBLEMS., HX OF LEAD POISONING WHILE WORKING AT [employer]., History of Any Multi-Drug Resistant Organisms: None Reported Additional Past Surgical History / Comment(s): TORN LIGAMENT ARM., VASECTOMY, CATARACTS, FX ORBITAL SURGERY. Past Anesthesia/Blood Transfusion Reactions: No Reported Reaction, Motion Sickness Past Psychological History: No Psychological Hx Reported Smoking Status: Former smoker Past Alcohol Use History: None Reported Past Drug Use History: None Reported - Past Family History Mother Family Medical History: No Reported History General Exam - General Exam Comments Initial Comments: GENERAL: Patient is well-developed and well-nourished. Patient is nontoxic and well- hydrated and is in mild distress. ENT: Neck is soft and supple. No significant lymphadenopathy is noted. Oropharynx is clear. Moist mucous membranes. Neck has full range of motion without eliciting any pain. EYES: The sclera were anicteric and conjunctiva were pink and moist. Extraocular movements were intact and pupils were equal round and reactive to light. Eyelids were unremarkable. PULMONARY: Unlabored respirations. Good breath sounds bilaterally. No audible rales rhonchi or wheezing was noted. CARDIOVASCULAR: There is a regular rate and rhythm without any murmurs gallops or rubs. ABDOMEN: Soft and nontender with normal bowel sounds. No palpable organomegaly was noted. There is no palpable pulsatile mass. SKIN: Skin is clear with no lesions or rashes and otherwise unremarkable. NEUROLOGIC: Patient is alert and oriented x 1. Cranial nerves II through XII are grossly intact. Motor and sensory are also intact. Normal speech, volume and content. Symmetrical smile. MUSCULOSKELETAL: Normal extremities with adequate strength and full range of motion. LYMPHATICS: No significant lymphadenopathy is noted PSYCHIATRIC: Normal psychiatric evaluation. Course Vital Signs 02/26/24 02/26/24 02/26/24 10:21 11:08 12:27 Temperature 100.3 F H 101.0 F H 100.9 F H Pulse Rate 101 H Respiratory 20 Rate Blood Pressure 162/87 O2 Sat by Pulse 94 L Oximetry Medical Decision Making - Medical Decision Making EKG is interpreted by myself. EKG shows a sinus tachycardia at 107 bpm parables 229 QRS is 102 QT interval 359 QTc is 422. Patient's EKG shows no ST segment ovation or depression. Was pt. sent in by a medical professional or institution (, PA, HEART NURSE, urgent care, hospital, or skilled nursing...) When possible be specific @ -Patient was sent in by the skilled nursing. Did you speak to anyone other than the patient for history (EMS, parent, family, police, friend...)? What history was obtained from this source @ -I spoke with the granddaughter and she gave most of the past medical history as well as current history on this patient. Did you review nursing and triage notes (agree or disagree)? Why? @ -Acute Were old charts reviewed (outside hosp., previous admission, EMS record, old EKG, old radiological studies, urgent care reports/EKG's, skilled nursing records)? Report findings @ -I reviewed the patient's recent admission chart I reviewed lab work and compared to today's lab work. Patient's white count was significantly elevated. Chest x-ray showed no significant change from prior chest x-ray. Differential Diagnosis (chest pain, altered mental status, abdominal pain women, abdominal pain men, vaginal bleeding, weakness, fever, dyspnea, syncope, headache, dizziness, GI bleed, back pain, seizure, CVA, palpatations, mental health, musculoskeletal)? @ -Differential Altered Mental Status: Hypoglycemia, DKA, hypercapnia, ETOH, overdose, CO poisoning, trauma, myxedema coma, HTN encephalopathy, infection, encephalitis, psychosis, intercranial h emorrhage, hepatic encephalopathy, meningitis, CVA, this is not meant to be an all-inclusive list EKG interpreted by me (3pts min.). @ -As above X-rays interpreted by me (1pt min.). @ -Chest x-ray shows no acute abnormality CT interpreted by me (1pt min.). @ -None done U/S interpreted by me (1pt. min.). @ -None done What testing was considered but not performed or refused? (CT, X-rays, U/S, labs)? Why? @ -None What meds were considered but not given or refused? Why? @ -None Did you discuss the management of the patient with other professionals (professionals i.e. , PA, HEART NURSE, lab, RT, psych nurse, social science professor, head teacher, teacher, chief wellness officer, supportive employment case manager)? Give summary @ -I spoke with [facility] physicians and they agreed to admit the patient admit the patient wrote admitting orders Was smoking cessation discussed for >3mins.? @ -No Was critical care preformed (if so, how long)? @ -No Were there social determinants of health that impacted care today? How? (Homelessness, low income, unemployed, alcoholism, drug addiction, transportation, low edu. Level, literacy, decrease access to med. care, halfway, rehab)? @ -No Was there de-escalation of care discussed even if they declined (Discuss DNR or withdrawal of care, Hospice)? DNR status @ -No What co-morbidities impacted this encounter? (DM, HTN, Smoking, COPD, CAD, Cancer, CVA, ARF, Chemo, Hep., AIDS, mental health diagnosis, sleep apnea, morbid obesity)? @ -None Was patient admitted / discharged? Hospital course, mention meds given and route, prescriptions, significant lab abnormalities, going to OR and other pertinent info. @ -Patient remain altered. Patient after my initial examination did complain of some abdominal pain so I sent the patient for CT abdomen pelvis which sound physicians stated they will follow-up on. Patient was started on antibiotics. Undiagnosed new problem with uncertain prognosis? @ -No Drug Therapy requiring intensive monitoring for toxicity (Heparin, Nitro, Insulin, Cardizem)? @ -No Were any procedures done? @ -No Diagnosis/symptom? @ -Febrile illness Acute, or Chronic, or Acute on Chronic? @ -Acute Uncomplicated (without systemic symptoms) or Complicated (systemic symptoms)? @ -Complicated Side effects of treatment? @ -No Exacerbation, Progression, or Severe Exacerbation? @ -No Poses a threat to life or bodily function? How? (Chest pain, [place], [place], pneumonia, PE, COPD, DKA, ARF, appy, cholecystitis, CVA, Diverticulitis, Homicidal, Suicidal, threat to staff... and all critical care pts) @ -Yes this can lead to sepsis and end organ dysfunction Diagnosis/symptom? @ -Abdominal pain Acute, or Chronic, or Acute on Chronic? @ -Acute Uncomplicated (without systemic symptoms) or Complicated (systemic symptoms)? @ -Complicated Side effects of treatment? @ -None Exacerbation, Progression, or Severe Exacerbation] @ -No Poses a threat to life or bodily function? @ -No - Lab Data Result diagrams: 02/26/24 11:05 02/26/24 11:05 Lab Results 02/26/24 02/26/24 02/26/24 Range/Units 11:05 11:05 11:05 WBC 26.6 H (3.8-10.6) k/uL RBC 4.50 (4.30-5.90) m/uL Hgb 14.0 (13.0-17.5) gm/dL Hct 41.8 (39.0-53.0) % MCV 92.9 (80.0-100.0) fL MCH 31.1 (25.0-35.0) pg MCHC 33.5 (31.0-37.0) g/dL RDW 14.6 (11.5-15.5) % Plt Count 246 (150-450) k/uL MPV 6.9 Neutrophils % 92 % Lymphocytes % 3 % Monocytes % 4 % Eosinophils % 0 % Basophils % 0 % Neutrophils # 24.4 H (1.3-7.7) k/uL Lymphocytes # 0.9 L (1.0-4.8) k/uL Monocytes # 1.2 H (0-1.0) k/uL Eosinophils # 0.0 (0-0.7) k/uL Basophils # 0.0 (0-0.2) k/uL Poikilocytosis Slight PT 11.3 (10.0-12.5) sec INR 1.0 (<1.2) APTT 27.0 (22.0-30.0) sec Sodium (137-145) mmol/L Potassium (3.5-5.1) mmol/L Chloride (98-107) mmol/L Carbon Dioxide (22-30) mmol/L Anion Gap mmol/L BUN (9-20) mg/dL Creatinine (0.66-1.25) mg/dL Est GFR (CKD-EPI)AfAm (>60 ml/min/1.73 sqM) Est GFR (CKD-EPI)NonAf (>60 ml/min/1.73 sqM) Glucose (74-99) mg/dL Lactic Ac Sepsis Rflx Plasma Lactic Acid Zeb (0.7-2.0) mmol/L Calcium (8.4-10.2) mg/dL Total Bilirubin (0.2-1.3) mg/dL AST (17-59) U/L ALT (4-49) U/L Alkaline Phosphatase (38-126) U/L Total Protein (6.3-8.2) g/dL Albumin (3.5-5.0) g/dL Lipase (23-300) U/L Urine Color Light Yellow Urine Appearance Clear (Clear) Urine pH 5.5 (5.0-8.0) Ur Specific [place] 1.018 (1.001-1.035) Urine Protein Trace H (Negative) Urine Glucose (UA) 4+ H (Negative) Urine Ketones Negative (Negative) Urine Blood Negative (Negative) Urine Nitrite Negative (Negative) Urine Bilirubin Negative (Negative) Urine Urobilinogen <2.0 (<2.0) mg/dL Ur Leukocyte Esterase Large H (Negative) Urine RBC 3 (0-5) /hpf Urine WBC 43 H (0-5) /hpf Ur Squamous Epith Cells <1 (0-4) /hpf Urine Mucus Rare H (None) /hpf Influenza Type A (PCR) (Not Detectd) Influenza Type B (PCR) (Not Detectd) RSV (PCR) (Not Detectd) SARS-CoV-2 (PCR) (Not Detectd) 02/26/24 02/26/24 02/26/24 Range/Units 11:05 11:05 11:05 WBC (3.8-10.6) k/uL RBC (4.30-5.90) m/uL Hgb (13.0-17.5) gm/dL Hct (39.0-53.0) % MCV (80.0-100.0) fL MCH (25.0-35.0) pg MCHC (31.0-37.0) g/dL RDW (11.5-15.5) % Plt Count (150-450) k/uL MPV Neutrophils % % Lymphocytes % % Monocytes % % Eosinophils % % Basophils % % Neutrophils # (1.3-7.7) k/uL Lymphocytes # (1.0-4.8) k/uL Monocytes # (0-1.0) k/uL Eosinophils # (0-0.7) k/uL Basophils # (0-0.2) k/uL Poikilocytosis PT (10.0-12.5) sec INR (<1.2) APTT (22.0-30.0) sec Sodium 139 (137-145) mmol/L Potassium 4.0 (3.5-5.1) mmol/L Chloride 108 H (98-107) mmol/L Carbon Dioxide 20 L (22-30) mmol/L Anion Gap 11 mmol/L BUN 11 (9-20) mg/dL Creatinine 0.74 (0.66-1.25) mg/dL Est GFR (CKD-EPI)AfAm >90 (>60 ml/min/1.73 sqM) Est GFR (CKD-EPI)NonAf 88 (>60 ml/min/1.73 sqM) Glucose 262 H (74-99) mg/dL Lactic Ac Sepsis Rflx Plasma Lactic Acid Zeb 3.9 H* (0.7-2.0) mmol/L Calcium 9.5 (8.4-10.2) mg/dL Total Bilirubin 0.6 (0.2-1.3) mg/dL AST 20 (17-59) U/L ALT 15 (4-49) U/L Alkaline Phosphatase 90 (38-126) U/L Total Protein 6.2 L (6.3-8.2) g/dL Albumin 3.2 L (3.5-5.0) g/dL Lipase (23-300) U/L Urine Color Urine Appearance (Clear) Urine pH (5.0-8.0) Ur Specific [place] (1.001-1.035) Urine Protein (Negative) Urine Glucose (UA) (Negative) Urine Ketones (Negative) Urine Blood (Negative) Urine Nitrite (Negative) Urine Bilirubin (Negative) Urine Urobilinogen (<2.0) mg/dL Ur Leukocyte Esterase (Negative) Urine RBC (0-5) /hpf Urine WBC (0-5) /hpf Ur Squamous Epith Cells (0-4) /hpf Urine Mucus (None) /hpf Influenza Type A (PCR) Not Detected (Not Detectd) Influenza Type B (PCR) Not Detected (Not Detectd) RSV (PCR) Not Detected (Not Detectd) SARS-CoV-2 (PCR) Not Detected (Not Detectd) 02/26/24 02/26/24 Range/Units 11:05 11:41 WBC (3.8-10.6) k/uL RBC (4.30-5.90) m/uL Hgb (13.0-17.5) gm/dL Hct (39.0-53.0) % MCV (80.0-100.0) fL MCH (25.0-35.0) pg MCHC (31.0-37.0) g/dL RDW (11.5-15.5) % Plt Count (150-450) k/uL MPV Neutrophils % % Lymphocytes % % Monocytes % % Eosinophils % % Basophils % % Neutrophils # (1.3-7.7) k/uL Lymphocytes # (1.0-4.8) k/uL Monocytes # (0-1.0) k/uL Eosinophils # (0-0.7) k/uL Basophils # (0-0.2) k/uL Poikilocytosis PT (10.0-12.5) sec INR (<1.2) APTT (22.0-30.0) sec Sodium (137-145) mmol/L Potassium (3.5-5.1) mmol/L Chloride (98-107) mmol/L Carbon Dioxide (22-30) mmol/L Anion Gap mmol/L BUN (9-20) mg/dL Creatinine (0.66-1.25) mg/dL Est GFR (CKD-EPI)AfAm (>60 ml/min/1.73 sqM) Est GFR (CKD-EPI)NonAf (>60 ml/min/1.73 sqM) Glucose (74-99) mg/dL Lactic Ac Sepsis Rflx Y Plasma Lactic Acid Zeb (0.7-2.0) mmol/L Calcium (8.4-10.2) mg/dL Total Bilirubin (0.2-1.3) mg/dL AST (17-59) U/L ALT (4-49) U/L Alkaline Phosphatase (38-126) U/L Total Protein (6.3-8.2) g/dL Albumin (3.5-5.0) g/dL Lipase 23 (23-300) U/L Urine Color Urine Appearance (Clear) Urine pH (5.0-8.0) Ur Specific [place] (1.001-1.035) Urine Protein (Negative) Urine Glucose (UA) (Negative) Urine Ketones (Negative) Urine Blood (Negative) Urine Nitrite (Negative) Urine Bilirubin (Negative) Urine Urobilinogen (<2.0) mg/dL Ur Leukocyte Esterase (Negative) Urine RBC (0-5) /hpf Urine WBC (0-5) /hpf Ur Squamous Epith Cells (0-4) /hpf Urine Mucus (None) /hpf Influenza Type A (PCR) (Not Detectd) Influenza Type B (PCR) (Not Detectd) RSV (PCR) (Not Detectd) SARS-CoV-2 (PCR) (Not Detectd) Disposition Clinical Impression: Febrile illness, Urinary tract infection, Abdominal pain, Altered mental status, Sepsis Disposition: ADMITTED IP TO THIS HOSP Referrals: Javid Spence MD [Primary Care Provider] - 1-2 days Time of Disposition: 14:01
[2024-02-26] MEDS: SODIUM CHLORIDE 0.9% 500 ML 500 ML IV SCH (11:16)
[2024-02-26] MEDS: ACETAMINOPHEN TAB 500 MG TAB PO STA (11:17)
[2024-02-26] MEDS: IBUPROFEN 600 MG TAB PO STA (11:17)
[2024-02-26 11:25] LABS: Prothrombin Time 11.3 sec (10.0-12.5)
[2024-02-26 11:34] LABS: Basophils % (A) 0 %; Eosinophils % (A) 0 %; HCT 41.8 % (39.0-53.0); Lymphocytes # (A) 0.9 k/uL (1.0-4.8); Lymphocytes % (A) 3 %; MCH 31.1 pg (25.0-35.0); MCHC 33.5 g/dL (31.0-37.0); MCV 92.9 fL (80.0-100.0); Mean Platelet Volume 6.9; Monocytes # (A) 1.2 k/uL (0-1.0); Monocytes % (A) 4 %; Neutrophils # (A) 24.4 k/uL (1.3-7.7); Neutrophils % (A) 92 %; Platelet Count 246 k/uL (150-450); Poikilocytosis Slight; RDW 14.6 % (11.5-15.5); WBC 26.6 k/uL (3.8-10.6)
[2024-02-26 11:39] LABS: ALT 15 U/L (4-49); AST 20 U/L (17-59); African American GFR (CKD) >90 (>60 ml/min/1.73 sqM); Albumin 3.2 g/dL (3.5-5.0); Alkaline Phosphatase 90 U/L (38-126); Anion Gap 11 mmol/L; Blood Urea Nitrogen 11 mg/dL (9-20); Calcium 9.5 mg/dL (8.4-10.2); Carbon Dioxide 20 mmol/L (22-30); Chloride 108 mmol/L (98-107); Glucose 262 mg/dL (74-99); Non-African American GFR(CKD) 88 (>60 ml/min/1.73 sqM); Sodium 139 mmol/L (137-145); Total Bilirubin 0.6 mg/dL (0.2-1.3); Total Protein 6.2 g/dL (6.3-8.2)
--- NOTE | 2024-02-26 12:07 | XR ---
EXAMINATION TYPE: XR chest 2V DATE OF EXAM: 02/26/2024 11:46 AM CLINICAL INDICATION:Male, 78 years old with history of Fever; [facility] COMPARISON: Chest radiographs from 02/20/2024. TECHNIQUE: XR chest 2V Frontal and lateral views of the chest. FINDINGS: Lungs/Pleura: There is no evidence of pleural effusion, focal consolidation, or pneumothorax. Pulmonary vascularity: Unremarkable. Heart/mediastinum: Cardiomediastinal silhouette is unremarkable. Musculoskeletal: No acute osseous pathology. Other findings: None IMPRESSION: Low lung volumes with a generalized hazy appearance which could represent atelectasis versus pulmonar y edema correlate with serum BNP.
[2024-02-26 13:26] LABS: Appearance,Urine Clear (Clear); Bilirubin,Urine Negative (Negative); Blood,Urine Negative (Negative); Color,Urine Light Yellow; Glucose,Urine (UA) 4+ (Negative); Ketones,Urine Negative (Negative); Leukocyte Esterase,Urine Large (Negative); Mucus,Urine Rare /hpf; Nitrite,Urine Negative (Negative); PH, Urine 5.5 (5.0-8.0); Protein,Urine Trace (Negative); RBC,Urine 3 /hpf (0-5); Specific Gravity,Urine 1.018 (1.001-1.035); Squamous Epithelial Cell,Urine <1 /hpf (0-4); Urobilinogen,Urine <2.0 mg/dL (<2.0); WBC,Urine 43 /hpf (0-5)
[2024-02-26] MEDS ORDERED: ANIDULAFUNGIN 200 MG in SODIUM CHLORIDE 0.9% 200 ML IVPB ONE (14:00)
[2024-02-26] MEDS ORDERED: VANCOMYCIN IV PER PHARMACY 1 EACH MISC MISCELLANE PRN (14:04)
--- NOTE | 2024-02-26 14:26 | CT ---
EXAMINATION TYPE: CT ChestAbdPelvis w con DATE OF EXAM: 02/26/2024 INDICATION: Fever, abdominal pain. COMPARISON: None CT DLP: 1788 mGycm CONTRAST: Performed without Oral Contrast and with IV Contrast, patient injected with 100 ml mL of Isovue 300. TECHNIQUE: Axial images at 5 mm thick sections. Reconstructed images in the coronal plane. Delayed images through the kidneys. FINDINGS: CT CHEST: Portion of the thyroid visualized is normal. Minimal compressive atelectasis within the dependent lung bases. No pneumothorax is evident. No suspi cious focal consolidation otherwise apparent. No enlarged mediastinal or hilar adenopathy is evident. The ascending aorta diameter at the level of the main pulmonary artery is 2.2 cm. The main pulmonary artery diameter at the bifurcation is 2.[address] ABDOMEN: Liver: Normal Spleen: Normal Pancreas: Normal Adrenal glands: The adrenal glands are normal. Gallbladder: Surgically absent Kidneys: No masses are evident. No hydronephrosis is present. No cysts are present. Delayed images were obtained through the kidneys, which remain unremarkable. Aorta: Vascular calcification is within the aorta. Inferior vena cava: Normal. CT PELVIS: Fecal debris is through the colon. The study is lateral contrast limiting bowel evaluation. Appendix: Normal as visualized. Urinary bladder: May be some diffuse wall thickening within the urinary bladder. Consider follow-up. Genitourinary structures: Prostate calcifications are present. Osseous structures: No suspicious lytic or sclerotic lesions. Scoliosis within the lumbar spine. Subc hondral cysts are within the femoral heads. Degenerative changes are within disc spaces of the lumbar spine IMPRESSION: 1. Mild compressive atelectasis bilateral lung bases. 2. Fever of unknown origin not otherwise apparent. 3. Mild fecal retention 4. Diffuse urinary bladder wall thickening. Consider follow-up
[2024-02-26] MEDS: cefTRIAXone IN SWFI 1,000 MG/10 ML SYRINGE IVP STA (14:29)
[2024-02-26] MEDS: ANIDULAFUNGIN 100 MG in SODIUM CHLORIDE 0.9% 100 ML IVPB SCH (15:11)
[2024-02-26] MEDS: SODIUM CHLORIDE 0.9% 1,000 ML IV ONE ×2 (15:12→17:44)
--- NOTE | 2024-02-26 15:24 | P.HPIM ---
History of Present Illness H&P Date: 02/26/24 History of Presenting Illness: Patient is a very pleasant 78-year-old male with a past medical history of advanced dementia, multiple CVAs and previous brain tumor removal with memory impairment, PFO, seizure disorder, hypertension, hyperlipidemia, GERD, and obstructive sleep apnea CPAP dependent nightly. Patient presented to the emergency department via EMS from [facility] with a chief complaint of worsening mental status and confusion. He recently underwent hospitalization from 02/20/2024 through 02/25/2024 for similar complaints and was treated for candidal cystitis with urine culture positive for Sarai glabrata. He was treated with IV Eraxis and Rocephin, his mentation improved and he was back to baseline with repeat urine cultures negative. Patient was discharged home on an extended course of antibiotics with Ceftin. Patient was found by staff at [facility] today again confused and disoriented and he was sent to the emergency department for evaluation. Upon arrival vital signs completed. Blood pressure 162/87, heart rate 101, respiratory rate 20, temp 100.3 F, and SpO2 of 94% on 2 L. Shortly after patient spiked temp up to 101.0 F. KG completed showing sinus tachycardia at 107 bpm with occasional PVC and first-degree AV block with IA interval of 229 ms. Labs completed and reviewed. CBC showing leukocytosis with WBC count of 26.6, neutrophils of 24.4, lymphocytes of 0.9 and monocytes of 1.2. BMP showing mild non-anion gap metabolic acidosis with chloride of 108, bicarb of 20, and anion gap of 11. Blood glucose was 262. Initial lactic acid 3.9. Liver profile unremarkable with exception of low albumin of 3.2. Lipase normal findings at 23. Urinalysis positive for protein, glucose, leukocytes, and only 43 WBCs. Influenza A, influenza B, RSV, and COVID were all negative. Chest x-ray was completed showing low lung volumes with generalized hazy appearance. CTA chest, abdomen, and pelvis with contrast was completed showing mild compressive atelectasis in bilateral lung bases, mild fecal retention, and diffuse urinary bladder wall thickening. Blood cultures were obtained and urine culture was sent to lab for analysis. Patient was started on IV fluid hydration and antibiotics. He was admitted under our services with consultation to infectious disease. At time of admission, patient lethargic but remained arousable to verbal stimulation and alert to person only at this time. He was diaphoretic and febrile. Upon awakening patient denies any pain or discomfort. Patient's granddaughter just left ER and was not available at bedside at this time. Patient is well-known to our services and his known baseline is alert to person and place. Patient much more lethargic and confused than baseline at this time. Review of systems: Pertinent positives and negatives as discussed in HPI, a complete review of systems was performed and all other systems are negative. Physical exam: Vital signs reviewed and stable. General: Nontoxic, no acute distress and appears stated age. Derm: Skin warm and diaphoretic, normal coloration for ethnicity. Head: Atraumatic, normocephalic and symmetric. Eyes: EOMs intact, no lid lag, and anicteric sclera Mouth: no lip lesions, mucus membranes moist Cardiovascular: regular rate and rhythm with normal S1S2, systolic murmur, positive posterior tibial pulses bilaterally, and cap refill < 2 seconds. Lungs: Respirations even, regular, and unlabored on room air. Lungs slightly diminished otherwise no rhonchi, no rales, no wheezing, and no accessory muscle usage. Abdominal: soft, nontender to palpation, no guarding, no appreciable organomegaly Ext: ROM intact. No gross muscle atrophy, no edema, no contractures Neuro: Patient alert and oriented to self only, GCS 14. Psych: Patient alert to person only at this time, confused to place, situation, and time. Patient lethargic at this time. Assessment and Plan of Care: Severe sepsis Acute metabolic encephalopathy Lactic acidosis Recent infection with Candidal Cystitis secondary to Sarai glabrata History of advanced dementia, baseline alert to person and place and able to follow commands History of multiple recent CVAs History of brain tumor with removal resulting in memory impairment -Sepsis of unclear origin at this time, possibly secondary to recent infection with candidal cystitis secondary to Sarai glabrata. -Infectious disease consulted. Discussed case with infectious disease physician, patient started back on Eraxis 100 mg daily along with Rocephin 2 g daily. -Follow-up on blood culture and urine culture results. -Continuous telemetry monitoring. -Neurochecks every 4 hours and fall precautions in place. -Initial lactate 3.9 with repeat lactate of 3.3, order placed for 1 L bolus 0.9% normal saline and we will continue to monitor lactic acid for resolution of lactic acidosis. -Continue daily medication regimen with aspirin 81 mg daily and Plavix 75 mg daily. -Continue Namenda 7.5 mg twice daily - hold Remeron 30 mg nightly. -Tylenol 650 mg p.o. every 6 hours as needed for fever. Seizure disorder -Continue Keppra 1000 mg twice daily. -Maintain seizure precautions. Pressure ulcers on coccyx/buttocks, present on arrival. -Was placed for turning patient every 2 hours. -Wound care consulted Hypertension Hyperlipidemia Continue daily medication regimen with lisinopril 5 mg nightly and metoprolol 50 mg twice daily GERD -Continue daily medication regimen with Pepcid 20 mg twice daily and Protonix 40 mg daily. Obstructive sleep apnea Continue use of CPAP nightly and while napping. Data and imaging reviewed: -As stated above in HPI. The patient is admitted with an anticipated greater than 2 midnight stay for evaluation of severe sepsis CODE STATUS: Full code DVT prophylaxis: Lovenox Anticipated discharge date: Clinical course to determine Anticipated discharge place: Clinical course to determine Patient was seen independently by Nurse Practitioner. This document was prepared using [employer] dictation software. Please allow for errors in meter mechanic while rare they do occur. Carmine Tyson NP rendered care for this patient independently, reviewed the findings and plan as documented in the note above. I did not physically speak with or examine the patient on this date. Past Medical History Past Medical History: Cancer, COPD, Diabetes Mellitus, GERD/Reflux, Hyperlipidemia, Hypertension, Memory Impairment, Sleep Apnea/CPAP/BIPAP Additional Past Medical History / Comment(s): C-PAP., BACK PAIN, SKIN CANCER, MEMORY PROBLEMS., HX OF LEAD POISONING WHILE WORKING AT [employer]., History of Any Multi-Drug Resistant Organisms: None Reported Additional Past Surgical History / Comment(s): TORN LIGAMENT ARM., VASECTOMY, CATARACTS, FX ORBITAL SURGERY. Past Anesthesia/Blood Transfusion Reactions: No Reported Reaction, Motion Sickness Past Psychological History: No Psychological Hx Reported Smoking Status: Former smoker Past Alcohol Use History: None Reported Past Drug Use History: None Reported - Past Family History Mother Family Medical History: No Reported History Medications and Allergies Home Medications Medication Instructions Recorded Confirmed Type Metoprolol Succinate (ER) [Toprol 50 mg PO BID@0800,199901/22/19 02/26/24 History XL] Aspirin 81 mg PO DAILY@0800 07/09/23 02/26/24 History Finasteride [Proscar] 5 mg PO DAILY@79907/09/23 02/26/24 History Memantine HCl [Namenda Xr] 21 mg PO DAILY@79907/09/23 02/26/24 History Acetaminophen [Tylenol 8 Hour] 650 mg PO Q8HR@0000,0800,1600 11/12/23 02/26/24 History Cyanocobalamin (Vitamin B-12) 1,000 mcg PO DAILY@79911/12/23 02/26/24 History [Vitamin B-12] Ft Arthritis Pain 1% Gel 2 gram TOPICAL TID@0800,1199,199911/12/23 02/26/24 History Loratadine [Claritin] 10 mg PO DAILY@79911/12/23 02/26/24 History Pantoprazole [Protonix] 40 mg PO DAILY@79911/12/23 02/26/24 History Clopidogrel [Plavix] 75 mg PO DAILY@79912/08/23 02/26/24 History levETIRAcetam [Keppra] 1,000 mg PO BID@0800,199912/08/23 02/26/24 History Cholecalciferol [Vitamin D3 (125 125 mcg PO DAILY@79902/03/24 02/26/24 History Mcg = 5000 Iu)] Furosemide [Lasix] 20 mg PO BID@0800,199902/03/24 02/26/24 History Potassium Chloride [Klor-Con M20] 20 meq PO DAILY@00 02/03/24 02/26/24 History Donepezil [Aricept] 10 mg PO HS@199902/15/24 02/26/24 History Loperamide [Imodium] 2 - 4 mg PO QID PRN MDD 16mg 02/15/24 02/26/24 History Mirtazapine [Remeron] 30 mg PO HS@199902/15/24 02/26/24 History lisinopriL [Zestril] 5 mg PO HS@199902/15/24 02/26/24 History Cranberry Fruit Extract [Cranberry] 500 mg PO BID@0800,199902/26/24 02/26/24 History cefUROXime axetiL [Ceftin] 500 mg PO BID@899,199902/26/24 02/26/24 History metFORMIN HCL [Glucophage] 500 mg PO BID@799,199902/26/24 02/26/24 History polyethylene glycoL 3350 [Miralax] 17 gm PO DAILY@0802/26/24 02/26/24 History Allergies Allergy/AdvReac Type Severity Reaction Status Date / Time Penicillins Allergy Unknown Rash/Hives Verified 02/26/24 11:28 Physical Exam Osteopathic Statement: *. No significant issues noted on an osteopathic str uctural exam other than those noted in the History and Physical/Consult. Vitals: Vital Signs Temp Pulse Resp BP Pulse Ox 02/26/24 14:33 98.0 F 87 18 127/76 94 L 02/26/24 12:27 100.9 F H 02/26/24 11:08 101.0 F H 02/26/24 10:21 100.3 F H 101 H 20 162/87 94 L Intake and Output 02/26/24 02/26/24 02/26/24 06:59 14:59 22:59 Other: Weight 68.039 kg Results CBC & Chem 7: 02/26/24 11:05 02/26/24 11:05 Labs: Abnormal Lab Results - Last 24 Hours (Table) 02/26/24 02/26/24 02/26/24 Range/Units 11:05 11:05 11:05 WBC 26.6 H (3.8-10.6) k/uL Neutrophils # 24.4 H (1.3-7.7) k/uL Lymphocytes # 0.9 L (1.0-4.8) k/uL Monocytes # 1.2 H (0-1.0) k/uL Chloride 108 H (98-107) mmol/L Carbon Dioxide 20 L (22-30) mmol/L Glucose 262 H (74-99) mg/dL Plasma Lactic Acid Zeb (0.7-2.0) mmol/L Total Protein 6.2 L (6.3-8.2) g/dL Albumin 3.2 L (3.5-5.0) g/dL Urine Protein Trace H (Negative) Urine Glucose (UA) 4+ H (Negative) Ur Leukocyte Esterase Large H (Negative) Urine WBC 43 H (0-5) /hpf Urine Mucus Rare H (None) /hpf 02/26/24 02/26/24 Range/Units 11:05 14:10 WBC (3.8-10.6) k/uL Neutrophils # (1.3-7.7) k/uL Lymphocytes # (1.0-4.8) k/uL Monocytes # (0-1.0) k/uL Chloride (98-107) mmol/L Carbon Dioxide (22-30) mmol/L Glucose (74-99) mg/dL Plasma Lactic Acid Zeb 3.9 H* 3.3 H* (0.7-2.0) mmol/L Total Protein (6.3-8.2) g/dL Albumin (3.5-5.0) g/dL Urine Protein (Negative) Urine Glucose (UA) (Negative) Ur Leukocyte Esterase (Negative) Urine WBC (0-5) /hpf Urine Mucus (None) /hpf
[2024-02-26] MEDS ORDERED: NALOXONE 0.4 MG/ML 1 ML VIAL IV PRN (15:28)
[2024-02-26] MEDS ORDERED: MELATONIN 3 MG TABLET PO PRN (15:28)
[2024-02-26] MEDS: VANCOMYCIN 1,500 MG in SODIUM CHLORIDE 0.9% 500 ML 500 ML IVPB STA (18:02)
[2024-02-26] MEDS ORDERED: FUROSEMIDE 20 MG TAB PO SCH (20:00)
[2024-02-26] MEDS ORDERED: MIRTAZAPINE 15 MG TAB PO SCH (20:00)
[2024-02-26] MEDS: DONEPEZIL 10 MG TAB PO SCH (20:29)
[2024-02-26] MEDS: levETIRAcetam 500 MG TAB PO SCH (20:30)
[2024-02-26] MEDS: lisinopriL 5 MG TAB PO SCH (20:31)
[2024-02-26] MEDS: METOPROLOL SUCCINATE (ER) 50 MG TAB.ER.24H PO SCH (20:31)
[2024-02-26] MEDS: metFORMIN 500 MG TAB PO SCH (20:39)
[2024-02-26 20:42] LABS: Glucose,Whole Blood 164 mg/dL (70-110)
--- NOTE | 2024-02-26 21:43 | P.CONS ---
History of Present Illness - Reason for Consult Consult date: 02/26/24 Sepsis, recent Sarai UTI Requesting physician: Carmine Tyson - Chief Complaint Mental status changes weakness x 1 day - History of Present Illness Patient is a 78-year-old male with a past medical history significant for diabetes mellitus hypertension hyperlipidemia reflux COPD memory impairment recently admitted to this hospital has been diagnosed with a UTI and was treated with antibiotic antifungal did have overall improvement his clinical condition and was discharged to penitentiary yesterday on oral antibiotic therapy patient has been brought back to the hospital this morning for evaluation of mental status changes patient himself cannot provide any history however per the caregiver at the bedside patient was noticed to be more altered this morning seem to be more lethargic and was complaining of some abdominal pain but no vomiting has been reported did have some diarrhea as reported by the caregiver patient himself was not able to provide any history though patient on presentation to the hospital did spike a fever 100.3 followed by 101 F patient was tachycardic heart rate of 101 however not hypotensive or hypoxic and no need for supplemental oxygen he did have elevated lactic acid white count of 26.6 with a left shift creatinine 0.74 lactic acid was 2.1 liver enzymes are normal urine has been positive with large leukocyte esterase 43 WBC patient did have a chest x-ray low lung volumes with generalized hazy appearance could represent atelectasis versus pulmonary edema patient did have a CT abdominal pelvis mild compressive atelectasis bilateral lung base mild fecal retention diffuse urinary bladder wall thickening patient was started back on Rocephin and Eraxis infectious was consulted for further management of antibiotic therapy Review of Systems Positive points has been mentioned in HPI complete review could not be obtained because of his underlying mental status Past Medical History Past Medical History: Cancer, COPD, Diabetes Mellitus, GERD/Reflux, Hy perlipidemia, Hypertension, Memory Impairment, Sleep Apnea/CPAP/BIPAP Additional Past Medical History / Comment(s): C-PAP., BACK PAIN, SKIN CANCER, MEMORY PROBLEMS., 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 Past Anesthesia/Blood Transfusion Reactions: No Reported Reaction, Motion Sickness Past Psychological History: No Psychological Hx Reported Smoking Status: Former smoker Past Alcohol Use History: None Reported Past Drug Use History: None Reported - Past Family History Mother Family Medical History: No Reported History Medications and Allergies Home Medications Medication Instructions Recorded Confirmed Type Metoprolol Succinate (ER) [Toprol 50 mg PO BID@08,199901/22/19 02/26/24 History XL] Aspirin 81 mg PO DAILY@79907/09/23 02/26/24 History Finasteride [Proscar] 5 mg PO DAILY@79907/09/23 02/26/24 History Memantine HCl [Namenda Xr] 21 mg PO DAILY@79907/09/23 02/26/24 History Acetaminophen [Tylenol 8 Hour] 650 mg PO Q8HR@0000,0800,1600 11/12/23 02/26/24 History Cyanocobalamin (Vitamin B-12) 1,000 mcg PO DAILY@79911/12/23 02/26/24 History [Vitamin B-12] Ft Arthritis Pain 1% Gel 2 gram TOPICAL TID@0800,1199,199911/12/23 02/26/24 History Loratadine [Claritin] 10 mg PO DAILY@79911/12/23 02/26/24 History Pantoprazole [Protonix] 40 mg PO DAILY@79911/12/23 02/26/24 History Clopidogrel [Plavix] 75 mg PO DAILY@79912/08/23 02/26/24 History levETIRAcetam [Keppra] 1,000 mg PO BID@0800,199912/08/23 02/26/24 History Cholecalciferol [Vitamin D3 (125 125 mcg PO DAILY@79902/03/24 02/26/24 History Mcg = 5000 Iu)] Furosemide [Lasix] 20 mg PO BID@0800,199902/03/24 02/26/24 History Potassium Chloride [Klor-Con M20] 20 meq PO DAILY@79902/03/24 02/26/24 History Donepezil [Aricept] 10 mg PO HS@199902/15/24 02/26/24 History Loperamide [Imodium] 2 - 4 mg PO QID PRN MDD 16mg 02/15/24 02/26/24 History Mirtazapine [Remeron] 30 mg PO HS@199902/15/24 02/26/24 History lisinopriL [Zestril] 5 mg PO HS@199902/15/24 02/26/24 History Cranberry Fruit Extract [Cranberry] 500 mg PO BID@0800,199902/26/24 02/26/24 History cefUROXime axetiL [Ceftin] 500 mg PO BID@0900,199902/26/24 02/26/24 History metFORMIN HCL [Glucophage] 500 mg PO BID@0800,199902/26/24 02/26/24 History polyethylene glycoL 3350 [Miralax] 17 gm PO DAILY@0800 02/26/24 02/26/24 History Allergies Allergy/AdvReac Type Severity Reaction Status Date / Time Penicillins Allergy Unknown Rash/Hives Verified 02/26/24 11:28 Physical Exam Vitals: Vital Signs Temp Pulse Resp BP Pulse Ox 02/26/24 14:33 98.0 F 87 18 127/76 94 L 02/26/24 12:27 100.9 F H 02/26/24 11:08 101.0 F H 02/26/24 10:21 100.3 F H 101 H 20 162/87 94 L Intake and Output 02/26/24 02/26/24 02/26/24 06:59 14:59 22:59 Other: Weight 68.039 kg GENERAL DESCRIPTION: Elderly male lying in bed, no distress. No tachypnea or accessory muscle of respiration use. HEENT: Shows Pallor , no scleral icterus. Oral mucous membrane is dry. No p haryngeal erythema or thrush NECK: Trachea central, no thyromegaly. LUNGS: Unlabored breathing. Decreased breath sound the base. HEART: S1, S2, regular rate and rhythm. No loud murmur ABDOMEN: Soft, no tenderness , EXTREMITIES: No edema of feet. SKIN: No rash, no masses palpable. NEUROLOGICAL: The patient is awake, but nonverbal orientation could not be determined Results CBC & Chem 7: 03/05/24 04:05 03/05/24 14:34 Labs: Abnormal Lab Results - Last 24 Hours (Table) 02/26/24 02/26/24 02/26/24 Range/Units 11:05 11:05 11:05 WBC 26.6 H (3.8-10.6) k/uL Neutrophils # 24.4 H (1.3-7.7) k/uL Lymphocytes # 0.9 L (1.0-4.8) k/uL Monocytes # 1.2 H (0-1.0) k/uL Chloride 108 H (98-107) mmol/L Carbon Dioxide 20 L (22-30) mmol/L Glucose 262 H (74-99) mg/dL Plasma Lactic Acid Zeb (0.7-2.0) mmol/L Total Protein 6.2 L (6.3-8.2) g/dL Albumin 3.2 L (3.5-5.0) g/dL Urine Protein Trace H (Negative) Urine Glucose (UA) 4+ H (Negative) Ur Leukocyte Esterase Large H (Negative) Urine WBC 43 H (0-5) /hpf Urine Mucus Rare H (None) /hpf 02/26/24 02/26/24 Range/Units 11:05 14:10 WBC (3.8-10.6) k/uL Neutrophils # (1.3-7.7) k/uL Lymphocytes # (1.0-4.8) k/uL Monocytes # (0-1.0) k/uL Chloride (98-107) mmol/L Carbon Dioxide (22-30) mmol/L Glucose (74-99) mg/dL Plasma Lactic Acid Zeb 3.9 H* 3.3 H* (0.7-2.0) mmol/L Total Protein (6.3-8.2) g/dL Albumin (3.5-5.0) g/dL Urine Protein (Negative) Urine Glucose (UA) (Negative) Ur Leukocyte Esterase (Negative) Urine WBC (0-5) /hpf Urine Mucus (None) /hpf Assessment and Plan (1) Colitis Status: Acute Code(s): K52.9 - NONINFECTIVE GASTROENTERITIS AND COLITIS, UNSPECIFIED SNOMED Code(s): 37443110 (2) Sepsis Status: Acute Code(s): A41.9 - SEPSIS, UNSPECIFIED ORGANISM SNOMED Code(s): 69458237 (3) UTI (urinary tract infection) Status: Acute Code(s): N39.0 - URINARY TRACT INFECTION, SITE NOT SPECIFIED SNOMED Code(s): 39768061 Plan: 1patient presented to hospital with sepsis in this patient who did have fever tachycardia elevated white count source is likely urinary as the patient did have a positive UA and evidence of cystitis on the CT abdominal pelvis no other abnormality reported on the CT abdominal pelvis such as diverticulitis or a bscess and there was evidence of compressive atelectasis no consolidation reported on that CT, currently with no evidence of any joint swelling or erythema in his abdominal soft medical examination 2-patient penicillin allergy 3-patient will be treated with Rocephin 2 g daily and Eraxis while waiting for the culture to finalize We will follow on clinical condition and cultures to further adjust medication if needed Thank you for this consultation we will follow the patient along with you Dictation was produced using [employer] dictation software. please excuse any grammatical, word or spelling errors. Time with Patient: Greater than 30
[2024-02-27] MEDS: SODIUM CHLORIDE 0.9% 1,000 ML IV ONE (01:44)
[2024-02-27] MEDS: SODIUM CHLORIDE 0.9% 1,000 ML IV SCH (01:44)
[2024-02-27 03:48] LABS: HCT 37.8 % (39.0-53.0); HGB 12.7 gm/dL (13.0-17.5); MCHC 33.7 g/dL (31.0-37.0); MCV 94.9 fL (80.0-100.0); Mean Platelet Volume 7.2; Platelet Count 180 k/uL (150-450); Poikilocytosis Slight; RBC 3.98 m/uL (4.30-5.90); WBC 27.5 k/uL (3.8-10.6)
[2024-02-27 04:16] LABS: ALT 10 U/L (4-49); AST 15 U/L (17-59); African American GFR (CKD) >90 (>60 ml/min/1.73 sqM); Albumin 2.4 g/dL (3.5-5.0); Albumin/Globulin Ratio 0.9; Alkaline Phosphatase 72 U/L (38-126); Anion Gap 7 mmol/L; Blood Urea Nitrogen 9 mg/dL (9-20); Calcium 8.4 mg/dL (8.4-10.2); Carbon Dioxide 18 mmol/L (22-30); Chloride 115 mmol/L (98-107); Globulin 2.7 g/dL; Glucose 148 mg/dL (74-99); Magnesium 1.4 mg/dL (1.6-2.3); Non-African American GFR(CKD) >90 (>60 ml/min/1.73 sqM); Potassium 3.6 mmol/L (3.5-5.1); Sodium 140 mmol/L (137-145); Total Bilirubin 0.5 mg/dL (0.2-1.3); Total Protein 5.1 g/dL (6.3-8.2)
[2024-02-27] MEDS: MAGNESIUM SULFATE-D5W PMX 1 GM in DEXTROSE/WATER 1 100ML.BAG IVPB SCH (05:21)
[2024-02-27] MEDS: VANCOMYCIN 1,250 MG in SODIUM CHLORIDE 0.9% 250 ML IVPB SCH (06:12)
[2024-02-27] MEDS: PANTOPRAZOLE 40 MG TABLET PO SCH (08:23)
[2024-02-27] MEDS: FINASTERIDE 5 MG TAB PO SCH (08:23)
[2024-02-27] MEDS: ENOXAPARIN 40 MG/0.4 ML SYRINGE SQ SCH (08:23)
[2024-02-27] MEDS: ASPIRIN 81 MG PO SCH (08:23)
[2024-02-27] MEDS: CLOPIDOGREL 75 MG TAB PO SCH (08:23)
[2024-02-27] MEDS: polyethylene glycoL 3350 17 GM POWD.PACK PO SCH (08:23)
[2024-02-27] MEDS: POTASSIUM CHLORIDE ER 20 MEQ TAB.ER PO SCH (08:23)
[2024-02-27] MEDS: MEMANTINE HCL 21 MG PO SCH (08:24)
[2024-02-27] MEDS: LORATADINE 10 MG TAB PO SCH (08:25)
--- NOTE | 2024-02-27 11:56 | P.CONS ---
History of Present Illness - Reason for Consult Consult date: 02/27/24 wound care - History of Present Illness This is a 78-year-old patient being seen on 4 for stage I pressure ulcer to the right and left buttocks.Patient was seen a few days ago and a previous admission. The left buttocks now shows excoriation and ecchymosis. It is worse compared to previous admission. However patient does not have any Open ulcerations. Patient's past medical history significant for COPD, diabetes, GERD, hyperlipidemia, hypertension, sleep apnea. Patient is a former smoker. Discussed with patient the importance of utilizing a barrier cream and sitting on an air-filled cushion. Patient verbalized understanding. Review Of Systems: Constitutional: No fever, no chills, no night sweats. No weight change. No weakness, fatigue or lethargy. No daytime sleepiness. Integumentary:reports wounds, no lesions. No rash or pruritus. No unusual bruising. No change in hair or nails. Physical exam: General Appearance: Alert, cooperative, no distress, appears stated age. Skin: See HPI all other Skin color, texture, tugor normal, no rashes or lesions. Neurologic: Alert oriented x3 Assessment: 1. Stage I pressure ulcer right buttocks 2. Stage I pressure ulcer left buttocks 3. Diabetes with skin ulceration Plan: 1. Apply Triad cream to the site. Continue to offload with utilizing air- filled cushion when sitting. Turn patient every 2 hours. Thank you for the consultation any questions please contact the wound care center DNP note has been reviewed and discussed with Dr. Bernstein and the impression and plan of care has been directed as dictated. Past Medical History Past Medical History: Cancer, COPD, Diabetes Mellitus, GERD/Reflux, Hy perlipidemia, Hypertension, Memory Impairment, Sleep Apnea/CPAP/BIPAP Additional Past Medical History / Comment(s): C-PAP., BACK PAIN, SKIN CANCER, MEMORY PROBLEMS., HX OF LEAD POISONING WHILE WORKING AT [employer]., History of Any Multi-Drug Resistant Organisms: None Reported Additional Past Surgical History / Comment(s): TORN LIGAMENT ARM., VASECTOMY, CATARACTS, FX ORBITAL SURGERY. Past Anesthesia/Blood Transfusion Reactions: No Reported Reaction, Motion Sickness Past Psychological History: No Psychological Hx Reported Smoking Status: Former smoker Past Alcohol Use History: None Reported Additional Past Alcohol Use History / Comment(s): QUIT SMOKING OCT 1969, SMOKED 1 PPD., STARTED SMOKING 7 YRS OLD AND QUIT STARTED SMOKING AGAIN 15 YRS OLD. Past Drug Use History: None Reported - Past Family History Mother Family Medical History: No Reported History Medications and Allergies Home Medications Medication Instructions Recorded Confirmed Type Metoprolol Succinate (ER) [Toprol 50 mg PO BID@08,199901/22/19 02/26/24 History XL] Aspirin 81 mg PO DAILY@79907/09/23 02/26/24 History Finasteride [Proscar] 5 mg PO DAILY@79907/09/23 02/26/24 History Memantine HCl [Namenda Xr] 21 mg PO DAILY@79907/09/23 02/26/24 History Acetaminophen [Tylenol 8 Hour] 650 mg PO Q8HR@0000,0800,1600 11/12/23 02/26/24 History Cyanocobalamin (Vitamin B-12) 1,000 mcg PO DAILY@79911/12/23 02/26/24 History [Vitamin B-12] Ft Arthritis Pain 1% Gel 2 gram TOPICAL TID@0800,1199,199911/12/23 02/26/24 History Loratadine [Claritin] 10 mg PO DAILY@79911/12/23 02/26/24 History Pantoprazole [Protonix] 40 mg PO DAILY@79911/12/23 02/26/24 History Clopidogrel [Plavix] 75 mg PO DAILY@0812/08/23 02/26/24 History levETIRAcetam [Keppra] 1,000 mg PO BID@799,199912/08/23 02/26/24 History Cholecalciferol [Vitamin D3 (125 125 mcg PO DAILY@79902/03/24 02/26/24 History Mcg = 5000 Iu)] Furosemide [Lasix] 20 mg PO BID@0800,199902/03/24 02/26/24 History Potassium Chloride [Klor-Con M20] 20 meq PO DAILY@00 02/03/24 02/26/24 History Donepezil [Aricept] 10 mg PO HS@199902/15/24 02/26/24 History Loperamide [Imodium] 2 - 4 mg PO QID PRN MDD 16mg 02/15/24 02/26/24 History Mirtazapine [Remeron] 30 mg PO HS@199902/15/24 02/26/24 History lisinopriL [Zestril] 5 mg PO HS@199902/15/24 02/26/24 History Cranberry Fruit Extract [Cranberry] 500 mg PO BID@0800,199902/26/24 02/26/24 History cefUROXime axetiL [Ceftin] 500 mg PO BID@0900,199902/26/24 02/26/24 History metFORMIN HCL [Glucophage] 500 mg PO BID@0800,199902/26/24 02/26/24 History polyethylene glycoL 3350 [Miralax] 17 gm PO DAILY@0800 02/26/24 02/26/24 History Allergies Allergy/AdvReac Type Severity Reaction Status Date / Time Penicillins Allergy Unknown Rash/Hives Verified 02/26/24 11:28 Physical Exam Vitals: Vital Signs Temp Pulse Pulse Resp BP BP Pulse Ox 02/27/24 07:53 95 02/27/24 07:45 97.4 F L 91 17 147/70 95 02/27/24 02:51 97.5 F L 97 14 149/73 97 02/26/24 22:41 100.4 F H 95 15 127/67 94 L 02/26/24 21:53 98 18 133/76 95 02/26/24 20:12 107 H 20 130/84 95 02/26/24 18:19 95 18 133/76 96 02/26/24 16:15 95 02/26/24 14:33 98.0 F 87 18 127/76 94 L 02/26/24 12:27 100.9 F H Intake and Output 02/26/24 02/27/24 02/27/24 22:59 06:59 14:59 Output Total 500 Balance -500 Output: Urine 500 Other: Voiding Method External Catheter External Catheter Weight 68.039 kg Results CBC & Chem 7: 02/27/24 03:12 02/27/24 03:08 Labs: Abnormal Lab Results - Last 24 Hours (Table) 02/26/24 02/26/24 02/26/24 Range/Units 11:05 14:10 17:02 WBC (3.8-10.6) k/uL RBC (4.30-5.90) m/uL Hgb (13.0-17.5) gm/dL Hct (39.0-53.0) % Chloride (98-107) mmol/L Carbon Dioxide (22-30) mmol/L Creatinine (0.66-1.25) mg/dL Glucose (74-99) mg/dL POC Glucose (mg/dL) (70-110) mg/dL Plasma Lactic Acid Zeb 3.3 H* 2.5 H* (0.7-2.0) mmol/L Magnesium (1.6-2.3) mg/dL AST (17-59) U/L Total Protein (6.3-8.2) g/dL Albumin (3.5-5.0) g/dL Urine Protein Trace H (Negative) Urine Glucose (UA) 4+ H (Negative) Ur Leukocyte Esterase Large H (Negative) Urine WBC 43 H (0-5) /hpf Urine Mucus Rare H (None) /hpf 02/26/24 02/26/24 02/26/24 Range/Units 20:11 20:38 23:24 WBC (3.8-10.6) k/uL RBC (4.30-5.90) m/uL Hgb (13.0-17.5) gm/dL Hct (39.0-53.0) % Chloride (98-107) mmol/L Carbon Dioxide (22-30) mmol/L Creatinine (0.66-1.25) mg/dL Glucose (74-99) mg/dL POC Glucose (mg/dL) 164 H (70-110) mg/dL Plasma Lactic Acid Zeb 2.1 H* 2.3 H* (0.7-2.0) mmol/L Magnesium (1.6-2.3) mg/dL AST (17-59) U/L Total Protein (6.3-8.2) g/dL Albumin (3.5-5.0) g/dL Urine Protein (Negative) Urine Glucose (UA) (Negative) Ur Leukocyte Esterase (Negative) Urine WBC (0-5) /hpf Urine Mucus (None) /hpf 02/27/24 02/27/24 02/27/24 Range/Units 03:08 03:12 03:12 WBC 27.5 H (3.8-10.6) k/uL RBC 3.98 L (4.30-5.90) m/uL Hgb 12.7 L (13.0-17.5) gm/dL Hct 37.8 L (39.0-53.0) % Chloride 115 H (98-107) mmol/L Carbon Dioxide 18 L (22-30) mmol/L Creatinine 0.59 L (0.66-1.25) mg/dL Glucose 148 H (74-99) mg/dL POC Glucose (mg/dL) (70-110) mg/dL Plasma Lactic Acid Zeb 2.2 H* (0.7-2.0) mmol/L Magnesium 1.4 L (1.6-2.3) mg/dL AST 15 L (17-59) U/L Total Protein 5.1 L (6.3-8.2) g/dL Albumin 2.4 L (3.5-5.0) g/dL Urine Protein (Negative) Urine Glucose (UA) (Negative) Ur Leukocyte Esterase (Negative) Urine WBC (0-5) /hpf Urine Mucus (None) /hpf Assessment and Plan (1) Decubitus ulcer of left buttock, stage 1 Current Visit: No Status: Acute Code(s): L89.321 - PRESSURE ULCER OF LEFT BUTTOCK, STAGE 1 SNOMED Code(s): 04162619218667 (2) Decubitus ulcer of right buttock, stage 1 Current Visit: No Status: Acute Code(s): L89.311 - PRESSURE ULCER OF RIGHT BUTTOCK, STAGE 1 SNOMED Code(s): 33909694828421 (3) Type 2 diabetes mellitus with other skin ulcer Current Visit: No Status: Acute Code(s): E11.622 - TYPE 2 DIABETES MELLITUS WITH OTHER SKIN ULCER; L98.499 - NON-PRESSURE CHRONIC ULCER OF SKIN OF SITES W UNSP SEVERITY SNOMED Code(s): 542962562
--- NOTE | 2024-02-27 16:25 | P.PN ---
Subjective Progress Note Date: 02/27/24 No new complaints. Ongoing confusion, but improving. Not at baseline per daughter. Gen: In NAD, non-toxic HEENT: normocephalic, atraumatic, hearing acuity is intant, mucous membranes moist CVS: perfusing all extremities well, no pitting edema, Respiratory: symmetric chest expansion, no accessory muscle use, GI: soft, NTTP, ND, : no suprapubic tenderness, no CVA tenderness MSK/Derm: no rashes, cyanosis Neuro: CN II-XII intact, no motor weakness, Psych: cooperative, euthymic mood, judgment and insight is intact Hospital course: Patient is a very pleasant 78-year-old male with a past medical history of advanced dementia, multiple CVAs and previous brain tumor removal with memory impairment, PFO, seizure disorder, hypertension, hyperlipidemia, GERD, and obstructive sleep apnea CPAP dependent nightly. Patient presented to the emergency department via EMS from [facility] with a chief complaint of worsening mental status and confusion. He recently underwent hospitalization from 02/20/2024 through 02/25/2024 for similar complaints and was treated for candidal cystitis with urine culture positive for Sarai glabrata. He was treated with IV Eraxis and Rocephin, his mentation improved and he was back to baseline with repeat urine cultures negative. Patient was discharged home on an extended course of antibiotics with Ceftin. Patient was found by staff at [facility] today again confused and disoriented and he was sent to the emergency department for evaluation. Upon arrival vital signs completed. Blood pressure 162/87, heart rate 101, respiratory rate 20, temp 100.3 F, and SpO2 of 94% on 2 L. Shortly after patient spiked temp up to 101.0 F. EKG completed showing sinus tachycardia at 107 bpm with occasional PVC and first-degree AV block with MA interval of 229 ms. Labs completed and reviewed. CBC showing leukocytosis with WBC count of 26.6, neutrophils of 24.4, lymphocytes of 0.9 and monocytes of 1.2. BMP showing mild non-anion gap metabolic acidosis with chloride of 108, bicarb of 20, and anion gap of 11. Blood glucose was 262. Initial lactic acid 3.9. Liver profile unremarkable with exception of low albumin of 3.2. Lipase normal findings at 23. Urinalysis positive for protein, glucose, leukocytes, and only 43 WBCs. Influenza A, influenza B, RSV, and COVID were all negative. Chest x-ray was completed showing low lung volumes with generalized hazy appearance. CTA chest, abdomen, and pelvis with contrast was completed showing mild compressive atelectasis in bilateral lung bases, mild fecal retention, and diffuse urinary bladder wall thickening. Blood cultures were obtained and urine culture was sent to lab for analysis. Patient was started on IV fluid hydration and antibiotics. He was admitted under our services with consultation to infectious disease. Assessment and Plan of Care: Severe sepsis Acute metabolic encephalopathy Lactic acidosis Recent infection with Candidal Cystitis secondary to Sarai glabrata History of advanced dementia, baseline alert to person and place and able to follow commands History of multiple recent CVAs History of brain tumor with removal resulting in memory impairment -Sepsis of unclear origin at this time, possibly secondary to recent infection with candidal cystitis secondary to Sarai glabrata. -Infectious disease consulted. Continue Vancomycin, Eraxis 100 mg daily along with Rocephin 2 g daily. -Follow-up on blood culture and urine culture results. -Continuous telemetry monitoring. -Neurochecks every 4 hours and fall precautions in place. -Continue daily medication regimen with aspirin 81 mg daily and Plavix 75 mg daily. -Continue Namenda 7.5 mg twice daily - hold Remeron 30 mg nightly. -Tylenol 650 mg p.o. every 6 hours as needed for fever. -consult urology for recurrent UTI Seizure disorder -Continue Keppra 1000 mg twice daily. -Maintain seizure precautions. Pressure ulcers on coccyx/buttocks, present on arrival. -Was placed for turning patient every 2 hours. -Wound care consulted Hypertension Hyperlipidemia Continue daily medication regimen with lisinopril 5 mg nightly and metoprolol 50 mg twice daily GERD -Continue daily medication regimen with Pepcid 20 mg twice daily and Protonix 40 mg daily. Obstructive sleep apnea Continue use of CPAP nightly and while napping. The patient is admitted with an anticipated greater than 2 midnight stay for evaluation of severe sepsis CODE STATUS: Full code DVT prophylaxis: Lovenox This document was prepared using [employer] dictation software. Please allow for errors in faculty instructor while rare they do occur. Objective - Vital Signs Vital signs: Vital Signs Temp 99.2 F 02/27/24 14:35 Pulse 91 02/27/24 14:35 Resp 17 02/27/24 14:35 BP 148/73 02/27/24 14:35 Pulse Ox 95 02/27/24 14:35 FiO2 Intake & Output 02/26/24 02/27/24 02/27/24 18:59 06:59 18:59 Output Total 500 Balance -500 Weight 68.039 kg 68.039 kg Output: Urine 500 Other: Voiding Method External Catheter External Catheter - Labs CBC & Chem 7: 02/27/24 03:12 02/27/24 03:08 Labs: Abnormal Lab Results - Last 24 Hours (Table) 02/26/24 02/26/24 02/26/24 Range/Units 17:02 20:11 20:38 WBC (3.8-10.6) k/uL RBC (4.30-5.90) m/uL Hgb (13.0-17.5) gm/dL Hct (39.0-53.0) % Chloride (98-107) mmol/L Carbon Dioxide (22-30) mmol/L Creatinine (0.66-1.25) mg/dL Glucose (74-99) mg/dL POC Glucose (mg/dL) 164 H (70-110) mg/dL Plasma Lactic Acid Zeb 2.5 H* 2.1 H* (0.7-2.0) mmol/L Magnesium (1.6-2.3) mg/dL AST (17-59) U/L Total Protein (6.3-8.2) g/dL Albumin (3.5-5.0) g/dL 02/26/24 02/27/24 02/27/24 Range/Units 23:24 03:08 03:12 WBC 27.5 H (3.8-10.6) k/uL RBC 3.98 L (4.30-5.90) m/uL Hgb 12.7 L (13.0-17.5) gm/dL Hct 37.8 L (39.0-53.0) % Chloride 115 H (98-107) mmol/L Carbon Dioxide 18 L (22-30) mmol/L Creatinine 0.59 L (0.66-1.25) mg/dL Glucose 148 H (74-99) mg/dL POC Glucose (mg/dL) (70-110) mg/dL Plasma Lactic Acid Zeb 2.3 H* (0.7-2.0) mmol/L Magnesium 1.4 L (1.6-2.3) mg/dL AST 15 L (17-59) U/L Total Protein 5.1 L (6.3-8.2) g/dL Albumin 2.4 L (3.5-5.0) g/dL 02/27/24 Range/Units 03:12 WBC (3.8-10.6) k/uL RBC (4.30-5.90) m/uL Hgb (13.0-17.5) gm/dL Hct (39.0-53.0) % Chloride (98-107) mmol/L Carbon Dioxide (22-30) mmol/L Creatinine (0.66-1.25) mg/dL Glucose (74-99) mg/dL POC Glucose (mg/dL) (70-110) mg/dL Plasma Lactic Acid Zeb 2.2 H* (0.7-2.0) mmol/L Magnesium (1.6-2.3) mg/dL AST (17-59) U/L Total Protein (6.3-8.2) g/dL Albumin (3.5-5.0) g/dL
--- NOTE | 2024-02-27 20:44 | P.GSCN ---
History of Present Illness Consult date: 02/27/24 Reason for Consult: UTI History of present illness: This is a 78-year-old male admitted to the hospital with a UTI, he was recently admitted to the hospital and discharged on February 23 with antibiotics and antifungal, presented back to the emergency department with altered mental status, worsened from baseline and fevers. Subsequently he was admitted to the hospital. Urology is consulted for his Sarai glabrata UTI. The patient has advanced dementia and a history of strokes. Prior to this episode, no previous urine cultures do not show any utis. CT abdomen and pelvis showed no bladder or kidney stones or any pathology in the bladder or the kidneys. He does have history of chronic urinary incontinence being managed with a condom catheter. Review of Systems ROS unobtainable: due to mental status Past Medical History Past Medical History: Cancer, COPD, Diabetes Mellitus, GERD/Reflux, Hyperlipidemia, Hypertension, Memory Impairment, Sleep Apnea/CPAP/BIPAP Additional Past Medical History / Comment(s): C-PAP., BACK PAIN, SKIN CANCER, MEMORY PROBLEMS., HX OF LEAD POISONING WHILE WORKING AT [employer]., History of Any Multi-Drug Resistant Organisms: None Reported Additional Past Surgical History / Comment(s): TORN LIGAMENT ARM., VASECTOMY, CATARACTS, FX ORBITAL SURGERY. Past Anesthesia/Blood Transfusion Reactions: No Reported Reaction, Motion Sickness Past Psychological History: No Psychological Hx Reported Smoking Status: Former smoker Past Alcohol Use History: None Reported Additional Past Alcohol Use History / Comment(s): QUIT SMOKING OCT 1969, SMOKED 1 PPD., STARTED SMOKING 7 YRS OLD AND QUIT STARTED SMOKING AGAIN 15 YRS OLD. Past Drug Use History: None Reported - Past Family History Mother Family Medical History: No Reported History Medications and Allergies Home Medications Medication Instructions Recorded Confirmed Type Metoprolol Succinate (ER) [Toprol 50 mg PO BID@0800,199901/22/19 02/26/24 History XL] Aspirin 81 mg PO DAILY@00 07/09/23 02/26/24 History Finasteride [Proscar] 5 mg PO DAILY@00 07/09/23 02/26/24 History Memantine HCl [Namenda Xr] 21 mg PO DAILY@0800 07/09/23 02/26/24 History Acetaminophen [Tylenol 8 Hour] 650 mg PO Q8HR@0000,0800,1600 11/12/23 02/26/24 History Cyanocobalamin (Vitamin B-12) 1,000 mcg PO DAILY@0800 11/12/23 02/26/24 History [Vitamin B-12] Ft Arthritis Pain 1% Gel 2 gram TOPICAL TID@0800,1200,199911/12/23 02/26/24 History Loratadine [Claritin] 10 mg PO DAILY@0800 11/12/23 02/26/24 History Pantoprazole [Protonix] 40 mg PO DAILY@79911/12/23 02/26/24 History Clopidogrel [Plavix] 75 mg PO DAILY@79912/08/23 02/26/24 History levETIRAcetam [Keppra] 1,000 mg PO BID@0800,199912/08/23 02/26/24 History Cholecalciferol [Vitamin D3 (125 125 mcg PO DAILY@79902/03/24 02/26/24 History Mcg = 5000 Iu)] Furosemide [Lasix] 20 mg PO BID@0800,199902/03/24 02/26/24 History Potassium Chloride [Klor-Con M20] 20 meq PO DAILY@0800 02/03/24 02/26/24 History Donepezil [Aricept] 10 mg PO HS@199902/15/24 02/26/24 History Loperamide [Imodium] 2 - 4 mg PO QID PRN MDD 16mg 02/15/24 02/26/24 History Mirtazapine [Remeron] 30 mg PO HS@199902/15/24 02/26/24 History lisinopriL [Zestril] 5 mg PO HS@199902/15/24 02/26/24 History Cranberry Fruit Extract [Cranberry] 500 mg PO BID@0800,199902/26/24 02/26/24 History cefUROXime axetiL [Ceftin] 500 mg PO BID@0900,199902/26/24 02/26/24 History metFORMIN HCL [Glucophage] 500 mg PO BID@0800,199902/26/24 02/26/24 History polyethylene glycoL 3350 [Miralax] 17 gm PO DAILY@0800 02/26/24 02/26/24 History Allergies Allergy/AdvReac Type Severity Reaction Status Date / Time Penicillins Allergy Unknown Rash/Hives Verified 02/26/24 11:28 Surgical - Exam Vital Signs Temp Pulse Resp BP Pulse Ox 100.3 F H 101 H 20 162/87 94 L 02/26/24 10:21 02/26/24 10:21 02/26/24 10:21 02/26/24 10:21 02/26/24 10:21 - General no distress, no pain - Abdomen Abdomen: soft, non tender, no distended - Genitourinary Condom catheter in place, no abnormality along the phallus testicles present, testicles non-tender Results - Labs 02/27/24 03:12 02/27/24 03:08 Abnormal Lab Results - Last 24 Hours (Table) 02/26/24 02/26/24 02/27/24 Range/Units 20:38 23:24 03:08 WBC (3.8-10.6) k/uL RBC (4.30-5.90) m/uL Hgb (13.0-17.5) gm/dL Hct (39.0-53.0) % Chloride 115 H (98-107) mmol/L Carbon Dioxide 18 L (22-30) mmol/L Creatinine 0.59 L (0.66-1.25) mg/dL Glucose 148 H (74-99) mg/dL POC Glucose (mg/dL) 164 H (70-110) mg/dL Plasma Lactic Acid Zeb 2.3 H* (0.7-2.0) mmol/L Magnesium 1.4 L (1.6-2.3) mg/dL AST 15 L (17-59) U/L Total Protein 5.1 L (6.3-8.2) g/dL Albumin 2.4 L (3.5-5.0) g/dL 02/27/24 02/27/24 Range/Units 03:12 03:12 WBC 27.5 H (3.8-10.6) k/uL RBC 3.98 L (4.30-5.90) m/uL Hgb 12.7 L (13.0-17.5) gm/dL Hct 37.8 L (39.0-53.0) % Chloride (98-107) mmol/L Carbon Dioxide (22-30) mmol/L Creatinine (0.66-1.25) mg/dL Glucose (74-99) mg/dL POC Glucose (mg/dL) (70-110) mg/dL Plasma Lactic Acid Zeb 2.2 H* (0.7-2.0) mmol/L Magnesium (1.6-2.3) mg/dL AST (17-59) U/L Total Protein (6.3-8.2) g/dL Albumin (3.5-5.0) g/dL Microbiology - Last 24 Hours (Table) 02/26/24 11:05 Blood Culture - Preliminary Blood 02/26/24 11:05 Blood Culture - Preliminary Blood Diabetes panel 02/27/24 Range/Units 03:08 Sodium 140 (137-145) mmol/L Potassium 3.6 (3.5-5.1) mmol/L Chloride 115 H (98-107) mmol/L Carbon Dioxide 18 L (22-30) mmol/L BUN 9 (9-20) mg/dL Creatinine 0.59 L (0.66-1.25) mg/dL Glucose 148 H (74-99) mg/dL Calcium 8.4 (8.4-10.2) mg/dL AST 15 L (17-59) U/L ALT 10 (4-49) U/L Alkaline Phosphatase 72 (38-126) U/L Total Protein 5.1 L (6.3-8.2) g/dL Albumin 2.4 L (3.5-5.0) g/dL Calcium panel 02/27/24 Range/Units 03:08 Calcium 8.4 (8.4-10.2) mg/dL Albumin 2.4 L (3.5-5.0) g/dL Pituitary panel 02/27/24 Range/Units 03:08 Sodium 140 (137-145) mmol/L Potassium 3.6 (3.5-5.1) mmol/L Chloride 115 H (98-107) mmol/L Carbon Dioxide 18 L (22-30) mmol/L BUN 9 (9-20) mg/dL Creatinine 0.59 L (0.66-1.25) mg/dL Glucose 148 H (74-99) mg/dL Calcium 8.4 (8.4-10.2) mg/dL Adrenal panel 02/27/24 Range/Units 03:08 Sodium 140 (137-145) mmol/L Potassium 3.6 (3.5-5.1) mmol/L Chloride 115 H (98-107) mmol/L Carbon Dioxide 18 L (22-30) mmol/L BUN 9 (9-20) mg/dL Creatinine 0.59 L (0.66-1.25) mg/dL Glucose 148 H (74-99) mg/dL Calcium 8.4 (8.4-10.2) mg/dL Total Bilirubin 0.5 (0.2-1.3) mg/dL AST 15 L (17-59) U/L ALT 10 (4-49) U/L Alkaline Phosphatase 72 (38-126) U/L Total Protein 5.1 L (6.3-8.2) g/dL Albumin 2.4 L (3.5-5.0) g/dL - Imaging CT scan - abdomen: image reviewed (No stones, hydronephrosis or any renal or bladder pathology) Assessment and Plan Assessment: 78-year-old male with Sarai glabrata UTI, was recently discharged presented back with fevers and worsening mental status. I reviewed his CT I do not see any evidence of stones fungus ball or any other anatomical abnormality for his persistent UTI given the normal CT from urology standpoint no further evaluation is needed, infectious disease is on board. Final treatment per infectious disease recommendation
[2024-02-27] MEDS: HYDROPHILIC CREAM 180 GM TUBE TOPICAL SCH (21:08)
[2024-02-27] MEDS: ACETAMINOPHEN TAB 325 MG TAB PO PRN (21:08)
[2024-02-28] MEDS ORDERED: VANCOMYCIN IV PER PHARMACY 1 EACH MISC MISCELLANE PRN (05:39)
--- NOTE | 2024-02-28 08:14 | CT ---
EXAMINATION TYPE: CT abdomen pelvis wo con CT DLP: 703.2 mGycm, Automated exposure control for dose reduction was used. DATE OF EXAM: 02/28/2024 7:10 AM COMPARISON: CT abdomen pelvis most recent from 02/26/2024 CLINICAL INDICATION:Male, 78 years old with history of sepsis, abd pain; pain TECHNIQUE: Axial CT abdomen pelvis wo con;Sagittal and coronal reformats were created on a separate workstation. Contrast used: mL of , (none if empty) Oral contrast used: without Oral Contrast (none if empty) FINDINGS: LOWER CHEST: The heart is mildly enlarged for size. ABDOMEN LIVER: Unremarkable GALLBLADDER AND BILE DUCTS: The gallbladder surgically absent. PANCREAS: Lipomatous atrophy changes of the pancreatic parenchyma. SPLEEN: Unremarkable. ADRENAL GLANDS: Unremarkable. KIDNEYS AND URETERS: No evidence of hydronephrosis or renal calculus. The ureters are unremarkable. PELVIS BLADDER: Unremarkable REPRODUCTIVE: Unremarkable. ABDOMEN & PELVIS STOMACH AND BOWEL: No evidence of bowel obstruction. Circumferential wall thickening of the descendin g colon and sigmoid colon with fat stranding changes. PERITONEUM/RETROPERITONEUM: No evidence of pneumoperitoneum or free fluid. VASCULATURE: No evidence of aortic aneurysm. Atherosclerosis of the arterial vasculature. MUSCULOSKELETAL: No acute osseous abnormalities LYMPH NODES: No gross evidence for lymphadenopathy. SOFT TISSUE/ABDOMINAL WALL: Bilateral fat-containing inguinal hernias. IMPRESSION: Colitis involving the descending and sigmoid colon. No other evidence for infection abdomen and pelvi s.
[2024-02-28] MEDS: PIPERACILLIN-TAZOBACTAM 3.375 GM in SODIUM CHLORIDE 0.9% 100 ML IVPB SCH (09:13)
[2024-02-28] MEDS: ACETAMINOPHEN SUPPOSITORY 650 MG SUPP RECTAL PRN (13:08)
--- NOTE | 2024-02-28 13:24 | P.PN ---
Subjective Progress Note Date: 02/27/24 Principal diagnosis: Reason for follow-up is fever/UTI Patient is a 78-year-old male with a past medical history significant for diabetes mellitus hypertension hyperlipidemia reflux COPD memory impairment recently admitted to this hospital has been diagnosed with a UTI and was treated with antibiotic antifungal did have overall improvement his clinical condition and was discharged to [facility], patient was back to the hospital because of fever hypertension and weakness abdominal pain however the patient did have CT abdominal pelvis did not show any acute abnormality. On today's visit that is 02/27/2024, Patient did have resolution of his fever and is afebrile this morning patient is currently breathing comfortably on room air the patient was being fed by the nurse aide did not mention any choking on the food did have occasional cough though no vomiting or diarrhea has been reported Patient white count is 27.5 creatinine 0.59 cultures currently pending Objective - Vital Signs Vital signs: Vital Signs Temp 97.4 F L 02/27/24 07:45 Pulse 91 02/27/24 07:45 Resp 17 02/27/24 07:45 BP 147/70 02/27/24 07:45 Pulse Ox 95 02/27/24 07:53 FiO2 Intake & Output 02/26/24 02/27/24 02/27/24 18:59 06:59 18:59 Output Total 500 Balance -500 Weight 68.039 kg 68.039 kg Output: Urine 500 Other: Voiding Method External Catheter External Catheter - Exam GENERAL DESCRIPTION: An elderly male lying in bed in no distress RESPIRATORY SYSTEM: Unlabored breathing , decreased breath sounds at bases HEART: S1 S2 regular rate and rhythm , ABDOMEN: Soft , no tenderness EXTREMITIES: No edema feet - Labs CBC & Chem 7: 02/27/24 03:12 02/27/24 03:08 Labs: Abnormal Lab Results - Last 24 Hours (Table) 02/26/24 02/26/24 02/26/24 Range/Units 17:02 20:11 20:38 WBC (3.8-10.6) k/uL RBC (4.30-5.90) m/uL Hgb (13.0-17.5) gm/dL Hct (39.0-53.0) % Chloride (98-107) mmol/L Carbon Dioxide (22-30) mmol/L Creatinine (0.66-1.25) mg/dL Glucose (74-99) mg/dL POC Glucose (mg/dL) 164 H (70-110) mg/dL Plasma Lactic Acid Zeb 2.5 H* 2.1 H* (0.7-2.0) mmol/L Magnesium (1.6-2.3) mg/dL AST (17-59) U/L Total Protein (6.3-8.2) g/dL Albumin (3.5-5.0) g/dL 02/26/24 02/27/24 02/27/24 Range/Units 23:24 03:08 03:12 WBC 27.5 H (3.8-10.6) k/uL RBC 3.98 L (4.30-5.90) m/uL Hgb 12.7 L (13.0-17.5) gm/dL Hct 37.8 L (39.0-53.0) % Chloride 115 H (98-107) mmol/L Carbon Dioxide 18 L (22-30) mmol/L Creatinine 0.59 L (0.66-1.25) mg/dL Glucose 148 H (74-99) mg/dL POC Glucose (mg/dL) (70-110) mg/dL Plasma Lactic Acid Zeb 2.3 H* (0.7-2.0) mmol/L Magnesium 1.4 L (1.6-2.3) mg/dL AST 15 L (17-59) U/L Total Protein 5.1 L (6.3-8.2) g/dL Albumin 2.4 L (3.5-5.0) g/dL 02/27/24 Range/Units 03:12 WBC (3.8-10.6) k/uL RBC (4.30-5.90) m/uL Hgb (13.0-17.5) gm/dL Hct (39.0-53.0) % Chloride (98-107) mmol/L Carbon Dioxide (22-30) mmol/L Creatinine (0.66-1.25) mg/dL Glucose (74-99) mg/dL POC Glucose (mg/dL) (70-110) mg/dL Plasma Lactic Acid Zeb 2.2 H* (0.7-2.0) mmol/L Magnesium (1.6-2.3) mg/dL AST (17-59) U/L Total Protein (6.3-8.2) g/dL Albumin (3.5-5.0) g/dL Assessment and Plan (1) Febrile illness Current Visit: Yes Status: Acute Code(s): R50.9 - FEVER, UNSPECIFIED SNOMED Code(s): 559162762 (2) UTI (urinary tract infection) Current Visit: Yes Status: Acute Code(s): N39.0 - URINARY TRACT INFECTION, SITE NOT SPECIFIED SNOMED Code(s): 13113246 Plan: 1patient presented to hospital with sepsis in this patient who did have fever tachycardia elevated white count source is likely urinary as the patient did have a positive UA and evidence of cystitis on the CT abdominal pelvis no other abnormality reported on the CT abdominal pelvis such as diverticulitis or abscess and there was evidence of compressive atelectasis no consolidation reported on that CT, currently with no evidence of any joint swelling or erythema in his abdominal soft medical examination 2-patient penicillin allergy 3-patient did have resolution of his fever however his white count is still elevated patient to continue with Rocephin and Eraxis while waiting for the culture to finalize Dictation was produced using [employer] dictation software. please excuse any grammatical, word or spelling errors. Time with Patient: Less than 30
--- NOTE | 2024-02-28 13:26 | P.PN ---
Subjective Progress Note Date: 02/28/24 Principal diagnosis: Reason for follow-up is fever/UTI Patient is a 78-year-old male with a past medical history significant for diabetes mellitus hypertension hyperlipidemia reflux COPD memory impairment recently admitted to this hospital has been diagnosed with a UTI and was treated with antibiotic antifungal did have overall improvement his clinical condition and was discharged to [facility], patient was back to the hospital because of fever hypertension and weakness abdominal pain however the patient did have CT abdominal pelvis did not show any acute abnormality. On today's visit that is 02/28/2024, patient started running a fever of 100.5 to 101.5 F this morning, patient seems to be lethargic but arousable denies having any chest pain no choking on the food or coughing has been reported by nursing staff he did have soft mushy stool but no watery diarrhea. No new labs today cultures currently pending patient did have repeat CT abdominal pelvis no reporting colitis which was not mentioned on admission CAT scan Objective - Vital Signs Vital signs: Vital Signs Temp 100.1 F H 02/28/24 08:05 Pulse 99 02/28/24 08:05 Resp 17 02/28/24 08:05 BP 170/82 02/28/24 08:05 Pulse Ox 96 02/28/24 08:05 FiO2 Intake & Output 02/27/24 02/28/24 02/28/24 18:59 06:59 18:59 Output Total 850 Balance -850 Output: Urine 850 Other: Voiding Method External Catheter External Catheter External Catheter # Bowel Movements 1 1 - Exam GENERAL DESCRIPTION: An elderly male lying in bed in no distress RESPIRATORY SYSTEM: Unlabored breathing , decreased breath sounds at bases HEART: S1 S2 regular rate and rhythm , ABDOMEN: Soft , no tenderness EXTREMITIES: No edema feet - Labs CBC & Chem 7: 02/27/24 03:12 02/27/24 03:08 Labs: Microbiology - Last 24 Hours (Table) 02/26/24 11:05 Urine Culture - Final Urine,Clean Catch 02/26/24 11:05 Blood Culture - Preliminary Blood 02/26/24 11:05 Blood Culture - Preliminary Blood Assessment and Plan (1) Colitis Current Visit: Yes Status: Acute Code(s): K52.9 - NONINFECTIVE GASTROENTERITIS AND COLITIS, UNSPECIFIED SNOMED Code(s): 32598828 (2) Febrile illness Current Visit: Yes Status: Acute Code(s): R50.9 - FEVER, UNSPECIFIED SNOMED Code(s): 206789340 (3) Leukocytosis Current Visit: No Status: Acute Code(s): D72.829 - ELEVATED WHITE BLOOD CELL COUNT, UNSPECIFIED SNOMED Code(s): 094063200 Plan: 1patient presented to hospital with sepsis in this patient who did have fever tachycardia elevated white count source is likely urinary as the patient did have a positive UA and evidence of cystitis on the CT abdominal pelvis no other abnormality reported on the CT abdominal pelvis such as diverticulitis or abscess and there was evidence of compressive atelectasis no consolidation reported on that CT, patient did have a new fever quality tester of 02/28/2024 for the patient did have repeat CT with now showing evidence of colitis which was not reported on initial CAT scan question of infectious versus ischemic colitis, however the nursing staff has reported no watery diarrhea we will request for stool studies if the patient did have watery diarrhea including CT of and stool culture 2patient has been started on Zosyn and vancomycin with the patient seem to have tolerated clinical suspicion low for gram-positive infection and to decrease risk of nephrotoxicity we will discontinue the vancomycin continue with Zosyn while waiting for the workup to be completed Dictation was produced using [employer] dictation software. please excuse any grammatical, word or spelling errors. Time with Patient: Greater than 30
--- NOTE | 2024-02-28 15:16 | XR ---
EXAMINATION TYPE: XR shoulder complete RT DATE OF EXAM: 02/28/2024 3:00 PM CLINICAL INDICATION:Male, 78 years old with history of shoulder pain; [facility] COMPARISON: None TECHNIQUE: XR shoulder complete RT; examined in AP, internally rotated and scapular Y projections. FINDINGS: No evidence of acute osseous pathology, joint dislocation, or soft tissue swelling. The remaining po rtions of the visualized chest are unremarkable. Mild degeneration changes of the acromion, distal c lavicle with osteophyte formation. There is osteophyte formation of the glenoid and humeral head. The re is joint space narrowing of glenohumeral joint IMPRESSION: 1. No acute osseous pathology. 2. Moderate shoulder osteoarthrosis.
--- NOTE | 2024-02-28 15:32 | P.PN ---
Subjective Progress Note Date: 02/28/24 Pt has ongoing confusion, continues spiking fevers overnight. Abx broadened to vanco/zosyn overnight. Gen: In NAD, non-toxic HEENT: normocephalic, atraumatic, hearing acuity is intant, mucous membranes mo ist CVS: perfusing all extremities well, no pitting edema, Respiratory: symmetric chest expansion, no accessory muscle use, GI: soft, NTTP, ND, : no suprapubic tenderness, no CVA tenderness MSK/Derm: no rashes, cyanosis Neuro: CN II-XII intact, no motor weakness, Psych: cooperative, euthymic mood, judgment and insight is intact Hospital course: Patient is a very pleasant 78-year-old male with a past medical history of advanced dementia, multiple CVAs and previous brain tumor removal with memory impairment, PFO, seizure disorder, hypertension, hyperlipidemia, GERD, and obstructive sleep apnea CPAP dependent nightly. Patient presented to the emergency department via EMS from [facility] with a chief complaint of worsening mental status and confusion. He recently underwent hospitalization from 02/20/2024 through 02/25/2024 for similar complaints and was treated for candidal cystitis with urine culture positive for Sarai glabrata. He was treated with IV Eraxis and Rocephin, his mentation improved and he was back to baseline with repeat urine cultures negative. Patient was discharged home on an extended course of antibiotics with Ceftin. Patient was found by staff at [facility] today again confused and disoriented and he was sent to the emergency department for evaluation. Upon arrival vital signs completed. Blood pressure 162/87, heart rate 101, respiratory rate 20, temp 100.3 F, and SpO2 of 94% on 2 L. Shortly after patient spiked temp up to 101.0 F. EKG completed showing sinus tachycardia at 107 bpm with occasional PVC and first-degree AV block with MD interval of 229 ms. Labs completed and reviewed. CBC showing leukocytosis with WBC count of 26.6, neutrophils of 24.4, lymphocytes of 0.9 and monocytes of 1.2. BMP showing mild non-anion gap metabolic acidosis with chloride of 108, bicarb of 20, and anion gap of 11. Blood glucose was 262. Initial lactic acid 3.9. Liver profile unremarkable with exception of low albumin of 3.2. Lipase normal findings at 23. Urinalysis positive for protein, glucose, leukocytes, and only 43 WBCs. Influenza A, influenza B, RSV, and COVID were all negative. Chest x-ray was completed showing low lung volumes with generalized hazy appearance. CTA chest, abdomen, and pelvis with contrast was completed showing mild compressive atelectasis in bilateral lung bases, mild fecal retention, and diffuse urinary bladder wall thickening. Blood cultures were obtained and urine culture was sent to lab for analysis. Patient was started on IV fluid hydration and antibiotics. He was admitted under our services with consultation to infectious disease. Assessment and Plan of Care: Severe sepsis Acute metabolic encephalopathy Lactic acidosis Recent infection with Candidal Cystitis secondary to Sarai glabrata History of advanced dementia, baseline alert to person and place and able to follow commands History of multiple recent CVAs History of brain tumor with removal resulting in memory impairment -Sepsis of unclear origin at this time, possibly secondary to recent infection with candidal cystitis secondary to Sarai glabrata. -Infectious disease consulted. Disontinue Vancomycin, Discontinue Eraxis 100 mg daily. Agree with zosyn empirically for now -CT A/P demonstrated findings of colitis, ischemic vs infective -Stool Cx pending -Follow-up on blood culture and urine culture results = NGTD -Continuous telemetry monitoring. -Neurochecks every 4 hours and fall precautions in place. -Continue daily medication regimen with aspirin 81 mg daily and Plavix 75 mg daily. -Continue Namenda 7.5 mg twice daily - hold Remeron 30 mg nightly. -Tylenol 650 mg p.o. every 6 hours as needed for fever. -consult urology for recurrent UTI, no urological intervention needed at this time Seizure disorder -Continue Keppra 1000 mg twice daily. -Maintain seizure precautions. Pressure ulcers on coccyx/buttocks, present on arrival. -Was placed for turning patient every 2 hours. -Wound care consulted Hypertension Hyperlipidemia Continue daily medication regimen with lisinopril 5 mg nightly and metoprolol 50 mg twice daily GERD -Continue daily medication regimen with Pepcid 20 mg twice daily and Protonix 40 mg daily. Obstructive sleep apnea Continue use of CPAP nightly and while napping. The patient is admitted with an anticipated greater than 2 midnight stay for evaluation of severe sepsis CODE STATUS: Full code DVT prophylaxis: Lovenox This document was prepared using [employer] dictation software. Please allow for errors in statement clerks manager while rare they do occur. Objective - Vital Signs Vital signs: Vital Signs Temp 100.1 F H 02/28/24 08:05 Pulse 99 02/28/24 08:05 Resp 17 02/28/24 08:05 BP 170/82 02/28/24 08:05 Pulse Ox 96 02/28/24 08:05 FiO2 Intake & Output 02/27/24 02/28/24 02/28/24 18:59 06:59 18:59 Output Total 850 Balance -850 Output: Urine 850 Other: Voiding Method External Catheter External Catheter External Catheter # Bowel Movements 1 1 - Labs CBC & Chem 7: 02/27/24 03:12 02/27/24 03:08 Labs: Abnormal Lab Results - Last 24 Hours (Table) 02/28/24 Range/Units 12:37 C-Reactive Protein 22.8 H (<1.0) mg/dL Microbiology - Last 24 Hours (Table) 02/26/24 11:05 Urine Culture - Final Urine,Clean Catch 02/26/24 11:05 Blood Culture - Preliminary Blood 02/26/24 11:05 Blood Culture - Preliminary Blood
[2024-02-28 16:41] LABS: Glucose,Whole Blood 139 mg/dL (70-110)
[2024-02-28] MEDS ORDERED: VANCOMYCIN TROUGH DUE 1 EACH MISC MISCELLANE ONE (17:00)
[2024-02-28] MEDS: CHERRY FLAVOR 60 ML BOTTLE PO SCH (22:20)
[2024-02-28] MEDS: VANCOMYCIN ORAL SOLUTION 250 MG/5 ML BOTTLE PO SCH (22:20)
[2024-02-29] MEDS: metroNIDAZOLE-NS PMX 500 MG in SALINE 1 100ML.BAG IVPB SCH (00:10)
[2024-02-29 10:02] LABS: Magnesium 1.6 mg/dL (1.5-2.4)
[2024-02-29 10:15] LABS: ALT 6 U/L (10-49); AST 17 U/L (14-35); Albumin 2.7 g/dL (3.8-4.9); Albumin/Globulin Ratio 1.29 Ratio (1.60-3.17); Alkaline Phosphatase 83 U/L (41-126); BUN/Creat Ratio 11.83 Ratio (12.00-20.00); Bilirubin, Conjugated <0.20 mg/dL (0.20-0.40); Bilirubin,Unconjugated >0.10 mg/dL (0.20-1.00); Blood Urea Nitrogen 7.1 mg/dL (9.0-27.0); Calcium 8.5 mg/dL (8.7-10.3); Carbon Dioxide 14.7 mmol/L (21.6-31.8); Chloride 111 mmol/L (96-109); Globulin 2.1 g/dL (1.6-3.3); Glucose 159 mg/dL (70-110); LDH 198 U/L (120-246); Sodium 140 mmol/L (135-145); Total Bilirubin 0.3 mg/dL (0.3-1.2); Total Protein 4.8 g/dL (6.2-8.2)
[2024-02-29 10:21] LABS: Basophils # (A) 0.06 X 10*3/uL (0.00-0.10); Basophils % (A) 0.3 %; Eosinophils # (A) 0.08 X 10*3/uL (0.04-0.35); Eosinophils % (A) 0.4 %; HCT 34.4 % (39.6-50.0); HGB 11.6 g/dL (13.0-17.0); Lymphocytes # (A) 1.05 X 10*3/uL (0.90-5.00); MCH 31.1 pg (27.0-32.0); MCHC 33.7 g/dL (32.0-37.0); MCV 92.2 FL (80.0-97.0); Mean Platelet Volume 9.1 FL (9.5-12.2); Monocytes # (A) 1.32 X 10*3/uL (0.20-1.00); Monocytes % (A) 6.2 %; NRBC Per 100 WBC 0 X 10*3/uL (0.00-0.01); Neutrophils # (A) 18.54 X 10*3/uL (1.80-7.70); Neutrophils % (A) 87.7 %; Platelet Count 179 X 10*3/uL (140-440); RBC 3.73 X 10*6/uL (4.40-5.60); RDW 13.8 % (11.5-14.5); WBC 21.13 X 10*3/uL (4.50-10.00)
[2024-02-29] MEDS: HYDROcodone/APAP 5-325MG 1 EACH TAB PO PRN (11:09)
[2024-02-29] MEDS: POTASSIUM CHLORIDE ER 20 MEQ TAB.ER PO STA (11:09)
[2024-02-29] MEDS: LIDOCAINE 4% PATCH TOPICAL SCH (11:10)
--- NOTE | 2024-02-29 13:52 | P.PN ---
Subjective Progress Note Date: 02/29/24 Pts mentation improved today. C Dif is positive. On vanco/flagyl Gen: In NAD, non-toxic HEENT: normocephalic, atraumatic, hearing acuity is intant, mucous membranes moist CVS: perfusing all extremities well, no pitting edema, Respiratory: symmetric chest expansion, no accessory muscle use, GI: soft, NTTP, ND, : no suprapubic tenderness, no CVA tenderness MSK/Derm: no rashes, cyanosis Neuro: CN II-XII intact, no motor weakness, Psych: cooperative, euthymic mood, judgment and insight is intact Hospital course: Patient is a very pleasant 78-year-old male with a past medical history of advanced dementia, multiple CVAs and previous brain tumor removal with memory i mpairment, PFO, seizure disorder, hypertension, hyperlipidemia, GERD, and obstructive sleep apnea CPAP dependent nightly. Patient presented to the emergency department via EMS from [facility] with a chief complaint of worsening mental status and confusion. He recently underwent hospitalization from 02/20/2024 through 02/25/2024 for similar complaints and was treated for candidal cystitis with urine culture positive for Sarai glabrata. He was treated with IV Eraxis and Rocephin, his mentation improved and he was back to baseline with repeat urine cultures negative. Patient was discharged home on an extended course of antibiotics with Ceftin. Patient was found by staff at [facility] today again confused and disoriented and he was sent to the emergency department for evaluation. Upon arrival vital signs completed. Blood pressure 162/87, heart rate 101, respiratory rate 20, temp 100.3 F, and SpO2 of 94% on 2 L. Shortly after patient spiked temp up to 101.0 F. EKG completed showing sinus tachycardia at 107 bpm with occasional PVC and first-degree AV block with TX interval of 229 ms. Labs completed and reviewed. CBC showing leukocytosis with WBC count of 26.6, neutrophils of 24.4, lymphocytes of 0.9 and monocytes of 1.2. BMP showing mild non-anion gap metabolic acidosis with chloride of 108, bicarb of 20, and anion gap of 11. Bl ood glucose was 262. Initial lactic acid 3.9. Liver profile unremarkable with exception of low albumin of 3.2. Lipase normal findings at 23. Urinalysis positive for protein, glucose, leukocytes, and only 43 WBCs. Influenza A, influenza B, RSV, and COVID were all negative. Chest x-ray was completed showing low lung volumes with generalized hazy appearance. CTA chest, abdomen, and pelvis with contrast was completed showing mild compressive atelectasis in bilateral lung bases, mild fecal retention, and diffuse urinary bladder wall thickening. Blood cultures were obtained and urine culture was sent to lab for analysis. Patient was started on IV fluid hydration and antibiotics. He was a dmitted under our services with consultation to infectious disease. -CT A/P demonstrated findings of colitis, ischemic vs infective Assessment and Plan of Care: Severe sepsis Acute metabolic encephalopathy Lactic acidosis Recent infection with Candidal Cystitis secondary to Sarai glabrata History of advanced dementia, baseline alert to person and place and able to follow commands History of multiple recent CVAs History of brain tumor with removal resulting in memory impairment -Sepsis of unclear origin at this time, possibly secondary to recent infection with candidal cystitis secondary to Sarai glabrata. -Infectious disease consulted. On oral vancomycin, IV flagyl. -Stool Cx pending -C Diff is positive -Follow-up on blood culture and urine culture results = NGTD -Continuous telemetry monitoring. -Neurochecks every 4 hours and fall precautions in place. -Continue daily medication regimen with aspirin 81 mg daily and Plavix 75 mg daily. -Continue Namenda 7.5 mg twice daily - hold Remeron 30 mg nightly. -Tylenol 650 mg p.o. every 6 hours as needed for fever. -consult urology for recurrent UTI, no urological intervention needed at this time Seizure disorder -Continue Keppra 1000 mg twice daily. -Maintain seizure precautions. Pressure ulcers on coccyx/buttocks, present on arrival. -Was placed for turning patient every 2 hours. -Wound care consulted Hypertension Hyperlipidemia Continue daily medication regimen with lisinopril 5 mg nightly and metoprolol 50 mg twice daily GERD -Continue daily medication regimen with Pepcid 20 mg twice daily and Protonix 40 mg daily. Obstructive sleep apnea Continue use of CPAP nightly and while napping. The patient is admitted with an anticipated greater than 2 midnight stay for evaluation of severe sepsis CODE STATUS: Full code DVT prophylaxis: Lovenox This document was prepared using [employer] dictation software. Please allow for errors in direct response consultant while rare they do occur. Objective - Vital Signs Vital signs: Vital Signs Temp 99.2 F 02/29/24 13:26 Pulse 90 02/29/24 13:26 Resp 18 02/29/24 13:26 BP 157/83 02/29/24 13:26 Pulse Ox 93 L 02/29/24 13:26 FiO2 Intake & Output 02/28/24 02/29/24 02/29/24 18:59 06:59 18:59 Intake Total 75 Output Total 700 1800 Balance -700 -1725 Intake: Oral 75 Output: Urine 700 1800 Other: Voiding Method External Catheter External Catheter External Catheter # Bowel Movements 3 - Labs CBC & Chem 7: 02/29/24 05:51 02/29/24 05:51 Labs: Abnormal Lab Results - Last 24 Hours (Table) 02/28/24 02/28/24 02/28/24 Range/Units 12:37 13:00 16:41 WBC (4.50-10.00) X 10*3/uL RBC (4.40-5.60) X 10*6/uL Hgb (13.0-17.0) g/dL Hct (39.6-50.0) % MPV (9.5-12.2) FL Immature Gran # (0.00-0.04) X 10*3/uL Neutrophils # (1.80-7.70) X 10*3/uL Monocytes # (0.20-1.00) X 10*3/uL Potassium (3.5-5.5) mmol/L Chloride (96-109) mmol/L Carbon Dioxide (21.6-31.8) mmol/L Anion Gap (4.00-12.00) mmol/L BUN (9.0-27.0) mg/dL BUN/Creatinine Ratio (12.00-20.00) Ratio Glucose (70-110) mg/dL POC Glucose (mg/dL) 139 H (70-110) mg/dL Calcium (8.7-10.3) mg/dL Unconjugated Bilirubin (0.20-1.00) mg/dL ALT (10-49) U/L C-Reactive Protein 22.8 H (<1.0) mg/dL Total Protein (6.2-8.2) g/dL Albumin (3.8-4.9) g/dL Albumin/Globulin Ratio (1.60-3.17) Ratio C. difficile (EIA) Intrp Positive A (Negative) 02/29/24 02/29/24 Range/Units 05:51 05:51 WBC 21.13 H (4.50-10.00) X 10*3/uL RBC 3.73 L (4.40-5.60) X 10*6/uL Hgb 11.6 L (13.0-17.0) g/dL Hct 34.4 L (39.6-50.0) % MPV 9.1 L (9.5-12.2) FL Immature Gran # 0.08 H (0.00-0.04) X 10*3/uL Neutrophils # 18.54 H (1.80-7.70) X 10*3/uL Monocytes # 1.32 H (0.20-1.00) X 10*3/uL Potassium 3.0 L (3.5-5.5) mmol/L Chloride 111 H (96-109) mmol/L Carbon Dioxide 14.7 L (21.6-31.8) mmol/L Anion Gap 14.30 H (4.00-12.00) mmol/L BUN 7.1 L (9.0-27.0) mg/dL BUN/Creatinine Ratio 11.83 L (12.00-20.00) Ratio Glucose 159 H (70-110) mg/dL POC Glucose (mg/dL) (70-110) mg/dL Calcium 8.5 L (8.7-10.3) mg/dL Unconjugated Bilirubin >0.10 L (0.20-1.00) mg/dL ALT 6 L (10-49) U/L C-Reactive Protein 19.30 H (<1.0) mg/dL Total Protein 4.8 L (6.2-8.2) g/dL Albumin 2.7 L (3.8-4.9) g/dL Albumin/Globulin Ratio 1.29 L (1.60-3.17) Ratio C. difficile (EIA) Intrp (Negative) Microbiology - Last 24 Hours (Table) 02/26/24 11:05 Blood Culture - Preliminary Blood 02/26/24 11:05 Blood Culture - Preliminary Blood
--- NOTE | 2024-02-29 17:23 | CT ---
EXAMINATION TYPE: CT brain wo con CT DLP: 1197.4 mGycm, Automated exposure control for dose reduction was used. DATE OF EXAM: 02/29/2024 4:24 PM COMPARISON: CT 02/20/2024. CLINICAL INDICATION:Male, 78 years old with history of stroke r/o, AMS, prior stroke TECHNIQUE: Brain: Axial CT images of the brain were obtained with coronal and sagittal reformats created and rev iewed. Contrast used: None. Oral contrast used: None. FINDINGS: Moderate to severe generalized atrophy with commensurate enlargement of the ventricles/CSF spaces. Moderate to severe patchy and confluent white matter hypoattenuation, most likely due to chronic micr ovascular ischemic white matter changes. There is patchy encephalomalacia in the left cerebral hemisphere again seen, including the left tempo ral lobe consistent with remote infarct/insults. There is no acute intracranial hemorrhage, midline shift, or mass effect. No loss of galaviz/white matte r distinction is seen to suggest an acute territorial infarction. Basilar cisterns are patent. No her niation. No acute calvarial abnormality is identified. Remote craniotomy changes on the left. Old serina hole an teriorly. Moderate mucosal thickening throughout the left maxillary sinus is again seen. Mild to mode rate peripheral mucosal thickening in the right maxillary sinus, with frothy debris in the aerated po rtion of this sinus. There is scattered moderate soft tissue thickening throughout the bilateral ethm oid air cells. The mastoid air cells are clear and without evidence of trabecular resorption. Major arteries at the skull base show atherosclerotic calcification. No acute orbital or extracranial soft tissue normality. MRI is more sensitive for detecting acute processes such as infarct, and may be considered if clinica lly warranted. IMPRESSION: 1. No acute intracranial CT abnormality. 2. Atrophy, chronic microvascular ischemic changes, remote infarcts. 3. Paranasal sinus disease.
[2024-02-29 19:55] LABS: Glucose,Whole Blood 183 mg/dL (70-110)
[2024-02-29] MEDS: METOPROLOL TARTRATE 25 MG TAB PO STA (21:09)
[2024-03-01 08:50] LABS: HCT 37.1 % (39.0-53.0); HGB 12.4 gm/dL (13.0-17.5); MCH 30.7 pg (25.0-35.0); MCHC 33.4 g/dL (31.0-37.0); MCV 91.9 fL (80.0-100.0); Platelet Count 211 k/uL (150-450); Poikilocytosis Slight; RBC 4.04 m/uL (4.30-5.90); RDW 14.1 % (11.5-15.5); WBC 19.7 k/uL (3.8-10.6)
[2024-03-01 09:09] LABS: ALT 9 U/L (4-49); AST 16 U/L (17-59); African American GFR (CKD) >90 (>60 ml/min/1.73 sqM); Albumin 2.3 g/dL (3.5-5.0); Albumin/Globulin Ratio 0.9; Alkaline Phosphatase 89 U/L (38-126); Anion Gap 4 mmol/L; Blood Urea Nitrogen 4 mg/dL (9-20); Calcium 8.4 mg/dL (8.4-10.2); Carbon Dioxide 21 mmol/L (22-30); Chloride 112 mmol/L (98-107); Globulin 2.6 g/dL; Glucose 144 mg/dL (74-99); Magnesium 1.7 mg/dL (1.6-2.3); Non-African American GFR(CKD) >90 (>60 ml/min/1.73 sqM); Sodium 137 mmol/L (137-145); Total Bilirubin 0.5 mg/dL (0.2-1.3); Total Protein 4.9 g/dL (6.3-8.2)
[2024-03-01 09:12] LABS: Potassium 2.7 mmol/L (3.5-5.1)
[2024-03-01] MEDS: MAGNESIUM SULFATE-D5W PMX 1 GM in DEXTROSE/WATER 1 100ML.BAG IVPB SCH (09:42)
[2024-03-01] MEDS: POTASSIUM BICARBONATE/CIT AC 20 MEQ TABLET.EFF PO ONE (09:43)
[2024-03-01] MEDS ORDERED: DEXTROSE 50% SYRINGE 50 ML IVP PRN ×2 (11:53)
--- NOTE | 2024-03-01 12:18 | P.PN ---
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 Patient was ultimately found to have C. difficile and was started on vancomycin and Flagyl. Patient seen and examined at bedside. Vital signs reviewed General: Nontoxic, no distress, appears at stated age Cardiovascular: S1S2 reg, no murmur Lungs: CTA bilateral, no rhonchi, no rales, no accessory muscle use Abdominal: Soft, nontender to palpation, no guarding Ext: No gross muscle atrophy, no edema b/l lower extremities, no contractures Neuro: CN II-XI grossly intact, no focal neuro deficits Psych: Alert, oriented, appropriate affect Assessment/Plan: C. difficile colitis with severe sepsis Toxic metabolic encephalopathy with underlying advanced dementia (baseline alert to person and place and follows commands) -Vancomycin 500 mg p.o. every 6 hours day #3 -Flagyl 500 mg IV piggyback day #2 -Await further infectious disease recommendations - Continue to hold Remeron. Resume Namenda at 10 mg twice daily (xr not available) Hypokalemia -Replace with 40 mill equivalents of potassium chloride and 40 mill equivalents of K-Lyte -Continue with his scheduled 20 mill equivalents of potassium daily -Recheck at 1600 and in a.m. Hypomagnesemia -2 g of magnesium -Repeat in a.m. Diabetes mellitus type 2 -Hold metformin -Start sliding scale insulin, blood sugar checks. -A1c 5.03 December 2023 Dysphagia with food pocketing per nursing -Consult speech Seizure disorder -Keppra 1000 mg twice daily Hypertension Dyslipidemia -Lisinopril 5 mg at night, metoprolol 50 mg twice daily -Patient is not on chronic lipid lowering medications Resolved: Lactic acidosis Chronic/prior: Recent urinary tract infection with Sarai glabrata Multiple CVAs History of brain tumor status post removal Sleep apnea Imaging: Head CT: No acute process Data Review: Labs reviewed from today include CBC and CMP which are remarkable for white blood cell count 19.7, hemoglobin 12.4, potassium 2.7, chloride 112, carbon dioxide 21. DVT prophylaxis: Lovenox Anticipated discharge date: Pending Clinical Course Anticipated discharge place: Pending Clinical Course This dictation was prepared using dragon medical voice recognition software. Though every attempt is made to correct errors during dictation some may still exist. Objective - Vital Signs Vital signs: Vital Signs Temp 97.8 F 03/01/24 07:45 Pulse 92 03/01/24 07:45 Resp 17 03/01/24 07:45 BP 162/84 03/01/24 07:45 Pulse Ox 95 03/01/24 07:45 FiO2 Intake & Output 02/29/24 03/01/24 03/01/24 18:59 06:59 18:59 Output Total 600 600 Balance -600 -600 Output: Urine 600 600 Other: Voiding Method External Catheter External Catheter External Catheter # Bowel Movements 5 1 2 - Labs CBC & Chem 7: 03/01/24 08:36 03/01/24 08:36 Labs: Abnormal Lab Results - Last 24 Hours (Table) 02/29/24 03/01/24 03/01/24 Range/Units 19:54 08:36 08:36 WBC 19.7 H (3.8-10.6) k/uL RBC 4.04 L (4.30-5.90) m/uL Hgb 12.4 L (13.0-17.5) gm/dL Hct 37.1 L (39.0-53.0) % Potassium 2.7 L* (3.5-5.1) mmol/L Chloride 112 H (98-107) mmol/L Carbon Dioxide 21 L (22-30) mmol/L BUN 4 L (9-20) mg/dL Creatinine 0.41 L (0.66-1.25) mg/dL Glucose 144 H (74-99) mg/dL POC Glucose (mg/dL) 183 H (70-110) mg/dL AST 16 L (17-59) U/L Total Protein 4.9 L (6.3-8.2) g/dL Albumin 2.3 L (3.5-5.0) g/dL Microbiology - Last 24 Hours (Table) 02/28/24 12:37 Blood Culture - Preliminary Blood 02/26/24 11:05 Blood Culture - Preliminary Blood 02/26/24 11:05 Blood Culture - Preliminary Blood
[2024-03-01 12:28] LABS: Glucose,Whole Blood 179 mg/dL (70-110)
[2024-03-01] MEDS: INSULIN ASPART (NovoLOG) 100 UNIT/ML VIAL SQ SCH (12:29)
[2024-03-01 16:24] LABS: Glucose,Whole Blood 125 mg/dL (70-110)
--- NOTE | 2024-03-01 17:58 | P.PN ---
Subjective Progress Note Date: 02/29/24 Principal diagnosis: Reason for follow-up is fever/UTI Patient is a 78-year-old male with a past medical history significant for diabetes mellitus hypertension hyperlipidemia reflux COPD memory impairment recently admitted to this hospital has been diagnosed with a UTI and was treated with antibiotic antifungal did have overall improvement his clinical condition and was discharged to halfway, patient was back to the hospital because of fever hypertension and weakness abdominal pain however the patient did have CT abdominal pelvis did not show any acute abnormality. On today's visit that is 02/29/2024,the patient did have improvement in his fever pattern with the last temperature of 100 F at midnight no fever have recorded subsequently patient remains to be pleasantly confused but no agitation has been reported no vomiting still having diarrhea per the nursing staff Patient white count of 21.13, creatinine 0.6 Objective - Vital Signs Vital signs: Vital Signs Temp 98.4 F 02/29/24 07:31 Pulse 103 H 02/29/24 07:31 Resp 17 02/29/24 07:31 BP 184/89 02/29/24 07:31 Pulse Ox 95 02/29/24 07:31 FiO2 Intake & Output 02/28/24 02/29/24 02/29/24 18:59 06:59 18:59 Intake Total 75 Output Total 700 1800 Balance -700 -1727 Intake: Oral 75 Output: Urine 700 1800 Other: Voiding Method External Catheter External Catheter External Catheter # Bowel Movements 3 - Exam GENERAL DESCRIPTION: An elderly male lying in bed in no distress RESPIRATORY SYSTEM: Unlabored breathing , decreased breath sounds at bases HEART: S1 S2 regular rate and rhythm , ABDOMEN: Soft , no tenderness EXTREMITIES: No edema feet - Labs CBC & Chem 7: 03/01/24 08:36 03/01/24 08:36 Labs: Abnormal Lab Results - Last 24 Hours (Table) 02/28/24 02/28/24 02/28/24 Range/Units 12:37 13:00 16:41 WBC (4.50-10.00) X 10*3/uL RBC (4.40-5.60) X 10*6/uL Hgb (13.0-17.0) g/dL Hct (39.6-50.0) % MPV (9.5-12.2) FL Immature Gran # (0.00-0.04) X 10*3/uL Neutrophils # (1.80-7.70) X 10*3/uL Monocytes # (0.20-1.00) X 10*3/uL Potassium (3.5-5.5) mmol/L Chloride (96-109) mmol/L Carbon Dioxide (21.6-31.8) mmol/L Anion Gap (4.00-12.00) mmol/L BUN (9.0-27.0) mg/dL BUN/Creatinine Ratio (12.00-20.00) Ratio Glucose (70-110) mg/dL POC Glucose (mg/dL) 139 H (70-110) mg/dL Calcium (8.7-10.3) mg/dL Unconjugated Bilirubin (0.20-1.00) mg/dL ALT (10-49) U/L C-Reactive Protein 22.8 H (<1.0) mg/dL Total Protein (6.2-8.2) g/dL Albumin (3.8-4.9) g/dL Albumin/Globulin Ratio (1.60-3.17) Ratio C. difficile (EIA) Intrp Positive A (Negative) 02/29/24 02/29/24 Range/Units 05:51 05:51 WBC 21.13 H (4.50-10.00) X 10*3/uL RBC 3.73 L (4.40-5.60) X 10*6/uL Hgb 11.6 L (13.0-17.0) g/dL Hct 34.4 L (39.6-50.0) % MPV 9.1 L (9.5-12.2) FL Immature Gran # 0.08 H (0.00-0.04) X 10*3/uL Neutrophils # 18.54 H (1.80-7.70) X 10*3/uL Monocytes # 1.32 H (0.20-1.00) X 10*3/uL Potassium 3.0 L (3.5-5.5) mmol/L Chloride 111 H (96-109) mmol/L Carbon Dioxide 14.7 L (21.6-31.8) mmol/L Anion Gap 14.30 H (4.00-12.00) mmol/L BUN 7.1 L (9.0-27.0) mg/dL BUN/Creatinine Ratio 11.83 L (12.00-20.00) Ratio Glucose 159 H (70-110) mg/dL POC Glucose (mg/dL) (70-110) mg/dL Calcium 8.5 L (8.7-10.3) mg/dL Unconjugated Bilirubin >0.10 L (0.20-1.00) mg/dL ALT 6 L (10-49) U/L C-Reactive Protein 19.30 H (<1.0) mg/dL Total Protein 4.8 L (6.2-8.2) g/dL Albumin 2.7 L (3.8-4.9) g/dL Albumin/Globulin Ratio 1.29 L (1.60-3.17) Ratio C. difficile (EIA) Intrp (Negative) Microbiology - Last 24 Hours (Table) 02/26/24 11:05 Blood Culture - Preliminary Blood 02/26/24 11:05 Blood Culture - Preliminary Blood Assessment and Plan (1) Colitis Current Visit: Yes Status: Acute Code(s): K52.9 - NONINFECTIVE GASTROENTERITIS AND COLITIS, UNSPECIFIED SNOMED Code(s): 12437409 (2) Febrile illness Current Visit: Yes Status: Acute Code(s): R50.9 - FEVER, UNSPECIFIED SNOMED Code(s): 676500588 (3) Leukocytosis Current Visit: No Status: Acute Code(s): D72.829 - ELEVATED WHITE BLOOD CELL COUNT, UNSPECIFIED SNOMED Code(s): 772688393 Plan: 1patient presented to hospital with sepsis in this patient who did have fever tachycardia elevated white count source is likely urinary as the patient did have a positive UA and evidence of cystitis on the CT abdominal pelvis no other abnormality reported on the CT abdominal pelvis such as diverticulitis or abscess and there was evidence of compressive atelectasis no consolidation re ported on that CT, patient did have a new fever early childhood education instructor of 02/28/2024 for the patient did have repeat CT with now showing evidence of colitis which was not reported on initial CAT scan question of infectious, the patient stool for C. difficile came back positive 2-patient has been started on oral vancomycin to continue along with IV Flagyl as there was some concern for patient not taking his oral medication however the nursing staff mention he has been taking his medication Dictation was produced using dragon dictation software. please excuse any grammatical, word or spelling errors. Time with Patient: Less than 30
--- NOTE | 2024-03-01 17:59 | P.PN ---
Subjective Progress Note Date: 03/01/24 Principal diagnosis: Reason for follow-up is fever/UTI Patient is a 78-year-old male with a past medical history significant for diabetes mellitus hypertension hyperlipidemia reflux COPD memory impairment recently admitted to this hospital has been diagnosed with a UTI and was treated with antibiotic antifungal did have overall improvement his clinical condition and was discharged to custodial, patient was back to the hospital because of fever hypertension and weakness abdominal pain however the patient did have CT abdominal pelvis did not show any acute abnormality. On today's visit that is 03/01/2024,the patient did have resolution of his fever and is afebrile today patient is breathing comfortably on room air denies any chest pain shortness of breath or cough still complain of some abdominal pain still having diarrhea but slowed down per the nursing staff. Patient white count down to 19.7, creatinine 0.41 Objective - Vital Signs Vital signs: Vital Signs Temp 98.5 F 03/01/24 14:36 Pulse 85 03/01/24 14:00 Resp 18 03/01/24 14:00 BP 167/80 03/01/24 14:00 Pulse Ox 97 03/01/24 14:00 FiO2 Intake & Output 02/29/24 03/01/24 03/01/24 18:59 06:59 18:59 Output Total 600 600 400 Balance -600 -600 -400 Output: Urine 600 600 400 Other: Voiding Method External Catheter External Catheter External Catheter # Bowel Movements 5 1 3 - Exam GENERAL DESCRIPTION: An elderly male lying in bed in no distress RESPIRATORY SYSTEM: Unlabored breathing , decreased breath sounds at bases HEART: S1 S2 regular rate and rhythm , ABDOMEN: Soft , no tenderness EXTREMITIES: No edema feet - Labs CBC & Chem 7: 03/01/24 08:36 03/01/24 08:36 Labs: Abnormal Lab Results - Last 24 Hours (Table) 02/29/24 03/01/24 03/01/24 Range/Units 19:54 08:36 08:36 WBC 19.7 H (3.8-10.6) k/uL RBC 4.04 L (4.30-5.90) m/uL Hgb 12.4 L (13.0-17.5) gm/dL Hct 37.1 L (39.0-53.0) % Potassium 2.7 L* (3.5-5.1) mmol/L Chloride 112 H (98-107) mmol/L Carbon Dioxide 21 L (22-30) mmol/L BUN 4 L (9-20) mg/dL Creatinine 0.41 L (0.66-1.25) mg/dL Glucose 144 H (74-99) mg/dL POC Glucose (mg/dL) 183 H (70-110) mg/dL AST 16 L (17-59) U/L Total Protein 4.9 L (6.3-8.2) g/dL Albumin 2.3 L (3.5-5.0) g/dL 03/01/24 03/01/24 Range/Units 12:25 16:23 WBC (3.8-10.6) k/uL RBC (4.30-5.90) m/uL Hgb (13.0-17.5) gm/dL Hct (39.0-53.0) % Potassium (3.5-5.1) mmol/L Chloride (98-107) mmol/L Carbon Dioxide (22-30) mmol/L BUN (9-20) mg/dL Creatinine (0.66-1.25) mg/dL Glucose (74-99) mg/dL POC Glucose (mg/dL) 179 H 125 H (70-110) mg/dL AST (17-59) U/L Total Protein (6.3-8.2) g/dL Albumin (3.5-5.0) g/dL Microbiology - Last 24 Hours (Table) 02/28/24 12:37 Blood Culture - Preliminary Blood 02/26/24 11:05 Blood Culture - Preliminary Blood 02/26/24 11:05 Blood Culture - Preliminary Blood Assessment and Plan (1) Colitis Current Visit: Yes Status: Acute Code(s): K52.9 - NONINFECTIVE GASTROENTERITIS AND COLITIS, UNSPECIFIED SNOMED Code(s): 18679284 (2) Febrile illness Current Visit: Yes Status: Acute Code(s): R50.9 - FEVER, UNSPECIFIED SNOMED Code(s): 122877554 (3) Leukocytosis Current Visit: No Status: Acute Code(s): D72.829 - ELEVATED WHITE BLOOD CELL COUNT, UNSPECIFIED SNOMED Code(s): 511518092 Plan: 1patient presented to hospital with sepsis in this patient who did have fever tachycardia elevated white count source is likely urinary as the patient did have a positive UA and evidence of cystitis on the CT abdominal pelvis no other abnormality reported on the CT abdominal pelvis such as diverticulitis or abscess and there was evidence of compressive atelectasis no consolidation reported on that CT, patient did have a new fever early childhood education specialist of 02/28/2024 for the patient did have repeat CT with now showing evidence of colitis which was not reported on initial CAT scan question of infectious, the patient stool for C. difficile came back positive 2-patient did have resolution of his fever and the patient white count is trending down patient is currently being treated with IV Flagyl and oral vancomycin because of extensive colitis antibiotic clinical course closely Dictation was produced using [employer] dictation software. please excuse any grammatical, word or spelling errors. Time with Patient: Less than 30
[2024-03-01] MEDS: MEMANTINE 10 MG TAB PO SCH (20:24)
[2024-03-01 20:43] LABS: Glucose,Whole Blood 166 mg/dL (70-110)
[2024-03-01] MEDS: POTASSIUM CHLORIDE ER 20 MEQ TAB.ER PO STA (22:11)
[2024-03-01] MEDS: POTASSIUM CHLORIDE 10 MEQ in WATER FOR INJECTION 1 100ML.BAG IVPB SCH (22:14)
[2024-03-02 06:01] LABS: Glucose,Whole Blood 135 mg/dL (70-110)
[2024-03-02 08:34] LABS: HCT 32.5 % (39.6-50.0); HGB 11.4 g/dL (13.0-17.0); MCH 31.2 pg (27.0-32.0); MCHC 35.1 g/dL (32.0-37.0); Mean Platelet Volume 9.2 FL (9.5-12.2); NRBC Per 100 WBC 0 X 10*3/uL (0.00-0.01); Platelet Count 191 X 10*3/uL (140-440); RBC 3.65 X 10*6/uL (4.40-5.60); RDW 13.7 % (11.5-14.5); WBC 12.57 X 10*3/uL (4.50-10.00)
[2024-03-02 08:41] LABS: ALT 5 U/L (10-49); AST 15 U/L (14-35); Albumin 2.4 g/dL (3.8-4.9); Albumin/Globulin Ratio 1.26 Ratio (1.60-3.17); Alkaline Phosphatase 69 U/L (41-126); BUN/Creat Ratio <8.75 Ratio (12.00-20.00); Blood Urea Nitrogen <3.5 mg/dL (9.0-27.0); Calcium 7.9 mg/dL (8.7-10.3); Carbon Dioxide 19.1 mmol/L (21.6-31.8); Chloride 110 mmol/L (96-109); Globulin 1.9 g/dL (1.6-3.3); Glucose 138 mg/dL (70-110); Magnesium 1.9 mg/dL (1.5-2.4); Potassium 3.2 mmol/L (3.5-5.5); Sodium 138 mmol/L (135-145); Total Bilirubin 0.3 mg/dL (0.3-1.2); Total Protein 4.3 g/dL (6.2-8.2)
[2024-03-02 11:11] LABS: Glucose,Whole Blood 155 mg/dL (70-110)
[2024-03-02] MEDS: POTASSIUM CHLORIDE ER 20 MEQ TAB.ER PO SCH (12:08)
--- NOTE | 2024-03-02 16:02 | P.PN ---
Subjective Progress Note Date: 03/02/24 Pts continues to have issues with swallow, aspiration. Discussed with speech therapy today, they will proceed with video swallow study. Gen: In NAD, non-toxic HEENT: normocephalic, atraumatic, hearing acuity is intant, mucous membranes moist CVS: perfusing all extremities well, no pitting edema, Respiratory: symmetric chest expansion, no accessory muscle use, GI: soft, NTTP, ND, : no suprapubic tenderness, no CVA tenderness MSK/Derm: no rashes, cyanosis Neuro: CN II-XII intact, no motor weakness, Psych: cooperative, euthymic mood, judgment and insight is intact Hospital course: Patient is a very pleasant 78-year-old male with a past medical history of advanced dementia, multiple CVAs and previous brain tumor removal with memory impairment, PFO, seizure disorder, hypertension, hyperlipidemia, GERD, and obstructive sleep apnea CPAP dependent nightly. Patient presented to the emergency department via EMS from [facility] with a [facility] complaint of worsening mental status and confusion. He recently underwent hospitalization from 02/20/2024 through 02/25/2024 for similar complaints and was treated for candidal cystitis with urine culture positive for Sarai glabrata. He was treated with IV Eraxis and Rocephin, his mentation improved and he was back to baseline with repeat urine cultures negative. Patient was discharged home on an extended course of antibiotics with Ceftin. Patient was found by staff at [facility] today again confused and disoriented and he was sent to the emergency department for evaluation. Upon arrival vital signs completed. Blood pressure 162/87, heart rate 101, respiratory rate 20, temp 100.3 F, and SpO2 of 94% on 2 L. Shortly after patient spiked temp up to 101.0 F. EKG completed showing sinus tachycardia at 107 bpm with occasional PVC and first-degree AV block with AK interval of 229 ms. Labs completed and reviewed. CBC showing leukocytosis with WBC count of 26.6, neutrophils of 24.4, lymphocytes of 0.9 and monocytes of 1.2. BMP showing mild non-anion gap metabol ic acidosis with chloride of 108, bicarb of 20, and anion gap of 11. Blood glucose was 262. Initial lactic acid 3.9. Liver profile unremarkable with exception of low albumin of 3.2. Lipase normal findings at 23. Urinalysis positive for protein, glucose, leukocytes, and only 43 WBCs. Influenza A, influenza B, RSV, and COVID were all negative. Chest x-ray was completed showing low lung volumes with generalized hazy appearance. CTA chest, abdomen, and pelvis with contrast was completed showing mild compressive atelectasis in bilateral lung bases, mild fecal retention, and diffuse urinary bladder wall thickening. Blood cultures were obtained and urine culture was sent to lab for analysis. Patient was started on IV fluid hydration and antibiotics. He was admitted under our services with consultation to infectious disease. -CT A/P demonstrated findings of colitis, ischemic vs infective Assessment and Plan of Care: Severe sepsis secondary to C. difficile colitis Acute metabolic encephalopathy Recent infection with Candidal Cystitis secondary to Sarai glabrata -Infectious disease consulted. On oral vancomycin, IV flagyl. -Stool Cx pending -C Diff is positive -Follow-up on blood culture and urine culture results = NGTD -consult urology for recurrent UTI, no urological intervention needed at this time History of advanced dementia, baseline alert to person and place and able to follow commands History of multiple recent CVAs History of brain tumor with removal resulting in memory impairment -Continuous telemetry monitoring. -Neurochecks every 4 hours and fall precautions in place. -Continue daily medication regimen with aspirin 81 mg daily and Plavix 75 mg daily. -Continue Namenda 7.5 mg twice daily - hold Remeron 30 mg nightly. -Tylenol 650 mg p.o. every 6 hours as needed for fever. -Speech therapy consult was added, video swallow study ordered Seizure disorder -Continue Keppra 1000 mg twice daily. -Maintain seizure precautions. Pressure ulcers on coccyx/buttocks, present on arrival. -Was placed for turning patient every 2 hours. -Wound care consulted Hypertension Hyperlipidemia Continue daily medication regimen with lisinopril 5 mg nightly and metoprolol 50 mg twice daily GERD -Continue daily medication regimen with Pepcid 20 mg twice daily and Protonix 40 mg daily. Obstructive sleep apnea Continue use of CPAP nightly and while napping. The patient is admitted with an anticipated greater than 2 midnight stay for evaluation of severe sepsis CODE STATUS: Full code DVT prophylaxis: Lovenox This document was prepared using [employer] dictation software. Please allow for errors in museum technician while rare they do occur. Objective - Vital Signs Vital signs: Vital Signs Temp 98.4 F 03/02/24 13:37 Pulse 77 03/02/24 13:37 Resp 15 03/02/24 13:37 BP 145/75 03/02/24 13:37 Pulse Ox 95 03/02/24 13:37 FiO2 Intake & Output 03/01/24 03/02/24 03/02/24 18:59 06:59 18:59 Intake Total 75 Output Total 400 525 Balance -400 -450 Intake: Oral 75 Output: Urine 400 525 Other: Voiding Method External Catheter External Catheter External Catheter # Bowel Movements 3 3 - Labs CBC & Chem 7: 03/02/24 06:04 03/02/24 06:04 Labs: Abnormal Lab Results - Last 24 Hours (Table) 03/01/24 03/01/24 03/01/24 Range/Units 16:23 20:32 20:40 WBC (4.50-10.00) X 10*3/uL RBC (4.40-5.60) X 10*6/uL Hgb (13.0-17.0) g/dL Hct (39.6-50.0) % MPV (9.5-12.2) FL Potassium 3.1 L (3.5-5.1) mmol/L Chloride (96-109) mmol/L Carbon Dioxide (21.6-31.8) mmol/L BUN (9.0-27.0) mg/dL Creatinine (0.6-1.5) mg/dL BUN/Creatinine Ratio (12.00-20.00) Ratio Glucose (70-110) mg/dL POC Glucose (mg/dL) 125 H 166 H (70-110) mg/dL Calcium (8.7-10.3) mg/dL ALT (10-49) U/L Total Protein (6.2-8.2) g/dL Albumin (3.8-4.9) g/dL Albumin/Globulin Ratio (1.60-3.17) Ratio 03/02/24 03/02/24 03/02/24 Range/Units 06:00 06:04 06:04 WBC 12.57 H (4.50-10.00) X 10*3/uL RBC 3.65 L (4.40-5.60) X 10*6/uL Hgb 11.4 L (13.0-17.0) g/dL Hct 32.5 L (39.6-50.0) % MPV 9.2 L (9.5-12.2) FL Potassium 3.2 L (3.5-5.1) mmol/L Chloride 110 H (96-109) mmol/L Carbon Dioxide 19.1 L (21.6-31.8) mmol/L BUN <3.5 L (9.0-27.0) mg/dL Creatinine 0.4 L (0.6-1.5) mg/dL BUN/Creatinine Ratio <8.75 L (12.00-20.00) Ratio Glucose 138 H (70-110) mg/dL POC Glucose (mg/dL) 135 H (70-110) mg/dL Calcium 7.9 L (8.7-10.3) mg/dL ALT 5 L (10-49) U/L Total Protein 4.3 L (6.2-8.2) g/dL Albumin 2.4 L (3.8-4.9) g/dL Albumin/Globulin Ratio 1.26 L (1.60-3.17) Ratio 03/02/24 Range/Units 11:10 WBC (4.50-10.00) X 10*3/uL RBC (4.40-5.60) X 10*6/uL Hgb (13.0-17.0) g/dL Hct (39.6-50.0) % MPV (9.5-12.2) FL Potassium (3.5-5.1) mmol/L Chloride (96-109) mmol/L Carbon Dioxide (21.6-31.8) mmol/L BUN (9.0-27.0) mg/dL Creatinine (0.6-1.5) mg/dL BUN/Creatinine Ratio (12.00-20.00) Ratio Glucose (70-110) mg/dL POC Glucose (mg/dL) 155 H (70-110) mg/dL Calcium (8.7-10.3) mg/dL ALT (10-49) U/L Total Protein (6.2-8.2) g/dL Albumin (3.8-4.9) g/dL Albumin/Globulin Ratio (1.60-3.17) Ratio Microbiology - Last 24 Hours (Table) 02/28/24 12:37 Blood Culture - Preliminary Blood
[2024-03-02 16:08] LABS: Glucose,Whole Blood 121 mg/dL (70-110)
--- NOTE | 2024-03-02 20:00 | P.PN ---
Subjective Progress Note Date: 03/02/24 Principal diagnosis: Reason for follow-up is fever/UTI Patient is a 78-year-old male with a past medical history significant for diabetes mellitus hypertension hyperlipidemia reflux COPD memory impairment recently admitted to this hospital has been diagnosed with a UTI and was treated with antibiotic antifungal did have overall improvement his clinical condition and was discharged to custodial, patient was back to the hospital because of fever hypertension and weakness abdominal pain however the patient did have CT abdominal pelvis did not show any acute abnormality. On today's visit that is 03/02/2024, the patient continues to be afebrile, the patient is on room air and breathing comfortably, the Pt slightly more awake and alert denies any chest pain still having diarrhea but slightly slowed down per the nursing staff. The patient white count is down to 12.57 creatinine 0.4 blood culture negative Objective - Vital Signs Vital signs: Vital Signs Temp 97.5 F L 03/02/24 07:30 Pulse 84 03/02/24 07:30 Resp 20 03/02/24 07:30 BP 158/78 03/02/24 07:30 Pulse Ox 96 03/02/24 07:30 FiO2 Intake & Output 03/01/24 03/02/24 03/02/24 18:59 06:59 18:59 Intake Total 75 Output Total 400 525 Balance -400 -450 Intake: Oral 75 Output: Urine 400 525 Other: Voiding Method External Catheter External Catheter External Catheter # Bowel Movements 3 3 - Exam GENERAL DESCRIPTION: An elderly male lying in bed in no distress RESPIRATORY SYSTEM: Unlabored breathing , decreased breath sounds at bases HEART: S1 S2 regular rate and rhythm , ABDOMEN: Soft , no tenderness EXTREMITIES: No edema feet - Labs CBC & Chem 7: 03/02/24 06:04 03/02/24 06:04 Labs: Abnormal Lab Results - Last 24 Hours (Table) 03/01/24 03/01/24 03/01/24 Range/Units 16:23 20:32 20:40 WBC (4.50-10.00) X 10*3/uL RBC (4.40-5.60) X 10*6/uL Hgb (13.0-17.0) g/dL Hct (39.6-50.0) % MPV (9.5-12.2) FL Potassium 3.1 L (3.5-5.1) mmol/L Chloride (96-109) mmol/L Carbon Dioxide (21.6-31.8) mmol/L BUN (9.0-27.0) mg/dL Creatinine (0.6-1.5) mg/dL BUN/Creatinine Ratio (12.00-20.00) Ratio Glucose (70-110) mg/dL POC Glucose (mg/dL) 125 H 166 H (70-110) mg/dL Calcium (8.7-10.3) mg/dL ALT (10-49) U/L Total Protein (6.2-8.2) g/dL Albumin (3.8-4.9) g/dL Albumin/Globulin Ratio (1.60-3.17) Ratio 03/02/24 03/02/24 03/02/24 Range/Units 06:00 06:04 06:04 WBC 12.57 H (4.50-10.00) X 10*3/uL RBC 3.65 L (4.40-5.60) X 10*6/uL Hgb 11.4 L (13.0-17.0) g/dL Hct 32.5 L (39.6-50.0) % MPV 9.2 L (9.5-12.2) FL Potassium 3.2 L (3.5-5.1) mmol/L Chloride 110 H (96-109) mmol/L Carbon Dioxide 19.1 L (21.6-31.8) mmol/L BUN <3.5 L (9.0-27.0) mg/dL Creatinine 0.4 L (0.6-1.5) mg/dL BUN/Creatinine Ratio <8.75 L (12.00-20.00) Ratio Glucose 138 H (70-110) mg/dL POC Glucose (mg/dL) 135 H (70-110) mg/dL Calcium 7.9 L (8.7-10.3) mg/dL ALT 5 L (10-49) U/L Total Protein 4.3 L (6.2-8.2) g/dL Albumin 2.4 L (3.8-4.9) g/dL Albumin/Globulin Ratio 1.26 L (1.60-3.17) Ratio 03/02/24 Range/Units 11:10 WBC (4.50-10.00) X 10*3/uL RBC (4.40-5.60) X 10*6/uL Hgb (13.0-17.0) g/dL Hct (39.6-50.0) % MPV (9.5-12.2) FL Potassium (3.5-5.1) mmol/L Chloride (96-109) mmol/L Carbon Dioxide (21.6-31.8) mmol/L BUN (9.0-27.0) mg/dL Creatinine (0.6-1.5) mg/dL BUN/Creatinine Ratio (12.00-20.00) Ratio Glucose (70-110) mg/dL POC Glucose (mg/dL) 155 H (70-110) mg/dL Calcium (8.7-10.3) mg/dL ALT (10-49) U/L Total Protein (6.2-8.2) g/dL Albumin (3.8-4.9) g/dL Albumin/Globulin Ratio (1.60-3.17) Ratio Microbiology - Last 24 Hours (Table) 02/28/24 12:37 Blood Culture - Preliminary Blood Assessment and Plan (1) Colitis Current Visit: Yes Status: Acute Code(s): K52.9 - NONINFECTIVE GASTROEN TERITIS AND COLITIS, UNSPECIFIED SNOMED Code(s): 62941387 (2) Febrile illness Current Visit: Yes Status: Acute Code(s): R50.9 - FEVER, UNSPECIFIED SNOMED Code(s): 239681415 (3) Leukocytosis Current Visit: No Status: Acute Code(s): D72.829 - ELEVATED WHITE BLOOD CELL COUNT, UNSPECIFIED SNOMED Code(s): 098304703 Plan: 1patient presented to hospital with sepsis in this patient who did have fever tachycardia elevated white count source is likely urinary as the patient did have a positive UA and evidence of cystitis on the CT abdominal pelvis no other abnormality reported on the CT abdominal pelvis such as diverticulitis or abscess and there was evidence of compressive atelectasis no consolidation reported on that CT, patient did have a 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 difficile came back positive 2-patient did have resolution of his fever and the patient white count is trending down 3- patient to continue with IV Flagyl and oral vancomycin because of extensive colitis and monitor clinical course closely Dictation was produced using [employer] dictation software. please excuse any grammatical, word or spelling errors. Time with Patient: Less than 30
[2024-03-02 20:47] LABS: Glucose,Whole Blood 132 mg/dL (70-110)
[2024-03-03 05:51] LABS: Glucose,Whole Blood 130 mg/dL (70-110)
[2024-03-03 10:40] LABS: HCT 33.9 % (39.0-53.0); HGB 11.4 gm/dL (13.0-17.5); MCH 31.2 pg (25.0-35.0); MCHC 33.6 g/dL (31.0-37.0); MCV 92.8 fL (80.0-100.0); Mean Platelet Volume 7.1; Platelet Count 284 k/uL (150-450); Poikilocytosis Slight; RBC 3.66 m/uL (4.30-5.90); RDW 14.2 % (11.5-15.5); WBC 7.9 k/uL (3.8-10.6)
[2024-03-03 10:58] LABS: ALT 9 U/L (4-49); AST 18 U/L (17-59); African American GFR (CKD) >90 (>60 ml/min/1.73 sqM); Albumin 1.9 g/dL (3.5-5.0); Albumin/Globulin Ratio 0.8; Alkaline Phosphatase 68 U/L (38-126); Anion Gap 3 mmol/L; Blood Urea Nitrogen 3 mg/dL (9-20); Carbon Dioxide 22 mmol/L (22-30); Chloride 112 mmol/L (98-107); Globulin 2.4 g/dL; Glucose 135 mg/dL (74-99); Non-African American GFR(CKD) >90 (>60 ml/min/1.73 sqM); Potassium 3.2 mmol/L (3.5-5.1); Sodium 137 mmol/L (137-145); Total Bilirubin 0.4 mg/dL (0.2-1.3); Total Protein 4.3 g/dL (6.3-8.2)
--- NOTE | 2024-03-03 11:13 | P.PN ---
Subjective Progress Note Date: 03/03/24 78-year-old male with a past medical history of advanced dementia, multiple CVAs and previous brain tumor removal with memory impairment, PFO, seizure disorder, hypertension, hyperlipidemia, GERD, and obstructive sleep apnea CPAP dependent nightly. Patient presented to the emergency department via EMS from [facility] with a chief complaint of worsening mental status and confusion. He recently underwent hospitalization from 02/20/2024 through 02/25/2024 for similar complaints and was treated for candidal cystitis with urine culture positive for Sarai glabrata. He was treated with IV Eraxis and Rocephin, his mentation improved and he was back to baseline with repeat urine cultures negative. Patient was discharged home on an extended course of antibiotics with Ceftin. Patient was found by staff at [facility] today again confused and disoriented and he was sent to the emergency department for evaluation. Upon arrival vital signs completed. Blood pressure 162/87, heart rate 101, respiratory rate 20, temp 100.3 F, and SpO2 of 94% on 2 L. Shortly after patient spiked temp up to 101.0 F. EKG completed showing sinus tachycardia at 107 bpm with occasional PVC and first-degree AV block with UT interval of 229 ms. Labs completed and reviewed. CBC showing WBC count of 26.6, neutrophils of 24.4, lymphocytes of 0.9 and monocytes of 1.2. BMP showing chloride of 108, bicarb of 20, and anion gap of 11. Blood glucose was 262. Initial lactic acid 3.9. Liver profile unremarkable with exception of low albumin of 3.2. Lipase normal findings at 23. Urinalysis positive for protein, glucose, leukocytes, and only 43 WBCs. Influenza A, influenza B, RSV, and COVID were all negative. Chest x-ray was completed showing low lung volumes with generalized hazy appearance. CTA chest, abdomen, and pelvis with contrast was completed showing mild compressive atelectasis in bilateral lung bases, mild fecal retention, and diffuse urinary bladder wall thickening. Blood cultures were obtained and urine culture was sent to lab for analysis. Patient was started on IV fluid hydration and antibiotics. He was admitted under our services with consultation to infectious disease. CT AP showed findings of colitis. CT brain negative for acute findings. C. diff positive. Currently on Flagyl PO and Vancomycin PO. ID on 03/03 Patient was seen and examined. No acute events overnight. Still with diarrhea. CBC Hg 11.4 Hct 33.9. CMP K 3.2, Cl 112, BUN3, Cr 0.43, glu 135, Ca 8, total protein 4.3, alb 1.9. General: non toxic, no distress, appears at stated age Derm: warm, dry Head: atraumatic, normocephalic, symmetric Eyes: EOMI, no lid lag, anicteric sclera Mouth: no lip lesion, mucus membranes moist Cardiovascular: S1S2 reg, systolic murmur Lungs: CTA bilateral, no rhonchi, no rales , no accessory muscle use Abdominal: soft, nontender to palpation, no guarding, no appreciable organomegaly Ext: no gross muscle atrophy, no edema, no contractures Neuro: no focal neuro deficits Psych: Alert, oriented, appropriate affect Severe sepsis secondary to C. difficile colitis: Flagyl 500 mg IV TID and Vancomycin 500 mg PO Q6H. UCx negative. BCx negative so far. Follow stool Cx. ID on board. Acute metabolic encephalopathy: Likely due to above. Fall and seizure precautions. Recent infection with Candidal Cystitis secondary to Sarai glabrata Hypokalemia: KCl 20 mg PO QD. KCl 40 meq PO x 1 ordered today. Likely due to gastroenteritis. History of advanced dementia, baseline alert to person and place and able to follow commands History of multiple recent CVA: ASA 81 mg PO QD. Plavix 75 mg PO QD. History of brain tumor with removal resulting in memory impairment: Namenda 7.5 mg PO BID. Hold Remeron 30 mg PO QHS. Seizure disorder: Keppra 1000 mg PO BID. Pressure ulcers on coccyx/buttocks, present on arrival: Wound care consult. Hypertension: Lisinopril 5 mg PO QD. Metoprolol 50 mg PO BID. Hyperlipidemia GERD: Pepcid 20 mg PO BID. Protonix 40 mg PO QD. KYE: CPAP PRN. CODE STATUS: FULL CODE DVT Prophylaxis: Lovenox SQ GI Prophylaxis: Pepcid, Protonix Designated medical POA if patient is not able to make medical decisions for themselves: I have reviewed the following investment consultant notes: ID note I have reviewed the results of the following tests: CBC, BMP. I have ordered the following tests: BMP. I have discussed the care of this patient with the following independent historian: I have independently interpreted the following test below: I have discussed the management of this patient with the following physician: Objective - Vital Signs Vital signs: Vital Signs Temp 97.6 F 03/03/24 06:56 Pulse 81 03/03/24 06:56 Resp 18 03/03/24 06:56 BP 159/82 03/03/24 06:56 Pulse Ox 96 03/03/24 06:56 FiO2 Intake & Output 03/02/24 03/03/24 03/03/24 18:59 06:59 18:59 Output Total 453 300 Balance -453 -300 Output: Urine 300 300 Post Void Residual 153 Other: Voiding Method External Catheter External Catheter # Bowel Movements 5 2 - Labs CBC & Chem 7: 03/03/24 10:17 03/03/24 10:17 Labs: Abnormal Lab Results - Last 24 Hours (Table) 03/02/24 03/02/24 03/02/24 Range/Units 11:10 16:07 20:45 POC Glucose (mg/dL) 155 H 121 H 132 H (70-110) mg/dL 03/03/24 Range/Units 05:37 POC Glucose (mg/dL) 130 H (70-110) mg/dL Microbiology - Last 24 Hours (Table) 02/28/24 12:37 Blood Culture - Preliminary Blood 02/26/24 11:05 Blood Culture - Final Blood 02/26/24 11:05 Blood Culture - Final Blood
[2024-03-03] MEDS: POTASSIUM CHLORIDE ER 20 MEQ TAB.ER PO STA (11:40)
[2024-03-03 11:49] LABS: Glucose,Whole Blood 129 mg/dL (70-110)
[2024-03-03 16:38] LABS: Glucose,Whole Blood 131 mg/dL (70-110)
[2024-03-03 20:52] LABS: Glucose,Whole Blood 132 mg/dL (70-110)
[2024-03-04] MEDS: hydrALAZINE HCL 25 MG TAB PO STA (02:08)
[2024-03-04] MEDS: LABETALOL 5 MG/ML VIAL MDV IVP STA (02:55)
[2024-03-04] MEDS: hydrALAZINE HCL 20 MG/ML 1 ML VIAL IVP STA (02:57)
[2024-03-04 04:02] LABS: ABG Base Excess -6.4 mmol/L; ABG HCO3 17 mmol/L (21-25); ABG Oxygen Saturation 95.1 % (94-97); ABG PCO2 20 mmHg (35-45); ABG PH 7.52 (7.35-7.45); ABG PO2 60 mmHg (83-108); ABG TCO2 17 mmol/L (19-24); Allen Test Performed? Yes
[2024-03-04 05:47] LABS: Glucose,Whole Blood 172 mg/dL (70-110)
--- NOTE | 2024-03-04 06:11 | XR ---
EXAM: XR Chest, 1 View CLINICAL HISTORY: ITS.REASON XR Reason: tachypnea TECHNIQUE: Frontal view of the chest. COMPARISON: XR Chest dated 02/20/24 FINDINGS: Lungs: New mild patchy atelectasis or airspace disease in the left lower lung. Pleural space: Unremarkable. No pneumothorax. Heart: Stable mild cardiomegaly. Mediastinum: Unremarkable. Normal mediastinal contour. Bones/joints: Unremarkable. No acute fracture. IMPRESSION: New mild patchy atelectasis or airspace disease in the left lower lung.
[2024-03-04 07:31] LABS: ALT 9 U/L (4-49); AST 39 U/L (17-59); African American GFR (CKD) >90 (>60 ml/min/1.73 sqM); Albumin 2.6 g/dL (3.5-5.0); Albumin/Globulin Ratio 0.9; Alkaline Phosphatase 71 U/L (38-126); Blood Urea Nitrogen 4 mg/dL (9-20); Calcium 8.5 mg/dL (8.4-10.2); Carbon Dioxide 12 mmol/L (22-30); Globulin 2.9 g/dL; Glucose 170 mg/dL (74-99); Non-African American GFR(CKD) >90 (>60 ml/min/1.73 sqM); Potassium 5.6 mmol/L (3.5-5.1); Sodium 136 mmol/L (137-145); Total Bilirubin 0.9 mg/dL (0.2-1.3); Total Protein 5.5 g/dL (6.3-8.2)
[2024-03-04] MEDS: FUROSEMIDE 10 MG/ML 10 ML VIAL IV STA (09:12)
[2024-03-04 11:14] LABS: Glucose,Whole Blood 199 mg/dL (70-110)
--- NOTE | 2024-03-04 11:26 | P.PN ---
Subjective Progress Note Date: 03/04/24 78-year-old male with a past medical history of advanced dementia, multiple CVAs and previous brain tumor removal with memory impairment, PFO, seizure disorder, hypertension, hyperlipidemia, GERD, and obstructive sleep apnea CPAP dependent nightly. Patient presented to the emergency department via EMS from [facility] with a chief complaint of worsening mental status and confusion. He recently underwent hospitalization from 02/20/2024 through 02/25/2024 for similar complaints and was treated for candidal cystitis with urine culture positive for Sarai glabrata. He was treated with IV Eraxis and Rocephin, his mentation improved and he was back to baseline with repeat urine cultures negative. Patient was discharged home on an extended course of antibiotics with Ceftin. Patient was found by staff at [facility] today again confused and disoriented and he was sent to the emergency department for evaluation. Upon arrival vital signs completed. Blood pressure 162/87, heart rate 101, respiratory rate 20, temp 100.3 F, and SpO2 of 94% on 2 L. Shortly after patient spiked temp up to 101.0 F. EKG completed showing sinus tachycardia at 107 bpm with occasional PVC and first-degree AV block with SC interval of 229 ms. Labs completed and reviewed. CBC showing WBC count of 26.6, neutrophils of 24.4, lymphocytes of 0.9 and monocytes of 1.2. BMP showing chloride of 108, bicarb of 20, and anion gap of 11. Blood glucose was 262. Initial lactic acid 3.9. Liver profile unremarkable with exception of low albumin of 3.2. Lipase normal findings at 23. Urinalysis positive for protein, glucose, leukocytes, and only 43 WBCs. Influenza A, influenza B, RSV, and COVID were all negative. Chest x-ray was completed showing low lung volumes with generalized hazy appearance. CTA chest, abdomen, and pelvis with contrast was completed showing mild compressive atelectasis in bilateral lung bases, mild fecal retention, and diffuse urinary bladder wall thickening. Blood cultures were obtained and urine culture was sent to lab for analysis. Patient was started on IV fluid hydration and antibiotics. He was admitted under our services with consultation to infectious disease. CT AP showed findings of colitis. CT brain negative for acute findings. C. diff positive. Currently on Flagyl IV and Vancomycin PO. ID on 03/03 Patient was seen and examined. No acute events overnight. Still with diarrhea. CBC Hg 11.4 Hct 33.9. CMP K 3.2, Cl 112, BUN3, Cr 0.43, glu 135, Ca 8, total protein 4.3, alb 1.9. 03/04 Patient was seen and examined. Patient was noted to be in respiratory distress after taking PO pills last night. ABG done shows pH 7.52, pCO2 20, pO2 60. Started on 2L NC. CXR shows L lower lung infiltrate. Pulmonary consulted. BMP Na 136, K 5.6, bicarb 12, BUN 4, Cr 0.43, glu 170, alb 2.6. General: lethargic, no distress, appears at stated age Derm: warm, dry Head: atraumatic, normocephalic, symmetric Eyes: EOMI, no lid lag, anicteric sclera Mouth: no lip lesion, mucus membranes moist Cardiovascular: S1S2 tachy, systolic murmur Lungs: CTA bilateral, no rhonchi, no rales , tachypneic Abdominal: soft, nontender to palpation, no guarding, no appreciable organomegaly Ext: no gross muscle atrophy, no edema, no contractures Neuro: no focal neuro deficits Psych: Lethargic Acute hypoxic respiratory failure due to possible aspiration: Placed NPO. ABG shows respiratory alkalosis. Currently on Flagyl 500 mg IV TID. Lasix 80 mg IV ordered. Procal ordered. DuoNeb QID PRN SOB/wheezing. Pulmonary consulted. BiPAP if needed. ST on board. Severe sepsis secondary to C. difficile colitis: Flagyl 500 mg IV TID and Vancomycin 500 mg PO Q6H. UCx negative. BCx negative so far. Follow stool Cx. ID on board. Acute metabolic encephalopathy: Likely due to above. Fall and seizure precautions. Recent infection with Candidal Cystitis secondary to Sarai glabrata Hyperkalemia with metabolic acidosis: Repeat BMP ordered STAT to confirm. Lasix 80 mg IV x 1. History of advanced dementia, baseline alert to person and place and able to follow commands History of multiple recent CVA: ASA 81 mg PO QD. Plavix 75 mg PO QD. History of brain tumor with removal resulting in memory impairment: Namenda 7.5 mg PO BID. Hold Remeron 30 mg PO QHS. Seizure disorder: Keppra 1000 mg PO BID. Pressure ulcers on coccyx/buttocks, present on arrival: Wound care consult. Hypertension: Lisinopril 5 mg PO QD. Metoprolol 50 mg PO BID. Hyperlipidemia GERD: Pepcid 20 mg PO BID. Protonix 40 mg PO QD. KYE: CPAP PRN. CODE STATUS: FULL CODE DVT Prophylaxis: Lovenox SQ GI Prophylaxis: Pepcid, Protonix Designated medical POA if patient is not able to make medical decisions for themselves: I have reviewed the following enterprise resource planning consultant notes: ID note I have reviewed the results of the following tests: ABG. BMP. I have ordered the following tests: Repeat BMP ordered. I have discussed the care of this patient with the following independent historian: RN I have independently interpreted the following test below: CXR I have discussed the management of this patient with the following physician: Objective - Vital Signs Vital signs: Vital Signs Temp 98.2 F 03/04/24 04:08 Pulse 104 H 03/04/24 01:43 Resp 34 H 03/04/24 03:00 BP 147/82 03/04/24 04:08 Pulse Ox 93 L 03/04/24 03:00 FiO2 Intake & Output 03/03/24 03/04/24 03/04/24 18:59 06:59 18:59 Output Total 650 1325 Balance -650 -1325 Output: Urine 650 1325 Other: Voiding Method External Catheter - Labs CBC & Chem 7: 03/03/24 10:17 03/04/24 05:45 Labs: Abnormal Lab Results - Last 24 Hours (Table) 03/03/24 03/03/24 03/03/24 Range/Units 10:17 10:17 11:47 RBC 3.66 L (4.30-5.90) m/uL Hgb 11.4 L (13.0-17.5) gm/dL Hct 33.9 L (39.0-53.0) % ABG pH (7.35-7.45) ABG pCO2 (35-45) mmHg ABG pO2 (83-108) mmHg ABG HCO3 (21-25) mmol/L ABG Total CO2 (19-24) mmol/L Potassium 3.2 L (3.5-5.1) mmol/L Chloride 112 H (98-107) mmol/L BUN 3 L (9-20) mg/dL Creatinine 0.43 L (0.66-1.25) mg/dL Glucose 135 H (74-99) mg/dL POC Glucose (mg/dL) 129 H (70-110) mg/dL Calcium 8.0 L (8.4-10.2) mg/dL Total Protein 4.3 L (6.3-8.2) g/dL Albumin 1.9 L (3.5-5.0) g/dL 03/03/24 03/03/24 03/04/24 Range/Units 16:30 20:43 03:59 RBC (4.30-5.90) m/uL Hgb (13.0-17.5) gm/dL Hct (39.0-53.0) % ABG pH 7.52 H (7.35-7.45) ABG pCO2 20 L (35-45) mmHg ABG pO2 60 L (83-108) mmHg ABG HCO3 17 L (21-25) mmol/L ABG Total CO2 17 L (19-24) mmol/L Potassium (3.5-5.1) mmol/L Chloride (98-107) mmol/L BUN (9-20) mg/dL Creatinine (0.66-1.25) mg/dL Glucose (74-99) mg/dL POC Glucose (mg/dL) 131 H 132 H (70-110) mg/dL Calcium (8.4-10.2) mg/dL Total Protein (6.3-8.2) g/dL Albumin (3.5-5.0) g/dL 03/04/24 Range/Units 05:43 RBC (4.30-5.90) m/uL Hgb (13.0-17.5) gm/dL Hct (39.0-53.0) % ABG pH (7.35-7.45) ABG pCO2 (35-45) mmHg ABG pO2 (83-108) mmHg ABG HCO3 (21-25) mmol/L ABG Total CO2 (19-24) mmol/L Potassium (3.5-5.1) mmol/L Chloride (98-107) mmol/L BUN (9-20) mg/dL Creatinine (0.66-1.25) mg/dL Glucose (74-99) mg/dL POC Glucose (mg/dL) 172 H (70-110) mg/dL Calcium (8.4-10.2) mg/dL Total Protein (6.3-8.2) g/dL Albumin (3.5-5.0) g/dL
[2024-03-04] MEDS: IPRATROPIUM-ALBUTEROL 3 ML NEB INHALATION STA (12:56)
[2024-03-04 13:41] VITALS: BMI 25.0
--- NOTE | 2024-03-04 13:46 | P.CNPUL ---
History of Present Illness Consult date: 03/04/24 Requesting physician: Lacey Case Reason for consult: abnormal CXR/CT Chief complaint: Altered mental status History of present illness: This is a 78-year-old male patient with a history of memory impairment, skin cancer, former smoker, COPD, diabetes mellitus, hyperlipidemia, hypertension, obstructive sleep apnea. He resides at a local care home and was brought here back on 02/26/2024 for altered mental status. CT scan of the brain revealed no acute intracranial abnormalities. CT scan of the chest abdomen pelvis revealed mild compressive atelectasis in the bilateral lung bases. Mild fecal retention. Colitis. A follow-up chest x-ray revealed new mild patchy atelectasis versus airspace disease in the left lower lung. We are consulted today 03/04/2024 and he is seen on the regular medical floor. He is awake and alert. He is maintaining good O2 saturations in the 90s on room air. He is a poor historian not much information is obtained. Cultures revealed no growth. Urine culture revealed no growth. White count 7.9. Hemoglobin 11.4. Platelets 284. Arterial blood gases on room air revealed a PaO2 of 60, pCO2 of 20 and a pH of 7.52. Sodium 136. Potassium 5.6. Bicarb 12. BUN 4. Creatinine 0.43. Glucose 170. He was found to be C. difficile positive and is on oral vancomycin and Flagyl. Review of Systems ROS unobtainable: due to mental status Past Medical History Past Medical History: Cancer, COPD, Diabetes Mellitus, GERD/Reflux, Hyperlipidemia, Hypertension, Memory Impairment, Sleep Apnea/CPAP/BIPAP Additional Past Medical History / Comment(s): C-PAP., BACK PAIN, SKIN CANCER, MEMORY PROBLEMS., HX OF LEAD POISONING WHILE WORKING AT [employer]., History of Any Multi-Drug Resistant Organisms: None Reported Additional Past Surgical History / Comment(s): TORN LIGAMENT ARM., VASECTOMY, CATARACTS, FX ORBITAL SURGERY. Past Anesthesia/Blood Transfusion Reactions: No Reported Reaction, Motion Sickness Past Psychological History: No Psychological Hx Reported Smoking Status: Former smoker Past Alcohol Use History: None Reported Additional Past Alcohol Use History / Comment(s): QUIT SMOKING OCT 1969, SMOKED 1 PPD., STARTED SMOKING 7 YRS OLD AND QUIT STARTED SMOKING AGAIN 15 YRS OLD. Past Drug Use History: None Reported - Past Family History Mother Family Medical History: No Reported History Medications and Allergies Home Medications Medication Instructions Recorded Confirmed Type Metoprolol Succinate (ER) [Toprol 50 mg PO BID@799,199901/22/19 02/26/24 History XL] Aspirin 81 mg PO DAILY@79907/09/23 02/26/24 History Finasteride [Proscar] 5 mg PO DAILY@79907/09/23 02/26/24 History Memantine HCl [Namenda Xr] 21 mg PO DAILY@79907/09/23 02/26/24 History Acetaminophen [Tylenol 8 Hour] 650 mg PO Q8HR@0000,0800,1600 11/12/23 02/26/24 History Cyanocobalamin (Vitamin B-12) 1,000 mcg PO DAILY@79911/12/23 02/26/24 History [Vitamin B-12] Ft Arthritis Pain 1% Gel 2 gram TOPICAL TID@0800,1199,199911/12/23 02/26/24 History Loratadine [Claritin] 10 mg PO DAILY@79911/12/23 02/26/24 History Pantoprazole [Protonix] 40 mg PO DAILY@79911/12/23 02/26/24 History Clopidogrel [Plavix] 75 mg PO DAILY@79912/08/23 02/26/24 History levETIRAcetam [Keppra] 1,000 mg PO BID@08,199912/08/23 02/26/24 History Cholecalciferol [Vitamin D3 (125 125 mcg PO DAILY@79902/03/24 02/26/24 History Mcg = 5000 Iu)] Furosemide [Lasix] 20 mg PO BID@08,199902/03/24 02/26/24 History Potassium Chloride [Klor-Con M20] 20 meq PO DAILY@79902/03/24 02/26/24 History Donepezil [Aricept] 10 mg PO HS@199902/15/24 02/26/24 History Loperamide [Imodium] 2 - 4 mg PO QID PRN MDD 16mg 02/15/24 02/26/24 History Mirtazapine [Remeron] 30 mg PO HS@199902/15/24 02/26/24 History lisinopriL [Zestril] 5 mg PO HS@199902/15/24 02/26/24 History Cranberry Fruit Extract [Cranberry] 500 mg PO BID@08,199902/26/24 02/26/24 History cefUROXime axetiL [Ceftin] 500 mg PO BID@09,199902/26/24 02/26/24 History metFORMIN HCL [Glucophage] 500 mg PO BID@08,199902/26/24 02/26/24 History polyethylene glycoL 3350 [Miralax] 17 gm PO DAILY@0800 02/26/24 02/26/24 History Allergies Allergy/AdvReac Type Severity Reaction Status Date / Time Penicillins Allergy Unknown Rash/Hives Verified 02/26/24 11:28 Physical Exam Vitals: Vital Signs Temp Pulse Pulse Resp BP Pulse Ox 03/04/24 13:07 92 03/04/24 12:56 92 03/04/24 07:05 98.9 F 98 22 129/73 94 L 03/04/24 04:08 98.2 F 147/82 03/04/24 03:00 34 H 93 L 03/04/24 01:43 100 F H 104 H 20 195/99 92 L 03/03/24 19:19 98.8 F 85 18 183/86 94 L Intake and Output 03/03/24 03/04/24 03/04/24 22:59 06:59 14:59 Output Total 650 1325 900 Balance -650 -1325 -900 Output: Urine 650 1325 900 Other: Weight 68.039 kg GENERAL EXAM: Alert, frail 78-year-old male patient, poor historian, on room air, comfortable in no apparent distress. HEAD: Normocephalic. EYES: Normal reaction of pupils, equal size. NOSE: Clear with pink turbinates. THROAT: No erythema or exudates. NECK: No masses, no JVD. CHEST: No chest wall deformity. LUNGS: Equal air entry with no crackles, wheeze, rhonchi or dullness. CVS: S1 and S2 normal with no audible murmur, regular rhythm. ABDOMEN: No hepatosplenomegaly, normal bowel sounds, no guarding or rigidity. SPINE: No scoliosis or deformity SKIN: No rashes CENTRAL NERVOUS SYSTEM: No focal deficits, tone is normal in all 4 extremities. EXTREMITIES: There is no peripheral edema. No clubbing, no cyanosis. Peripheral pulses are intact. Results - Laboratory Findings CBC and BMP: 03/03/24 10:17 03/04/24 05:45 ABG ABG pH 7.52 (7.35-7.45) H 03/04/24 03:59 ABG pCO2 20 mmHg (35-45) L 03/04/24 03:59 ABG pO2 60 mmHg (83-108) L 03/04/24 03:59 ABG O2 Saturation 95.1 % (94-97) 03/04/24 03:59 PT/INR, D-dimer PT 11.3 sec (10.0-12.5) 02/26/24 11:05 INR 1.0 (<1.2) 02/26/24 11:05 Abnormal lab findings: Abnormal Labs 02/26/24 02/26/24 02/26/24 11:05 11:05 11:05 WBC 26.6 H RBC Hgb Hct MPV Immature Gran # Neutrophils # 24.4 H Lymphocytes # 0.9 L Monocytes # 1.2 H ABG pH ABG pCO2 ABG pO2 ABG HCO3 ABG Total CO2 Sodium Potassium Chloride 108 H Carbon Dioxide 20 L Anion Gap BUN Creatinine BUN/Creatinine Ratio Glucose 262 H POC Glucose (mg/dL) Plasma Lactic Acid Zeb Calcium Magnesium Unconjugated Bilirubin AST ALT C-Reactive Protein Total Protein 6.2 L Albumin 3.2 L Albumin/Globulin Ratio Urine Protein Trace H Urine Glucose (UA) 4+ H Ur Leukocyte Esterase Large H Urine WBC 43 H Urine Mucus Rare H C. difficile (EIA) Intrp 02/26/24 02/26/24 02/26/24 11:05 14:10 17:02 WBC RBC Hgb Hct MPV Immature Gran # Neutrophils # Lymphocytes # Monocytes # ABG pH ABG pCO2 ABG pO2 ABG HCO3 ABG Total CO2 Sodium Potassium Chloride Carbon Dioxide Anion Gap BUN Creatinine BUN/Creatinine Ratio Glucose POC Glucose (mg/dL) Plasma Lactic Acid Zeb 3.9 H* 3.3 H* 2.5 H* Calcium Magnesium Unconjugated Bilirubin AST ALT C-Reactive Protein Total Protein Albumin Albumin/Globulin Ratio Urine Protein Urine Glucose (UA) Ur Leukocyte Esterase Urine WBC Urine Mucus C. difficile (EIA) Intrp 02/26/24 02/26/24 02/26/24 20:11 20:38 23:24 WBC RBC Hgb Hct MPV Immature Gran # Neutrophils # Lymphocytes # Monocytes # ABG pH ABG pCO2 ABG pO2 ABG HCO3 ABG Total CO2 Sodium Potassium Chloride Carbon Dioxide Anion Gap BUN Creatinine BUN/Creatinine Ratio Glucose POC Glucose (mg/dL) 164 H Plasma Lactic Acid Zeb 2.1 H* 2.3 H* Calcium Magnesium Unconjugated Bilirubin AST ALT C-Reactive Protein Total Protein Albumin Albumin/Globulin Ratio Urine Protein Urine Glucose (UA) Ur Leukocyte Esterase Urine WBC Urine Mucus C. difficile (EIA) Intrp 02/27/24 02/27/24 02/27/24 03:08 03:12 03:12 WBC 27.5 H RBC 3.98 L Hgb 12.7 L Hct 37.8 L MPV Immature Gran # Neutrophils # Lymphocytes # Monocytes # ABG pH ABG pCO2 ABG pO2 ABG HCO3 ABG Total CO2 Sodium Potassium Chloride 115 H Carbon Dioxide 18 L Anion Gap BUN Creatinine 0.59 L BUN/Creatinine Ratio Glucose 148 H POC Glucose (mg/dL) Plasma Lactic Acid Zeb 2.2 H* Calcium Magnesium 1.4 L Unconjugated Bilirubin AST 15 L ALT C-Reactive Protein Total Protein 5.1 L Albumin 2.4 L Albumin/Globulin Ratio Urine Protein Urine Glucose (UA) Ur Leukocyte Esterase Urine WBC Urine Mucus C. difficile (EIA) Intrp 02/28/24 02/28/24 02/28/24 12:37 13:00 16:41 WBC RBC Hgb Hct MPV Immature Gran # Neutrophils # Lymphocytes # Monocytes # ABG pH ABG pCO2 ABG pO2 ABG HCO3 ABG Total CO2 Sodium Potassium Chloride Carbon Dioxide Anion Gap BUN Creatinine BUN/Creatinine Ratio Glucose POC Glucose (mg/dL) 139 H Plasma Lactic Acid Zeb Calcium Magnesium Unconjugated Bilirubin AST ALT C-Reactive Protein 22.8 H Total Protein Albumin Albumin/Globulin Ratio Urine Protein Urine Glucose (UA) Ur Leukocyte Esterase Urine WBC Urine Mucus C. difficile (EIA) Intrp Positive A 02/29/24 02/29/24 02/29/24 05:51 05:51 19:54 WBC 21.13 H RBC 3.73 L Hgb 11.6 L Hct 34.4 L MPV 9.1 L Immature Gran # 0.08 H Neutrophils # 18.54 H Lymphocytes # Monocytes # 1.32 H ABG pH ABG pCO2 ABG pO2 ABG HCO3 ABG Total CO2 Sodium Potassium 3.0 L Chloride 111 H Carbon Dioxide 14.7 L Anion Gap 14.30 H BUN 7.1 L Creatinine BUN/Creatinine Ratio 11.83 L Glucose 159 H POC Glucose (mg/dL) 183 H Plasma Lactic Acid Zeb Calcium 8.5 L Magnesium Unconjugated Bilirubin >0.10 L AST ALT 6 L C-Reactive Protein 19.30 H Total Protein 4.8 L Albumin 2.7 L Albumin/Globulin Ratio 1.29 L Urine Protein Urine Glucose (UA) Ur Leukocyte Esterase Urine WBC Urine Mucus C. difficile (EIA) Intrp 03/01/24 03/01/24 03/01/24 08:36 08:36 12:25 WBC 19.7 H RBC 4.04 L Hgb 12.4 L Hct 37.1 L MPV Immature Gran # Neutrophils # Lymphocytes # Monocytes # ABG pH ABG pCO2 ABG pO2 ABG HCO3 ABG Total CO2 Sodium Potassium 2.7 L* Chloride 112 H Carbon Dioxide 21 L Anion Gap BUN 4 L Creatinine 0.41 L BUN/Creatinine Ratio Glucose 144 H POC Glucose (mg/dL) 179 H Plasma Lactic Acid Zeb Calcium Magnesium Unconjugated Bilirubin AST 16 L ALT C-Reactive Protein Total Protein 4.9 L Albumin 2.3 L Albumin/Globulin Ratio Urine Protein Urine Glucose (UA) Ur Leukocyte Esterase Urine WBC Urine Mucus C. difficile (EIA) Intrp 03/01/24 03/01/24 03/01/24 16:23 20:32 20:40 WBC RBC Hgb Hct MPV Immature Gran # Neutrophils # Lymphocytes # Monocytes # ABG pH ABG pCO2 ABG pO2 ABG HCO3 ABG Total CO2 Sodium Potassium 3.1 L Chloride Carbon Dioxide Anion Gap BUN Creatinine BUN/Creatinine Ratio Glucose POC Glucose (mg/dL) 125 H 166 H Plasma Lactic Acid Zeb Calcium Magnesium Unconjugated Bilirubin AST ALT C-Reactive Protein Total Protein Albumin Albumin/Globulin Ratio Urine Protein Urine Glucose (UA) Ur Leukocyte Esterase Urine WBC Urine Mucus C. difficile (EIA) Intrp 03/02/24 03/02/24 03/02/24 06:00 06:04 06:04 WBC 12.57 H RBC 3.65 L Hgb 11.4 L Hct 32.5 L MPV 9.2 L Immature Gran # Neutrophils # Lymphocytes # Monocytes # ABG pH ABG pCO2 ABG pO2 ABG HCO3 ABG Total CO2 Sodium Potassium 3.2 L Chloride 110 H Carbon Dioxide 19.1 L Anion Gap BUN <3.5 L Creatinine 0.4 L BUN/Creatinine Ratio <8.75 L Glucose 138 H POC Glucose (mg/dL) 135 H Plasma Lactic Acid Zeb Calcium 7.9 L Magnesium Unconjugated Bilirubin AST ALT 5 L C-Reactive Protein Total Protein 4.3 L Albumin 2.4 L Albumin/Globulin Ratio 1.26 L Urine Protein Urine Glucose (UA) Ur Leukocyte Esterase Urine WBC Urine Mucus C. difficile (EIA) Intrp 03/02/24 03/02/24 03/02/24 11:10 16:07 20:45 WBC RBC Hgb Hct MPV Immature Gran # Neutrophils # Lymphocytes # Monocytes # ABG pH ABG pCO2 ABG pO2 ABG HCO3 ABG Total CO2 Sodium Potassium Chloride Carbon Dioxide Anion Gap BUN Creatinine BUN/Creatinine Ratio Glucose POC Glucose (mg/dL) 155 H 121 H 132 H Plasma Lactic Acid Zeb Calcium Magnesium Unconjugated Bilirubin AST ALT C-Reactive Protein Total Protein Albumin Albumin/Globulin Ratio Urine Protein Urine Glucose (UA) Ur Leukocyte Esterase Urine WBC Urine Mucus C. difficile (EIA) Intrp 03/03/24 03/03/24 03/03/24 05:37 10:17 10:17 WBC RBC 3.66 L Hgb 11.4 L Hct 33.9 L MPV Immature Gran # Neutrophils # Lymphocytes # Monocytes # ABG pH ABG pCO2 ABG pO2 ABG HCO3 ABG Total CO2 Sodium Potassium 3.2 L Chloride 112 H Carbon Dioxide Anion Gap BUN 3 L Creatinine 0.43 L BUN/Creatinine Ratio Glucose 135 H POC Glucose (mg/dL) 130 H Plasma Lactic Acid Zeb Calcium 8.0 L Magnesium Unconjugated Bilirubin AST ALT C-Reactive Protein Total Protein 4.3 L Albumin 1.9 L Albumin/Globulin Ratio Urine Protein Urine Glucose (UA) Ur Leukocyte Esterase Urine WBC Urine Mucus C. difficile (EIA) Intrp 03/03/24 03/03/24 03/03/24 11:47 16:30 20:43 WBC RBC Hgb Hct MPV Immature Gran # Neutrophils # Lymphocytes # Monocytes # ABG pH ABG pCO2 ABG pO2 ABG HCO3 ABG Total CO2 Sodium Potassium Chloride Carbon Dioxide Anion Gap BUN Creatinine BUN/Creatinine Ratio Glucose POC Glucose (mg/dL) 129 H 131 H 132 H Plasma Lactic Acid Zeb Calcium Magnesium Unconjugated Bilirubin AST ALT C-Reactive Protein Total Protein Albumin Albumin/Globulin Ratio Urine Protein Urine Glucose (UA) Ur Leukocyte Esterase Urine WBC Urine Mucus C. difficile (EIA) Intrp 03/04/24 03/04/24 03/04/24 03:59 05:43 05:45 WBC RBC Hgb Hct MPV Immature Gran # Neutrophils # Lymphocytes # Monocytes # ABG pH 7.52 H ABG pCO2 20 L ABG pO2 60 L ABG HCO3 17 L ABG Total CO2 17 L Sodium 136 L Potassium 5.6 H Chloride Carbon Dioxide 12 L Anion Gap BUN 4 L Creatinine 0.43 L BUN/Creatinine Ratio Glucose 170 H POC Glucose (mg/dL) 172 H Plasma Lactic Acid Zeb Calcium Magnesium Unconjugated Bilirubin AST ALT C-Reactive Protein Total Protein 5.5 L Albumin 2.6 L Albumin/Globulin Ratio Urine Protein Urine Glucose (UA) Ur Leukocyte Esterase Urine WBC Urine Mucus C. difficile (EIA) Intrp 03/04/24 11:12 WBC RBC Hgb Hct MPV Immature Gran # Neutrophils # Lymphocytes # Monocytes # ABG pH ABG pCO2 ABG pO2 ABG HCO3 ABG Total CO2 Sodium Potassium Chloride Carbon Dioxide Anion Gap BUN Creatinine BUN/Creatinine Ratio Glucose POC Glucose (mg/dL) 199 H Plasma Lactic Acid Zeb Calcium Magnesium Unconjugated Bilirubin AST ALT C-Reactive Protein Total Protein Albumin Albumin/Globulin Ratio Urine Protein Urine Glucose (UA) Ur Leukocyte Esterase Urine WBC Urine Mucus C. difficile (EIA) Intrp - Diagnostic Findings Chest x-ray: image reviewed Assessment and Plan Assessment: Altered mental status, suspect metabolic encephalopathy in a patient with a history of memory impairment. CT scan of the brain revealed no acute intracranial abnormalities Acute hypoxemic respiratory failure, currently on [address] angiogram pending Acute respiratory alkalosis secondary to hyperventilation Hyperkalemia Severe sepsis secondary to C. difficile colitis, currently on Flagyl and oral vancomycin Advanced dementia History of CVA History of previous brain tumor s/p resection History of seizure disorder Hypertension Hyperlipidemia Former smoker Chronic obstructive pulmonary disease, currently in active and stable Obstructive sleep apnea utilizing CPAP with a pressure of 9 cm of water Diabetes mellitus Plan: The patient was seen and evaluated Chest x-ray, ABGs, labs and medications reviewed Obtain a CT angiogram to rule out pulmonary embolism Titrate the FiO2 as tolerated Assure CPAP at night and during the day while napping We will continue to follow and make further recommendations based on his clinical status I have personally seen and examined the patient, performed the documentation and the assessment and plan as written. Number of minutes spent on the visit: 20.
[2024-03-04 16:03] LABS: HCT 44.7 % (39.0-53.0); Hypochromasia Slight; MCH 31.4 pg (25.0-35.0); MCHC 32.6 g/dL (31.0-37.0); MCV 96.4 fL (80.0-100.0); Mean Platelet Volume 7.5; Platelet Count 326 k/uL (150-450); Poikilocytosis Slight; RBC 4.63 m/uL (4.30-5.90); RDW 14.8 % (11.5-15.5); WBC 16.2 k/uL (3.8-10.6)
[2024-03-04 16:05] LABS: HGB 14.5 gm/dL (13.0-17.5)
--- NOTE | 2024-03-04 16:12 | CT ---
EXAMINATION TYPE: CT angio chest CT DLP: 365.4 mGycm, Automated exposure control for dose reduction was used. DATE OF EXAM: 03/04/2024 3:54 PM COMPARISON: 02/26/2024 CLINICAL INDICATION:Male, 78 years old with history of Hypoxemia; Hypoxemia TECHNIQUE/CONTRAST: CTA scan of the thorax is performed with IV Contrast, patient injected with 100 ml mL of Isovue 370, MIP images are created and reviewed these are created on a separate workstation.. FINDINGS: Pulmonary Artery: There is no evidence for a filling defect within the pulmonary vasculature to sugge st acute pulmonary embolism. The pulmonary artery is of normal size. Lungs/Pleura: Trace left pleural effusion. No evidence of focal consolidation, right pleural effusion or pneumothorax. Calcified pleural plaquing most pronounced in the left anterior chest. Airway: Large airways are patent. Heart: Entire is mildly enlarged for size. Vasculature: No evidence of aortic aneurysm. Mediastinum: No gross evidence of adenopathy. Musculoskeletal: No acute osseous abnormalities Soft Tissues: Unremarkable. Lower neck: No significant findings. Upper Abdomen: Gallbladder surgically absent. IMPRESSION: 1. Motion limited exam, No evidence of pulmonary embolism. 2. Cardiomegaly with pulmonary vascular congestion trace left pleural effusion, correlate with serum BNP. 3. Calcified pleural plaquing correlate with history of asbestos exposure.
[2024-03-04 16:34] LABS: Glucose,Whole Blood 198 mg/dL (70-110)
[2024-03-04 19:43] LABS: African American GFR (CKD) >90 (>60 ml/min/1.73 sqM); Anion Gap 7 mmol/L; Blood Urea Nitrogen 3 mg/dL (9-20); Calcium 8.7 mg/dL (8.4-10.2); Carbon Dioxide 21 mmol/L (22-30); Chloride 108 mmol/L (98-107); Glucose 156 mg/dL (74-99); Non-African American GFR(CKD) >90 (>60 ml/min/1.73 sqM); Potassium 3.2 mmol/L (3.5-5.1); Sodium 136 mmol/L (137-145)
[2024-03-04 20:33] LABS: Glucose,Whole Blood 143 mg/dL (70-110)
[2024-03-04] MEDS: FUROSEMIDE 10 MG/ML 4 ML VIAL IV SCH (20:39)
[2024-03-04] MEDS: POTASSIUM CHLORIDE 10 MEQ in WATER FOR INJECTION 1 100ML.BAG IVPB SCH (21:10)
[2024-03-05 05:49] LABS: Glucose,Whole Blood 190 mg/dL (70-110)
[2024-03-05] MEDS: IPRATROPIUM-ALBUTEROL 3 ML NEB INHALATION PRN (07:42)
[2024-03-05 08:53] LABS: Basophils # (A) 0.07 X 10*3/uL (0.00-0.10); Basophils % (A) 0.5 %; Eosinophils # (A) 0.14 X 10*3/uL (0.04-0.35); HCT 36.4 % (39.6-50.0); HGB 12.2 g/dL (13.0-17.0); Lymphocytes # (A) 1.02 X 10*3/uL (0.90-5.00); Lymphocytes % (A) 7.5 %; MCH 30.6 pg (27.0-32.0); MCHC 33.5 g/dL (32.0-37.0); MCV 91.2 FL (80.0-97.0); Mean Platelet Volume 8.5 FL (9.5-12.2); Monocytes # (A) 0.73 X 10*3/uL (0.20-1.00); Monocytes % (A) 5.4 %; NRBC Per 100 WBC 0 X 10*3/uL (0.00-0.01); Neutrophils # (A) 11.39 X 10*3/uL (1.80-7.70); Neutrophils % (A) 83.8 %; Platelet Count 274 X 10*3/uL (140-440); RBC 3.99 X 10*6/uL (4.40-5.60); RDW 14.4 % (11.5-14.5); WBC 13.59 X 10*3/uL (4.50-10.00)
[2024-03-05] MEDS: POTASSIUM CHLORIDE 10 MEQ in WATER FOR INJECTION 1 100ML.BAG IVPB SCH (10:38)
[2024-03-05] MEDS: levETIRAcetam IV 500 MG/5 ML VIAL IVP SCH (10:38)
[2024-03-05 11:45] LABS: Glucose,Whole Blood 142 mg/dL (70-110)
--- NOTE | 2024-03-05 14:10 | P.PN ---
Subjective Progress Note Date: 03/05/24 This is a 78-year-old male patient with a history of memory impairment, skin cancer, former smoker, COPD, diabetes mellitus, hyperlipidemia, hypertension, obstructive sleep apnea. He resides at a local correction and was brought here back on 02/26/2024 for altered mental status. CT scan of the brain revealed no acute intracranial abnormalities. CT scan of the chest abdomen pelvis revealed mild compressive atelectasis in the bilateral lung bases. Mild fecal retention. Colitis. A follow-up chest x-ray revealed new mild patchy atelectasis versus airspace disease in the left lower lung. We are consulted today 03/04/2024 and he is seen on the regular medical floor. He is awake and alert. He is maintaining good O2 saturations in the 90s on room air. He is a poor historian not much information is obtained. Cultures revealed no growth. Urine culture revealed no growth. White count 7.9. Hemoglobin 11.4. Platelets 284. Arterial blood gases on room air revealed a PaO2 of 60, pCO2 of 20 and a pH of 7.52. Sodium 136. Potassium 5.6. Bicarb 12. BUN 4. Creatinine 0.43. Glucose 170. He was found to be C. difficile positive and is on oral vancomycin and Flagyl. The patient is seen today March 05, 2024 in follow-up on the regular medical floor. He is currently resting in bed. Awake and alert in no acute distress. He is quite weak and debilitated. Is maintaining O2 saturations in the 90s on 2 L/min per nasal cannula. He is afebrile. Hemodynamically stable. CT angiogram ruled out pulmonary embolism. There is evidence of cardiomegaly with pulmonary vascular congestion and a trace left pleural effusion. Calcified pleural plaquing. Blood cultures revealed no growth. Urine culture revealed no growth. White count 13.5. Hemoglobin 12.2. Platelets 274. Glucose 190. He remains on oral vancomycin and Flagyl. Continued on bronchodilators. Lovenox for DVT prophylaxis. Continued on IV diuretics. Currently in a -5.9 L balance. Objective - Vital Signs Vital signs: Vital Signs Temp 97.8 F 03/05/24 07:03 Pulse 84 03/05/24 07:57 Resp 18 03/05/24 07:03 BP 155/79 03/05/24 07:03 Pulse Ox 94 L 03/05/24 07:03 FiO2 35 03/04/24 13:45 Intake & Output 03/04/24 03/05/24 03/05/24 18:59 06:59 18:59 Intake Total 100 Output Total 4400 1500 Balance -4400 -1500 100 Weight 68.039 kg Intake: Oral 100 Output: Urine 4400 1500 Other: Voiding Method External Catheter External Catheter External Catheter # Bowel Movements 4 - Exam GENERAL EXAM: Arousable, frail 78-year-old male, on 2 L nasal cannula, comfortable in no apparent distress. HEAD: Normocephalic. EYES: Normal reaction of pupils, equal size. NOSE: Clear with pink turbinates. THROAT: No erythema or exudates. NECK: No masses, no JVD. CHEST: No chest wall deformity. LUNGS: Equal air entry with bibasilar crackles. CVS: S1 and S2 normal with no audible murmur, regular rhythm. ABDOMEN: No hepatosplenomegaly, normal bowel sounds, no guarding or rigidity. SPINE: No scoliosis or deformity SKIN: No rashes CENTRAL NERVOUS SYSTEM: No focal deficits, tone is normal in all 4 extremities. EXTREMITIES: There is trace peripheral edema. No clubbing, no cyanosis. Peripheral pulses are intact. - Labs CBC & Chem 7: 03/05/24 04:05 03/04/24 19:04 Labs: Abnormal Lab Results - Last 24 Hours (Table) 03/04/24 03/04/24 03/04/24 Range/Units 15:07 15:20 16:26 WBC 16.2 H (3.8-10.6) k/uL RBC (4.40-5.60) X 10*6/uL Hgb (13.0-17.0) g/dL Hct (39.6-50.0) % MPV (9.5-12.2) FL Immature Gran # (0.00-0.04) X 10*3/uL Neutrophils # (1.80-7.70) X 10*3/uL Sodium (137-145) mmol/L Potassium (3.5-5.1) mmol/L Chloride (98-107) mmol/L Carbon Dioxide (22-30) mmol/L BUN (9-20) mg/dL Creatinine (0.66-1.25) mg/dL Glucose (74-99) mg/dL POC Glucose (mg/dL) 198 H (70-110) mg/dL Procalcitonin 0.55 H (0.02-0.09) ng/mL 03/04/24 03/04/24 03/05/24 Range/Units 19:04 20:30 04:05 WBC 13.59 H (3.8-10.6) k/uL RBC 3.99 L (4.40-5.60) X 10*6/uL Hgb 12.2 L (13.0-17.0) g/dL Hct 36.4 L (39.6-50.0) % MPV 8.5 L (9.5-12.2) FL Immature Gran # 0.24 H (0.00-0.04) X 10*3/uL Neutrophils # 11.39 H (1.80-7.70) X 10*3/uL Sodium 136 L (137-145) mmol/L Potassium 3.2 L (3.5-5.1) mmol/L Chloride 108 H (98-107) mmol/L Carbon Dioxide 21 L (22-30) mmol/L BUN 3 L (9-20) mg/dL Creatinine 0.44 L (0.66-1.25) mg/dL Glucose 156 H (74-99) mg/dL POC Glucose (mg/dL) 143 H (70-110) mg/dL Procalcitonin (0.02-0.09) ng/mL 03/05/24 03/05/24 Range/Units 05:47 11:41 WBC (3.8-10.6) k/uL RBC (4.40-5.60) X 10*6/uL Hgb (13.0-17.0) g/dL Hct (39.6-50.0) % MPV (9.5-12.2) FL Immature Gran # (0.00-0.04) X 10*3/uL Neutrophils # (1.80-7.70) X 10*3/uL Sodium (137-145) mmol/L Potassium (3.5-5.1) mmol/L Chloride (98-107) mmol/L Carbon Dioxide (22-30) mmol/L BUN (9-20) mg/dL Creatinine (0.66-1.25) mg/dL Glucose (74-99) mg/dL POC Glucose (mg/dL) 190 H 142 H (70-110) mg/dL Procalcitonin (0.02-0.09) ng/mL Microbiology - Last 24 Hours (Table) 02/28/24 12:37 Blood Culture - Final Blood Assessment and Plan Assessment: Altered mental status, suspect metabolic encephalopathy in a patient with a history of memory impairment. CT scan of the brain revealed no acute intracranial abnormalities Acute hypoxemic respiratory failure, currently on [address] angiogram ruled out pulmonary embolism. There is evidence of pulmonary vascular congestion Acute respiratory alkalosis secondary to hyperventilation Severe sepsis secondary to C. difficile colitis, currently on Flagyl and oral vancomycin Advanced dementia History of CVA History of previous brain tumor s/p resection History of seizure disorder Hypertension Hyperlipidemia Former smoker Chronic obstructive pulmonary disease, currently in active and stable Obstructive sleep apnea utilizing CPAP with a pressure of 9 cm of water Diabetes mellitus Plan: The patient was seen and evaluated CT angiogram, labs and medications reviewed Continue the current treatment plan No evidence of pulmonary embolism Titrate the FiO2 as tolerated Assure CPAP at night and during the day while napping We will continue to follow I have personally seen and examined the patient, performed the documentation and the assessment and plan as written. Number of minutes spent on the visit: 10.
--- NOTE | 2024-03-05 14:42 | P.PN ---
Subjective Progress Note Date: 03/05/24 Hospital Course: 78-year-old male with a past medical history of advanced dementia, multiple CVAs and previous brain tumor removal with memory impairment, PFO, seizure disorder, hypertension, hyperlipidemia, GERD, and obstructive sleep apnea CPAP dependent nightly. Patient presented to the emergency department via EMS from [facility] with a chief complaint of worsening mental status and confusion. He recently underwent hospitalization from 02/20/2024 through 2023 for similar complaints and was treated for candidal cystitis with urine culture positive for Sarai glabrata. He was treated with IV Eraxis and Rocephin, his mentation improved and he was back to baseline with repeat urine cultures negative. Patient was discharged home on an extended course of antibiotics with Ceftin. Patient was found by staff at [facility] today again confused and disoriented and he was sent to the emergency department for evaluation. Upon arrival vital signs completed. Blood pressure 162/87, heart rate 101, respiratory rate 20, temp 100.3 F, and SpO2 of 94% on 2 L. Shortly after patient spiked temp up to 101.0 F. EKG completed showing sinus tachycardia at 107 bpm with occasional PVC and first-degree AV block with TN interval of 229 ms. Labs completed and reviewed. CBC showing WBC count of 26.6, neutrophils of 24.4, lymphocytes of 0.9 and monocytes of 1.2. BMP showing chloride of 108, bicarb of 20, and anion gap of 11. Blood glucose was 262. Initial lactic acid 3.9. Liver profile unremarkable with exception of low albumin of 3.2. Lipase normal findings at 23. Urinalysis positive for protein, glucose, leukocytes, and only 43 WBCs. Influenza A, influenza B, RSV, and COVID were all negative. Chest x-ray was completed showing low lung volumes with generalized hazy appearance. CTA chest, abdomen, and pelvis with contrast was completed showing mild compressive atelectasis in bilateral lung bases, mild fecal retention, and diffuse urinary bladder wall thickening. Blood cultures were obtained and urine culture was sent to lab for analysis. Patient was started on IV fluid hydration and antibiotics. He was admitted under our services with consultation to infectious disease. CT AP showed findings of colitis. CT brain negative for acute findings. C. diff positive. Currently on Flagyl IV and Vancomycin PO. ID on board. On 03/04 patient neurologic respiratory distress. ICU was consulted. CTA chest does not show any PE. Had extensive discussion with granddaughter who was has healthcare proxy, would like to pursue further with hospice care. Hospice consulted. Subjective: Patient seen and examined at bedside. No acute events overnight. On nasal cannula, very lethargic. Has not been eating or drinking at all. Making urine, external Avendaño in place, no bowel movements overnight. Pertinent positives and negatives as discussed above, a complete review of systems was performed and all other systems are negative. Vitals Signs Reviewed. General: lethargic, no distress, appears at stated age Derm: warm, dry Head: atraumatic, normocephalic, symmetric Eyes: EOMI, no lid lag, anicteric sclera Mouth: no lip lesion, mucus membranes moist Cardiovascular: S1S2 tachy, systolic murmur Lungs: CTA bilateral, no rhonchi, no rales , tachypneic Abdominal: soft, nontender to palpation, no guarding, no appreciable organomegaly Ext: no gross muscle atrophy, no edema, no contractures Neuro: no focal neuro deficits Psych: Lethargic Data Reviewed Today: Pertinent Labs: WBC 13.59, hemoglobin 12.2, BMP pending, will be reviewed when available Imaging: Chest CTA from yesterday shows no acute PE. Assessment and Plan: Patient unable to take oral medications, speech following. Had extensive discussion with granddaughter, would like to pursue hospice, hospice consulted, patient will likely be able to be discharged with hospice No escalation of care Acute hypoxic respiratory failure due to possible aspiration Anasarca, volume overload -Continue Lasix 40 IV every 12 hours Severe sepsis secondary to C. difficile colitis - Flagyl 500 mg IV TID and Vancomycin 500 mg PO Q6H Acute metabolic encephalopathy Recent infection with Candidal Cystitis secondary to Sarai glabrata Hyperkalemia with metabolic acidosis, repeat BMP pending History of advanced dementia, baseline alert to person and place and able to follow commands History of multiple recent CVA: ASA 81 mg PO QD. Plavix 75 mg PO QD. History of brain tumor with removal resulting in memory impairment: Namenda 7.5 mg PO BID. Hold Remeron 30 mg PO QHS. Seizure disorder: Keppra oral changed to IV 1 g every 12 hours Pressure ulcers on coccyx/buttocks, present on arrival: Wound care consult. Hypertension: Lisinopril 5 mg PO QD. Metoprolol 50 mg PO BID. Hyperlipidemia GERD: Pepcid 20 mg PO BID. Protonix 40 mg PO QD. KYE: CPAP PRN. DVT ppx: Lovenox Code status: No code Anticipated discharge place: Hospice Anticipated discharge time: Pending clinical course Objective - Vital Signs Vital signs: Vital Signs Temp 97.8 F 03/05/24 07:03 Pulse 84 03/05/24 07:57 Resp 18 03/05/24 07:03 BP 155/79 03/05/24 07:03 Pulse Ox 94 L 03/05/24 07:03 FiO2 35 03/04/24 13:45 Intake & Output 03/04/24 03/05/24 03/05/24 18:59 06:59 18:59 Intake Total 100 Output Total 4400 1500 Balance -4400 -1500 100 Weight 68.039 kg Intake: Oral 100 Output: Urine 4400 1500 Other: Voiding Method External Catheter External Catheter External Catheter # Bowel Movements 4 - Labs CBC & Chem 7: 03/05/24 04:05 03/04/24 19:04 Labs: Abnormal Lab Results - Last 24 Hours (Table) 03/04/24 03/04/24 03/04/24 Range/Units 15:07 15:20 16:26 WBC 16.2 H (3.8-10.6) k/uL RBC (4.40-5.60) X 10*6/uL Hgb (13.0-17.0) g/dL Hct (39.6-50.0) % MPV (9.5-12.2) FL Immature Gran # (0.00-0.04) X 10*3/uL Neutrophils # (1.80-7.70) X 10*3/uL Sodium (137-145) mmol/L Potassium (3.5-5.1) mmol/L Chloride (98-107) mmol/L Carbon Dioxide (22-30) mmol/L BUN (9-20) mg/dL Creatinine (0.66-1.25) mg/dL Glucose (74-99) mg/dL POC Glucose (mg/dL) 198 H (70-110) mg/dL Procalcitonin 0.55 H (0.02-0.09) ng/mL 03/04/24 03/04/2424 Range/Units 19:04 20:30 04:05 WBC 13.59 H (3.8-10.6) k/uL RBC 3.99 L (4.40-5.60) X 10*6/uL Hgb 12.2 L (13.0-17.0) g/dL Hct 36.4 L (39.6-50.0) % MPV 8.5 L (9.5-12.2) FL Immature Gran # 0.24 H (0.00-0.04) X 10*3/uL Neutrophils # 11.39 H (1.80-7.70) X 10*3/uL Sodium 136 L (137-145) mmol/L Potassium 3.2 L (3.5-5.1) mmol/L Chloride 108 H (98-107) mmol/L Carbon Dioxide 21 L (22-30) mmol/L BUN 3 L (9-20) mg/dL Creatinine 0.44 L (0.66-1.25) mg/dL Glucose 156 H (74-99) mg/dL POC Glucose (mg/dL) 143 H (70-110) mg/dL Procalcitonin (0.02-0.09) ng/mL 03/05/24 03/05/24 Range/Units 05:47 11:41 WBC (3.8-10.6) k/uL RBC (4.40-5.60) X 10*6/uL Hgb (13.0-17.0) g/dL Hct (39.6-50.0) % MPV (9.5-12.2) FL Immature Gran # (0.00-0.04) X 10*3/uL Neutrophils # (1.80-7.70) X 10*3/uL Sodium (137-145) mmol/L Potassium (3.5-5.1) mmol/L Chloride (98-107) mmol/L Carbon Dioxide (22-30) mmol/L BUN (9-20) mg/dL Creatinine (0.66-1.25) mg/dL Glucose (74-99) mg/dL POC Glucose (mg/dL) 190 H 142 H (70-110) mg/dL Procalcitonin (0.02-0.09) ng/mL Microbiology - Last 24 Hours (Table) 02/28/24 12:37 Blood Culture - Final Blood
--- NOTE | 2024-03-05 14:51 | P.PN ---
Subjective Progress Note Date: 03/03/24 Principal diagnosis: Reason for follow-up is fever/UTI Patient is a 78-year-old male with a past medical history significant for diabetes mellitus hypertension hyperlipidemia reflux COPD memory impairment recently admitted to this hospital has been diagnosed with a UTI and was treated with antibiotic antifungal did have overall improvement his clinical condition and was discharged to halfway, patient was back to the hospital because of fever hypertension and weakness abdominal pain however the patient did have CT abdominal pelvis did not show any acute abnormality. On today's visit that is 03/03/2024, Patient is afebrile patient is currently on room air and breathing comfortably patient seen to be slightly more awake alert today no vomiting has been reported by nursing staff diarrhea seem to have slightly improved as reported by the nursing staff. Patient white count normalized to 7.9 creatinine 0.43 Objective - Vital Signs Vital signs: Vital Signs Temp 98.8 F 03/03/24 13:02 Pulse 77 03/03/24 13:02 Resp 19 03/03/24 13:02 BP 150/82 03/03/24 13:02 Pulse Ox 95 03/03/24 13:02 FiO2 Intake & Output 03/02/24 03/03/24 03/03/24 18:59 06:59 18:59 Output Total 453 300 Balance -453 -300 Output: Urine 300 300 Post Void Residual 153 Other: Voiding Method External Catheter External Catheter External Catheter # Bowel Movements 5 2 - Exam GENERAL DESCRIPTION: An elderly male lying in bed in no distress RESPIRATORY SYSTEM: Unlabored breathing , decreased breath sounds at bases HEART: S1 S2 regular rate and rhythm , ABDOMEN: Soft , no tenderness EXTREMITIES: No edema feet - Labs CBC & Chem 7: 03/05/24 04:05 03/04/24 19:04 Labs: Abnormal Lab Results - Last 24 Hours (Table) 03/02/24 03/02/24 03/03/24 Range/Units 16:07 20:45 05:37 RBC (4.30-5.90) m/uL Hgb (13.0-17.5) gm/dL Hct (39.0-53.0) % Potassium (3.5-5.1) mmol/L Chloride (98-107) mmol/L BUN (9-20) mg/dL Creatinine (0.66-1.25) mg/dL Glucose (74-99) mg/dL POC Glucose (mg/dL) 121 H 132 H 130 H (70-110) mg/dL Calcium (8.4-10.2) mg/dL Total Protein (6.3-8.2) g/dL Albumin (3.5-5.0) g/dL 03/03/24 03/03/24 03/03/24 Range/Units 10:17 10:17 11:47 RBC 3.66 L (4.30-5.90) m/uL Hgb 11.4 L (13.0-17.5) gm/dL Hct 33.9 L (39.0-53.0) % Potassium 3.2 L (3.5-5.1) mmol/L Chloride 112 H (98-107) mmol/L BUN 3 L (9-20) mg/dL Creatinine 0.43 L (0.66-1.25) mg/dL Glucose 135 H (74-99) mg/dL POC Glucose (mg/dL) 129 H (70-110) mg/dL Calcium 8.0 L (8.4-10.2) mg/dL Total Protein 4.3 L (6.3-8.2) g/dL Albumin 1.9 L (3.5-5.0) g/dL Microbiology - Last 24 Hours (Table) 02/28/24 12:37 Blood Culture - Preliminary Blood 02/26/24 11:05 Blood Culture - Final Blood 02/26/24 11:05 Blood Culture - Final Blood Assessment and Plan (1) Colitis Current Visit: Yes Status: Acute Code(s): K52.9 - NONINFECTIVE GASTROENTERITIS AND COLITIS, UNSPECIFIED SNOMED Code(s): 09943843 (2) Febrile illness Current Visit: Yes Status: Acute Code(s): R50.9 - FEVER, UNSPECIFIED SNOMED Code(s): 329876166 (3) Leukocytosis Current Visit: No Status: Acute Code(s): D72.829 - ELEVATED WHITE BLOOD CELL COUNT, UNSPECIFIED SNOMED Code(s): 057114401 Plan: 1patient presented to hospital with sepsis in this patient who did have fever tachycardia elevated white count source is likely urinary as the patient did have a positive UA and evidence of cystitis on the CT abdominal pelvis no other abnormality reported on the CT abdominal pelvis such as diverticulitis or abscess and there was evidence of compressive atelectasis no consolidation reported on that CT, patient did have a new fever early childhood associate of 02/28/2024 for the patient did have repeat CT with now showing evidence of colitis which was not reported on initial CAT scan question of infectious, the patient stool for C. difficile came back positive 2-patient did have resolution of his fever and the patient white count has normalized, we will continue patient on IV Flagyl as oral intake remains to be questionable along with oral vancomycin and nursing staff has been advised to make sure he continues oral Vanco and monitor clinical course closely Dictation was produced using [employer] dictation software. please excuse any grammatical, word or spelling errors. Time with Patient: Less than 30
--- NOTE | 2024-03-05 14:52 | P.PN ---
Subjective Progress Note Date: 03/04/24 Principal diagnosis: Reason for follow-up is fever/UTI Patient is a 78-year-old male with a past medical history significant for diabetes mellitus hypertension hyperlipidemia reflux COPD memory impairment recently admitted to this hospital has been diagnosed with a UTI and was treated with antibiotic antifungal did have overall improvement his clinical condition and was discharged to correction, patient was back to the hospital because of fever hypertension and weakness abdominal pain however the patient did have CT abdominal pelvis did not show any acute abnormality. On today's visit that is 03/04/2024, patient did have a low-grade fever 100 F after midnight patient is afebrile since then patient apparently may have aspirated as reported by the granddaughter at the bedside and the patient seem to have more congested cough and some respiratory distress and is currently on a 2 L nasal cannula oxygen no worsening diarrhea has been reported by the nursing staff patient cannot provide any history Patient white count is up to 16.2 creatinine 0.44 Objective - Vital Signs Vital signs: Vital Signs Temp 98.6 F 03/04/24 14:00 Pulse 91 03/04/24 14:00 Resp 19 03/04/24 14:00 BP 146/8 03/04/24 14:00 Pulse Ox 99 03/04/24 14:00 FiO2 35 03/04/24 13:45 Intake & Output 03/03/24 03/04/24 03/04/24 18:59 06:59 18:59 Output Total 650 1325 900 Balance -650 -2584 -900 Weight 68.039 kg Output: Urine 650 1325 900 Other: Voiding Method External Catheter - Exam GENERAL DESCRIPTION: An elderly male lying in bed in no distress RESPIRATORY SYSTEM: Unlabored breathing , decreased breath sounds at bases HEART: S1 S2 regular rate and rhythm , ABDOMEN: Soft , no tenderness EXTREMITIES: No edema feet - Labs CBC & Chem 7: 03/05/24 04:05 03/04/24 19:04 Labs: Abnormal Lab Results - Last 24 Hours (Table) 03/03/24 03/04/24 03/04/24 Range/Units 20:43 03:59 05:43 WBC (3.8-10.6) k/uL ABG pH 7.52 H (7.35-7.45) ABG pCO2 20 L (35-45) mmHg ABG pO2 60 L (83-108) mmHg ABG HCO3 17 L (21-25) mmol/L ABG Total CO2 17 L (19-24) mmol/L Sodium (137-145) mmol/L Potassium (3.5-5.1) mmol/L Carbon Dioxide (22-30) mmol/L BUN (9-20) mg/dL Creatinine (0.66-1.25) mg/dL Glucose (74-99) mg/dL POC Glucose (mg/dL) 132 H 172 H (70-110) mg/dL Total Protein (6.3-8.2) g/dL Albumin (3.5-5.0) g/dL 03/04/24 03/04/24 03/04/24 Range/Units 05:45 11:12 15:07 WBC 16.2 H (3.8-10.6) k/uL ABG pH (7.35-7.45) ABG pCO2 (35-45) mmHg ABG pO2 (83-108) mmHg ABG HCO3 (21-25) mmol/L ABG Total CO2 (19-24) mmol/L Sodium 136 L (137-145) mmol/L Potassium 5.6 H (3.5-5.1) mmol/L Carbon Dioxide 12 L (22-30) mmol/L BUN 4 L (9-20) mg/dL Creatinine 0.43 L (0.66-1.25) mg/dL Glucose 170 H (74-99) mg/dL POC Glucose (mg/dL) 199 H (70-110) mg/dL Total Protein 5.5 L (6.3-8.2) g/dL Albumin 2.6 L (3.5-5.0) g/dL 03/04/24 Range/Units 16:26 WBC (3.8-10.6) k/uL ABG pH (7.35-7.45) ABG pCO2 (35-45) mmHg ABG pO2 (83-108) mmHg ABG HCO3 (21-25) mmol/L ABG Total CO2 (19-24) mmol/L Sodium (137-145) mmol/L Potassium (3.5-5.1) mmol/L Carbon Dioxide (22-30) mmol/L BUN (9-20) mg/dL Creatinine (0.66-1.25) mg/dL Glucose (74-99) mg/dL POC Glucose (mg/dL) 198 H (70-110) mg/dL Total Protein (6.3-8.2) g/dL Albumin (3.5-5.0) g/dL Assessment and Plan (1) Colitis Current Visit: Yes Status: Acute Code(s): K52.9 - NONINFECTIVE GASTROENTERITIS AND COLITIS, UNSPECIFIED SNOMED Code(s): 18365230 (2) Febrile illness Current Visit: Yes Status: Acute Code(s): R50.9 - FEVER, UNSPECIFIED SNOMED Code(s): 237575926 (3) Leukocytosis Current Visit: No Status: Acute Code(s): D72.829 - ELEVATED WHITE BLOOD CELL COUNT, UNSPECIFIED SNOMED Code(s): 505939777 Plan: 1patient presented to hospital with sepsis in this patient who did have fever tachycardia elevated white count source is likely urinary as the patient did have a positive UA and evidence of cystitis on the CT abdominal pelvis no other abnormality reported on the CT abdominal pelvis such as diverticulitis or absces s and there was evidence of compressive atelectasis no consolidation reported on that CT, patient did have a new fever supervisor diagnostic of 02/28/2024 for the patient did have repeat CT with now showing evidence of colitis which was not reported on initial CAT scan question of infectious, the patient stool for C. difficile came back positive 2-patient did have new low-grade fever also noticed to have elevated white count and question of possible aspiration this morning CT has been ordered results are to follow the pulmonary has been consulted for now continue the patient on IV Flagyl as oral vancomycin cannot be given concerning for aspiration Granddaughter at the bedside multiple questions were answered Dictation was produced using [employer] dictation software. please excuse any grammatical, word or spelling errors. Time with Patient: Less than 30
--- NOTE | 2024-03-05 14:53 | P.PN ---
Subjective Progress Note Date: 03/05/24 Principal diagnosis: Reason for follow-up is fever/UTI Patient is a 78-year-old male with a past medical history significant for diabetes mellitus hypertension hyperlipidemia reflux COPD memory impairment recently admitted to this hospital has been diagnosed with a UTI and was treated with antibiotic antifungal did have overall improvement his clinical condition and was [facility], patient was back to the hospital because of fever hypertension and weakness abdominal pain however the patient did have CT abdominal pelvis did not show any acute abnormality. On today's visit that is 03/05/2024,the patient has been afebrile seem to be breathing comfortably on the 2 L nasal cannula oxygen pending the patient has been made n.p.o. concerning for aspiration no vomiting or any worsening diarrhea was reported by the nurse. The patient seem to be getting worse mentally as reported by the granddaughter at the bedside. Patient white count is down to 13.59 no BMP was done today, patient did have a CT angiogram of the chest that was negative for PE consulted. Pulmonary vascular congestion and effusion did not mention any consolidation Objective - Vital Signs Vital signs: Vital Signs Temp 97.8 F 03/05/24 07:03 Pulse 84 03/05/24 07:57 Resp 18 03/05/24 07:03 BP 155/79 03/05/24 07:03 Pulse Ox 94 L 03/05/24 07:03 FiO2 35 03/04/24 13:45 Intake & Output 03/04/24 03/05/24 03/05/24 18:59 06:59 18:59 Intake Total 100 Output Total 4400 1500 Balance -4400 -1500 100 Weight 68.039 kg Intake: Oral 100 Output: Urine 4400 1500 Other: Voiding Method External Catheter External Catheter External Catheter # Bowel Movements 4 - Exam GENERAL DESCRIPTION: An elderly male lying in bed in no distress RESPIRATORY SYSTEM: Unlabored breathing , decreased breath sounds at bases HEART: S1 S2 regular rate and rhythm , ABDOMEN: Soft , no tenderness EXTREMITIES: No edema feet - Labs CBC & Chem 7: 03/05/24 04:05 03/04/24 19:04 Labs: Abnormal Lab Results - Last 24 Hours (Table) 03/04/24 03/04/24 03/04/24 Range/Units 15:07 15:20 16:26 WBC 16.2 H (3.8-10.6) k/uL RBC (4.40-5.60) X 10*6/uL Hgb (13.0-17.0) g/dL Hct (39.6-50.0) % MPV (9.5-12.2) FL Immature Gran # (0.00-0.04) X 10*3/uL Neutrophils # (1.80-7.70) X 10*3/uL Sodium (137-145) mmol/L Potassium (3.5-5.1) mmol/L Chloride (98-107) mmol/L Carbon Dioxide (22-30) mmol/L BUN (9-20) mg/dL Creatinine (0.66-1.25) mg/dL Glucose (74-99) mg/dL POC Glucose (mg/dL) 198 H (70-110) mg/dL Procalcitonin 0.55 H (0.02-0.09) ng/mL 03/04/24 03/04/24 03/05/24 Range/Units 19:04 20:30 04:05 WBC 13.59 H (3.8-10.6) k/uL RBC 3.99 L (4.40-5.60) X 10*6/uL Hgb 12.2 L (13.0-17.0) g/dL Hct 36.4 L (39.6-50.0) % MPV 8.5 L (9.5-12.2) FL Immature Gran # 0.24 H (0.00-0.04) X 10*3/uL Neutrophils # 11.39 H (1.80-7.70) X 10*3/uL Sodium 136 L (137-145) mmol/L Potassium 3.2 L (3.5-5.1) mmol/L Chloride 108 H (98-107) mmol/L Carbon Dioxide 21 L (22-30) mmol/L BUN 3 L (9-20) mg/dL Creatinine 0.44 L (0.66-1.25) mg/dL Glucose 156 H (74-99) mg/dL POC Glucose (mg/dL) 143 H (70-110) mg/dL Procalcitonin (0.02-0.09) ng/mL 03/05/24 03/05/24 Range/Units 05:47 11:41 WBC (3.8-10.6) k/uL RBC (4.40-5.60) X 10*6/uL Hgb (13.0-17.0) g/dL Hct (39.6-50.0) % MPV (9.5-12.2) FL Immature Gran # (0.00-0.04) X 10*3/uL Neutrophils # (1.80-7.70) X 10*3/uL Sodium (137-145) mmol/L Potassium (3.5-5.1) mmol/L Chloride (98-107) mmol/L Carbon Dioxide (22-30) mmol/L BUN (9-20) mg/dL Creatinine (0.66-1.25) mg/dL Glucose (74-99) mg/dL POC Glucose (mg/dL) 190 H 142 H (70-110) mg/dL Procalcitonin (0.02-0.09) ng/mL Microbiology - Last 24 Hours (Table) 02/28/24 12:37 Blood Culture - Final Blood Assessment and Plan (1) Colitis Current Visit: Yes Status: Acute Code(s): K52.9 - NONINFECTIVE GASTROENTERITIS AND COLITIS, UNSPECIFIED SNOMED Code(s): 92182153 (2) Febrile illness Current Visit: Yes Status: Acute Code(s): R50.9 - FEVER, UNSPECIFIED SNOMED Code(s): 867056244 (3) Leukocytosis Current Visit: No Status: Acute Code(s): D72.829 - ELEVATED WHITE BLOOD CELL COUNT, UNSPECIFIED SNOMED Code(s): 906892868 Plan: 1patient presented to hospital with sepsis in this patient who did have fever tachycardia elevated white count source is likely urinary as the patient did have a positive UA and evidence of cystitis on the CT abdominal pelvis no other abnormality reported on the CT abdominal pelvis such as diverticulitis or abscess and there was evidence of compressive atelectasis no consolidation reported on that CT, patient did have a new fever brake repairer air of 02/28/2024 for the patient did have repeat CT with now showing evidence of colitis which was not reported on initial CAT scan question of infectious, the patient stool for C. difficile came back positive 2-patient did have new low-grade fever also noticed to have elevated white count and question of possible aspiration, patient did have a CT angiogram of the chest did not show any PE or consolidation mostly cardiomegaly with pulmonary va scular congestion patient white count did improve this morning is covered with IV vancomycin as oral Vanco cannot be given concerning for aspiration granddaughter the bedside multiple question has been answered may consider hospice if concern for new CVA or worsening mentation Dictation was produced using [employer] dictation software. please excuse any grammatical, word or spelling errors. Time with Patient: Less than 30
[2024-03-05 15:06] LABS: African American GFR (CKD) >90 (>60 ml/min/1.73 sqM); Anion Gap 7 mmol/L; Blood Urea Nitrogen 6 mg/dL (9-20); Calcium 7.4 mg/dL (8.4-10.2); Carbon Dioxide 20 mmol/L (22-30); Chloride 109 mmol/L (98-107); Glucose 210 mg/dL (74-99); Non-African American GFR(CKD) >90 (>60 ml/min/1.73 sqM); Potassium 5.8 mmol/L (3.5-5.1); Sodium 136 mmol/L (137-145)
[2024-03-05 15:50] LABS: BUN/Creat Ratio 6.17 Ratio (12.00-20.00); Blood Urea Nitrogen 3.7 mg/dL (9.0-27.0); Calcium 8.4 mg/dL (8.7-10.3); Carbon Dioxide 19.2 mmol/L (21.6-31.8); Chloride 102 mmol/L (96-109); Glucose 180 mg/dL (70-110); Potassium 3.6 mmol/L (3.5-5.5); Sodium 138 mmol/L (135-145)
[2024-03-05 16:56] LABS: Glucose,Whole Blood 188 mg/dL (70-110)
--- NOTE | 2024-03-05 18:18 | P.PN ---
Progress Note - Text Progress Note Date: 03/05/24 Advanced Care Planning: Diagnoses: Acute hypoxic respiratory failure due to possible aspiration Severe sepsis secondary to C. difficile colitis Acute metabolic encephalopathy Multiple recent CVA Brain tumor with removal Seizure disorder Discussion: Person(s) present and participating in discussion: Granddaughter Summary: Had an extensive discussion with regards to frequent hospitalizations and overall decline in function. Granddaughter expressed that it might be better for patient to be comfortable. Hospice consulted. Patient will likely be discharged with [facility] hospice. A total of 16 minutes of face to face time was spent discussing advanced care planning.
[2024-03-05 20:06] LABS: Glucose,Whole Blood 159 mg/dL (70-110)
[2024-03-06 06:02] LABS: Glucose,Whole Blood 174 mg/dL (70-110)
--- NOTE | 2024-03-06 06:54 | CA ---
Transthoracic Echo Report Name: Franklin Juarez Age: 78 Gender: M : 1945 Exam Date: 03/05/2024 11:05 Exam Location: [place] [facility] Ht (in): 65 Wt (lb): 150 Ordering Physician: Lacey Case MD Attending/Referring Phys: [employer] Assembler Sherry Jack RDCS Procedure CPT: Indications: chf Cardiac Hx: Technical Quality: Poor Contrast 1: Total Dose (mL): Contrast 2: Total Dose (mL): MEASUREMENTS (Male / Female) Normal Values DOPPLER AV Peak Velocity 101.0 cm/s AV Peak Gradient 4.1 mmHg AV Mean Velocity 73.3 cm/s AV Mean Gradient 2.3 mmHg AV Velocity Time Integral 17.9 cm TR Peak Velocity 243.1 cm/s TR Peak Gradient 23.6 mmHg PV Peak Velocity 82.5 cm/s PV Peak Gradient 2.7 mmHg FINDINGS Left Ventricle Left ventricular ejection fraction is estimated at 55-60 %. Left ventricle not well visualized. Right Ventricle Right ventricle not well visualized. Right Atrium Right atrium not well visualized. Left Atrium Left atrium not well visualized. Mitral Valve Mitral valve not well visualized. Unable to accurately assess regurgitation or stenosis. Aortic Valve Aortic valve not well visualized. Unable to accurately access regurgitation or stenosis. Tricuspid Valve Structurally normal tricuspid valve. No tricuspid stenosis. Trace tricuspid regurgitation. Pulmonic Valve Pulmonic valve not well visualized. Pericardium No pericardial effusion. Aorta Aortic root and proximal ascending aorta not well visualized. CONCLUSIONS Extremely difficult study for interpretation was poorly visualized endocardial and intracardiac valves Probably normal LV systolic function Previewed by: Dr. Cosme Muniz MD (Electronically Signed) Final Date: 06 Mar 2024 06:53
[2024-03-06 08:22] VITALS: BP 116/71; PULSE 104; RESP 17; TEMP 98.8
[2024-03-06 11:31] LABS: Glucose,Whole Blood 150 mg/dL (70-110)
--- NOTE | 2024-03-06 14:09 | P.PN ---
Subjective Progress Note Date: 03/06/24 This is a 78-year-old male patient with a history of memory impairment, skin cancer, former smoker, COPD, diabetes mellitus, hyperlipidemia, hypertension, obstructive sleep apnea. [facility] resides at a local [facility] and was brought here back on 02/26/2024 for altered mental status. CT scan of the brain revealed no acute intracranial abnormalities. CT scan of the chest abdomen pelvis revealed mild compressive atelectasis in the bilateral lung bases. Mild fecal retention. Colitis. A follow-up chest x-ray revealed new mild patchy atelectasis versus airspace disease in the left lower lung. We are consulted today 03/04/2024 and he is seen on the regular medical floor. He is awake and alert. He is maintaining good O2 saturations in the 90s on room air. He is a poor historian not much information is obtained. Cultures revealed no growth. Urine culture revealed no growth. White count 7.9. Hemoglobin 11.4. Platelets 284. Arterial blood gases on room air revealed a PaO2 of 60, pCO2 of 20 and a pH of 7.52. Sodium 136. Potassium 5.6. Bicarb 12. BUN 4. Creatinine 0.43. Glucose 170. He was found to be C. difficile positive and is on oral vancomycin and Flagyl. The patient is seen today March 05, 2024 in follow-up on the regular medical floor. He is currently resting in bed. Awake and alert in no acute distress. He is quite weak and debilitated. Is maintaining O2 saturations in the 90s on 2 L/min per nasal cannula. He is afebrile. Hemodynamically stable. CT angiogram ruled out pulmonary embolism. There is evidence of cardiomegaly with pulmonary vascular congestion and a trace left pleural effusion. Calcified pleural plaquing. Blood cultures revealed no growth. Urine culture revealed no growth. White count 13.5. Hemoglobin 12.2. Platelets 274. Glucose 190. He remains on oral vancomycin and Flagyl. Continued on bronchodilators. Lovenox for DVT prophylaxis. Continued on IV diuretics. Currently in a -5.9 L balance. The patient is seen today March 06, 2024 in follow-up on the regular medical floor. He is currently maintaining O2 saturations in the mid 90s on room air. He is afebrile. Hemodynamically stable. Blood cultures revealed no growth. Blood glucose 150. He remains on oral vancomycin and Flagyl. Continued on bronchodilators. Lovenox for DVT prophylaxis. Continued on IV diuretics. Currently in a -1.3 L balance. Unfortunately, he has continued to become weaker and less responsive. Family is at the bedside. They are considering placement to the hospice house later today. Objective - Vital Signs Vital signs: Vital Signs Temp 98.8 F 03/06/24 07:24 Pulse 104 H 03/06/24 07:24 Resp 17 03/06/24 07:24 BP 116/71 03/06/24 07:24 Pulse Ox 95 03/06/24 08:59 FiO2 35 03/04/24 13:45 Intake & Output 03/05/24 03/06/24 03/06/24 18:59 06:59 18:59 Intake Total 100 Output Total 800 1300 Balance -700 -1300 Weight 68.039 kg Intake: Oral 100 Output: Urine 800 1300 Other: Voiding Method External Catheter # Bowel Movements 1 - Exam GENERAL EXAM: Obtunded, frail 78-year-old male, on room air, in no apparent distress. HEAD: Normocephalic. EYES: Normal reaction of pupils, equal size. NOSE: Clear with pink turbinates. THROAT: No erythema or exudates. NECK: No masses, no JVD. CHEST: No chest wall deformity. LUNGS: Equal air entry with bibasilar crackles. CVS: S1 and S2 normal with no audible murmur, regular rhythm. ABDOMEN: No hepatosplenomegaly, normal bowel sounds, no guarding or rigidity. SPINE: No scoliosis or deformity SKIN: No rashes CENTRAL NERVOUS SYSTEM: Unable to evaluate, tone is normal in all 4 extremities. EXTREMITIES: There is trace peripheral edema. No clubbing, no cyanosis. Peripheral pulses are intact. - Labs CBC & Chem 7: 03/05/24 04:05 03/05/24 14:34 Labs: Abnormal Lab Results - Last 24 Hours (Table) 03/04/24 03/05/24 03/05/24 Range/Units 15:20 14:34 16:54 Sodium 136 L (137-145) mmol/L Potassium 5.8 H (3.5-5.1) mmol/L Chloride 109 H (98-107) mmol/L Carbon Dioxide 19.2 L 20 L (21.6-31.8) mmol/L Anion Gap 16.80 H (4.00-12.00) mmol/L BUN 3.7 L 6 L (9.0-27.0) mg/dL Creatinine 0.49 L (0.66-1.25) mg/dL BUN/Creatinine Ratio 6.17 L (12.00-20.00) Ratio Glucose 180 H 210 H (70-110) mg/dL POC Glucose (mg/dL) 188 H (70-110) mg/dL Calcium 8.4 L 7.4 L (8.7-10.3) mg/dL 03/05/24 03/06/24 03/06/24 Range/Units 20:05 06:00 11:30 Sodium (137-145) mmol/L Potassium (3.5-5.1) mmol/L Chloride (98-107) mmol/L Carbon Dioxide (21.6-31.8) mmol/L Anion Gap (4.00-12.00) mmol/L BUN (9.0-27.0) mg/dL Creatinine (0.66-1.25) mg/dL BUN/Creatinine Ratio (12.00-20.00) Ratio Glucose (70-110) mg/dL POC Glucose (mg/dL) 159 H 174 H 150 H (70-110) mg/dL Calcium (8.7-10.3) mg/dL Assessment and Plan Assessment: Altered mental status, suspect metabolic encephalopathy in a patient with a history of memory impairment. CT scan of the brain revealed no acute intracran ial abnormalities. Remains quite obtunded Acute hypoxemic respiratory failure, currently on [address] angiogram ruled out pulmonary embolism. There is evidence of pulmonary vascular congestion Acute respiratory alkalosis secondary to hyperventilation Severe sepsis secondary to C. difficile colitis, currently on Flagyl and oral vancomycin Advanced dementia History of CVA History of previous brain tumor s/p resection History of seizure disorder Hypertension Hyperlipidemia Former smoker Chronic obstructive pulmonary disease, currently in active and stable Obstructive sleep apnea utilizing CPAP with a pressure of 9 cm of water Diabetes mellitus Plan: The patient was seen and evaluated Labs and medications reviewed The patient has been mainly unresponsive DNR/DNI CODE STATUS Family is at the bedside Considering placement in the hospice house later today I have personally seen and examined the patient, performed the documentation and the assessment and plan as written. Number of minutes spent on the visit: 10.
--- NOTE | 2024-03-06 14:10 | P.DS ---
Providers Date of admission: 02/26/24 14:03 Expected date of discharge: 03/06/24 Attending physician: Karena Polanco DO Consults: 02/26/24 15:32 Consult Physician Routine Consulting Provider: Hernán Pena Consult Reason/Comments: sepsis, recent matthew glabrata cystitis Do you want consulting provider notified?: Yes 02/27/24 16:24 Consult Physician Routine Consulting Provider: Chemo England Consult Reason/Comments: recurrent UTI Do you want consulting provider notified?: Yes 03/04/24 07:18 Consult Physician Routine Consulting Provider: Zaida Fish Consult Reason/Comments: SOB, hypoxia, possible aspiration Do you want consulting provider notified?: Yes Primary care physician: Javid Spence Hospital Course: 78-year-old male with a past medical history of advanced dementia, multiple CVAs and previous brain tumor removal with memory impairment, PFO, seizure disorder, hypertension, hyperlipidemia, GERD, and obstructive sleep apnea CPAP dependent nightly. Patient presented to the emergency department via EMS from [facility] with a chief complaint of worsening mental status and confusion. He recently underwent hospitalization from 02/20/2024 through 02/25/2024 for similar complaints and was treated for candidal cystitis with urine culture positive for Matthew glabrata. He was treated with IV Eraxis and Rocephin, his mentation improved and he was back to baseline with repeat urine cultures negative. Patient was discharged home on an extended course of antibiotics with Ceftin. Patient was found by staff at [facility] today again confused and disoriented and he was sent to the emergency department for evaluation. Upon arrival vital signs completed. Blood pressure 162/87, heart rate 101, respiratory rate 20, temp 100.3 F, and SpO2 of 94% on 2 L. Shortly after patient spiked temp up to 101.0 F. EKG completed showing sinus tachycardia at 107 bpm with occasional PVC and first-degree AV block with RI interval of 229 ms. Labs completed and reviewed. CBC showing WBC count of 26.6, neutrophils of 24.4, lymphocytes of 0.9 and monocytes of 1.2. BMP showing chloride of 108, bicarb of 20, and anion gap of 11. Blood glucose was 262. Initial lactic acid 3.9. Liver profile unremarkable with exception of low albumin of 3.2. Lipase normal findings at 23. Urinalysis positive for protein, glucose, leukocytes, and only 43 WBCs. Influenza A, influenza B, RSV, and COVID were all negative. Chest x-ray was completed showing low lung volumes with generalized hazy appearance. CTA chest, abdomen, and pelvis with contrast was completed showing mild compressive atelectasis in bilateral lung bases, mild fecal retention, and diffuse urinary bladder wall thickening. Blood cultures were obtained and urine culture was sent to lab for analysis. Patient was started on IV fluid hydration and antibiotics. He was admitted under our services with consultation to infectious disease. CT AP showed findings of colitis. CT brain negative for acute findings. C. diff positive. Currently on Flagyl IV and Vancomycin PO. ID on board. On 03/04 patient neurologic respiratory distress. ICU was consulted. CTA chest does not show any PE. Had extensive discussion with granddaughter who was has healthcare proxy, would like to pursue further with hospice care. Hospice consulted. 03/06 Patient was seen and examined. Family member at bedside. Plans for hospice at [facility] today. General: nontoxic, no distress, appears at stated age Derm: warm, dry Head: atraumatic, normocephalic, symmetric Eyes: EOMI, no lid lag, anicteric sclera ENT: Nose and ears atraumatic Neck: No thyromegaly, supple Mouth: no lip lesion, mucus membranes moist Cardiovascular: good distal perfusion in all 4 extremities Lungs: breathing comfortably, no accessory muscle use Discharge Diagnosis: Acute hypoxic respiratory failure due to possible aspiration Severe sepsis secondary to C. difficile colitis Acute metabolic encephalopathy Recent infection with Candidal Cystitis secondary to Matthew glabrata Hyperkalemia with metabolic acidosis History of advanced dementia, baseline alert to person and place and able to f ollow commands History of multiple recent CVA History of brain tumor with removal resulting in memory impairment Seizure disorder Pressure ulcers on coccyx/buttocks, present on arrival Hypertension Hyperlipidemia GERD KYE This complex discharge took 35 minutes to complete. Patient Condition at Discharge: Stable Plan - Discharge Summary Discharge Rx Participant: No New Discharge Prescriptions: Continue Metoprolol Succinate (ER) [Toprol XL] 50 mg PO BID@0800,1999 Aspirin 81 mg PO DAILY@0800 Clopidogrel [Plavix] 75 mg PO DAILY@0800 Furosemide [Lasix] 20 mg PO BID@0800,1999 Pantoprazole [Protonix] 40 mg PO DAILY@0800 levETIRAcetam [Keppra] 1,000 mg PO BID@799,1999 No Action Finasteride [Proscar] 5 mg PO DAILY@0800 lisinopriL [Zestril] 5 mg PO HS@1999 cefUROXime axetiL [Ceftin] 500 mg PO BID@899,1999 Cranberry Fruit Extract [Cranberry] 500 mg PO BID@799,1999 polyethylene glycoL 3350 [Miralax] 17 gm PO DAILY@0800 Memantine HCl [Namenda Xr] 21 mg PO DAILY@0800 Ft Arthritis Pain 1% Gel 2 gram TOPICAL TID@0800,1199,1999 Acetaminophen [Tylenol 8 Hour] 650 mg PO Q8HR@0000,0800,1600 Cyanocobalamin (Vitamin B-12) [Vitamin B-12] 1,000 mcg PO DAILY@0800 Loratadine [Claritin] 10 mg PO DAILY@0800 Cholecalciferol [Vitamin D3 (125 Mcg = 5000 Iu)] 125 mcg PO DAILY@0800 Potassium Chloride [Klor-Con M20] 20 meq PO DAILY@0800 Loperamide [Imodium] 2 - 4 mg PO QID PRN MDD 16mg PRN Reason: Diarrhea Mirtazapine [Remeron] 30 mg PO HS@1999 Donepezil [Aricept] 10 mg PO HS@1999 metFORMIN HCL [Glucophage] 500 mg PO BID@799,1999 Discharge Medication List Metoprolol Succinate (ER) [Toprol XL] 50 mg PO BID@08,199901/22/19 [History] Aspirin 81 mg PO DAILY@0807/09/23 [History] Finasteride [Proscar] 5 mg PO DAILY@0807/09/23 [History] Memantine HCl [Namenda Xr] 21 mg PO DAILY@0807/09/23 [History] Acetaminophen [Tylenol 8 Hour] 650 mg PO Q8HR@0000,0800,1600 11/12/23 [History] Cyanocobalamin (Vitamin B-12) [Vitamin B-12] 1,000 mcg PO DAILY@0800 11/12/23 [History] Ft Arthritis Pain 1% Gel 2 gram TOPICAL TID@0800,1199,199911/12/23 [History] Loratadine [Claritin] 10 mg PO DAILY@0800 01/16/24 [History] Pantoprazole [Protonix] 40 mg PO DAILY@79911/12/23 [History] Clopidogrel [Plavix] 75 mg PO DAILY@79912/08/23 [History] levETIRAcetam [Keppra] 1,000 mg PO BID@799,199912/08/23 [History] Cholecalciferol [Vitamin D3 (125 Mcg = 5000 Iu)] 125 mcg PO DAILY@79902/03/24 [History] Furosemide [Lasix] 20 mg PO BID@799,199902/03/24 [History] Potassium Chloride [Klor-Con M20] 20 meq PO DAILY@79902/03/24 [History] Donepezil [Aricept] 10 mg PO HS@199902/15/24 [History] Loperamide [Imodium] 2 - 4 mg PO QID PRN MDD 16mg 02/15/24 [History] Mirtazapine [Remeron] 30 mg PO HS@199902/15/24 [History] lisinopriL [Zestril] 5 mg PO HS@199902/15/24 [History] Cranberry Fruit Extract [Cranberry] 500 mg PO BID@0800,199902/26/24 [History] cefUROXime axetiL [Ceftin] 500 mg PO BID@0900,199902/26/24 [History] metFORMIN HCL [Glucophage] 500 mg PO BID@0800,199902/26/24 [History] polyethylene glycoL 3350 [Miralax] 17 gm PO DAILY@79902/26/24 [History] Follow up Appointment(s)/Referral(s): Javid Spence MD [Primary Care Provider] - 1-2 days Discharge Disposition: DISCH TO [facility]
--- NOTE | 2024-03-06 16:53 | P.PN ---
Subjective Progress Note Date: 03/06/24 Principal diagnosis: Reason for follow-up is fever/UTI Patient is a 78-year-old male with a past medical history significant for diabetes mellitus hypertension hyperlipidemia reflux COPD memory impairment recently admitted to this hospital has been diagnosed with a UTI and was treated with antibiotic antifungal did have overall improvement his clinical condition and was [facility] jail, patient was back to the hospital because of fever hypertension and weakness abdominal pain however the patient did have CT abdominal pelvis did not show any acute abnormality. On today's visit that is 03/06/2024,the patient remains to be afebrile, patient is on room air not requiring supplemental oxygen and seem to be breathing comfortably oral intake remains to be poor as high risk of aspiration no vomiting or any worsening diarrhea reported by the nursing staff. No new labs has been repeated today Objective - Vital Signs Vital signs: Vital Signs Temp 98.8 F 03/06/24 07:24 Pulse 104 H 03/06/24 07:24 Resp 17 03/06/24 07:24 BP 116/71 03/06/24 07:24 Pulse Ox 95 03/06/24 08:59 FiO2 35 03/04/24 13:45 Intake & Output 03/05/24 03/06/24 03/06/24 18:59 06:59 18:59 Intake Total 100 Output Total 800 1300 Balance -700 -1300 Weight 68.039 kg Intake: Oral 100 Output: Urine 800 1300 Other: Voiding Method External Catheter # Bowel Movements 1 - Exam GENERAL DESCRIPTION: An elderly male lying in bed in no distress RESPIRATORY SYSTEM: Unlabored breathing , decreased breath sounds at bases HEART: S1 S2 regular rate and rhythm , ABDOMEN: Soft , no tenderness EXTREMITIES: No edema feet - Labs CBC & Chem 7: 03/05/24 04:05 03/05/24 14:34 Labs: Abnormal Lab Results - Last 24 Hours (Table) 03/04/24 03/05/24 03/05/24 Range/Units 15:20 11:41 14:34 Sodium 136 L (137-145) mmol/L Potassium 5.8 H (3.5-5.1) mmol/L Chloride 109 H (98-107) mmol/L Carbon Dioxide 19.2 L 20 L (21.6-31.8) mmol/L Anion Gap 16.80 H (4.00-12.00) mmol/L BUN 3.7 L 6 L (9.0-27.0) mg/dL Creatinine 0.49 L (0.66-1.25) mg/dL BUN/Creatinine Ratio 6.17 L (12.00-20.00) Ratio Glucose 180 H 210 H (70-110) mg/dL POC Glucose (mg/dL) 142 H (70-110) mg/dL Calcium 8.4 L 7.4 L (8.7-10.3) mg/dL 03/05/24 03/05/24 03/06/24 Range/Units 16:54 20:05 06:00 Sodium (137-145) mmol/L Potassium (3.5-5.1) mmol/L Chloride (98-107) mmol/L Carbon Dioxide (21.6-31.8) mmol/L Anion Gap (4.00-12.00) mmol/L BUN (9.0-27.0) mg/dL Creatinine (0.66-1.25) mg/dL BUN/Creatinine Ratio (12.00-20.00) Ratio Glucose (70-110) mg/dL POC Glucose (mg/dL) 188 H 159 H 174 H (70-110) mg/dL Calcium (8.7-10.3) mg/dL Assessment and Plan (1) Colitis Status: Acute Code(s): K52.9 - NONINFECTIVE GASTROENTERITIS AND COLITIS, UNSPE CIFIED SNOMED Code(s): 10101643 (2) Febrile illness Status: Acute Code(s): R50.9 - FEVER, UNSPECIFIED SNOMED Code(s): 083861260 (3) Leukocytosis Status: Acute Code(s): D72.829 - ELEVATED WHITE BLOOD CELL COUNT, UNSPECIFIED SNOMED Code(s): 055458517 Plan: 1patient presented to hospital with sepsis in this patient who did have fever tachycardia elevated white count source is likely urinary as the patient did have a positive UA and evidence of cystitis on the CT abdominal pelvis no other abnormality reported on the CT abdominal pelvis such as diverticulitis or abscess and there was evidence of compressive atelectasis no consolidation reported on that CT, patient did have a new fever shoe puller of 02/28/2024 for the patient did have repeat CT with now showing evidence of colitis which was not reported on initial CAT scan question of infectious, the patient stool for C. difficile came back positive 2-patient did have new low-grade fever also noticed to have elevated white count and question of possible aspiration, patient did have a CT angiogram of the chest did not show any PE or consolidation mostly cardiomegaly with pulmonary vascular congestion, patient is possibly going for hospice as per discussion with the [id number] which may be appropriate for him antibiotics can be safely discontinued multiple questions were answered Dictation was produced using [employer] dictation software. please excuse any grammatical, word or spelling errors. Time with Patient: Less than 30
== END 2024-03-06 15:36 | disposition hospice, inpatient (51) | DRG 871 ==
LOC: EC 10:19 → 5NMEDONC 14:03 → 4SSUR 19:11
PROVIDERS: ADMIT Internal Medicine; ATTEND Internal Medicine
PROC: 05HA33Z Insertion of Infusion Device into Left Brachial Vein, Percutaneous Approach (ICD-10-PCS; principal; 2024-03-04 19:45)
DX: A41.9 Sepsis, unspecified organism (principal); G93.41 Metabolic encephalopathy; J96.01 Acute respiratory failure with hypoxia; N39.0 Urinary tract infection, site not specified; A04.72 Enterocolitis due to Clostridium difficile, not specified as recurrent; E87.3 Alkalosis; B37.49 Other urogenital candidiasis; J98.11 Atelectasis; I10 Essential (primary) hypertension; L89.311 Pressure ulcer of right buttock, stage 1; L89.321 Pressure ulcer of left buttock, stage 1; E11.649 Type 2 diabetes mellitus with hypoglycemia without coma; A41.4 Sepsis due to anaerobes; E78.5 Hyperlipidemia, unspecified; Z66 Do not resuscitate; Z51.5 Encounter for palliative care; F03.90 Unspecified dementia, unspecified severity, without behavioral disturbance, psychotic disturbance, mood disturbance, and anxiety; E83.42 Hypomagnesemia; E87.6 Hypokalemia; R65.20 Severe sepsis without septic shock; L98.499 Non-pressure chronic ulcer of skin of other sites with unspecified severity; G40.909 Epilepsy, unspecified, not intractable, without status epilepticus; G47.33 Obstructive sleep apnea (adult) (pediatric); Z86.79 Personal history of other diseases of the circulatory system; E11.622 Type 2 diabetes mellitus with other skin ulcer; E87.5 Hyperkalemia; I44.0 Atrioventricular block, first degree; R13.10 Dysphagia, unspecified; Z79.02 Long term (current) use of antithrombotics/antiplatelets; Z79.82 Long term (current) use of aspirin; Z79.84 Long term (current) use of oral hypoglycemic drugs; Z85.828 Personal history of other malignant neoplasm of skin; Z86.73 Personal history of transient ischemic attack (TIA), and cerebral infarction without residual deficits; Z87.440 Personal history of urinary (tract) infections; Z79.899 Other long term (current) drug therapy; I07.1 Rheumatic tricuspid insufficiency; Z88.0 Allergy status to penicillin; L89.151 Pressure ulcer of sacral region, stage 1; Z98.42 Cataract extraction status, left eye; Z98.41 Cataract extraction status, right eye; Z87.81 Personal history of (healed) traumatic fracture
CPT/HCPCS: 36415; 36600; 70450; 71045; 71046; 71260; 71275; 74176; 74177; 80048; 80053; 80076; 81001; 82805; 83605; 83615; 83690; 83735; 84132; 84145; 85025; 85027; 85610; 85730; 86140; 87040; 87086; 87324; 87636; 93005; 93306; 94640; 94760; 96361; 96365; 96366; 96367; 96375; 99285